=== PATIENT | female | born 1995 | race Caucasian/White ===

== ENCOUNTER 2016-10-20 08:57 | Emergency (ER) | payer OTHER ==
[2016-10-20] MEDS ORDERED: NORCO, ANEXSIA 5/325MG TABLET (HYDROcodone/ACETAMINOPHEN) As Ordered ONE (09:16)
--- NOTE | 2016-10-20 11:21 | REP ---
RENAL ULTRASOUND: HISTORY: Abdominal pain. The kidneys are normal no echogenicity. The right kidney measures 4.9 cm in transverse by 6.1 cm in AP by 11 cm in cephalocaudal dimensions. The left kidney measures 4.1 cm in transverse by 4.6 cm in AP by 11.5 cm in cephalocaudal dimensions. There is no hydronephrosis or mass. There are no filling defects in the urinary bladder. IMPRESSION: Normal renal ultrasound. Signed by Omar Benavides MD 10/20/2016 11:25 A
--- NOTE | 2016-10-20 11:31 | REP ---
NON-OB PELVIC ULTRASOUND: HISTORY: Left lower quadrant pain. 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 The right side measures 4.6 cm in transverse by 3.1 cm in AP by 8 cm in cephalocaudal dimensions. The left side measures 3.7 cm in transverse by 3 cm in AP by 8.4 cm in cephalocaudal dimensions. The right endometrium measures 10.4 mm. The left endometrium measures 9.4 mm. The right ovary is bilobed in appearance with the following measurements: 2.4 x 0.9 x 1.4 cm and 2.6 x 1.1 x 1.7 cm. The left ovary measures 5.8 x 2.2 x 3.2 cm. There is no fluid in the cul-de-sac. IMPRESSION: 1. 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 MR of the pelvis may be helpful for further evaluation. 2. There is no torsion. Signed by Omar Benavides MD 10/20/2016 11:33 A
--- NOTE | 2016-10-20 11:39 | EDDOCDS ---
Nurse's Notes [facility] Name: Lillian Monreal Age: 21 yrs Sex: Female : 1995 Arrival Date: 10/20/2016 Time: 08:57 Bed PR2 / Private MD: Julia Merchant E Diagnosis: Abdominal and pelvic pain-LLQ Presentation: 10/20 09:02 Presenting complaint: Patient states: left lower abd pain started 2 nights ago after mk4 sex. Risk factors: the patient reports no vaginal bleeding. Adult Sepsis Screening: The patient does not have new or worsening altered mentation. Patient's respiratory rate is less than 22. Systolic blood pressure is greater than 100. Patient has a qSOFA score of 0- Negative Sepsis Screen. Suicide/Homicide risk assessment- the patient denies having any suicidal and/or homicidal ideations and does not present with any other emotional, behavioral or mental health complaints. 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 Transition of care: patient was not received from another setting of care. 09:02 Acuity: VIRY Level 3 mk4 09:02 Method Of Arrival: Walkin/Carried/Asstd mk4 Triage Assessment: 09:04 General: Appears uncomfortable. Pain: Location: left lower quadrant Pain currently is 6 mk4 out of 10 on a pain scale. Quality of pain is described as Pain began 2-3 days ago Is intermittent. HIV screening NA for this visit Offered previously. 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 none - PMHx: Seasonal Allergies; - PSHx: foot surgery to left foot; - Family history: Not pertinent. - Social history: Smoking status: Patient states was never smoker of tobacco. No barriers to communication noted, The patient speaks fluent Italian, Speaks appropriately for age. - : The pt / caregiver states he / she is not on anticoagulants. Home medication list is obtained from the patient. - Exposure Risk Screening:: None identified. Screenin:27 Screening information is obtained from the patient. Fall risk: No risks identified. mk4 Assistance ADL's: requires no assistance with activities of daily living. Abuse/DV Screen: The patient / caregiver reports he/she is: not in a situation that causes fear, pain or injury. Nutritional screening: No deficits noted. Advance Directives: There is no active DNR order. home support is adequate. Assessment: 09:27 General: Appears in no apparent distress. Pain: Location: left lower quadrant Pain mk4 currently is 6 out of 10 on a pain scale. Respiratory: Airway is patent. GI: Abdomen is non- distended obese, Bowel sounds present X 4 quads. Abd is tender to palpation in left lower quadrant. 11:36 General: Appears in no apparent distress, comfortable, Behavior is appropriate for age, mlb1 cooperative. Pain: Location: left lower quadrant Pain currently is 4 out of 10 on a pain scale. Neurological: No deficits noted. Respiratory: No deficits noted. GI: Denies nausea. Vital Signs: 09:04 BP 126 / 79; Pulse 73; Resp 18; Pulse Ox 99% on R/A; Weight 81.65 kg; Height 5 ft. 7 mk4 in. (170.18 cm); Pain 6/10; 09:06 Temp 97.5(O); mk4 11:34 BP 126 / 69; Pulse 71; Resp 18; Temp 98.6(O); Pulse Ox 97% on R/A; Pain 5/10; dem1 09:04 Body Mass Index 28.19 (81.65 kg, 170.18 cm) 4 Vitals: 09:04 Log In Time: October 20, 2016 at 08:56. 4 ED Course: 08:58 Patient visited by Criss Johansen. mm15 08:58 Julia Merchant is Private Physician. mm15 08:58 Patient moved to Waiting mm15 09:03 Triage Initiated mk4 09:05 Patient moved to Triage 2 mk4 09:06 [facility] cc10 09:07 Magaly Zayas MD is Attending Physician. cc10 09:08 Patient visited by Mike Armendariz PA-C. cc10 09:08 Patient visited by Mike Armendariz PA-C. cc10 09:23 Patient moved to TR1 mk4 09:23 UA Sent. mk4 09:27 The patient / caregiver is instructed regarding the plan of care and ED course. mk4 09:27 No IV's were initiated during this patient's visit. No procedures done that require [facility] assistance. 09:29 Patient visited by Magui Garcia RN. mk4 09:55 Patient moved to Ultrasound sm5 10:38 Patient visited by Magui Garcia RN. mk4 11:01 Patient moved to TR1 eg2 11:03 [facility] Payment Agreement was scanned into [email or web address] and attached to record. mm15 11:12 Patient visited by Magui Garcia RN. mk4 11:21 Patient moved to PR / mk4 11:27 Omar Castaneda MD is Referral Physician. cc10 11:34 Patient visited by Holli Robin. dem1 Administered Medications: 09:22 Drug: HYDROcodone-acetaminophen 2 tabs [hydrocodone 5 mg-acetaminophen 325 mg tablet (2 mk4 tabs)] Route: PO; 11:38 Follow up: Response: Confirmed pt not driving.; Pain is decreased; see VS in NN mlb1 Point of Care Testing: Urine : 10:35 hCG Reading: Negative; mk4 Ranges: Intake: Order Results: Lab Order: UA; SPEC'M 10/20/16 09:23 Test: APPEARANCE, URINE; Value: HAZY; Range: CLEAR; Status: F Test: COLOR, URINE; Value: YELLOW; Range: YELLOW; Status: F Test: PH,URINE; Value: 6.0; Range: 5.0-9.0; Units: UNITS; Status: F Test: SPECIFIC GRAVITY URINE AUTO; Value: 1.018; Range: 1.002-1.035; Status: F Test: PROTEIN, URINE AUTO; Value: NEGATIVE; Range: NEGATIVE; Units: mg/dL; Status: F Test: GLUCOSE, URINE (UA) AUTO; Value: NEGATIVE; Range: NEGATIVE; Units: mg/dL; Status: F Test: KETONE, URINE AUTO; Value: NEGATIVE; Range: NEGATIVE; Units: mg/dL; Status: F Test: UROBILINOGEN, URINE AUTO; Value: 0.2; Range: 0.0-2.0; Units: mg/dL; Status: F Test: BILIRUBIN, URINE AUTO; Value: NEGATIVE; Range: NEGATIVE; Status: F Test: NITRITE, URINE AUTO; Value: NEGATIVE; Range: NEGATIVE; Status: F Test: LEUKOCYTE ESTERASE, URINE AUTO; Value: NEGATIVE; Range: NEGATIVE; Status: F Test: BLOOD, URINE BLOOD; Value: NEGATIVE; Range: NEGATIVE; Status: F Test: WBC, URINE AUTO; Value: 1; Range: 0-3; Units: /HPF; Status: F Test: RBC, URINE AUTO; Value: 1; Range: 0-3; Units: /HPF; Status: F Test: BACTERIA, URINE AUTO; Value: 1+; Range: NEGATIVE; Abnormal: Above high normal; Status: F Test: SQUAMOUS EPITHELIAL CELL UR AU; Value: 4; Range: 0-6; Units: /HPF; Status: F Test: MUCUS, URINE; Value: SMALL; Range: NEGATIVE; Status: F Test: HYALINE CAST, URINE AUTO; Value: 0; Range: 0-1; Units: /LPF; Status: F Outcome: 11:28 Discharge ordered by Provider. cc10 11:37 Discharge Assessment: Patient awake, alert and oriented x 3. No cognitive and/or mlb1 functional deficits noted. Patient verbalized understanding of disposition instructions. patient administered narcotics - yes. Pt provided with safe discharge. The following High Risk Discharge criteria are identified: None. Discharged to home ambulatory. Condition: good. Discharge instructions given to patient, Instructed on discharge instructions, follow up and referral plans. medication usage, no driving heavy equipment, Demonstrated understanding of instructions, medications, Pt was receptive of discharge instructions/ teaching. Prescriptions given X 1. Ultrasound Study completed. Property sent home with patient. 11:38 Patient left the ED. mlb1 Signatures: Gabi Bolivar sm5 Keyshawn Haro RN RN mlb1 Miya Barreto eg2 Holli Robin dem1 Criss Johansen mm15 Magui Garcia RN RN mk4 Mike Armendariz PA-C PAJuliaC cc10 MTDD
--- NOTE | 2016-10-20 11:39 | EDDOCDS ---
Physician Documentation [facility] Name: Lillian Monreal Age: 21 yrs Sex: Female : 1995 Arrival Date: 10/20/2016 Time: 08:57 Bed PR Private MD: Julia Merchant E Disposition: 10/20/16 11:28 Discharged to Home/Self Care. Impression: Abdominal and pelvic pain - LLQ. - Condition is Stable. - Discharge Instructions: Pelvic Pain, Female. - Prescriptions for Ultram 50 mg Oral Tablet - take 1 tablet by ORAL route every 6 hours As needed MDD: 4 tabs; 12 tablet. - Medication Reconciliation, Work Release Form - 1 day form. - Follow up: Omar Castaneda MD; When: Call to arrange an appointment; Reason: Wound/Symptom Recheck, Further diagnostic work-up, Recheck today's complaints, Continuance of care, To establish care. - Problem is an ongoing problem. - Symptoms have improved. Historical: - Allergies: no known allergies; - Home Meds: 1. none - PMHx: Seasonal Allergies; - PSHx: foot surgery to left foot; - Family history: Not pertinent. - Social history: Smoking status: Patient states was never smoker of tobacco. No barriers to communication noted, The patient speaks fluent Kyrgyz, Speaks appropriately for age. - : The pt / caregiver states he / she is not on anticoagulants. Home medication list is obtained from the patient. - Exposure Risk Screening:: None identified. 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 7 in. (170.18 cm); Pain 6/10; 09:06 Temp 97.5(O); mk4 11:34 BP 126 / 69; Pulse 71; Resp 18; Temp 98.6(O); Pulse Ox 97% on R/A; Pain 5/10; dem1 09:04 Body Mass Index 28.19 (81.65 kg, 170.18 cm) mk4 MDM: 09:13 UCG by Nursing ordered. cc10 09:14 HYDROcodone-acetaminophen 5 mg-325 mg 2 tabs PO once ordered. cc10 09:14 -US Pelvic Non-Ob Complete Ordered. EDMS 09:15 UA Ordered. EDMS 09:15 DUPLEX SCAN LIMITED (DOPPLER)+US Ordered. EDMS 09:58 Transvaginal NON- US Ordered. EDMS 10:26 Renal US Ordered. EDMS 10:32 UA Reviewed. cc10 11:03 Financial registration complete. mm15 11:03 [facility] Payment Agreement was scanned into [employer] and attached to record. mm15 Point of Care Testing: Urine : 10:35 hCG Reading: Negative; mk4 Ranges: Administered Medications: 09:22 Drug: HYDROcodone-acetaminophen 2 tabs [hydrocodone 5 mg-acetaminophen 325 mg tablet (2 mk4 tabs)] Route: PO; 11:38 Follow up: Response: Confirmed pt not driving.; Pain is decreased; see VS in NN mlb1 Signatures: Dispatcher [employer] EDMS Keyshawn Haro RN RN mlb1 Criss Johansen mm15 Magui Garcia RN RN mk4 Mike Armendariz PA-C PAAbdon cc10 The chart was reviewed and I authenticate all verbal orders and agree with the evaluation and treatment provided.Attachments: 11:03 [facility] Payment Agreement mm15 MTDD
--- NOTE | 2016-10-22 12:39 | EDDOCDS ---
Physician Documentation [facility] Name: Lillian Monreal Age: 21 yrs Sex: Female : 1995 Arrival Date: 10/20/2016 Time: 08:57 Bed PR Private MD: Julia Merchant E Disposition: 10/20/16 11:28 Discharged to Home/Self Care. Impression: Abdominal and pelvic pain - LLQ. - Condition is Stable. - Discharge Instructions: Pelvic Pain, Female. - Prescriptions for Ultram 50 mg Oral Tablet - take 1 tablet by ORAL route every 6 hours As needed MDD: 4 tabs; 12 tablet. - Medication Reconciliation, Work Release Form - 1 day form. - Follow up: Omar Castaneda MD; When: Call to arrange an appointment; Reason: Wound/Symptom Recheck, Further diagnostic work-up, Recheck today's complaints, Continuance of care, To establish care. - Problem is an ongoing problem. - Symptoms have improved. Historical: - Allergies: no known allergies; - Home Meds: 1. none - PMHx: Seasonal Allergies; - PSHx: foot surgery to left foot; - Family history: Not pertinent. - Social history: Smoking status: Patient states was never smoker of tobacco. No barriers to communication noted, The patient speaks fluent Mongolian, Speaks appropriately for age. - : The pt / caregiver states he / she is not on anticoagulants. Home medication list is obtained from the patient. - Exposure Risk Screening:: None identified. 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 7 in. (170.18 cm); Pain 6/10; 09:06 Temp 97.5(O); mk4 11:34 BP 126 / 69; Pulse 71; Resp 18; Temp 98.6(O); Pulse Ox 97% on R/A; Pain 5/10; dem1 09:04 Body Mass Index 28.19 (81.65 kg, 170.18 cm) mk4 MDM: 09:13 UCG by Nursing ordered. cc10 09:14 HYDROcodone-acetaminophen 5 mg-325 mg 2 tabs PO once ordered. cc10 09:14 -US Pelvic Non-Ob Complete Ordered. EDMS 09:15 UA Ordered. EDMS 09:15 DUPLEX SCAN LIMITED (DOPPLER)+US Ordered. EDMS 09:58 Transvaginal NON- US Ordered. EDMS 10:26 Renal US Ordered. EDMS 10:32 UA Reviewed. cc10 11:03 Financial registration complete. mm15 11:03 [facility] Payment Agreement was scanned into [employer] and attached to record. mm15 14:55 T-Sheet-- Draft Copy was scanned into [employer] and attached to record. gb Point of Care Testing: Urine : 10:35 hCG Reading: Negative; mk4 Ranges: Administered Medications: 09:22 Drug: HYDROcodone-acetaminophen 2 tabs [hydrocodone 5 mg-acetaminophen 325 mg tablet (2 mk4 tabs)] Route: PO; 11:38 Follow up: Response: Confirmed pt not driving.; Pain is decreased; see VS in NN mlb1 Signatures: Dispatcher [employer] EDMS Tonie Pereyra, Reg Reg gb Keyshawn Haro, RN RN mlb1 Criss Johansen mm15 Magui Garcia RN RN mk4 Mike Armendariz PA-C PAAbdon cc10 The chart was reviewed and I authenticate all verbal orders and agree with the evaluation and treatment provided.Attachments: 11:03 [facility] Payment Agreement 15 14:55 T-Sheet-- Draft Copy gb Chart Complete MTDD
--- NOTE | 2016-10-22 12:39 | EDDOCDS ---
Physician Documentation [facility] Name: Lillian Monreal Age: 21 yrs Sex: Female : 1995 Arrival Date: 10/20/2016 Time: 08:57 Bed PR Private MD: Julia Merchant E Disposition: 10/20/16 11:28 Discharged to Home/Self Care. Impression: Abdominal and pelvic pain - LLQ. - Condition is Stable. - Discharge Instructions: Pelvic Pain, Female. - Prescriptions for Ultram 50 mg Oral Tablet - take 1 tablet by ORAL route every 6 hours As needed MDD: 4 tabs; 12 tablet. - Medication Reconciliation, Work Release Form - 1 day form. - Follow up: Omar Castaneda MD; When: Call to arrange an appointment; Reason: Wound/Symptom Recheck, Further diagnostic work-up, Recheck today's complaints, Continuance of care, To establish care. - Problem is an ongoing problem. - Symptoms have improved. Historical: - Allergies: no known allergies; - Home Meds: 1. none - PMHx: Seasonal Allergies; - PSHx: foot surgery to left foot; - Family history: Not pertinent. - Social history: Smoking status: Patient states was never smoker of tobacco. No barriers to communication noted, The patient speaks fluent Occitan, Speaks appropriately for age. - : The pt / caregiver states he / she is not on anticoagulants. Home medication list is obtained from the patient. - Exposure Risk Screening:: None identified. 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 7 in. (170.18 cm); Pain 6/10; 09:06 Temp 97.5(O); mk4 11:34 BP 126 / 69; Pulse 71; Resp 18; Temp 98.6(O); Pulse Ox 97% on R/A; Pain 5/10; dem1 09:04 Body Mass Index 28.19 (81.65 kg, 170.18 cm) mk4 MDM: 09:13 UCG by Nursing ordered. cc10 09:14 HYDROcodone-acetaminophen 5 mg-325 mg 2 tabs PO once ordered. cc10 09:14 -US Pelvic Non-Ob Complete Ordered. EDMS 09:15 UA Ordered. EDMS 09:15 DUPLEX SCAN LIMITED (DOPPLER)+US Ordered. EDMS 09:58 Transvaginal NON- US Ordered. EDMS 10:26 Renal US Ordered. EDMS 10:32 UA Reviewed. cc10 11:03 Financial registration complete. mm15 11:03 [facility] Payment Agreement was scanned into [employer] and attached to record. mm15 14:55 T-Sheet-- Draft Copy was scanned into [employer] and attached to record. gb Point of Care Testing: Urine : 10:35 hCG Reading: Negative; mk4 Ranges: Administered Medications: 09:22 Drug: HYDROcodone-acetaminophen 2 tabs [hydrocodone 5 mg-acetaminophen 325 mg tablet (2 mk4 tabs)] Route: PO; 11:38 Follow up: Response: Confirmed pt not driving.; Pain is decreased; see VS in NN mlb1 Signatures: Dispatcher [employer] EDMS Tonie Pereyra, Reg Reg gb Keyshawn Haro, RN RN mlb1 Criss Johansen mm15 Magui Garcia RN RN mk4 Mike Armendariz PA-C PAAbdon cc10 The chart was reviewed and I authenticate all verbal orders and agree with the evaluation and treatment provided.Attachments: 11:03 [facility] Payment Agreement 15 14:55 T-Sheet-- Draft Copy gb Chart Complete MTDD
--- NOTE | 2016-10-22 12:39 | EDDOCDS ---
Nurse's Notes [facility] Name: Lillian Monreal Age: 21 yrs Sex: Female : 1995 Arrival Date: 10/20/2016 Time: 08:57 Bed PR2 / Private MD: Julia Merchant E Diagnosis: Abdominal and pelvic pain-LLQ Presentation: 10/20 09:02 Presenting complaint: Patient states: left lower abd pain started 2 nights ago after mk4 sex. Risk factors: the patient reports no vaginal bleeding. Adult Sepsis Screening: The patient does not have new or worsening altered mentation. Patient's respiratory rate is less than 22. Systolic blood pressure is greater than 100. Patient has a qSOFA score of 0- Negative Sepsis Screen. Suicide/Homicide risk assessment- the patient denies having any suicidal and/or homicidal ideations and does not present with any other emotional, behavioral or mental health complaints. Status: Patient is not a service writer or dependent. Transition of care: patient was not received from another setting of care. 09:02 Acuity: VIRY Level 3 mk4 09:02 Method Of Arrival: Walkin/Carried/Asstd mk4 Triage Assessment: 09:04 General: Appears uncomfortable. Pain: Location: left lower quadrant Pain currently is 6 mk4 out of 10 on a pain scale. Quality of pain is described as Pain began 2-3 days ago Is intermittent. HIV screening NA for this visit Offered previously. INSPECTOR POISING: 09:04 LMP 09/16/2016 mk4 Historical: - Allergies: no known allergies; - Home Meds: 1. none - PMHx: Seasonal Allergies; - PSHx: foot surgery to left foot; - Family history: Not pertinent. - Social history: Smoking status: Patient states was never smoker of tobacco. No barriers to communication noted, The patient speaks fluent Thai, Speaks appropriately for age. - : The pt / caregiver states he / she is not on anticoagulants. Home medication list is obtained from the patient. - Exposure Risk Screening:: None identified. Screenin:27 Screening information is obtained from the patient. Fall risk: No risks identified. mk4 Assistance ADL's: requires no assistance with activities of daily living. Abuse/DV Screen: The patient / caregiver reports he/she is: not in a situation that causes fear, pain or injury. Nutritional screening: No deficits noted. Advance Directives: There is no active DNR order. home support is adequate. Assessment: 09:27 General: Appears in no apparent distress. Pain: Location: left lower quadrant Pain mk4 currently is 6 out of 10 on a pain scale. Respiratory: Airway is patent. GI: Abdomen is non- distended obese, Bowel sounds present X 4 quads. Abd is tender to palpation in left lower quadrant. 11:36 General: Appears in no apparent distress, comfortable, Behavior is appropriate for age, mlb1 cooperative. Pain: Location: left lower quadrant Pain currently is 4 out of 10 on a pain scale. Neurological: No deficits noted. Respiratory: No deficits noted. GI: Denies nausea. Vital Signs: 09:04 BP 126 / 79; Pulse 73; Resp 18; Pulse Ox 99% on R/A; Weight 81.65 kg; Height 5 ft. 7 mk4 in. (170.18 cm); Pain 6/10; 09:06 Temp 97.5(O); mk4 11:34 BP 126 / 69; Pulse 71; Resp 18; Temp 98.6(O); Pulse Ox 97% on R/A; Pain 5/10; dem1 09:04 Body Mass Index 28.19 (81.65 kg, 170.18 cm) 4 Vitals: 09:04 Log In Time: October 20, 2016 at 08:56. 4 ED Course: 08:58 Patient visited by Criss Johansen. mm15 08:58 Julia Merchant is Private Physician. mm15 08:58 Patient moved to Waiting mm15 09:03 Triage Initiated mk4 09:05 Patient moved to Triage 2 mk4 09:06 [facility] cc10 09:07 Magaly Zayas MD is Attending Physician. cc10 09:08 Patient visited by Mike Armendariz PA-C. cc10 09:08 Patient visited by Mike Armendariz PA-C. cc10 09:23 Patient moved to TR1 mk4 09:23 UA Sent. mk4 09:27 The patient / caregiver is instructed regarding the plan of care and ED course. mk4 09:27 No IV's were initiated during this patient's visit. No procedures done that require mk4 assistance. 09:29 Patient visited by Magui Garcia RN. mk4 09:55 Patient moved to Ultrasound sm5 10:38 Patient visited by Magui Garcia RN. mk4 11:01 Patient moved to TR1 eg2 11:03 [facility] Payment Agreement was scanned into [email or web address] and attached to record. mm15 11:12 Patient visited by Magui Garcia RN. mk4 11:21 Patient moved to PR2 / mk4 11:27 Omar Castaneda MD is Referral Physician. cc10 11:34 Patient visited by Hloli Robin. dem1 11:42 Renal US Returned. EDMS 11:42 -US Pelvic Non-Ob Complete Returned. EDMS 14:55 T-Sheet-- Draft Copy was scanned into [email or web address] and attached to record. gb Administered Medications: 09:22 Drug: HYDROcodone-acetaminophen 2 tabs [hydrocodone 5 mg-acetaminophen 325 mg tablet (2 mk4 tabs)] Route: PO; 11:38 Follow up: Response: Confirmed pt not driving.; Pain is decreased; see VS in NN mlb1 Point of Care Testing: Urine : 10:35 hCG Reading: Negative; mk4 Ranges: Intake: Order Results: Lab Order: UA; SPEC'M 10/20/16 09:23 Test: APPEARANCE, URINE; Value: HAZY; Range: CLEAR; Status: F Test: COLOR, URINE; Value: YELLOW; Range: YELLOW; Status: F Test: PH,URINE; Value: 6.0; Range: 5.0-9.0; Units: UNITS; Status: F Test: SPECIFIC GRAVITY URINE AUTO; Value: 1.018; Range: 1.002-1.035; Status: F Test: PROTEIN, URINE AUTO; Value: NEGATIVE; Range: NEGATIVE; Units: mg/dL; Status: F Test: GLUCOSE, URINE (UA) AUTO; Value: NEGATIVE; Range: NEGATIVE; Units: mg/dL; Status: F Test: KETONE, URINE AUTO; Value: NEGATIVE; Range: NEGATIVE; Units: mg/dL; Status: F Test: UROBILINOGEN, URINE AUTO; Value: 0.2; Range: 0.0-2.0; Units: mg/dL; Status: F Test: BILIRUBIN, URINE AUTO; Value: NEGATIVE; Range: NEGATIVE; Status: F Test: NITRITE, URINE AUTO; Value: NEGATIVE; Range: NEGATIVE; Status: F Test: LEUKOCYTE ESTERASE, URINE AUTO; Value: NEGATIVE; Range: NEGATIVE; Status: F Test: BLOOD, URINE BLOOD; Value: NEGATIVE; Range: NEGATIVE; Status: F Test: WBC, URINE AUTO; Value: 1; Range: 0-3; Units: /HPF; Status: F Test: RBC, URINE AUTO; Value: 1; Range: 0-3; Units: /HPF; Status: F Test: BACTERIA, URINE AUTO; Value: 1+; Range: NEGATIVE; Abnormal: Above high normal; Status: F Test: SQUAMOUS EPITHELIAL CELL UR AU; Value: 4; Range: 0-6; Units: /HPF; Status: F Test: MUCUS, URINE; Value: SMALL; Range: NEGATIVE; Status: F Test: HYALINE CAST, URINE AUTO; Value: 0; Range: 0-1; Units: /LPF; Status: F Radiology Order: -US Pelvic Non-Ob Complete Test: -US Pelvic Non-Ob Complete REASON FOR EXAMINATION: Adnexal Pain r/o Torsion; NON-OB PELVIC ULTRASOUND:; ; HISTORY: Left lower quadrant pain.; ; 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 The right side measures 4.6; cm in transverse by 3.1 cm in AP by 8 cm in cephalocaudal dimensions. The left; side measures 3.7 cm in transverse by 3 cm in AP by 8.4 cm in cephalocaudal; dimensions. The right endometrium measures 10.4 mm. The left endometrium; measures 9.4 mm. The right ovary is bilobed in appearance with the following; measurements: 2.4 x 0.9 x 1.4 cm and 2.6 x 1.1 x 1.7 cm. The left ovary measures; 5.8 x 2.2 x 3.2 cm. There is no fluid in the cul-de-sac.; ; IMPRESSION:; ; 1. 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 MR of the pelvis may be; helpful for further evaluation.; ; 2. There is no torsion.; ; ; Signed by; Omar Benavides MD 10/20/2016 11:33 A; Radiology Order: Renal US Test: Renal US REASON FOR EXAMINATION: Abdomen Pain; RENAL ULTRASOUND:; ; HISTORY: Abdominal pain.; ; The kidneys are normal no echogenicity. The right kidney measures 4.9 cm in; transverse by 6.1 cm in AP by 11 cm in cephalocaudal dimensions. The left kidney; measures 4.1 cm in transverse by 4.6 cm in AP by 11.5 cm in cephalocaudal; dimensions. There is no hydronephrosis or mass. There are no filling defects in; the urinary bladder.; ; IMPRESSION:; ; Normal renal ultrasound.; ; ; Signed by; Omar Benavides MD 10/20/2016 11:25 A; Outcome: 11:28 Discharge ordered by Provider. cc10 11:37 Discharge Assessment: Patient awake, alert and oriented x 3. No cognitive and/or mlb1 functional deficits noted. Patient verbalized understanding of disposition instructions. patient administered narcotics - yes. Pt provided with safe discharge. The following High Risk Discharge criteria are identified: None. Discharged to home ambulatory. Condition: good. Discharge instructions given to patient, Instructed on discharge instructions, follow up and referral plans. medication usage, no driving heavy equipment, Demonstrated understanding of instructions, medications, Pt was receptive of discharge instructions/ teaching. Prescriptions given X 1. Ultrasound Study completed. Property sent home with patient. 11:38 Patient left the ED. mlb1 Signatures: Dispatcher [employer] EDMS Tonie Pereyra, Reg Reg Gabi Gomez sm5 Keyshawn Haro, RN RN mlb1 Miya Barreto eg2 Holli Robin1 Criss Johansen mm15 Magui Garcia RN RN mk4 Mike Armendariz, PAJuliaC PAJuliaC cc10 Chart Complete MTDD
== END 2016-10-20 11:38 | disposition home or self-care (01) ==
LOC: M ED 08:57
DX: R10.2 Pelvic and perineal pain (principal); J30.9 Allergic rhinitis, unspecified

== ENCOUNTER 2016-10-23 01:11 | Emergency (ER) | payer OTHER ==
[2016-10-23] MEDS ORDERED: BACTRIM 160MG/800MG DS TAB As Ordered ONE (02:16)
--- NOTE | 2016-10-23 02:33 | EDDOCDS ---
Nurse's Notes [facility] Name: Lillian Monreal Age: 21 yrs Sex: Female : 1995 Arrival Date: 10/23/2016 Time: 01:11 Bed I5 / M5 Private MD: Julia Merchant E Diagnosis: Cellulitis of umbilicus-SECONDARY TO NAVAL PIERCING Presentation: 10/23 01:32 Presenting complaint: Patient states: Had belly pierced a couple of weeks ago. Presents ld5 to ER with redness and scabbing around piercing. Adult Sepsis Screening: The patient does not have new or worsening altered mentation. Patient's respiratory rate is less than 22. Systolic blood pressure is greater than 100. Patient has a qSOFA score of 0- Negative Sepsis Screen. Suicide/Homicide risk assessment- the patient denies having any suicidal and/or homicidal ideations and does not present with any other emotional, behavioral or mental health complaints. 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 Transition of care: patient was not received from another setting of care. 01:32 Acuity: VIRY Level 4 ld5 01:32 Method Of Arrival: Walkin/Carried/Asstd ld5 Triage Assessment: 01:34 General: Appears in no apparent distress. Pain: Location: umbilical area Pain currently ld5 is 6 out of 10 on a pain scale. At worst was 10 out of 10 on a pain scale. Aggravated by repositioning. HIV screening NA for this visit Offered previously. Neurological: Level of Consciousness is awake, alert. Derm: redness around umbilical piercing. 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 none - PMHx: none; - PSHx: left foot surgery; - Social history: Smoking status: Patient states former smoker of tobacco. No barriers to communication noted, The patient speaks fluent Wolof, Speaks appropriately for age. - Family history: Not pertinent. - : The pt / caregiver states he / she is not on anticoagulants. Home medication list is obtained from the patient. - Exposure Risk Screening:: None identified. Screenin:31 Screening information is obtained from the patient. Fall risk: No risks identified. cz Assistance ADL's: requires no assistance with activities of daily living. Abuse/DV Screen: The patient / caregiver reports he/she is: not in a situation that causes fear, pain or injury. Nutritional screening: No deficits noted. Advance Directives: Currently, there is no health care proxy. There is no active DNR order. There is no living will. 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 Advance directive information has not previously been placed in an [facility] medical record. home support is adequate. Assessment: 02:31 Reassessment: Patient appears in no apparent distress at this time. Patient states cz symptoms have improved. Vital Signs: 01:29 BP 134 / 76; Pulse 92; Resp 16; Temp 98.3; Pulse Ox 99% on R/A; Weight 81.65 kg (R); ld5 Height 5 ft. 7 in. (170.18 cm) (R); Pain 6/10; 01:29 Body Mass Index 28.19 (81.65 kg, 170.18 cm) ld5 Vitals: 01:29 Log In Time: October 23, 2016 at 01:11. ld5 ED Course: 01:12 Patient visited by Kamran Salvador Reg. pm4 01:12 Patient moved to Waiting pm4 01:13 Julia Merchant is Private Physician. pm4 01:33 Triage Initiated ld5 01:35 Patient visited by Julia Camara RN. ld5 01:35 Patient moved to I5 / ld5 01:58 Ryne Roy RPA-C [facility]. ck7 01:58 Vamshi Perea DO is Attending Physician. ck7 01:58 Patient visited by Ryne Roy RPA-C. ck7 02:22 Julia Merchant is Referral Physician. ck7 02:31 The patient / caregiver is instructed regarding the plan of care and ED course. cz 02:31 No IV's were initiated during this patient's visit. No procedures done that require cz assistance. No procedures done that require assistance. Administered Medications: 02:18 Drug: Trimethoprim-Sulfamethoxazole 1 tabs [sulfamethoxazole 800 mg-trimethoprim 160 mg cz tablet (1 tabs)] Route: PO; Order Results: There are currently no results for this order. Outcome: 02:22 Discharge ordered by Provider. ck7 02:31 Discharge Assessment: Patient awake, alert and oriented x 3. No cognitive and/or cz functional deficits noted. Patient verbalized understanding of disposition instructions. patient administered narcotics - no. The following High Risk Discharge criteria are identified: None. Discharged to home ambulatory, with friend. Condition: stable. Discharge instructions given to patient, Instructed on discharge instructions, follow up and referral plans. medication usage, Demonstrated understanding of instructions, medications, Pt was receptive of discharge instructions/ teaching. No special radiology studies were completed. Property :Personal belongings accompany Pt. 02:32 Patient left the ED. cz Signatures: Dar Novak, PRINCE RN Julia Ohara,PRINCE RN Ryne Whitt, RPA-C RPA-Cck7 Kamran Salvador, Reg Reg pm4 MTDD
--- NOTE | 2016-10-23 02:34 | EDDOCDS ---
Physician Documentation [facility] Name: Lillian Monreal Age: 21 yrs Sex: Female : 1995 Arrival Date: 10/23/2016 Time: 01:11 Bed I5 / M5 Private MD: Julia Merchant E Disposition: 10/23/16 02:22 Discharged to Home/Self Care. Impression: Cellulitis of umbilicus - SECONDARY TO NAVAL PIERCING. - Condition is Stable. - Discharge Instructions: Cellulitis. - Prescriptions for Bactrim DS 800- 160 mg Oral Tablet - take 1 tablet by ORAL route every 12 hours for 10 days; 20 tablet. - Medication Reconciliation, Local Pharmacy Hours form. - Follow up: Julia Merchant; When: 1 - 2 days; Reason: Wound/Symptom Recheck, Recheck today's complaints, Continuance of care. - Problem is new. - Symptoms have improved. - Notes: USE MEDICATION INSTRUCTED, FOLLOW UP WITH YOUR DOCTOR, RETURN TO THE ER IF THE SYMPTOMS WORSEN OR IF YOU DOCTOR IS UNABLE TO GET YOU IN FOR A WOUND RECHECK Historical: - Allergies: no known allergies; - Home Meds: 1. none - PMHx: none; - PSHx: left foot surgery; - Social history: Smoking status: Patient states former smoker of tobacco. No barriers to communication noted, The patient speaks fluent Vietnamese, Speaks appropriately for age. - Family history: Not pertinent. - : The pt / caregiver states he / she is not on anticoagulants. Home medication list is obtained from the patient. - Exposure Risk Screening:: None identified. 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 7 in. (170.18 cm) (R); Pain 6/10; 01:29 Body Mass Index 28.19 (81.65 kg, 170.18 cm) ld5 MDM: 01:59 Financial registration complete. hs2 02:14 Trimethoprim-Sulfamethoxazole 160 mg-800 mg (DS) 1 tabs PO once ordered. ck7 02:15 Wound Culture - All Other Sources Ordered. EDMS Administered Medications: 02:18 Drug: Trimethoprim-Sulfamethoxazole 1 tabs [sulfamethoxazole 800 mg-trimethoprim 160 mg cz tablet (1 tabs)] Route: PO; Signatures: Dispatcher [employer] EDMS Dar Novak, RN RN cz Julia Camara RN RN ld5 Ryne Roy, RPA-C RPA-Cck7 Uma Barrientos, Reg Reg hs2 MTDD
[2016-10-23] MEDS ORDERED: NEOSPORIN OINT 0.9 GM PKT (FLOOR STOCK) As Ordered ONE (05:13)
--- NOTE | 2016-10-25 03:34 | EDDOCDS ---
Physician Documentation [facility] Name: Lillian Monreal Age: 21 yrs Sex: Female : 1995 Arrival Date: 10/23/2016 Time: 01:11 Bed I5 / M5 Private MD: Julia Merchant E Disposition: 10/23/16 02:22 Discharged to Home/Self Care. Impression: Cellulitis of umbilicus - SECONDARY TO NAVAL PIERCING. - Condition is Stable. - Discharge Instructions: Cellulitis. - Prescriptions for Bactrim DS 800- 160 mg Oral Tablet - take 1 tablet by ORAL route every 12 hours for 10 days; 20 tablet. - Medication Reconciliation, Local Pharmacy Hours form. - Follow up: Julia Merchant; When: 1 - 2 days; Reason: Wound/Symptom Recheck, Recheck today's complaints, Continuance of care. - Problem is new. - Symptoms have improved. - Notes: USE MEDICATION INSTRUCTED, FOLLOW UP WITH YOUR DOCTOR, RETURN TO THE ER IF THE SYMPTOMS WORSEN OR IF YOU DOCTOR IS UNABLE TO GET YOU IN FOR A WOUND RECHECK Historical: - Allergies: no known allergies; - Home Meds: 1. none - PMHx: none; - PSHx: left foot surgery; - Social history: Smoking status: Patient states former smoker of tobacco. No barriers to communication noted, The patient speaks fluent Polish, Speaks appropriately for age. - Family history: Not pertinent. - : The pt / caregiver states he / she is not on anticoagulants. Home medication list is obtained from the patient. - Exposure Risk Screening:: None identified. 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 7 in. (170.18 cm) (R); Pain 6/10; 02:34 BP 132 / 76; Pulse 85; Resp 16; Temp 97.5(T); Pulse Ox 96% on R/A; cz 01:29 Body Mass Index 28.19 (81.65 kg, 170.18 cm) ld5 MDM: 01:59 Financial registration complete. hs2 02:14 Trimethoprim-Sulfamethoxazole 160 mg-800 mg (DS) 1 tabs PO once ordered. ck7 02:15 Wound Culture - All Other Sources Ordered. EDMS 03:05 [facility] Payment Agreement was scanned into [employer] and attached to record. hs2 13:52 T-Sheet-- Draft Copy was scanned into [employer] and attached to record. gb Administered Medications: 02:18 Drug: Trimethoprim-Sulfamethoxazole 1 tabs [sulfamethoxazole 800 mg-trimethoprim 160 mg cz tablet (1 tabs)] Route: PO; Signatures: Dispatcher [employer] EDMS Dar Novak, RN RN cz Tonie Pereyra, Reg Reg gb Julia Camara,RN RN ld5 Ryne Roy, BOSSMAN-C RPA-Cck7 Uma Barrientos, Reg Reg hs2 The chart was reviewed and I authenticate all verbal orders and agree with the evaluation and treatment provided.Attachments: 03:05 [facility] Payment Agreement hs2 13:52 T-Sheet-- Draft Copy gb Chart Complete MTDD
--- NOTE | 2016-10-25 03:34 | EDDOCDS ---
Physician Documentation [facility] Name: Lillian Monreal Age: 21 yrs Sex: Female : 1995 Arrival Date: 10/23/2016 Time: 01:11 Bed I5 / M5 Private MD: Julia Merchant E Disposition: 10/23/16 02:22 Discharged to Home/Self Care. Impression: Cellulitis of umbilicus - SECONDARY TO NAVAL PIERCING. - Condition is Stable. - Discharge Instructions: Cellulitis. - Prescriptions for Bactrim DS 800- 160 mg Oral Tablet - take 1 tablet by ORAL route every 12 hours for 10 days; 20 tablet. - Medication Reconciliation, Local Pharmacy Hours form. - Follow up: Julia Merchant; When: 1 - 2 days; Reason: Wound/Symptom Recheck, Recheck today's complaints, Continuance of care. - Problem is new. - Symptoms have improved. - Notes: USE MEDICATION INSTRUCTED, FOLLOW UP WITH YOUR DOCTOR, RETURN TO THE ER IF THE SYMPTOMS WORSEN OR IF YOU DOCTOR IS UNABLE TO GET YOU IN FOR A WOUND RECHECK Historical: - Allergies: no known allergies; - Home Meds: 1. none - PMHx: none; - PSHx: left foot surgery; - Social history: Smoking status: Patient states former smoker of tobacco. No barriers to communication noted, The patient speaks fluent Beninese, Speaks appropriately for age. - Family history: Not pertinent. - : The pt / caregiver states he / she is not on anticoagulants. Home medication list is obtained from the patient. - Exposure Risk Screening:: None identified. 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 7 in. (170.18 cm) (R); Pain 6/10; 02:34 BP 132 / 76; Pulse 85; Resp 16; Temp 97.5(T); Pulse Ox 96% on R/A; cz 01:29 Body Mass Index 28.19 (81.65 kg, 170.18 cm) ld5 MDM: 01:59 Financial registration complete. hs2 02:14 Trimethoprim-Sulfamethoxazole 160 mg-800 mg (DS) 1 tabs PO once ordered. ck7 02:15 Wound Culture - All Other Sources Ordered. EDMS 03:05 [facility] Payment Agreement was scanned into [employer] and attached to record. hs2 13:52 T-Sheet-- Draft Copy was scanned into [employer] and attached to record. gb Administered Medications: 02:18 Drug: Trimethoprim-Sulfamethoxazole 1 tabs [sulfamethoxazole 800 mg-trimethoprim 160 mg cz tablet (1 tabs)] Route: PO; Signatures: Dispatcher [employer] EDMS Dar Novak, RN RN cz Tonie Pereyra, Reg Reg gb Julia Camara,RN RN ld5 Ryne Roy, BOSSMAN-C RPA-Cck7 Uma Barrientos, Reg Reg hs2 The chart was reviewed and I authenticate all verbal orders and agree with the evaluation and treatment provided.Attachments: 03:05 [facility] Payment Agreement hs2 13:52 T-Sheet-- Draft Copy gb Chart Complete MTDD
--- NOTE | 2016-10-25 03:34 | EDDOCDS ---
Nurse's Notes [facility] Name: Lillian Monreal Age: 21 yrs Sex: Female : 1995 Arrival Date: 10/23/2016 Time: 01:11 Bed I5 / M5 Private MD: Julia Merchant E Diagnosis: Cellulitis of umbilicus-SECONDARY TO NAVAL PIERCING Presentation: 10/23 01:32 Presenting complaint: Patient states: Had belly pierced a couple of weeks ago. Presents ld5 to ER with redness and scabbing around piercing. Adult Sepsis Screening: The patient does not have new or worsening altered mentation. Patient's respiratory rate is less than 22. Systolic blood pressure is greater than 100. Patient has a qSOFA score of 0- Negative Sepsis Screen. Suicide/Homicide risk assessment- the patient denies having any suicidal and/or homicidal ideations and does not present with any other emotional, behavioral or mental health complaints. 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 Transition of care: patient was not received from another setting of care. 01:32 Acuity: VIRY Level 4 ld5 01:32 Method Of Arrival: Walkin/Carried/Asstd ld5 Triage Assessment: 01:34 General: Appears in no apparent distress. Pain: Location: umbilical area Pain currently ld5 is 6 out of 10 on a pain scale. At worst was 10 out of 10 on a pain scale. Aggravated by repositioning. HIV screening NA for this visit Offered previously. Neurological: Level of Consciousness is awake, alert. Derm: redness around umbilical piercing. 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 none - PMHx: none; - PSHx: left foot surgery; - Social history: Smoking status: Patient states former smoker of tobacco. No barriers to communication noted, The patient speaks fluent Puerto Rican, Speaks appropriately for age. - Family history: Not pertinent. - : The pt / caregiver states he / she is not on anticoagulants. Home medication list is obtained from the patient. - Exposure Risk Screening:: None identified. Screenin:31 Screening information is obtained from the patient. Fall risk: No risks identified. cz Assistance ADL's: requires no assistance with activities of daily living. Abuse/DV Screen: The patient / caregiver reports he/she is: not in a situation that causes fear, pain or injury. Nutritional screening: No deficits noted. Advance Directives: Currently, there is no health care proxy. There is no active DNR order. There is no living will. There is no Power of Ssrs Developer. Advance directive information has not previously been placed in an [facility] medical record. home support is adequate. Assessment: 02:31 Reassessment: Patient appears in no apparent distress at this time. Patient states cz symptoms have improved. Vital Signs: 01:29 BP 134 / 76; Pulse 92; Resp 16; Temp 98.3; Pulse Ox 99% on R/A; Weight 81.65 kg (R); ld5 Height 5 ft. 7 in. (170.18 cm) (R); Pain 6/10; 02:34 BP 132 / 76; Pulse 85; Resp 16; Temp 97.5(T); Pulse Ox 96% on R/A; cz 01:29 Body Mass Index 28.19 (81.65 kg, 170.18 cm) ld5 Vitals: 01:29 Log In Time: October 23, 2016 at 01:11. ld5 ED Course: 01:12 Patient visited by Kamran Salvador Reg. pm4 01:12 Patient moved to Waiting pm4 01:13 Julia Merchant is Private Physician. pm4 01:33 Triage Initiated ld5 01:35 Patient visited by Julia Camara RN. ld5 01:35 Patient moved to I5 / ld5 01:58 Ryne Roy [facility]C [facility] ck7 01:58 Vamshi Perea DO is Attending Physician. ck7 01:58 Patient visited by Ryne Roy RPA-C. ck7 02:22 Julia Merchant is Referral Physician. ck7 02:31 The patient / caregiver is instructed regarding the plan of care and ED course. cz 02:31 No IV's were initiated during this patient's visit. No procedures done that require cz assistance. No procedures done that require assistance. 03:05 [facility] Payment Agreement was scanned into [employer] and attached to record. hs2 13:52 T-Sheet-- Draft Copy was scanned into [employer] and attached to record. gb Administered Medications: 02:18 Drug: Trimethoprim-Sulfamethoxazole 1 tabs [sulfamethoxazole 800 mg-trimethoprim 160 mg cz tablet (1 tabs)] Route: PO; Order Results: There are currently no results for this order. Outcome: 02:22 Discharge ordered by Provider. ck7 02:31 Discharge Assessment: Patient awake, alert and oriented x 3. No cognitive and/or cz functional deficits noted. Patient verbalized understanding of disposition instructions. patient administered narcotics - no. The following High Risk Discharge criteria are identified: None. Discharged to home ambulatory, with friend. Condition: stable. Discharge instructions given to patient, Instructed on discharge instructions, follow up and referral plans. medication usage, Demonstrated understanding of instructions, medications, Pt was receptive of discharge instructions/ teaching. No special radiology studies were completed. Property :Personal belongings accompany Pt. 02:32 Patient left the ED. cz Signatures: Dar Novak, RN RN cz Tonie Pereyra, Reg Reg gb Julia CamaraRN RN ld5 Ryne Roy, RPA-C RPA-Cck7 Uma Barrientos, Reg Reg hs2 Kamran Salvador, Reg Reg pm4 Chart Complete MTDD
--- NOTE | 2016-10-30 15:31 | EDDOCDS ---
Physician Documentation [facility] Name: Lillian Monreal Age: 21 yrs Sex: Female : 1995 Arrival Date: 10/23/2016 Time: 01:11 Bed I5 / M5 Private MD: Julia Merchant E Disposition: 10/23/16 02:22 Discharged to Home/Self Care. Impression: Cellulitis of umbilicus - SECONDARY TO NAVAL PIERCING. - Condition is Stable. - Discharge Instructions: Cellulitis. - Prescriptions for Bactrim DS 800- 160 mg Oral Tablet - take 1 tablet by ORAL route every 12 hours for 10 days; 20 tablet. - Medication Reconciliation, Local Pharmacy Hours form. - Follow up: Julia Merchant; When: 1 - 2 days; Reason: Wound/Symptom Recheck, Recheck today's complaints, Continuance of care. - Problem is new. - Symptoms have improved. - Notes: USE MEDICATION INSTRUCTED, FOLLOW UP WITH YOUR DOCTOR, RETURN TO THE ER IF THE SYMPTOMS WORSEN OR IF YOU DOCTOR IS UNABLE TO GET YOU IN FOR A WOUND RECHECK Historical: - Allergies: no known allergies; - Home Meds: 1. none - PMHx: none; - PSHx: left foot surgery; - Social history: Smoking status: Patient states former smoker of tobacco. No barriers to communication noted, The patient speaks fluent Canadian, Speaks appropriately for age. - Family history: Not pertinent. - : The pt / caregiver states he / she is not on anticoagulants. Home medication list is obtained from the patient. - Exposure Risk Screening:: None identified. 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 7 in. (170.18 cm) (R); Pain 6/10; 02:34 BP 132 / 76; Pulse 85; Resp 16; Temp 97.5(T); Pulse Ox 96% on R/A; cz 01:29 Body Mass Index 28.19 (81.65 kg, 170.18 cm) ld5 MDM: 01:59 Financial registration complete. hs2 02:14 Trimethoprim-Sulfamethoxazole 160 mg-800 mg (DS) 1 tabs PO once ordered. ck7 02:15 Wound Culture - All Other Sources Ordered. EDMS 03:05 [facility] Payment Agreement was scanned into [employer] and attached to record. hs2 13:52 T-Sheet-- Draft Copy was scanned into [employer] and attached to record. gb Administered Medications: 02:18 Drug: Trimethoprim-Sulfamethoxazole 1 tabs [sulfamethoxazole 800 mg-trimethoprim 160 mg cz tablet (1 tabs)] Route: PO; Signatures: Dispatcher [employer] EDMS Dar Novak, RN RN cz Tonie Pereyra, Reg Reg gb Julia Camara,RN RN ld5 Ryne Roy, BOSSMAN-C RPA-Cck7 Uma Barrientos, Reg Reg hs2 The chart was reviewed and I authenticate all verbal orders and agree with the evaluation and treatment provided.Attachments: 03:05 [facility] Payment Agreement hs2 13:52 T-Sheet-- Draft Copy gb Chart Complete MTDD
--- NOTE | 2016-10-30 15:31 | EDDOCDS ---
Physician Documentation [facility] Name: Lillian Monreal Age: 21 yrs Sex: Female : 1995 Arrival Date: 10/23/2016 Time: 01:11 Bed I5 / M5 Private MD: Julia Merchant E Disposition: 10/23/16 02:22 Discharged to Home/Self Care. Impression: Cellulitis of umbilicus - SECONDARY TO NAVAL PIERCING. - Condition is Stable. - Discharge Instructions: Cellulitis. - Prescriptions for Bactrim DS 800- 160 mg Oral Tablet - take 1 tablet by ORAL route every 12 hours for 10 days; 20 tablet. - Medication Reconciliation, Local Pharmacy Hours form. - Follow up: Julia Merchant; When: 1 - 2 days; Reason: Wound/Symptom Recheck, Recheck today's complaints, Continuance of care. - Problem is new. - Symptoms have improved. - Notes: USE MEDICATION INSTRUCTED, FOLLOW UP WITH YOUR DOCTOR, RETURN TO THE ER IF THE SYMPTOMS WORSEN OR IF YOU DOCTOR IS UNABLE TO GET YOU IN FOR A WOUND RECHECK Historical: - Allergies: no known allergies; - Home Meds: 1. none - PMHx: none; - PSHx: left foot surgery; - Social history: Smoking status: Patient states former smoker of tobacco. No barriers to communication noted, The patient speaks fluent Slovenian, Speaks appropriately for age. - Family history: Not pertinent. - : The pt / caregiver states he / she is not on anticoagulants. Home medication list is obtained from the patient. - Exposure Risk Screening:: None identified. 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 7 in. (170.18 cm) (R); Pain 6/10; 02:34 BP 132 / 76; Pulse 85; Resp 16; Temp 97.5(T); Pulse Ox 96% on R/A; cz 01:29 Body Mass Index 28.19 (81.65 kg, 170.18 cm) ld5 MDM: 01:59 Financial registration complete. hs2 02:14 Trimethoprim-Sulfamethoxazole 160 mg-800 mg (DS) 1 tabs PO once ordered. ck7 02:15 Wound Culture - All Other Sources Ordered. EDMS 03:05 [facility] Payment Agreement was scanned into [employer] and attached to record. hs2 13:52 T-Sheet-- Draft Copy was scanned into [employer] and attached to record. gb Administered Medications: 02:18 Drug: Trimethoprim-Sulfamethoxazole 1 tabs [sulfamethoxazole 800 mg-trimethoprim 160 mg cz tablet (1 tabs)] Route: PO; Signatures: Dispatcher [employer] EDMS Dar Novak, RN RN cz Tonie Pereyra, Reg Reg gb Julia Camara,RN RN ld5 Ryne Roy, BOSSMAN-C RPA-Cck7 Uma Barrientos, Reg Reg hs2 The chart was reviewed and I authenticate all verbal orders and agree with the evaluation and treatment provided.Attachments: 03:05 [facility] Payment Agreement hs2 13:52 T-Sheet-- Draft Copy gb Chart Complete MTDD
--- NOTE | 2016-10-30 15:31 | EDDOCDS ---
Nurse's Notes [facility] Name: Lillian Monreal Age: 21 yrs Sex: Female : 1995 Arrival Date: 10/23/2016 Time: 01:11 Bed I5 / M5 Private MD: Julia Merchant E Diagnosis: Cellulitis of umbilicus-SECONDARY TO NAVAL PIERCING Presentation: 10/23 01:32 Presenting complaint: Patient states: Had belly pierced a couple of weeks ago. Presents ld5 to ER with redness and scabbing around piercing. Adult Sepsis Screening: The patient does not have new or worsening altered mentation. Patient's respiratory rate is less than 22. Systolic blood pressure is greater than 100. Patient has a qSOFA score of 0- Negative Sepsis Screen. Suicide/Homicide risk assessment- the patient denies having any suicidal and/or homicidal ideations and does not present with any other emotional, behavioral or mental health complaints. 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 Transition of care: patient was not received from another setting of care. 01:32 Acuity: VIRY Level 4 ld5 01:32 Method Of Arrival: Walkin/Carried/Asstd ld5 Triage Assessment: 01:34 General: Appears in no apparent distress. Pain: Location: umbilical area Pain currently ld5 is 6 out of 10 on a pain scale. At worst was 10 out of 10 on a pain scale. Aggravated by repositioning. HIV screening NA for this visit Offered previously. Neurological: Level of Consciousness is awake, alert. Derm: redness around umbilical piercing. 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 none - PMHx: none; - PSHx: left foot surgery; - Social history: Smoking status: Patient states former smoker of tobacco. No barriers to communication noted, The patient speaks fluent Cambodian, Speaks appropriately for age. - Family history: Not pertinent. - : The pt / caregiver states he / she is not on anticoagulants. Home medication list is obtained from the patient. - Exposure Risk Screening:: None identified. Screenin:31 Screening information is obtained from the patient. Fall risk: No risks identified. cz Assistance ADL's: requires no assistance with activities of daily living. Abuse/DV Screen: The patient / caregiver reports he/she is: not in a situation that causes fear, pain or injury. Nutritional screening: No deficits noted. Advance Directives: Currently, there is no health care proxy. There is no active DNR order. There is no living will. There is no Power of Guard Range. Advance directive information has not previously been placed in an [facility] medical record. home support is adequate. Assessment: 02:31 Reassessment: Patient appears in no apparent distress at this time. Patient states cz symptoms have improved. Vital Signs: 01:29 BP 134 / 76; Pulse 92; Resp 16; Temp 98.3; Pulse Ox 99% on R/A; Weight 81.65 kg (R); ld5 Height 5 ft. 7 in. (170.18 cm) (R); Pain 6/10; 02:34 BP 132 / 76; Pulse 85; Resp 16; Temp 97.5(T); Pulse Ox 96% on R/A; cz 01:29 Body Mass Index 28.19 (81.65 kg, 170.18 cm) ld5 Vitals: 01:29 Log In Time: October 23, 2016 at 01:11. ld5 ED Course: 01:12 Patient visited by Kamran Salvador Reg. pm4 01:12 Patient moved to Waiting pm4 01:13 Julia Merchant is Private Physician. pm4 01:33 Triage Initiated ld5 01:35 Patient visited by Julia Camara RN. ld5 01:35 Patient moved to I5 / ld5 01:58 [facility] ck7 01:58 Vamshi Perea DO is Attending Physician. ck7 01:58 Patient visited by Ryne Roy RPA-C. ck7 02:22 Julia Merchant is Referral Physician. ck7 02:31 The patient / caregiver is instructed regarding the plan of care and ED course. cz 02:31 No IV's were initiated during this patient's visit. No procedures done that require cz assistance. No procedures done that require assistance. 03:05 [facility] Payment Agreement was scanned into [employer] and attached to record. hs2 13:52 T-Sheet-- Draft Copy was scanned into [employer] and attached to record. gb Administered Medications: 02:18 Drug: Trimethoprim-Sulfamethoxazole 1 tabs [sulfamethoxazole 800 mg-trimethoprim 160 mg cz tablet (1 tabs)] Route: PO; Order Results: Lab Order: Wound Culture - All Other Sources; SPEC'M 10/23/16 02:28 Test: WOUND CULTURE; Value: <EXTERNAL COMMENT eCWMed> FULL REPORT IN LAB NOTES (eCW and Medent).; Status: F Test: WOUND CULTURE; Value: ORGANISM 1: MICROCOCCUS LUTEUS; Status: F Test: WOUND CULTURE; Value: MICROCOCCUS LUTEUS; Status: F Test: WOUND CULTURE; Value: QUANTITY OF GROWTH FEW; Status: F Test: WOUND CULTURE; Value: Micrococcus line 1 Micrococci are widespread in nature and; Status: F Test: WOUND CULTURE; Value: Micrococcus line 2 commonly found on the skin. Micrococci appear to be; Status: F Test: WOUND CULTURE; Value: Micrococcus line 3 susceptible to most antibiotics. Successful treatment; Status: F Test: WOUND CULTURE; Value: Micrococcus line 4 has occurred with the use of vancomycin, penicillin,; Status: F Test: WOUND CULTURE; Value: Micrococcus line 5 gentamicin, clindamycin or a combination of these; Status: F Test: WOUND CULTURE; Value: Micrococcus line 6 antibiotics.; Status: F Outcome: 02:22 Discharge ordered by Provider. ck7 02:31 Discharge Assessment: Patient awake, alert and oriented x 3. No cognitive and/or cz functional deficits noted. Patient verbalized understanding of disposition instructions. patient administered narcotics - no. The following High Risk Discharge criteria are identified: None. Discharged to home ambulatory, with friend. Condition: stable. Discharge instructions given to patient, Instructed on discharge instructions, follow up and referral plans. medication usage, Demonstrated understanding of instructions, medications, Pt was receptive of discharge instructions/ teaching. No special radiology studies were completed. Property :Personal belongings accompany Pt. 02:32 Patient left the ED. cz Signatures: Dar Novak RN RN cz Barnhardt, Gloria, Reg Reg gb Julia Camara RN RN ld5 Ryne Roy, RPA-C RPA-Cck7 Uma Barrientos, Reg Reg hs2 Kamran Salvador, Reg Reg pm4 Chart Complete MTDD
== END 2016-10-23 02:32 | disposition home or self-care (01) ==
LOC: M ED 01:11
DX: L03.316 Cellulitis of umbilicus (principal); Z87.891 Personal history of nicotine dependence

== ENCOUNTER 2016-11-12 08:14 | Emergency (ER) | payer OTHER ==
[2016-11-12] MEDS ORDERED: XYZA5TAB2 PO (08:55)
[2016-11-12] MEDS ORDERED: AMOX875T PO (08:55)
[2016-11-12] MEDS ORDERED: IBUPROFEN 600 MG TAB PO ONE (09:15)
--- NOTE | 2016-11-12 10:27 | REP ---
LEFT HAND SERIES, FOUR VIEWS: There is no evidence of an acute fracture, dislocation or intrinsic bone disease. IMPRESSION: No fracture or dislocation. Signed by Anthony Mcrae MD 11/12/2016 03:53 P
--- NOTE | 2016-11-12 10:28 | REP ---
LEFT WRIST SERIES, FOUR VIEWS: There is no evidence of an acute fracture, dislocation or intrinsic bone disease. IMPRESSION: No fracture or dislocation. Signed by Anthony Mcrae MD 11/12/2016 03:53 P
--- NOTE | 2016-11-12 10:29 | REP ---
LEFT KNEE SERIES, FIVE VIEWS: There is no evidence of an acute fracture, dislocation or intrinsic bone disease. IMPRESSION: No fracture or dislocation. Signed by Anthony Mcrae MD 11/12/2016 03:53 P
[2016-11-12 10:34] VITALS: BP 139/71
== END 2016-11-12 10:39 | disposition home or self-care (01) ==
LOC: M ED 09:19
DX: S80.212A Abrasion, left knee, initial encounter (principal); S63.502A Unspecified sprain of left wrist, initial encounter; W01.0XXA Fall on same level from slipping, tripping and stumbling without subsequent striking against object, initial encounter; Y92.480 Sidewalk as the place of occurrence of the external cause; Y93.89 Activity, other specified; Y99.8 Other external cause status

== ENCOUNTER 2016-12-11 00:28 | Emergency (ER) | payer OTHER ==
[~2016-12-11] VITALS: Ht 170.2 cm; Wt 86.2 kg
[~2016-12-11 00:28] MED LIST: AMOX875T PO; XYZA5TAB2 PO
[2016-12-11 01:12] VITALS: BP 133/80
[2016-12-11] MEDS ORDERED: KEFL500C7 PO (01:39)
[2016-12-11] MEDS ORDERED: CEPHALEXIN 500 MG CAP PO ONE (01:45)
== END 2016-12-11 01:47 | disposition home or self-care (01) ==
LOC: M ED 01:39
DX: L02.211 Cutaneous abscess of abdominal wall (principal); Z87.891 Personal history of nicotine dependence; Z91.040 Latex allergy status; Z79.2 Long term (current) use of antibiotics

== ENCOUNTER 2016-12-27 16:24 | Emergency (ER) | payer OTHER ==
[~2016-12-27] VITALS: Ht 170.2 cm; Wt 90.7 kg
[~2016-12-27 16:24] MED LIST changes: +KEFL500C7 PO
[2016-12-27 17:03] LABS: BASO # 0.1 K/mm3 (0.0-0.2); BASO % 0.6 % (0.0-1.0); EOS # 0.6 K/mm3 (0.0-0.50); EOS % 5.7 % (0.0-3.0); LARGE UNSTAINED CELL # 0.2 K/mm3 (0.0-0.4); LARGE UNSTAINED CELL % 1.9 % (0.0-4.0); LYMPH # 1.8 K/mm3 (1.5-6.5); LYMPH % 18.7 % (24.0-44.0); MEAN CORPUSCULAR HEMOGLOBIN 25.5 pg (27.0-33.0); MEAN CORPUSCULAR HGB CONC 33.7 g/dl (32.0-36.5); MEAN CORPUSCULAR VOLUME 75.6 fl (80.0-96.0); MONO # 0.7 K/mm3 (0.0-0.8); NEUTROPHILS # 6.5 K/mm3 (1.8-7.7); NEUTROPHILS % 66.1 % (36.0-66.0); PLATELET COUNT, AUTOMATED 262 k/mm3 (150-450); RED CELL DISTRIBUTION WIDTH 14.8 % (11.5-14.5); WHITE BLOOD COUNT 9.8 K/mm3 (4.0-10.0)
[2016-12-27 17:38] LABS: ALBUMIN/GLOBULIN RATIO 1.18 (1.00-1.93); ALKALINE PHOSPHATASE 56 U/L (45-117); ALT/SGPT 14 U/L (12-78); AST/SGOT 4 U/L (15-37); BILIRUBIN,TOTAL 0.2 MG/DL (0.2-1.0); BLOOD UREA NITROGEN 7 MG/DL (7-18); CALCIUM LEVEL 8.8 MG/DL (8.5-10.1); CARBON DIOXIDE LEVEL 28 MEQ/L (21-32); CREATININE FOR GFR 0.86 MG/DL (0.55-1.02); GLOMERULAR FILTRATION RATE > 60.0 (>60); GLUCOSE, FASTING 93 MG/DL (70-105); HCG, SERUM QUANTITATIVE < 1.0 MIU/ML; TOTAL PROTEIN 7.4 GM/DL (6.4-8.2)
[2016-12-27 17:48] LABS: ANION GAP 7 MEQ/L (8-16); CHLORIDE LEVEL 106 MEQ/L (98-107); POTASSIUM SERUM 4.1 MEQ/L (3.5-5.1); SODIUM LEVEL 141 MEQ/L (136-145)
[2016-12-27] MEDS ORDERED: FLON1SPR (18:21)
[2016-12-27 18:38] VITALS: BP 133/73
--- NOTE | 2016-12-29 07:47 | REP ---
Clinical: Acute cough . Comparison: None . Technique: PA and lateral. Findings: The mediastinum and cardiac silhouette are normal. The lung esquivel are clear and without acute consolidation, effusion, or pneumothorax. The skeletal structures are intact and normal. Impression: 1. No acute cardiopulmonary process. Signed by Benedict Denney MD 12/29/2016 07:39 A
== END 2016-12-27 18:56 | disposition home or self-care (01) ==
LOC: M ED 16:51
DX: R04.0 Epistaxis (principal); J31.0 Chronic rhinitis; Z91.040 Latex allergy status

== ENCOUNTER 2017-01-01 00:03 | Emergency (ER) | payer OTHER ==
[~2017-01-01] VITALS: Ht 170.2 cm; Wt 90.7 kg
[~2017-01-01 00:03] MED LIST changes: +FLON1SPR
[2017-01-01] MEDS ORDERED: metroNIDAZOLE (FLAGYL) 500 MG TAB PO ONE (01:45)
[2017-01-01] MEDS ORDERED: FLAG500T PO (01:48)
[2017-01-01] MEDS ORDERED: VALT1TAB PO (01:48)
[2017-01-01 01:58] VITALS: BP 115/74
== END 2017-01-01 01:59 | disposition home or self-care (01) ==
LOC: M ED 01:27
DX: N76.0 Acute vaginitis (principal); K13.0 Diseases of lips

== ENCOUNTER → 2017-05-19 | Outpatient (CLI) | payer OTHER ==
[~2017-05-19] MED LIST changes: +BACT800T5 PO; +FLAG500T PO; +KEFL500C17 PO; -KEFL500C7 PO; +PERC5TAB12 PO; +VALT1TAB PO
[2017-05-19 14:14] LABS: BASO % 0.5 % (0.0-1.0); EOS # 0.7 K/mm3 (0.0-0.50); EOS % 7.3 % (0.0-3.0); LARGE UNSTAINED CELL # 0.2 K/mm3 (0.0-0.4); LARGE UNSTAINED CELL % 1.7 % (0.0-4.0); LYMPH # 1.9 K/mm3 (1.5-6.5); LYMPH % 19.2 % (24.0-44.0); MEAN CORPUSCULAR HGB CONC 34.7 g/dl (32.0-36.5); MEAN CORPUSCULAR VOLUME 77.9 fl (80.0-96.0); MONO # 0.5 K/mm3 (0.0-0.8); MONO % 5.3 % (0.0-5.0); NEUTROPHILS # 6.5 K/mm3 (1.8-7.7); NEUTROPHILS % 66.1 % (36.0-66.0); PLATELET COUNT, AUTOMATED 279 k/mm3 (150-450); WHITE BLOOD COUNT 9.8 K/mm3 (4.0-10.0)
[2017-05-19 14:34] LABS: ALBUMIN 3.9 GM/DL (3.2-5.2); ALBUMIN/GLOBULIN RATIO 1.15 (1.00-1.93); ALKALINE PHOSPHATASE 53 U/L (45-117); ALT/SGPT 14 U/L (12-78); ANION GAP 12 MEQ/L (8-16); AST/SGOT 6 U/L (15-37); BILIRUBIN,TOTAL 0.2 MG/DL (0.2-1.0); BLOOD UREA NITROGEN 11 MG/DL (7-18); CALCIUM LEVEL 8.6 MG/DL (8.5-10.1); CARBON DIOXIDE LEVEL 24 MEQ/L (21-32); CHLORIDE LEVEL 107 MEQ/L (98-107); CREATININE FOR GFR 0.68 MG/DL (0.55-1.02); FREE T4 1.07 NG/DL (0.76-1.46); GLOMERULAR FILTRATION RATE > 60.0 (>60); GLUCOSE, FASTING 79 MG/DL (70-105); SODIUM LEVEL 143 MEQ/L (136-145); TOTAL PROTEIN 7.3 GM/DL (6.4-8.2)
== END ==
LOC: M SMT 09:43
PROVIDERS: ATTEND Physician Assistant Medical
DX: Z13.0 Encounter for screening for diseases of the blood and blood-forming organs and certain disorders involving the immune mechanism (principal); Z13.29 Encounter for screening for other suspected endocrine disorder; Z83.3 Family history of diabetes mellitus

== ENCOUNTER 2017-06-23 19:31 | Emergency (ER) | payer OTHER ==
[~2017-06-23] VITALS: Ht 167.6 cm; Wt 88.8 kg
[~2017-06-23 19:31] MED LIST changes: -BACT800T5 PO; -PERC5TAB12 PO
[2017-06-23 19:32] VITALS: BP 147/77
[2017-06-23] MEDS ORDERED: BACT800T5 PO (21:52)
[2017-06-23] MEDS ORDERED: BACTRIM 160MG/800MG DS TAB PO ONE (22:00)
== END 2017-06-23 22:06 | disposition home or self-care (01) ==
LOC: M ED 19:31
DX: L02.31 Cutaneous abscess of buttock (principal); F41.9 Anxiety disorder, unspecified; F33.9 Major depressive disorder, recurrent, unspecified; F17.210 Nicotine dependence, cigarettes, uncomplicated; Z91.040 Latex allergy status

== ENCOUNTER → 2017-06-23 | Outpatient (CLI) | payer OTHER ==
[2017-06-23 09:31] LABS: BASO # 0.1 10^3/uL (0.0-0.2); BASO % 0.7 % (0.0-1.0); EOS # 0.5 10^3/uL (0.0-0.50); EOS % 5.3 % (0.0-3.0); IMMATURE GRANULOCYTE % 0.2 % (0-0); LYMPH # 2.1 10^3/uL (1.5-6.5); LYMPH % 23.2 % (24.0-44.0); MEAN CORPUSCULAR HEMOGLOBIN 25.9 pg (27.0-33.0); MEAN CORPUSCULAR HGB CONC 33.1 g/dl (32.0-36.5); MEAN CORPUSCULAR VOLUME 78.1 fl (80.0-96.0); MONO # 0.8 10^3/uL (0.0-0.8); MONO % 8.5 % (0.0-5.0); NEUTROPHILS # 5.6 10^3/uL (1.8-7.7); NEUTROPHILS % 62.1 % (36.0-66.0); PLATELET COUNT, AUTOMATED 273 10^3/uL (150-450); RED CELL DISTRIBUTION WIDTH 14.7 % (11.5-14.5)
[2017-06-23 10:00] LABS: ALBUMIN 3.8 GM/DL (3.2-5.2); ALBUMIN/GLOBULIN RATIO 1.19 (1.00-1.93); ALKALINE PHOSPHATASE 48 U/L (45-117); ALT/SGPT 11 U/L (12-78); ANION GAP 6 MEQ/L (8-16); AST/SGOT 3 U/L (15-37); BILIRUBIN,TOTAL 0.4 MG/DL (0.2-1.0); BLOOD UREA NITROGEN 11 MG/DL (7-18); CALCIUM LEVEL 9.2 MG/DL (8.5-10.1); CARBON DIOXIDE LEVEL 26 MEQ/L (21-32); CHLORIDE LEVEL 108 MEQ/L (98-107); CHOLESTEROL LEVEL 140 MG/DL (<200); CREATININE FOR GFR 0.61 MG/DL (0.55-1.02); GLOMERULAR FILTRATION RATE > 60.0 (>60); GLUCOSE, FASTING 92 MG/DL (70-105); POTASSIUM SERUM 4.4 MEQ/L (3.5-5.1); SODIUM LEVEL 140 MEQ/L (136-145); TRIGLYCERIDES LEVEL 67 MG/DL (<150)
[2017-06-23 12:10] LABS: VITAMIN B12 LEVEL 378 PG/ML (247-911)
== END ==
LOC: M LAB 08:16
PROVIDERS: ATTEND Registered Nurse Psychiatric/Mental Health
DX: F33.2 Major depressive disorder, recurrent severe without psychotic features (principal)

== ENCOUNTER 2017-06-26 13:01 | Emergency (ER) | payer OTHER ==
[~2017-06-26] VITALS: Ht 167.6 cm; Wt 81.8 kg
[~2017-06-26 13:01] MED LIST changes: +BACT800T5 PO
[2017-06-26] MEDS ORDERED: diazePAM 2 MG TAB PO ONE (14:30)
[2017-06-26] MEDS ORDERED: LIDOCAINE 2% MDV 20 ML VIAL SC ONE (14:30)
[2017-06-26] MEDS ORDERED: PERCOCET 5MG/325MG TAB PO ONE (14:30)
[2017-06-26] MEDS ORDERED: PERC5TAB12 PO (15:32)
[2017-06-26 15:39] VITALS: BP 113/67
== END 2017-06-26 15:44 | disposition home or self-care (01) ==
LOC: M ED 13:01
DX: L02.31 Cutaneous abscess of buttock (principal); F17.210 Nicotine dependence, cigarettes, uncomplicated; Z91.040 Latex allergy status; Z79.2 Long term (current) use of antibiotics

== ENCOUNTER → 2017-10-21 | Outpatient (CLI) | payer OTHER ==
[~2017-10-21] MED LIST changes: -AMOX875T PO; -BACT800T5 PO; -FLAG500T PO; -FLON1SPR; +ISOVUE-300 61% 50ML VIAL (Q9967) As Ordered; -KEFL500C17 PO; -VALT1TAB PO; -XYZA5TAB2 PO
== END ==
LOC: M RADPRO 11:43
DX: Q51.818 Other congenital malformations of uterus (principal); Q51.3 Bicornate uterus
CPT/HCPCS: 58340

== ENCOUNTER → 2017-11-02 | Outpatient (REF) | payer OTHER ==
[2017-11-02 17:02] LABS: INFLUENZA A AMPLIFICATION NEGATIVE (NEGATIVE); INFLUENZA B AMPLIFICATION NEGATIVE (NEGATIVE)
== END ==
LOC: M LAB REF 16:16
DX: J11.1 Influenza due to unidentified influenza virus with other respiratory manifestations (principal)
CPT/HCPCS: 87502

== ENCOUNTER → 2017-11-09 | Outpatient (CLI) | payer OTHER | LOC: M RAD 13:43 | DX: Q51.818 Other congenital malformations of uterus (principal); Z53.9 Procedure and treatment not carried out, unspecified reason ==

== ENCOUNTER → 2017-11-10 | Outpatient (CLI) | payer OTHER ==
[~2017-11-10] MED LIST changes: -ISOVUE-300 61% 50ML VIAL (Q9967) As Ordered; +PROHANCE 279.3MG/ML 15ML VIAL (A9576) As Ordered; +PROHANCE 279.3MG/ML 5ML VIAL (A9576) As Ordered
== END ==
LOC: M RAD 14:15
DX: Q51.818 Other congenital malformations of uterus (principal)

== ENCOUNTER → 2017-11-11 | Outpatient (CLI) | payer OTHER ==
[2017-11-11 18:25] LABS: HCG, SERUM QUANTITATIVE < 1.0 MIU/ML
[2017-11-11 18:28] LABS: HEMATOCRIT 45.9 % (36.0-47.0); HEMOGLOBIN 15.8 g/dl (12.0-16.0); MEAN CORPUSCULAR HEMOGLOBIN 27.5 pg (27.0-33.0); MEAN CORPUSCULAR HGB CONC 34.4 g/dl (32.0-36.5); MEAN CORPUSCULAR VOLUME 79.8 fl (80.0-96.0); PLATELET COUNT, AUTOMATED 311 10^3/uL (150-450); RED BLOOD COUNT 5.75 10^6/uL (4.00-5.40); WHITE BLOOD COUNT 9.7 10^3/uL (4.0-10.0)
[2017-11-11 18:50] LABS: APPEARANCE, URINE MANUAL CLEAR (CLEAR); BILIRUBIN, URINE MANUAL NEGATIVE (NEGATIVE); BLOOD URINE MANUAL NEGATIVE (NEGATIVE); COLOR, URINE MANUAL YELLOW (YELLOW); GLUCOSE, URINE (UA) MANUAL NEGATIVE (NEGATIVE); KETONE, URINE MANUAL NEGATIVE (NEGATIVE); LEUKOCYTE ESTERASE, URINE MAN TRACE (NEGATIVE); MICROSCOPIC INDICATED? MAN YES (NO); NITRITE, URINE MANUAL NEGATIVE (NEGATIVE); PROTEIN, URINE MANUAL NEGATIVE (NEGATIVE); SPECIFIC GRAVITY,URINE MANUAL 1.015 (1.002-1.035); UROBILINOGEN, URINE MANUAL NORMAL (NORMAL)
[2017-11-11 19:24] LABS: BACTERIA, URINE LARGE AMOUNT; HYALINE CAST, URINE NONE SEEN /lpf (0-1); MICROSCOPIC EXAM PERFORMED; MUCUS, URINE LARGE AMOUNT (NEGATIVE); RBC, URINE 0-1 /hpf (0-3); SQUAMOUS EPITHELIAL CELL URINE LARGE AMOUNT /hpf (SMALL AMT)
== END ==
LOC: M SMT 14:20
DX: Z01.818 Encounter for other preprocedural examination (principal); R30.0 Dysuria
CPT/HCPCS: 84702

== ENCOUNTER → 2017-11-15 | Outpatient (REF) | payer OTHER ==
[2017-11-15 18:49] LABS: APPEARANCE, URINE MANUAL CLEAR (CLEAR); BILIRUBIN, URINE MANUAL NEGATIVE (NEGATIVE); BLOOD URINE MANUAL POSITIVE (NEGATIVE); COLOR, URINE MANUAL YELLOW (YELLOW); GLUCOSE, URINE (UA) MANUAL NEGATIVE (NEGATIVE); KETONE, URINE MANUAL NEGATIVE (NEGATIVE); LEUKOCYTE ESTERASE, URINE MAN NEGATIVE (NEGATIVE); MICROSCOPIC INDICATED? MAN YES (NO); NITRITE, URINE MANUAL NEGATIVE (NEGATIVE); PROTEIN, URINE MANUAL NEGATIVE (NEGATIVE); UROBILINOGEN, URINE MANUAL NORMAL (NORMAL)
[2017-11-15 18:50] LABS: BACTERIA, URINE SMALL AMOUNT; HYALINE CAST, URINE NONE SEEN /lpf (0-1); MICROSCOPIC EXAM PERFORMED; RBC, URINE TNTC /hpf (0-3); SQUAMOUS EPITHELIAL CELL URINE SMALL AMOUNT /hpf (SMALL AMT)
== END ==
LOC: M LAB REF 16:48
DX: Z01.818 Encounter for other preprocedural examination (principal)

== ENCOUNTER 2018-01-21 22:39 | Emergency (ER) | payer OTHER ==
[2018-01-21] MEDS: METHOCARBAMOL 750 MG TAB PO (23:46)
[2018-01-21] MEDS: KETOROLAC 60 MG/2 ML VIAL (J1885) IM (23:48)
== END 2018-01-22 00:35 | disposition home or self-care (01) ==
LOC: M ED 01-22 00:35
DX: M62.830 Muscle spasm of back (principal); L57.8 Other skin changes due to chronic exposure to nonionizing radiation; F17.210 Nicotine dependence, cigarettes, uncomplicated; Z91.040 Latex allergy status; Z79.899 Other long term (current) drug therapy
CPT/HCPCS: J1885

== ENCOUNTER 2018-02-24 00:03 | Emergency (ER) | payer OTHER ==
[2018-02-24] MEDS: ACETAMINOPHEN 325 MG TAB PO (01:22)
[2018-02-24] MEDS: KETOROLAC 60 MG/2 ML VIAL (J1885) IM (01:47)
== END 2018-02-24 01:50 | disposition home or self-care (01) ==
LOC: M ED 00:03
DX: O9A.219 Injury, poisoning and certain other consequences of external causes complicating pregnancy, unspecified trimester (principal); S80.02XA Contusion of left knee, initial encounter; S39.012A Strain of muscle, fascia and tendon of lower back, initial encounter; W01.10XA Fall on same level from slipping, tripping and stumbling with subsequent striking against unspecified object, initial encounter; Y92.009 Unspecified place in unspecified non-institutional (private) residence as the place of occurrence of the external cause; O99.330 Smoking (tobacco) complicating pregnancy, unspecified trimester; F17.200 Nicotine dependence, unspecified, uncomplicated; Z3A.00 Weeks of gestation of pregnancy not specified; Z91.040 Latex allergy status; Z79.899 Other long term (current) drug therapy
CPT/HCPCS: J1885

== ENCOUNTER → 2018-06-03 | Outpatient (CLI) | payer OTHER ==
[2018-06-03 13:02] LABS: HEMATOCRIT 44.5 % (36.0-47.0); HEMOGLOBIN 15.2 g/dl (12.0-15.5); MEAN CORPUSCULAR HEMOGLOBIN 27.6 pg (27.0-33.0); MEAN CORPUSCULAR HGB CONC 34.2 g/dl (32.0-36.5); MEAN CORPUSCULAR VOLUME 80.8 fl (80.0-96.0); PLATELET COUNT, AUTOMATED 282 10^3/uL (150-450); RED BLOOD COUNT 5.51 10^6/uL (4.00-5.40); RED CELL DISTRIBUTION WIDTH 13.8 % (11.5-14.5); WHITE BLOOD COUNT 8.3 10^3/uL (4.0-10.0)
[2018-06-03 13:22] LABS: ANION GAP 7 MEQ/L (8-16); BLOOD UREA NITROGEN 6 MG/DL (7-18); CALCIUM LEVEL 8.7 MG/DL (8.5-10.1); CARBON DIOXIDE LEVEL 27 MEQ/L (21-32); CHLORIDE LEVEL 107 MEQ/L (98-107); GLOMERULAR FILTRATION RATE > 60.0 (>60); GLUCOSE, FASTING 74 MG/DL (70-100); POTASSIUM SERUM 4.4 MEQ/L (3.5-5.1); SODIUM LEVEL 141 MEQ/L (136-145)
== END ==
LOC: M LAB 11:57
DX: Z01.812 Encounter for preprocedural laboratory examination (principal); M20.11 Hallux valgus (acquired), right foot; M79.671 Pain in right foot
CPT/HCPCS: 80048

== ENCOUNTER 2018-06-10 07:05 | Day surgery (SDC) | payer OTHER ==
[~2018-06-10 07:05] MED LIST changes: +LIDOCAINE 1% MDV 20ML VIAL SQ; -PROHANCE 279.3MG/ML 15ML VIAL (A9576) As Ordered; -PROHANCE 279.3MG/ML 5ML VIAL (A9576) As Ordered
[2018-06-10] MEDS: LR 1,000 ML IV (07:15)
[2018-06-10 07:49] LABS: CONTROL LINE HCG INT CTR LINE PRESENT; HCG, SERUM QUALITATIVE NEGATIVE (NEGATIVE)
[2018-06-10] MEDS ORDERED: PROPOFOL 200 MG/20 ML VIAL As Ordered (08:03)
[2018-06-10] MEDS ORDERED: fentaNYL 100 MCG/2 ML INJECTION (J3010) As Ordered ×2 (08:03→09:57)
[2018-06-10] MEDS ORDERED: LIDOCAINE 2% INJ 100 MG/5 ML SDV (FOR ANES.) As Ordered (08:03)
[2018-06-10] MEDS ORDERED: MIDAZOLAM INJ 2 MG/2 ML VIAL (J2250) As Ordered ×2 (08:03)
[2018-06-10] MEDS: LIDOCAINE 2% MDV 20 ML VIAL As Ordered (09:21)
[2018-06-10] MEDS: BUPIVACAINE HCL 0.5% 30 ML VIAL As Ordered (09:21)
[2018-06-10] MEDS: NEOSPORIN GU IRRIG 20 ML VIAL As Ordered (09:58)
[2018-06-10] MEDS: BACITRACIN PWD 50,000 UNITS VIAL As Ordered (09:58)
[2018-06-10] MEDS: dexameTHASONE 4 MG/ML 1ML VIAL (J1100) As Ordered (10:09)
[2018-06-10] MEDS ORDERED: dexameTHASONE 4 MG/ML 1ML VIAL (J1100) As Ordered ×2 (10:40)
[2018-06-10] MEDS ORDERED: ONDANSETRON 4MG/2ML VIAL (J2405) As Ordered (10:40)
[2018-06-10] MEDS ORDERED: KETOROLAC 60 MG/2 ML VIAL (J1885) As Ordered (10:40)
[2018-06-10] MEDS: ROPIvacaine 0.5% 30 ML INJECTION (J2795 PER 1MG) As Ordered (10:59)
[2018-06-10] MEDS ORDERED: ONDANSETRON 4MG/2ML VIAL (J2405) IV (11:45)
[2018-06-10] MEDS ORDERED: PERCOCET 5MG/325MG TAB PO (11:45)
== END 2018-06-10 12:31 | disposition home or self-care (01) ==
LOC: M SDC 07:05
DX: M20.62 Acquired deformities of toe(s), unspecified, left foot (principal); M20.11 Hallux valgus (acquired), right foot; M85.68 Other cyst of bone, other site; Q70.31 Webbed toes, right foot; K21.9 Gastro-esophageal reflux disease without esophagitis; F41.9 Anxiety disorder, unspecified; F31.9 Bipolar disorder, unspecified; F32.9 Major depressive disorder, single episode, unspecified; R51 Headache; Z91.040 Latex allergy status; Z79.899 Other long term (current) drug therapy; Z72.0 Tobacco use
CPT/HCPCS: 28296

== ENCOUNTER 2018-07-19 02:09 | Emergency (ER) | payer OTHER ==
[2018-07-19] MEDS: MORPHINE 10 MG/ML 1ML VIAL (J2270) IM (04:00)
[2018-07-19] MEDS: HALOPERIDOL 5 MG/ML VIAL (J1630) IM (04:12)
[2018-07-19] MEDS: diphenhydrAMINE INJ 50MG/ML VIAL (J1200) IM (04:12)
== END 2018-07-19 04:52 | disposition home or self-care (01) ==
LOC: M ED 02:09
DX: L02.411 Cutaneous abscess of right axilla (principal); F33.9 Major depressive disorder, recurrent, unspecified; Z91.040 Latex allergy status
CPT/HCPCS: J1200

== ENCOUNTER 2018-08-14 01:54 | Emergency (ER) | payer OTHER | END 2018-08-14 03:33 | disposition left against medical advice (07) | LOC: M ED 01:54 | DX: Z53.29 Procedure and treatment not carried out because of patient's decision for other reasons (principal) ==

== ENCOUNTER → 2018-12-25 | Outpatient (REF) | payer OTHER ==
[~2018-12-25] MED LIST changes: +AMOX875T PO; +BACT800T5 PO; +FLAG500T PO; +FLON1SPR; +KEFL500C17 PO; +KETO10TAB PO; +LATU80TA PO; -LIDOCAINE 1% MDV 20ML VIAL SQ; +PERC5TAB12 PO; +REXU1TAB5 PO; +ROBA500T PO; +VALT1TAB PO; +XYZA5TAB2 PO; +[UNRECOGNIZED DRUG - REMARK] PO
[2018-12-27 15:19] LABS: INFLUENZA A AMPLIFICATION NEGATIVE (NEGATIVE); INFLUENZA B AMPLIFICATION NEGATIVE (NEGATIVE)
== END ==
LOC: M LAB REF 10:20
PROVIDERS: ATTEND Physician Assistant Medical
DX: J11.1 Influenza due to unidentified influenza virus with other respiratory manifestations (principal)

== ENCOUNTER 2019-01-17 00:30 | Emergency (ER) | payer OTHER ==
[~2019-01-17] VITALS: Ht 170.2 cm; Wt 90.0 kg
[2019-01-17] MEDS ORDERED: AUGM500T34 PO (03:49)
[2019-01-17 04:00] VITALS: BP 128/86
== END 2019-01-17 04:01 | disposition home or self-care (01) ==
LOC: M ED 00:30
DX: L02.412 Cutaneous abscess of left axilla (principal); F31.9 Bipolar disorder, unspecified; L73.2 Hidradenitis suppurativa; Z72.0 Tobacco use; Z79.899 Other long term (current) drug therapy; Z91.040 Latex allergy status

== ENCOUNTER → 2019-02-14 | Outpatient (CLI) | payer OTHER ==
[~2019-02-14] MED LIST changes: +ADVI200T PO; +AUGM500T34 PO; +CYCL10TA; +OMEP-218 PO; +PRENTAB55 PO; +QUET1TAB8 PO
[2019-02-14 11:48] LABS: BASO # 0.1 10^3/uL (0.0-0.2); BASO % 0.9 % (0.0-1.0); EOS # 0.2 10^3/uL (0.0-0.50); EOS % 2.1 % (0.0-3.0); HEMATOCRIT 44.2 % (36.0-47.0); HEMOGLOBIN 14.5 g/dl (12.0-15.5); LYMPH # 2.4 10^3/uL (1.5-6.5); LYMPH % 25.2 % (24.0-44.0); MEAN CORPUSCULAR HEMOGLOBIN 26.3 pg (27.0-33.0); MEAN CORPUSCULAR HGB CONC 32.8 g/dl (32.0-36.5); MEAN CORPUSCULAR VOLUME 80.2 fl (80.0-96.0); MONO # 0.7 10^3/uL (0.0-0.8); MONO % 7.4 % (0.0-5.0); NEUTROPHILS % 64.1 % (36.0-66.0); PLATELET COUNT, AUTOMATED 300 10^3/uL (150-450); RED BLOOD COUNT 5.51 10^6/uL (4.00-5.40); WHITE BLOOD COUNT 9.4 10^3/uL (4.0-10.0)
[2019-02-14 12:32] LABS: BLOOD UREA NITROGEN 8 MG/DL (7-18); CALCIUM LEVEL 9.5 MG/DL (8.5-10.1); CARBON DIOXIDE LEVEL 25 MEQ/L (21-32); CHLORIDE LEVEL 108 MEQ/L (98-107); CREATININE FOR GFR 0.68 MG/DL (0.55-1.30); GLOMERULAR FILTRATION RATE > 60.0 (>60); GLUCOSE, FASTING 97 MG/DL (70-100); POTASSIUM SERUM 4.3 MEQ/L (3.5-5.1); SODIUM LEVEL 141 MEQ/L (136-145)
== END ==
LOC: M SMT 08:01
PROVIDERS: ATTEND Podiatrist
DX: Z01.812 Encounter for preprocedural laboratory examination (principal); T84.498A Other mechanical complication of other internal orthopedic devices, implants and grafts, initial encounter; Y77.2 Prosthetic and other implants, materials and accessory ophthalmic devices associated with adverse incidents; M79.671 Pain in right foot; M20.41 Other hammer toe(s) (acquired), right foot

== ENCOUNTER 2019-02-24 07:58 | Day surgery (SDC) | payer OTHER ==
[~2019-02-24] VITALS: Ht 170.2 cm; Wt 91.2 kg
[~2019-02-24 07:58] MED LIST changes: +BACITRACIN PWD 50,000 UNITS VIAL As Ordered ONE; +BUPIVACAINE HCL 0.5% 30 ML VIAL As Ordered ONE; +LIDOCAINE 1% MDV 20ML VIAL SQ PRN; +LIDOCAINE 2% MDV 20 ML VIAL As Ordered ONE; +LR 1,000 ML IV ONE; +NEOSPORIN GU IRRIG 20 ML VIAL As Ordered ONE; +dexameTHASONE 4 MG/ML 1ML VIAL (J1100) As Ordered ONE
[2019-02-24 08:44] LABS: HCG, SERUM QUALITATIVE NEGATIVE (NEGATIVE)
[2019-02-24] MEDS ORDERED: BUPIVACAINE HCL 0.5% 30 ML VIAL As Ordered ONE (09:23)
[2019-02-24] MEDS ORDERED: KETAMINE HCL 200 MG/20 ML VIAL As Ordered ONE (10:24)
[2019-02-24] MEDS ORDERED: GLYCOPYRROLATE INJ 0.2 MG/ML 2 ML VIAL As Ordered ONE (10:24)
[2019-02-24] MEDS ORDERED: LIDOCAINE 2% INJ 100 MG/5 ML SDV (FOR ANES.) As Ordered ONE (10:24)
[2019-02-24] MEDS ORDERED: fentaNYL 100 MCG/2 ML INJECTION (J3010) As Ordered ONE (10:24)
[2019-02-24] MEDS ORDERED: MIDAZOLAM INJ 2 MG/2 ML VIAL (J2250) As Ordered ONE (10:24)
[2019-02-24] MEDS ORDERED: PROPOFOL 200 MG/20 ML VIAL As Ordered ONE ×2 (10:24→11:02)
[2019-02-24] MEDS ORDERED: ONDANSETRON 4MG/2ML VIAL (J2405) As Ordered ONE (10:24)
[2019-02-24] MEDS ORDERED: MORPHINE 4 MG/ML 1ML VIAL/SYRINGE (J2270) As Ordered ONE (11:26)
[2019-02-24] MEDS ORDERED: ONDANSETRON 4MG/2ML VIAL (J2405) IV PRN (11:30)
[2019-02-24] MEDS: MORPHINE 10 MG/ML 1ML VIAL (J2270) IV PRN ×3 (11:30→12:15)
[2019-02-24] MEDS ORDERED: PERCOCET 5MG/325MG TAB PO PRN (11:30)
[2019-02-24 13:00] VITALS: BP 118/69
--- NOTE | 2019-02-24 13:26 | REP ---
LEFT FOOT: FOUR VIEWS. HISTORY: Postop. FINDINGS: Four views of the left foot taken through overlying postoperative dressing demonstrate a metallic screw in place across the distal third metatarsal osteotomy. There is dorsal soft tissue emphysema in the forefoot soft tissues. Prior bunion repair is seen at the 1st MTP joint and prior osteotomies with resection of the distal aspect of the proximal phalanges been performed on the 3rd and 5th digits. The metallic screw visible previously in the distal 1st metatarsal on June 10, 2018 is no longer apparent. Electronically Signed by Vel Powell MD 02/24/2019 03:10 P
--- NOTE | 2019-02-24 14:58 | RO ---
DATE OF PROCEDURE: 02/24/2019 PREPROCEDURE DIAGNOSES: Severely deformed toe, 5th toe right foot. Long 3rd metatarsal, left foot. Painful pin 1st metatarsal, left foot. POSTPROCEDURE DIAGNOSES: Severely deformed toe, 5th toe right foot. Long 3rd metatarsal, left foot. Painful pin 1st metatarsal, left foot. PROCEDURE: 1. Shortening metatarsal osteotomy internal screw fixation, 3rd metatarsal left foot. 2. Removal of painful pin, 1st metatarsal, left foot. 3. Partial 5th toe amputation, right foot. SURGEON: Dr. Gutierrez Armstrong. KILN PLACER: ANESTHESIA: Local monitored anesthesia care (MAC). IRRIGATION: Dilute bacitracin, neomycin, polymyxin B solution. HEMOSTASIS: Ankle pneumatic tourniquet at 250 mmHg for 33 minutes on the left ankle. No hemostasis utilized on the right foot. HARDWARE UTILIZED: Arthrex-headed 2.3 x 12 mm screw DESCRIPTION OF PROCEDURE: On 02/24/2019, this 24-year-old white female was taken from her hospital room to the operating room and placed on the operating table in supine position following the induction of IV sedation and local and regional anesthesia. Left and right lower extremity was prepped and draped in the usual aseptic manner. Ankle pneumatic tourniquet was applied over a well-padded site of the left ankle. It was rapidly inflated to 250 mmHg. Tourniquet time 33 minutes. The left lower extremity was returned to the operating table. Sterile draping was completed and the following procedure was performed: REMOVAL OF PAINFUL PIN 1ST METATARSAL LEFT FOOT: Attention was directed to the patient's medial aspect of the 1st metatarsal where a 1 cm incision was placed over a location of a painful pin. Dissection was then carried down to the level of the metatarsal and utilizing a periosteal elevator, the pin was identified. Utilizing a sterile plier, the pin was removed. The wound was flushed with copious amounts of dilute bacitracin, neomycin, polymyxin B solution. Subcutaneous tissues were coapted and maintained utilizing #4-0 Monocryl in a simple interrupted type fashion. Skin incision coapted and maintained utilizing #5-0 Monocryl in a continuous subcuticular type fashion. This was additionally reinforced with Steri-Strips. Attention was then directed to the 3rd metatarsal where the following procedure was performed: SHORTENING 3RD METATARSAL OSTEOTOMY INTERNAL SCREW FIXATION LEFT FOOT: Attention was directed to the patient's left foot where a 4 cm incision was placed over the neck and shaft of the 3rd metatarsal. Dissection was then carried down. The extensor tendons were retracted medially and laterally. Linear capsulotomy was performed in the same plane as the original skin incision. Dissection was carried down to the neck and head of the 3rd metatarsal. Utilizing a sagittal saw, a Anand osteotomy was performed. The metatarsal was shortened approximately 5 mm and a 2.4 headed Arthrex screw was then placed across the osteotomy site. It was noted to be stable on all three cardinal planes. The prominent dorsal shelf was then rongeured smooth and then filed with a handheld rasp. The wound was flushed with copious amounts of dilute bacitracin, neomycin, polymyxin B solution. Capsular structures were coapted and maintained utilizing #3-0 Monocryl in a simple interrupted type fashion. Subcutaneous tissues were coapted and maintained using #4-0 Monocryl in a simple interrupted type fashion. Skin incision coapted and maintained utilizing #5-0 Monocryl in an continuous subcuticular type fashion. Attention was then directed to the bandaging where a sterile compression bandage was applied consisting of Adaptic, 4 x 4s, 4 x 4 Splints, Nathan, Kerlix and Coban. The ankle pneumatic tourniquet was rapidly deflated and instantaneous capillary refilling time was noted to digits 1-5 of the patient's left foot. Attention was then directed to the patient's right foot where there was noted to be a severely deformed 5th toe. The toe was rotated in such a manner that the dorsal surface of the toe now was pointing in a planar direction. The patient was ambulating on the nailbed. The skin had a large hyperkeratotic lesion noted at the lateral margin as well. The toe was attempted to be rotated to a straight position and the toenail did not accept the dorsal position. Therefore, I elected to do a 5th metatarsal partial amputation and we discussed several treatments prior to surgery with the patient and she was interested in a partial amputation. Therefore, a bracket-type incision was placed around the base of the 5th toe. Dissection was carried sharply down to bone exposing the proximal diaphyseal/diaphyseal junction of the proximal phalange. Utilizing a power saw, an osteotomy was performed directly through the toe and the toe was removed. All bleeders as encountered were electrocoagulated. The wound was flushed with copious amounts of dilute bacitracin, neomycin, polymyxin B solution. Utilizing #3-0 nylon suture, the toe was coapted and maintained in a simple interrupted type fashion. Attention directed towards bandaging with a sterile compression bandage consisting of Adaptic, 4 x 4s, 4 x 4 Splints, Nathan, Kerlix and Coban. The patient having apparently tolerated the procedure well, was taken from the operating room to the recovery room for further monitoring by the anesthesia department. Postoperative instructions given upon discharge.
== END 2019-02-24 13:14 | disposition home or self-care (01) ==
LOC: M SDC 07:58
PROVIDERS: ATTEND Podiatrist
DX: M20.5X1 Other deformities of toe(s) (acquired), right foot (principal); M20.5X2 Other deformities of toe(s) (acquired), left foot; M20.41 Other hammer toe(s) (acquired), right foot; Q70.31 Webbed toes, right foot; T84.84XA Pain due to internal orthopedic prosthetic devices, implants and grafts, initial encounter; I49.9 Cardiac arrhythmia, unspecified; K21.9 Gastro-esophageal reflux disease without esophagitis; F41.9 Anxiety disorder, unspecified; F31.9 Bipolar disorder, unspecified; F32.9 Major depressive disorder, single episode, unspecified; R51 Headache; Z91.040 Latex allergy status; Z79.899 Other long term (current) drug therapy; Z72.0 Tobacco use; X58.XXXA Exposure to other specified factors, initial encounter; Y93.9 Activity, unspecified; Y92.9 Unspecified place or not applicable; Y99.9 Unspecified external cause status
CPT/HCPCS: 20680; 28308; 28820; 36415; 73630; 84703; 88304; 88311; 97116; C1713; J0690; J1100; J2250; J2270; J2405; J3010

== ENCOUNTER 2019-08-25 15:33 | Emergency (ER) | payer OTHER ==
[~2019-08-25] VITALS: Ht 170.2 cm; Wt 88.7 kg
[~2019-08-25 15:33] MED LIST changes: -BACITRACIN PWD 50,000 UNITS VIAL As Ordered ONE; -BUPIVACAINE HCL 0.5% 30 ML VIAL As Ordered ONE; -LIDOCAINE 1% MDV 20ML VIAL SQ PRN; -LIDOCAINE 2% MDV 20 ML VIAL As Ordered ONE; -LR 1,000 ML IV ONE; -NEOSPORIN GU IRRIG 20 ML VIAL As Ordered ONE; -dexameTHASONE 4 MG/ML 1ML VIAL (J1100) As Ordered ONE
[2019-08-25] MEDS ORDERED: CEFU1TAB22 PO (16:49)
[2019-08-25] MEDS ORDERED: ALBUTEROL SULFATE 2.5 MG/0.5 ML INH NEB SOLN NEB ONE (17:30)
[2019-08-25 17:31] LABS: INFLUENZA A AMPLIFICATION NEGATIVE (NEGATIVE); INFLUENZA B AMPLIFICATION NEGATIVE (NEGATIVE)
--- NOTE | 2019-08-25 18:32 | REP ---
Chest x-ray: Two views. History: Shortness of breath and cough . Comparison study: December 27, 2016 . Findings: The lungs are well inflated and free of infiltrate. The pleural angles are sharp. The heart size is normal. Pulmonary vasculature is not increased. No significant bony abnormality is seen. Impression: Negative chest x-ray. Electronically Signed by Vel Powell MD 08/25/2019 06:23 P
[2019-08-25] MEDS ORDERED: GI COCKTAIL 50ML BTL(HYOSCYAMINE/MAALOX/LIDOCAINE VISCOUS)(1:3:1) PO ONE (19:00)
[2019-08-25] MEDS ORDERED: dexameTHASONE 4 MG/ML 1ML VIAL (J1100) PO ONE (19:00)
[2019-08-25] MEDS ORDERED: MAGICMW SSP (19:07)
[2019-08-25] MEDS ORDERED: PRED20TA PO (19:07)
[2019-08-25] MEDS ORDERED: PROAAER10 INH (19:07)
[2019-08-25 19:17] VITALS: BP 126/66
== END 2019-08-25 19:21 | disposition home or self-care (01) ==
LOC: M ED 15:33
DX: R07.89 Other chest pain (principal); R05 Cough; R06.02 Shortness of breath; J02.9 Acute pharyngitis, unspecified; Z88.5 Allergy status to narcotic agent; F17.210 Nicotine dependence, cigarettes, uncomplicated
CPT/HCPCS: 71046; 87502; 87880; 94640; 99284; J1100

== ENCOUNTER 2019-09-03 04:37 | Emergency (ER) | payer OTHER ==
[~2019-09-03] VITALS: Ht 170.2 cm; Wt 88.2 kg
[~2019-09-03 04:37] MED LIST changes: +CEFU1TAB22 PO; +MAGICMW SSP; +PRED20TA PO; +PROAAER10 INH
[2019-09-03] MEDS ORDERED: MELO15TA28 PO (04:46)
[2019-09-03] MEDS ORDERED: NEUR300C PO (04:46)
[2019-09-03 05:54] LABS: HEMATOCRIT 44.6 % (36.0-47.0); HEMOGLOBIN 14.4 g/dl (12.0-15.5); MEAN CORPUSCULAR HEMOGLOBIN 25.5 pg (27.0-33.0); MEAN CORPUSCULAR HGB CONC 32.3 g/dl (32.0-36.5); MEAN CORPUSCULAR VOLUME 78.9 fl (80.0-96.0); PLATELET COUNT, AUTOMATED 340 10^3/uL (150-450); RED BLOOD COUNT 5.65 10^6/uL (4.00-5.40); WHITE BLOOD COUNT 14.2 10^3/uL (4.0-10.0)
[2019-09-03 06:16] LABS: AMPHETAMINES LEVEL URINE NEGATIVE (NEGATIVE); BARBITURATES URINE NEGATIVE (NEGATIVE); BENZODIAZEPINES URINE NEGATIVE (NEGATIVE); CANNABINOIDS URINE NEGATIVE (NEGATIVE); COCAINE METABOLITE URINE NEGATIVE (NEGATIVE); METHADONE URINE NEGATIVE (NEGATIVE); OPIATES URINE NEGATIVE (NEGATIVE); PHENCYCLIDINE URINE NEGATIVE (NEGATIVE)
[2019-09-03 06:28] LABS: ACETAMINOPHEN LEVEL < 2.0 UG/ML (10.0-30.0); ALBUMIN 3.6 GM/DL (3.2-5.2); ALT/SGPT 12 U/L (12-78); BILIRUBIN,DIRECT < 0.1 MG/DL (0.0-0.2); BILIRUBIN,TOTAL 0.2 MG/DL (0.2-1.0); BLOOD UREA NITROGEN 10 MG/DL (7-18); CARBON DIOXIDE LEVEL 23 MEQ/L (21-32); CHLORIDE LEVEL 109 MEQ/L (98-107); CREATININE FOR GFR 1.07 MG/DL (0.55-1.30); ETHYL ALCOHOL (ETHANOL) < 0.003 % (0.000-0.010); GLOMERULAR FILTRATION RATE > 60.0 (>60); GLUCOSE, FASTING 101 MG/DL (70-100); SALICYLATE LEVEL 2.2 MG/DL (5.0-30.0); SODIUM LEVEL 141 MEQ/L (136-145); TOTAL PROTEIN 7.1 GM/DL (6.4-8.2)
[2019-09-03 06:37] LABS: HCG, SERUM QUALITATIVE NEGATIVE (NEGATIVE)
[2019-09-03 17:47] VITALS: BP 119/73
--- NOTE | 2019-09-04 08:29 | ECGEPIP ---
[facility] - ED Test Date: 2019-09-03 Pat Name: RADHA MCKEE Department: Room: - Gender: Female Assembly Machine Operator: kevyn : 1995 Requested By: Tapan Tran Order Number: [id number] Reading MD: Tapan Lyons Measurements Intervals Prole Rate: 72 P: 46 PA: 173 QRS: 59 QRSD: 91 T: 34 QT: 398 QTc: 436 Interpretive Statements SINUS RHYTHM POSSIBLE INCOMPLETE RIGHT BUNDLE BRANCH BLOCK NSTTW ABNORMALITIES SIMILAR TO 07/10/16 Electronically Signed on 09-04-2019 8:29:29 EST by Tapan Lyons
== END 2019-09-03 17:50 ==
LOC: M ED 04:37
DX: R45.851 Suicidal ideations (principal); F33.9 Major depressive disorder, recurrent, unspecified; Z79.899 Other long term (current) drug therapy; Z88.5 Allergy status to narcotic agent; Z91.040 Latex allergy status; F17.210 Nicotine dependence, cigarettes, uncomplicated
CPT/HCPCS: 36415; 80048; 80076; 80307; 84443; 84703; 85027; 93005; 99284; G0480

== ENCOUNTER 2019-10-01 22:52 | Emergency (ER) | payer OTHER ==
[~2019-10-01] VITALS: Ht 170.2 cm; Wt 88.2 kg
[~2019-10-01 22:52] MED LIST changes: +MELO15TA28 PO; +NEUR300C PO
[2019-10-01] MEDS ORDERED: GABA-845 (22:57)
[2019-10-01] MEDS ORDERED: ALBU8.5H (22:57)
[2019-10-02] MEDS ORDERED: BACT800T5 PO (00:30)
[2019-10-02] MEDS ORDERED: BACTRIM 160MG/800MG DS TAB PO ONE (00:30)
[2019-10-02 00:51] VITALS: BP 115/68
== END 2019-10-02 00:56 | disposition home or self-care (01) ==
LOC: M ED 22:52
DX: L02.213 Cutaneous abscess of chest wall (principal); J45.909 Unspecified asthma, uncomplicated; Z88.5 Allergy status to narcotic agent; Z91.040 Latex allergy status

== ENCOUNTER 2019-10-16 02:23 | Emergency (ER) | payer OTHER ==
[~2019-10-16] VITALS: Ht 170.2 cm; Wt 83.3 kg
[~2019-10-16 02:23] MED LIST changes: +ALBU8.5H; +GABA-845
[2019-10-16] MEDS ORDERED: MIGRTAB PO (02:29)
--- NOTE | 2019-10-16 03:59 | REPVR ---
PROCEDURE INFORMATION: Exam: CT Head Without Contrast Exam date and time: 10/16/2019 3:13 AM Age: 24 years old Clinical indication: Pain; Headache; Additional info: Trauma TECHNIQUE: Imaging protocol: Computed tomography of the head without contrast. Radiation optimization: All CT scans at this facility use at least one of these dose optimization techniques: automated exposure control; mA and/or kV adjustment per patient size (includes targeted exams where dose is matched to clinical indication); or iterative reconstruction. COMPARISON: No relevant prior studies available. FINDINGS: Brain: Normal. No hemorrhage. Unremarkable white matter. No mass effect. Ventricles: Normal. No ventriculomegaly. Bones/joints: Unremarkable. No acute fracture. Sinuses: Visualized sinuses are unremarkable. No fluid levels. Mastoid air cells: Visualized mastoid air cells are well aerated. Soft tissues: Unremarkable. IMPRESSION: No acute intracranial abnormality. Electronically signed by: Ariadne Britt On 10/16/2019 04:00:57 AM
[2019-10-16] MEDS ORDERED: ACETAMINOPHEN 500 MG TAB PO ONE (04:00)
[2019-10-16 04:23] VITALS: BP 122/81
== END 2019-10-16 04:15 | disposition home or self-care (01) ==
LOC: M ED 02:23
DX: S00.93XA Contusion of unspecified part of head, initial encounter (principal); W00.0XXA Fall on same level due to ice and snow, initial encounter; Y92.9 Unspecified place or not applicable; Y93.9 Activity, unspecified; Y99.9 Unspecified external cause status; J45.909 Unspecified asthma, uncomplicated; F17.200 Nicotine dependence, unspecified, uncomplicated; F31.9 Bipolar disorder, unspecified; Z79.51 Long term (current) use of inhaled steroids; Z79.82 Long term (current) use of aspirin; Z88.6 Allergy status to analgesic agent; Z91.040 Latex allergy status

== ENCOUNTER → 2019-10-18 | Outpatient (REF) | payer OTHER, MEDICAID ==
[~2019-10-18] MED LIST changes: +MIGRTAB PO
[2019-10-18 14:05] LABS: BASO # 0.1 10^3/uL (0.0-0.2); BASO % 1.1 % (0.0-1.0); EOS # 0.2 10^3/uL (0.0-0.5); EOS % 1.9 % (0.0-3.0); HEMOGLOBIN 13.5 g/dl (12.0-15.5); LYMPH # 3.7 10^3/uL (1.5-5.0); LYMPH % 38.6 % (24.0-44.0); MEAN CORPUSCULAR HEMOGLOBIN 24.8 pg (27.0-33.0); MEAN CORPUSCULAR HGB CONC 31.4 g/dl (32.0-36.5); MONO # 0.9 10^3/uL (0.0-0.8); NEUTROPHILS # 4.7 10^3/uL (1.5-8.5); NEUTROPHILS % 49.2 % (36.0-66.0); PLATELET COUNT, AUTOMATED 285 10^3/uL (150-450); RED BLOOD COUNT 5.44 10^6/uL (4.00-5.40); WHITE BLOOD COUNT 9.5 10^3/uL (4.0-10.0)
[2019-10-18 14:15] LABS: ALBUMIN 4.2 GM/DL (3.2-5.2); ALT/SGPT 15 U/L (12-78); BILIRUBIN,TOTAL 0.4 MG/DL (0.2-1.0); BLOOD UREA NITROGEN 9 MG/DL (7-18); CALCIUM LEVEL 8.8 MG/DL (8.5-10.1); CARBON DIOXIDE LEVEL 26 MEQ/L (21-32); CHLORIDE LEVEL 110 MEQ/L (98-107); CHOLESTEROL LEVEL 155 MG/DL (<200); CHOLESTEROL RISK RATIO 4.558 (<5); CREATININE FOR GFR 0.72 MG/DL (0.55-1.30); FREE T4 1.09 NG/DL (0.76-1.46); GLOMERULAR FILTRATION RATE > 60.0 (>60); GLUCOSE, FASTING 89 MG/DL (70-100); HDL CHOLESTEROL 34 MG/DL (>40); LDL CHOLESTEROL 99 MG/DL (<100); NON-HDL-C 121 MG/DL; POTASSIUM SERUM 3.5 MEQ/L (3.5-5.1); SODIUM LEVEL 141 MEQ/L (136-145); TOTAL PROTEIN 7.2 GM/DL (6.4-8.2); TRIGLYCERIDES LEVEL 110 MG/DL (<150)
[2019-10-18 15:00] LABS: HEMOGLOBIN A1c 5.4 %
[2019-10-20 00:06] LABS: Lyme Disease IgG/IgM Antibodie <0.91 ISR (0.00-0.90); Lyme Disease IgM Ab Quantitati <0.80 index (0.00-0.79)
== END ==
LOC: M LAB REF 12:34
PROVIDERS: ATTEND Family Medicine
DX: Z13.228 Encounter for screening for other metabolic disorders (principal); M25.50 Pain in unspecified joint

== ENCOUNTER 2019-11-18 19:22 | Emergency (ER) | payer MEDICAID, OTHER ==
[~2019-11-18] VITALS: Ht 170.2 cm; Wt 84.5 kg
[2019-11-18 19:22] VITALS: BP 125/68
[~2019-11-18 19:22] MED LIST changes: +QUET100T2 PO; -QUET1TAB8 PO
== END 2019-11-18 20:42 | disposition home or self-care (01) ==
LOC: M ED 19:22
DX: Z32.02 Encounter for pregnancy test, result negative (principal); Z88.5 Allergy status to narcotic agent; Z91.040 Latex allergy status; F17.210 Nicotine dependence, cigarettes, uncomplicated

== ENCOUNTER 2019-12-04 21:52 | Emergency (ER) | payer OTHER ==
[~2019-12-04] VITALS: Ht 170.2 cm; Wt 87.7 kg
[2019-12-04 23:18] LABS: INFLUENZA A AMPLIFICATION NEGATIVE (NEGATIVE); INFLUENZA B AMPLIFICATION NEGATIVE (NEGATIVE)
[2019-12-04] MEDS ORDERED: BENZ200C70 PO (23:24)
[2019-12-04] MEDS ORDERED: VENTAER INH (23:24)
[2019-12-04] MEDS ORDERED: IBUPROFEN 600 MG TAB PO ONE (23:30)
[2019-12-04] MEDS ORDERED: GI COCKTAIL 50ML BTL(HYOSCYAMINE/MAALOX/LIDOCAINE VISCOUS)(1:3:1) PO ONE (23:30)
[2019-12-04 23:38] VITALS: BP 136/71
== END 2019-12-04 23:39 | disposition home or self-care (01) ==
LOC: M ED 21:52
DX: J06.9 Acute upper respiratory infection, unspecified (principal); B34.9 Viral infection, unspecified; J45.909 Unspecified asthma, uncomplicated; F31.9 Bipolar disorder, unspecified; Z88.5 Allergy status to narcotic agent; Z91.040 Latex allergy status

== ENCOUNTER 2020-05-22 09:34 | Emergency (ER) | payer OTHER ==
[~2020-05-22] VITALS: Ht 170.2 cm; Wt 78.6 kg
[~2020-05-22 09:34] MED LIST changes: +BENZ200C70 PO; +CYCL-707; -CYCL10TA; +VENTAER INH
[2020-05-22] MEDS ORDERED: LAMO25TA4 PO (09:41)
[2020-05-22] MEDS ORDERED: QUET5TAB PO (09:41)
[2020-05-22 10:51] LABS: BASO # 0.1 10^3/uL (0.0-0.2); EOS # 0.1 10^3/uL (0.0-0.5); EOS % 1.5 % (0.0-3.0); HEMATOCRIT 42.1 % (36.0-47.0); HEMOGLOBIN 13.4 g/dl (12.0-15.5); LYMPH # 1.3 10^3/uL (1.5-5.0); LYMPH % 21.6 % (24.0-44.0); MEAN CORPUSCULAR HEMOGLOBIN 25.3 pg (27.0-33.0); MEAN CORPUSCULAR HGB CONC 31.8 g/dl (32.0-36.5); MEAN CORPUSCULAR VOLUME 79.4 fl (80.0-96.0); MONO # 0.7 10^3/uL (0.0-0.8); MONO % 11.7 % (0.0-5.0); NEUTROPHILS # 3.8 10^3/uL (1.5-8.5); PLATELET COUNT, AUTOMATED 209 10^3/uL (150-450); WHITE BLOOD COUNT 5.9 10^3/uL (4.0-10.0)
[2020-05-22 11:28] LABS: ALBUMIN 3.1 GM/DL (3.2-5.2); ALT/SGPT 706 U/L (12-78); BILIRUBIN,DIRECT 0.8 MG/DL (0.0-0.2); BILIRUBIN,TOTAL 1.4 MG/DL (0.2-1.0); BLOOD UREA NITROGEN 6 MG/DL (7-18); CALCIUM LEVEL 8.6 MG/DL (8.5-10.1); CARBON DIOXIDE LEVEL 26 MEQ/L (21-32); CHLORIDE LEVEL 111 MEQ/L (98-107); CREATININE FOR GFR 0.62 MG/DL (0.55-1.30); GLOMERULAR FILTRATION RATE > 60.0 (>60); GLUCOSE, FASTING 85 MG/DL (70-100); LIPASE 31 U/L (73-393); POTASSIUM SERUM 4.4 MEQ/L (3.5-5.1); SODIUM LEVEL 142 MEQ/L (136-145); TOTAL PROTEIN 6.3 GM/DL (6.4-8.2)
[2020-05-22] MEDS ORDERED: ISOVUE-370 76% 100ML VIAL As Ordered ONE (11:32)
--- NOTE | 2020-05-22 12:07 | REPVR ---
PROCEDURE INFORMATION: Exam: CT Abdomen And Pelvis With Contrast Exam date and time: 05/22/2020 11:39 AM Age: 25 years old Clinical indication: Nausea and vomiting; Abdominal pain; Generalized; Additional info: Abd pain with n/v R/O infectious process TECHNIQUE: Imaging protocol: Computed tomography of the abdomen and pelvis with intravenous contrast. Radiation optimization: All CT scans at this facility use at least one of these dose optimization techniques: automated exposure control; mA and/or kV adjustment per patient size (includes targeted exams where dose is matched to clinical indication); or iterative reconstruction. Contrast material: ISOVUE 370; Contrast volume: 100 ml; Contrast route: INTRAVENOUS (IV); COMPARISON: MRI PELVIS W/O FOLL WITH CON 11/10/2017 2:51 PM FINDINGS: Liver: Mild periportal edema. Gallbladder and bile ducts: Normal. No calcified stones. No ductal dilation. Pancreas: Normal. No ductal dilation. Spleen: Normal. No splenomegaly. Adrenals: Normal. No mass. Kidneys and ureters: Normal. No hydronephrosis. Stomach and bowel: Apparent congenital malrotation of the bowel. The colon is located in the left hemiabdomen and the small bowel is located in the right hemiabdomen. No bowel obstruction. Appendix: No evidence of appendicitis. Intraperitoneal space: Trace ascites. Vasculature: Unremarkable. No abdominal aortic aneurysm. Lymph nodes: Unremarkable. No enlarged lymph nodes. Bladder: See "Reproductive" finding. Reproductive: Bicornuate uterus, congenital variant. 2.6 cm left ovarian cyst. Hypodense 21 mm x 7 mm lesion along the right anterior lower vaginal wall. This could represent a urethral diverticulum or Toni duct cyst. Bones/joints: Unremarkable. No acute fracture. Soft tissues: Unremarkable. IMPRESSION: 1. Trace ascites. 2. Malrotation of the bowel. 3. Mild periportal edema. 4. Bicornuate uterus. 5. Toni's duct cyst versus urethral diverticulum. Electronically signed by: Caty Leon On 05/22/2020 12:07:32 PM
[2020-05-22 13:56] LABS: HEPATITIS A ANTIBODY IGM NEGATIVE (NEGATIVE); HEPATITIS B CORE ANTIBODY IGM NEGATIVE (NEGATIVE); HEPATITIS B SURFACE ANTIGEN NEGATIVE (NEGATIVE)
[2020-05-22 14:02] LABS: HEPATITIS C VIRUS ABY INDEX > 11.0 INDEX (<0.8)
[2020-05-22 14:07] VITALS: BP 119/57
[2020-05-22 14:10] LABS: ACETAMINOPHEN LEVEL < 2.0 UG/ML (10.0-30.0)
[2020-05-22 14:22] LABS: INR 1.07; PROTHROMBIN TIME 14.1 SECONDS (11.8-14.0)
[2020-05-22 15:18] LABS: AMPHETAMINES LEVEL URINE NEGATIVE (NEGATIVE); BARBITURATES URINE NEGATIVE (NEGATIVE); BENZODIAZEPINES URINE NEGATIVE (NEGATIVE); CANNABINOIDS URINE POSITIVE (NEGATIVE); COCAINE METABOLITE URINE NEGATIVE (NEGATIVE); METHADONE URINE NEGATIVE (NEGATIVE); OPIATES URINE NEGATIVE (NEGATIVE); PHENCYCLIDINE URINE NEGATIVE (NEGATIVE)
[2020-05-22 15:22] LABS: MONO REFLEX EBV COMP NEGATIVE (NEGATIVE)
--- NOTE | 2020-05-24 14:26 | ED PDOC ---
Post-Departure Follow-Up dr duane alvarez faxed formal report of ct abd/p fo rfu Angeles Butler MD May 24, 2020 14:26
[2020-05-24 16:08] LABS: CYTOMEGALOVIRUS IgM ANTIBODY <30.0 AU/mL (0.0-29.9); EBV VIRAL CAPSID AG IgG 30.3 U/mL (0.0-17.9); EBV VIRAL CAPSID AG IgM <36.0 U/mL (0.0-35.9)
== END 2020-05-22 14:43 | disposition home or self-care (01) ==
LOC: M ED 09:34
DX: B18.2 Chronic viral hepatitis C (principal); R94.5 Abnormal results of liver function studies; Q51.3 Bicornate uterus; F17.200 Nicotine dependence, unspecified, uncomplicated; J45.909 Unspecified asthma, uncomplicated; Z79.51 Long term (current) use of inhaled steroids; Z88.6 Allergy status to analgesic agent; Z91.040 Latex allergy status
CPT/HCPCS: 36415; 74177; 80048; 80076; 80307; 81001; 83690; 84702; 85025; 85610; 86308; 86644; 86645; 86664; 86665; 86705; 86709; 86803; 87340; 87521; 99284; Q9967

== ENCOUNTER → 2020-06-03 | Outpatient (CLI) | payer OTHER ==
[~2020-06-03] MED LIST changes: +LAMO25TA4 PO; +QUET5TAB PO
[2020-06-03 14:58] LABS: ALBUMIN 3.5 GM/DL (3.2-5.2); ALT/SGPT 96 U/L (12-78); BILIRUBIN,DIRECT 0.4 MG/DL (0.0-0.2); BILIRUBIN,TOTAL 0.7 MG/DL (0.2-1.0); HIV 1&2 SCREEN CENTAUR NEGATIVE (NEGATIVE); TOTAL PROTEIN 7.1 GM/DL (6.4-8.2)
[2020-06-06 17:00] LABS: HEPATITIS B SURFACE ANTIBODY NEGATIVE (POSITIVE)
[2020-06-06 17:07] LABS: HEPATITIS A IgG TOTAL Positive (Negative); HEPATITIS C VIRUS GENOTYPE 3 (.)
== END ==
LOC: M PLALAB 11:36
PROVIDERS: ATTEND Internal Medicine Infectious Disease
DX: Z11.59 Encounter for screening for other viral diseases (principal)

== ENCOUNTER → 2020-07-25 | Outpatient (REF) | payer MEDICAID, OTHER ==
[2020-07-25 15:54] LABS: BILIRUBIN,DIRECT 0.2 MG/DL (0.0-0.2); BILIRUBIN,TOTAL 0.6 MG/DL (0.2-1.0); TOTAL PROTEIN 7.7 GM/DL (6.4-8.2)
[2020-07-27 21:06] LABS: HEPATITIS C QUANTITATION 240 IU/mL (.)
== END ==
LOC: M SFHCPLAZ 13:08
PROVIDERS: ATTEND Internal Medicine Infectious Disease
DX: B17.10 Acute hepatitis C without hepatic coma (principal)

== ENCOUNTER → 2020-09-11 | Outpatient (CLI) | payer OTHER ==
[2020-09-11 13:35] LABS: HEMATOCRIT 43.8 % (36.0-47.0); HEMOGLOBIN 14.3 g/dl (12.0-15.5); MEAN CORPUSCULAR HEMOGLOBIN 26.1 pg (27.0-33.0); MEAN CORPUSCULAR HGB CONC 32.6 g/dl (32.0-36.5); MEAN CORPUSCULAR VOLUME 79.9 fl (80.0-96.0); PLATELET COUNT, AUTOMATED 258 10^3/uL (150-450); RED BLOOD COUNT 5.48 10^6/uL (4.00-5.40); WHITE BLOOD COUNT 7.9 10^3/uL (4.0-10.0)
[2020-09-11 13:56] LABS: BLOOD UREA NITROGEN 8 MG/DL (7-18); CALCIUM LEVEL 9.1 MG/DL (8.5-10.1); CARBON DIOXIDE LEVEL 26 MEQ/L (21-32); CHLORIDE LEVEL 106 MEQ/L (98-107); CREATININE FOR GFR 0.63 MG/DL (0.55-1.30); GLOMERULAR FILTRATION RATE > 60.0 (>60); GLUCOSE, FASTING 92 MG/DL (70-100); POTASSIUM SERUM 4.2 MEQ/L (3.5-5.1); SODIUM LEVEL 137 MEQ/L (136-145)
== END ==
LOC: M LAB 13:04
PROVIDERS: ATTEND Podiatrist
DX: Z01.818 Encounter for other preprocedural examination (principal); M20.21 Hallux rigidus, right foot; M20.42 Other hammer toe(s) (acquired), left foot; T84.498D Other mechanical complication of other internal orthopedic devices, implants and grafts, subsequent encounter; M79.671 Pain in right foot; M79.672 Pain in left foot; Z96.7 Presence of other bone and tendon implants

== ENCOUNTER 2020-10-10 12:06 | Emergency (ER) | payer OTHER ==
[~2020-10-10] VITALS: Ht 170.2 cm; Wt 84.9 kg
[~2020-10-10 12:06] MED LIST changes: -DOXY100C37 PO
--- OUTSIDE RECORDS SUMMARY | 2020-10-10 12:14 | CCD ---
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 Acti ve 483287624 Problem Acute hepatitis C virus infection without hepatic coma B17.10 Active 88021426 ALLERGIES No Known Allergies ENCOUNTERS from 1995 to 2020-07-29 Encounter Location Date Provider Diagnosis [facility] [address] [place] [address] 16 Jul, 2020 Jayden Benoit IMMUNIZATIONS Vaccine Route Administration Date Status Hepatitis B Adult 1.0mL (Engerix-B) IM Intramuscular Jul 25 0 Administered SOCIAL HISTORY Tobacco Use: Social History Observation Description Date Details (start date - stop date) Current Smoker Sex Assigned At : Social History Observation Description Sex Assigned At Unknown Education: Question Answer Notes Level of Education: Not finished High School Language: Question Answer Notes Languages spoken: Greek Amish: Question Answer Notes Amish 08 [employer] Sexual Hx: Question Answer Notes Had sex in the last 12 months (vaginal, oral, or anal)? Yes with Men only Alcohol Screening: Question Answer Notes Did you have a drink containing alcohol in the past year? No Points 0 Interpretation Negative Tobacco Use: Question Answer Notes Are you a: current smoker REASON FOR REFERRAL No Information VITAL SIGNS No information MEDICATIONS No Information PROCEDURES No Information RESULTS No Results REASON FOR VISIT No Information MEDICAL (GENERAL) HISTORY Type Description Date Medical History schizophrenia with type I bipolar disord er Medical History depression Medical History history of foot deformity with multiple foot surgeries Medical History social anxiety disorder Medical History bicornuate uterus Medical History acute hepatitis C genotype 3 ALT 96 AST 27, hepatitis A IgG positive HIV negative hepatitis B surface antibody negative needs booster Medical History ER visit 05/22/20 for abdomina l pain CT abdomen and pelvis shows trace ascites small rotation of the bowel mild periportal edema bicarbonate uterus no splenomegaly Surgical History multiple foot surgery Goals Section No Information Health Concerns No Information MEDICAL EQUIPMENT No Information MENTAL STATUS No Information FUNCTIONAL STATUS No Information ASSESSMENTS No Information PLAN OF TREATMENT Next Appt Details Provider Name:Jayden Benoit, 2020-10-1 1 12:30:00 AM, [address] [place], [address], Insurance Providers Payer Name Payer Address Payer Phone Insured Name Patient Relati onship to Insured Coverage Start Date Coverage End Date MEDICAID [employer] [address] [facility] [id number] RADHA THOMAS self
--- OUTSIDE RECORDS SUMMARY | 2020-10-10 12:14 | CCD ---
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 Acti ve 062983511 Problem Acute hepatitis C virus infection without hepatic coma B17.10 Active 07574699 ALLERGIES No Known Allergies ENCOUNTERS from 1995 to 2020-08-14 Encounter Location Date Provider Diagnosis [facility] [address] [place] [address] Jul, Jayden Benoit Acute hepatitis C virus infection withou t hepatic coma B17.10 ; Polysubstance abuse F19.10 ; 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 ; Bone callus M25.70 and Encounter for vaccination Z23 IMMUNIZATIONS Vaccine Route Administration Date Status Hepatitis B Adult 1.0mL (Engerix-B) IM Intramuscular Jul 25 0 Administered SOCIAL HISTORY Tobacco Use: Social History Observation Description Date Details (start date - stop date) Current Smoker Sex Assigned At : Social History Observation Description Sex Assigned At Unknown Education: Question Answer Notes Level of Education: Not finished High School Language: Question Answer Notes Languages spoken: South African Yazidi: Question Answer Notes Yazidi 08 Quaker Sexual Hx: Question Answer Notes Had sex in the last 12 months (vaginal, oral, or anal)? Yes with Men only Alcohol Screening: Question Answer Notes Did you have a drink containing alcohol in the past year? No Points 0 Interpretation Negative Tobacco Use: Question Answer Notes Are you a: current smoker REASON FOR REFERRAL No Information VITAL SIGNS Weight 171 lbs Jul, Height 67 in Jul, BMI 26.78 kg/m2 Jul, Heart Rate 127 /min Jul, Respiratory Rate 18 /min Jul, Temperature 97.5 degrees Fahrenheit Jul, Oximetry 98 Jul, Blood pressure systolic 132 mm Hg Jul, Blood pressure diastolic 70 mm Hg Jul, MEDICATIONS No Known Medications PROCEDURES Procedure Date Ordered Result Body Site Immunization: Engerix-B Adult 1.0mL IM (Hepatitis B) 2020-07-25 N/A RESULTS Component Value Reference Range LIVER PROFILE Reviewed date:07/26/2020 12:07:36 Interpretation: Performing Lab:[facility], [facility] [id number] , ,[place] [address] AST/SGOT 13 7-37 ALT/SGPT 25 12-78 ALKALINE PHOSPHATASE 51 45-117 BILIRUBIN,TOTAL 0.6 0.2-1.0 BILIRUBIN,DIRECT 0.2 0.0-0.2 TOTAL PROTEIN 7.7 6.4-8.2 ALBUMIN 4.0 3.2-5.2 ALBUMIN/GLOBULIN RATIO 1.1 1.2-2.2 HEPATITIS C QUANT BY PCR Reviewed date:07/29/2020 10:51:15 Interpretation: Performing Lab:[facility], [facility] [address] [facility] [address] , ,[place] [address] HEPATITIS C QUANTITATION 240 . Hepatitis C log10 2.380 . REASON FOR VISIT follow up MEDICAL (GENERAL) HISTORY Type Description Date Medical [...] No Information FUNCTIONAL STATUS No Information ASSESSMENTS Encounter Date Diagnosis Assessment Notes Treatment Notes Treatm ent Clinical Notes Jul, Acute hepatitis C virus infe ction without hepatic coma (ICD-10 - B17.10) Had acute Hepatitis C 05/2020 will follow up with liver profile and hepatitisC RNA to decide on TX , she will need to follow-up at six-month from acute hepatitis C to decide whether she needs treatment O will have spontaneous remission. She has agreed on hepatitis B booster shot. Refuses flu shot. Jul, Polysubstance abuse (ICD-10 - F19.10) Jul, Intravenous drug abuse in remission (ICD-10 - F1 9.11) Last use 03/2020 she is not seeing counselor for addiction feels she can do it on her own. Jul, Bone callus (ICD-10 - M25.70) Has appt with Dr Armstrong for calluses, Rt 5th toe surgery amputation Jul, Encounter for vaccination (ICD-10 - Z23) PLAN OF TREATMENT Treatment Notes Assessment Notes Clinical Notes Acute hepatitis C virus infection without hepatic coma Had acute Hepatitis C 05/2020 will follow up with liver profile and hepatitisC RNA to decide on TX , she will need to follow-up at six-month from acute hepatitis C to decide whether she needs treatment O will have spontaneous remission.She has agreed on hepatitis B booster shot.Refuses flu shot. Intravenous drug abuse in remission Last use 03/2020 she is not seeing counselor for addiction feels she can do it on her own. Bone callus Has appt with Dr June harrison for calluses, Rt 5th toe surgery amputation Next Appt Details 3 Months Reason: Provider Name:Jayden Macedo Cy, 2020-10-14 1 12:30:00 AM, [address] [place], [address], Insurance Providers Payer Name Payer Address Payer Phone Insured Name Patient Relati onship to Insured Coverage Start Date Coverage End Date MEDICAID [id number] [address] [facility] [id number] RADHA THOMAS self
--- OUTSIDE RECORDS SUMMARY | 2020-10-10 12:14 | CCD ---
Author Organization Unknown Address [address] [place] [address] Phone [phone] Care Team Providers Care Flight Purser Name Role Phone KAMRAN Yann ALFONSO DPMarky 2 [phone] RC BEYER MD 2 [phone] Allergies Code Code System Name Reaction Severity Status Onset 2374582 RxNorm Latex Active 07/19/2012 5489 RxNorm Hydrocodone Active 09/12/2019 Seasonale (91) Other Active Notes: SEASONAL Medications Name Status Start Date Stop Date Lamictal 25 mg tablet Take 2 tablets twice a day by oral route. Active Not available Seroquel 50 mg tablet Take 1 tablet twice a day by oral route. Active Not available triamcinolone acetonide 0.5 % topical oi ntment APPLY A THIN LAYER TO THE AFFECTED AREA S TOPICALLY TWO TIMES A DAY Active Not available Problems Name Status Onset Date Source Allergic Rhinitis Active 01/16/2013 History Endocrine/metabolic Screening Active 09/12/2019 Hi story Finding of Body Region Active 09/12/[address] Concept Active 09/12/2019 History Relationship Distress with Spouse or Intimate Partner Active 09/12/2019 History Bipolar Disorder Active 09/25/2019 History Chronic Post-traumatic Stress Disorder Active 0 History Acquired Absence of Multiple Teeth Active 11/16/2019 History Vitamin D Deficiency Active 02/22/2020 History Nicotine Dependence Active 02/22/2020 History Patient Asked to Attend Active 02/22/2020 History Clinical Finding Active 02/22/2020 History Acne Active 05/15/2020 History Disorder of Skin Appendage Active 05/15/2020 Histo ry Finding of Body Region Active 05/15/2020 History Keratoma Active 05/15/2020 History Procedures Notes: Foot Sx, Left toe removal Results Lab Results Date Name Specimen Result Interpretation Description Value Range Status Address 09/11/2020 Cbc Normal White Blood Count 7.9 10 4.0-10. 0 10 Final [facility]: [address] [facility] High Red Blood Count 5.48 10 4.00-5.40 10 [facility]: [address] [facility] Normal Hemoglobin 14.3 g/dL 12.0-15.5 g/dL [facility]: [address] [place] [address] Normal Hematocrit 43.8 % 36.0-47.0 % [facility]: [address] [place] [address] Low Mean Corpuscular Volume 79.9 fL 80.0 -96.0 fL [facility]: [address] [place] [address] Low Mean Corpuscular Hemoglobin 26.1 pg 27.0-33.0 pg [facility]: [address] [place] [address] Normal Mean Corpuscular HGB Conc 32.6 g/dL 32.0-36.5 g/dL [facility]: [address] [place] [address] High Red Cell Distribution Width 14.6 % 1 1.5-14.5 % [facility]: [address] [place] [address] Normal Platelet Count, Automated 258 10 150 -450 10 [facility]: [address] [place] [address] Normal Nucleated Red Blood Cell % 0.0 % 0- 0 % [facility]: [address] [place] [address] 09/11/2020 BMP, Serum or Plasma Normal Glucose, Fastin g 92 mg/dL 70-100 mg/dL [facility]: [address] [facility] Normal Blood Urea Nitrogen 8 mg/dL 7-18 mg/ dL [facility]: [address] [place] [address] Normal Creatinine for GFR 0.63 mg/dL 0.55-1 .30 mg/dL [facility]: [address] [place] [address] Normal Glomerular Filtration Rate > 60.0 >6 0 [facility]: [address] [place] [address] Normal Sodium Level 137 mEq/L 136-145 mEq/L [facility]: [address] [place] [address] Normal Potassium Serum 4.2 mEq/L 3.5-5.1 mE q/L [facility]: [address] [place] [address] Normal Chloride Level 106 mEq/L 98-107 mEq/ L [facility]: [address] [facility] Normal Carbon Dioxide Level 26 mEq/L 21-32 mEq/L Final [facility]: [address] [facility] Low Anion Gap 5 mEq/L 8-16 mEq/L Final [facility]: [address] [facility] Normal Calcium Level 9.1 mg/dL 8.5-10.1 mg/ dL Final [facility]: [address] [facility] Past Encounters 09/30/2020 Chronic Post-traumatic Stress Disorder Nena Ledezma [facility]: [address] [place] [address], Ph. 09/16/2020 Chronic Post-traumatic Stress Disorder Nena Ledezma [facility]: [address] [place] [address], Ph. 08/28/2020 Intertlulú Carcamo, FOOD AND NUTRITION PROFESSOR-BC: [address] [place] [address], Ph. 08/19/2020 Chronic Post-traumatic Stress Disorder Nena Ledezma [facility]: [address] [place] [address], Ph. 07/04/2020 Chronic Post-traumatic Stress Disorder Nena Ledezma [facility]: [address] [facility] [address], Ph. Social History Tobacco Smoking Status Heavy Tobacco Smoker (1 09/14 PPD) Vaccine List Notes: Pt declined Flu Vaccine Plan of Care Reminders Provider Appointments None recorded. Lab None recorded. Referral None recorded. Procedures None recorded. Surgeries None recorded. Imaging None recorded. Vitals 08/28/2020 04:00PM ESTABLISHED [id number] Height Weight BMI Blood Pressure 66.5 in 180 lbs 6 oz 28.7 kg/m2 128/74 mm[Hg] 05/15/2020 Height Weight Blood Pressure 66.5 in 169 lbs 114/65 mm[Hg] 05/13/2020 Height Weight 66.5 in 169 lbs 8 oz 02/22/2020 Height Weight Blood Pressure 66.5 in 170 lbs 6.08 oz 101/68 mm[Hg] 01/29/2020 Height Weight 66.5 in 172 lbs 2.08 oz 12/21/2019 Height Weight 66.5 in 177 lbs 2.08 oz 10/30/2019 Height Weight 66.5 in 187 lbs 7.04 oz 09/25/2019 Height Weight 66.5 in 191 lbs 2.08 oz 09/12/2019 Height Weight Blood Pressure 66.5 in 192 lbs 114/67 mm[Hg]
--- OUTSIDE RECORDS SUMMARY | 2020-10-10 12:14 | CCD ---
Author Organization Unknown Address [address] [place] [address] Phone [phone] Care Team Providers Care Bee Raiser Name Role Phone KAMRAN Yann ALFONSO DPMarky 2 [phone] RC BEYER MD 2 [phone] Allergies Code Code System Name Reaction Severity Status Onset 1055433 RxNorm Latex Active 07/19/2012 5489 RxNorm Hydrocodone [...] APPLY A THIN LAYER TO THE AFFECTED AREA(S) BY TOPICAL ROUTE 2 TIMES PER DAY Active Not available Problems Name Status [...] Sx, Left toe removal Results Lab Results None recorded. Past Encounters 08/28/2020 Intertrigo Viktoriya Carcamo, SANDRA-[facility]: [address] [place] [address], Ph. 08/19/2020 Chronic Post-traumatic Stress Disorder Nena Ledezma, NUT AND BOLT ASSEMBLER-R: [address] [place] [address], Ph. 07/04/2020 Chronic Post-traumatic Stress Disorder Nena Ledezma, NUT AND BOLT ASSEMBLER-R: [address] , [address], [place] [address], Ph. Social History Tobacco Smoking Status Heavy Tobacco Smoker (1 09/14 PPD) Vaccine List Notes: Pt declined Flu Vaccine Plan of Care Reminders Provider Appointments None recorded. Lab None recorded. Referral None recorded. Procedures None recorded. Surgeries None recorded. Imaging None recorded. Vitals 08/28/2020 04:00PM ESTABLISHED [id number] Height Weight BMI Blood Pressure 66.5 in [...]
--- OUTSIDE RECORDS SUMMARY | 2020-10-10 12:14 | CCD ---
Author Organization Unknown Address [address] [place] [address] Phone [phone] Care Team Providers Care New Car Inspector Name Role Phone Mac Young Unavailable Unavailable Allergies Code Code System Name Reaction Severity Status Onset 3389235 RxNorm Latex Active 07/19/2012 5489 RxNorm Hydrocodone Active 09/12/2019 Notes: SEASONAL Medications Name Status Start Date Stop Date Lamictal 25 mg tablet Take 2 tablets twice a day by oral route. Active Not available Seroquel 50 mg tablet Take 1 tablet twice a day by oral route. Active Not available Problems Name Status Onset [...] Results Lab Results None recorded. Past Encounters 08/19/2020 Chronic Post-traumatic Stress Disorder Nena Ledezma LCSW-R: [address] [place] [address], Ph. 07/04/2020 Chronic Post-traumatic Stress Disorder RAMU RodríguezW-R: [address] [facility] [address], Ph. Social History None recorded. Vaccine List None recorded. Plan of Care Reminders Provider Appointments None recorded. Lab None recorded. Referral None recorded. Procedures None recorded. Surgeries None recorded. Imaging None recorded. Vitals 05/15/2020 Height Weight Blood Pressure 66.5 in [...]
--- OUTSIDE RECORDS SUMMARY | 2020-10-10 12:14 | CCD ---
Author Organization Unknown Address [address] [place] [address] Phone [phone] Care Team Providers Care Train Brake Operator Name Role Phone KAMRAN Yann ALFONSO DPMarky 2 [phone] RC BEYER MD 2 [phone] Allergies Code Code System Name Reaction Severity Status Onset 1527860 RxNorm Latex Active 07/19/2012 5489 RxNorm Hydrocodone [...] Count 7.9 10 4.0-10. 0 10 Final [facility]: [address] [facility] High Red Blood Count 5.48 10 4.00-5.40 10 [facility]: [address] [facility] Normal Hemoglobin 14.3 g/dL 12.0-15.5 g/dL [facility]: [address] [place] [address] Normal Hematocrit 43.8 % 36.0-47.0 % [facility]: [address] [place] [address] Low Mean Corpuscular Volume 79.9 fL 80.0 -96.0 fL [facility]: [address] [place] [address] Low Mean Corpuscular Hemoglobin 26.1 pg 27.0-33.0 pg [facility]: [address] [place] [address] Normal Mean Corpuscular HGB Conc 32.6 g/dL 32.0-36.5 g/dL [facility]: [address] [place] [address] High Red Cell Distribution Width 14.6 % 1 1.5-14.5 % [facility]: [address] [place] [address] Normal Platelet Count, Automated 258 10 150 -450 10 [facility]: [address] [place] [address] Normal Nucleated Red Blood Cell % 0.0 % 0- 0 % [facility]: [address] [place] [address] 09/11/2020 BMP, Serum or Plasma Normal Glucose, Fastin g 92 mg/dL 70-100 mg/dL [facility]: [address] [facility] Normal Blood Urea Nitrogen 8 mg/dL 7-18 mg/ dL [facility]: [address] [place] [address] Normal Creatinine for GFR 0.63 mg/dL 0.55-1 .30 mg/dL [facility]: [address] [place] [address] Normal Glomerular Filtration Rate > 60.0 >6 0 [facility]: [address] [place] [address] Normal Sodium Level 137 mEq/L 136-145 mEq/L [facility]: [address] [place] [address] Normal Potassium Serum 4.2 mEq/L 3.5-5.1 mE q/L [facility]: [address] [place] [address] Normal Chloride Level 106 mEq/L 98-107 mEq/ L Final [facility]: [address] [facility] Normal Carbon Dioxide Level 26 mEq/L 21-32 mEq/L Final [facility]: [address] [facility] Low Anion Gap 5 mEq/L 8-16 mEq/L Final [facility]: [address] [facility] Normal Calcium Level 9.1 mg/dL 8.5-10.1 mg/ dL Final [facility]: [address] [facility] Past Encounters 09/16/2020 Chronic Post-traumatic Stress Disorder Nena LedezmaRAMUW-R: [address] [place] [address], Ph. 08/28/2020 Jo Ann Carcamo, INFORMATION CLERK CASHIER-BC: [address] [place] [address], Ph. 08/19/2020 Chronic Post-traumatic Stress Disorder Nena AnguianoRAMU avinaW-R: [address] [place] [address], Ph. 07/04/2020 Chronic Post-traumatic Stress Disorder Nena Ledezma CHARGE AUDITOR-R: [address] [facility] [address], Ph. Social History Tobacco Smoking Status Heavy Tobacco Smoker (1 1/2 PPD) Vaccine List Notes: Pt declined Flu Vaccine Plan of Care Reminders Provider Appointments None recorded. Lab None recorded. Referral None recorded. Procedures None recorded. Surgeries None recorded. Imaging None recorded. Vitals 08/28/2020 04:00PM ESTABLISHED [id number] Height Weight BMI Blood Pressure 66.5 in [...]
--- OUTSIDE RECORDS SUMMARY | 2020-10-10 12:15 | CCD ---
Author Author [facility] Organization [facility] Address Unknown Phone Unavailable Care Team Providers Care Fire Sprinkler Apparatus Inspector Name Role Phone Malia Kimble SCHOOL LUNCH MANAGER SCHOOL LUNCH MANAGER Unavailable Unavailable Carlos Alberto, A Viktoriya SCHOOL LUNCH MANAGER Unavailable Unavailable Carlos Alberto, A Viktoriya SCHOOL LUNCH MANAGER Unavailable Unavailable Carlos Alberto, A Ivktoriya SCHOOL LUNCH MANAGER Unavailable Unavailable Carlos Alberto, A Viktoriya SCHOOL LUNCH MANAGER Unavailable Unavailable Carlos Alberto, A Viktoriya SCHOOL LUNCH MANAGER Unavailable Unavailable Carlos Alberto, A Viktoriya SCHOOL LUNCH MANAGER Unavailable Unavailable Carlos Alberto, A Viktoriya SCHOOL LUNCH MANAGER Unavailable Unavailable Carlos Alberto, A Viktoriya SCHOOL LUNCH MANAGER Unavailable Unavailable Carlos Alberto, A Viktoriya SCHOOL LUNCH MANAGER Unavailable Unavailable Carlos Alberto, A Viktoriya SCHOOL LUNCH MANAGER Unavailable Unavailable Carlos Alberto, A Viktoriya SCHOOL LUNCH MANAGER Unavailable Unavailable Carlos Alberto, A Viktoriya SCHOOL LUNCH MANAGER Unavailable Unavailable Carlos Alberto, A Viktoriya SCHOOL LUNCH MANAGER Unavailable Unavailable Carlos Alberto, A Viktoriya SCHOOL LUNCH MANAGER Unavailable Unavailable Carlos Alberto, A Viktoriya SCHOOL LUNCH MANAGER Unavailable Unavailable Carlos Alberto, A Viktoriya SCHOOL LUNCH MANAGER Unavailable Unavailable [place], A Viktoriya SCHOOL LUNCH MANAGER Unavailable Unavailable [place], A Viktoriya SCHOOL LUNCH MANAGER Unavailable Unavailable Carlos Alberto, A Viktoriya SCHOOL LUNCH MANAGER Unavailable Unavailable [place], A Viktoriya SCHOOL LUNCH MANAGER Unavailable Unavailable [place], A Viktoriya SCHOOL LUNCH MANAGER Unavailable Unavailable [place], A Viktoriya SCHOOL LUNCH MANAGER Unavailable Unavailable Carlos Alberto, A Viktoriya SCHOOL LUNCH MANAGER Unavailable Unavailable Carlos Alberto, A Viktoriya SCHOOL LUNCH MANAGER Unavailable Unavailable Carlos Alberto, A Viktoriya SCHOOL LUNCH MANAGER Unavailable Unavailable Carlos Alberto, A Viktoriya SCHOOL LUNCH MANAGER Unavailable Unavailable Carlos Alberto, A Viktoriya SCHOOL LUNCH MANAGER Unavailable Unavailable Elizabeth Rios MD Unavailable Unavailable Elizabeth Rios MD Unavailable Unavailable Elizabeth Rios MD Unavailable Unavailable Elizabeth Rios MD Unavailable Unavailable lEizabeth Rios MD Unavailable Unavailable Elizabeth Rios MD Unavailable Unavailable Elizabeth Rios MD Unavailable Unavailable Kirsten BAEZ MD Unavailable Unavailable Kirsten BAEZ MD Unavailable Unavailable Kirsten BAEZ MD Unavailable Unavailable Kirsten BAEZ MD Unavailable Unavailable Kirsten BAEZ MD Unavailable Unavailable Kirsten BAEZ MD Unavailable Unavailable Kirsten BAEZ MD Unavailable Unavailable Kirsten BAEZ MD Unavailable Unavailable Kirsten BAEZ MD Unavailable Unavailable Kirsten BAEZ MD Unavailable Unavailable Kirsten BAEZ MD Unavailable Unavailable Kirsten BAEZ MD Unavailable Unavailable Kirsten BAEZ MD Unavailable Unavailable Kirsten BAEZ MD Unavailable Unavailable Kirsten BAEZ MD Unavailable Unavailable Kirsten BAEZ MD Unavailable Unavailable Kirsten BAEZ MD Unavailable Unavailable Kirsten BAEZ MD Unavailable Unavailable Kirsten BAEZ MD Unavailable Unavailable Kirsten BAEZ MD Unavailable Unavailable Kirsten BAEZ MD Unavailable Unavailable Kirsten BAEZ MD Unavailable Unavailable Kirsten BAEZ MD Unavailable Unavailable Kirsten BAEZ MD Unavailable Unavailable Kirsten BAEZ MD Unavailable Unavailable Kirsten BAEZ MD Unavailable Unavailable Kirsten BAEZ MD Unavailable Unavailable Kirsten BAEZ MD Unavailable Unavailable Kirsten BAEZ MD Unavailable Unavailable Kirsten BAEZ MD Unavailable Unavailable Kirsten BAEZ MD Unavailable Unavailable Kirsten BAEZ MD Unavailable Unavailable Kirsten BAEZ MD Unavailable Unavailable Kirsten BAEZ MD Unavailable Unavailable Kirsten BAEZ MD Unavailable Unavailable Kirsten BAEZ MD Unavailable Unavailable Kirsten BAEZ MD Unavailable Unavailable Kirsten BAEZ MD Unavailable Unavailable Kirsten BAEZ MD Unavailable Unavailable Kirsten BAEZ MD Unavailable Unavailable Kirsten BAEZ MD Unavailable Unavailable Kirsten BAEZ MD Unavailable Unavailable Kirsten BAEZ MD Unavailable Unavailable Kirsten BAEZ MD Unavailable Unavailable Kirsten BAEZ MD Unavailable Unavailable Kirsten BAEZ MD Unavailable Unavailable Kirsten BAEZ MD Unavailable Unavailable Kirsten BAEZ MD Unavailable Unavailable Kirsten BAEZ MD Unavailable Unavailable Kirsten BAEZ MD Unavailable Unavailable Kirsten BAEZ MD Unavailable Unavailable Kirsten BAEZ MD Unavailable Unavailable Kirsten BAEZ MD Unavailable Unavailable Kirsten BAEZ MD Unavailable Unavailable Kirsten BAEZ MD Unavailable Unavailable Kirsten BAEZ MD Unavailable Unavailable Kirsten BAEZ MD Unavailable Unavailable Kirsten BAEZ MD Unavailable Unavailable Kirsten BAEZ MD Unavailable Unavailable Kirsten BAEZ MD Unavailable Unavailable Kirsten BAEZ MD Unavailable Unavailable Kirsten BAEZ MD Unavailable Unavailable Kirsten BAEZ MD Unavailable Unavailable Kirsten BAEZ MD Unavailable Unavailable Kirsten BAEZ MD Unavailable Unavailable Kirsten BAEZ MD Unavailable Unavailable Kirsten BAEZ MD Unavailable Unavailable [place], Kirsten MCLEAN MD Unavailable Unavailable [place], Kirsten MCLEAN MD Unavailable Unavailable [place], Kirsten MCLEAN MD Unavailable Unavailable [place], Kirsten MCLEAN MD Unavailable Unavailable [place], Kirsten MCLEAN MD Unavailable Unavailable [place], Kirsten MCLEAN MD Unavailable Unavailable [place], Kirsten MCLEAN MD Unavailable Unavailable [place], Kirsten MCLEAN MD Unavailable Unavailable [place], Kirsten MCLEAN MD Unavailable Unavailable [place], Kirsten MCLEAN MD Unavailable Unavailable [place], Kirsten MCLEAN MD Unavailable Unavailable [place], Kirsten MCLEAN MD Unavailable Unavailable [place], Kirsten MCLEAN MD Unavailable Unavailable [place], Kirsten MCLEAN MD Unavailable Unavailable [place], Kirsten MCLEAN MD Unavailable Unavailable [place], Kirsten MCLEAN MD Unavailable Unavailable GENARO-RASHARD, KRYSTA DO Unavailable Unavailable GENARO-RASHARD, KRYSTA DO Unavailable Unavailable GENARO-RASHARD, KRYSTA DO Unavailable Unavailable GENARO-RASHARD, KRYSTA DO Unavailable Unavailable GENARO-RASHARD, KRYSTA DO Unavailable Unavailable GENARO-RASHARD, KRYSTA DO Unavailable Unavailable GENARO-RASHARD, KRYSTA DO Unavailable Unavailable GENARO-RASHARD, KRYSTA DO Unavailable Unavailable GENARO-RASHARD, KRYSTA DO Unavailable Unavailable GENARO-RASHARD, KRYSTA DO Unavailable Unavailable GENARO-RASHARD, KRYSTA DO Unavailable Unavailable GENARO-RASHARD, KRYSTA DO Unavailable Unavailable GENARO-RASHARD, KRYSTA DO Unavailable Unavailable GENARO-RASHARD, KRYSTA DO Unavailable Unavailable GENARO-RASHARD, KRYSTA DO Unavailable Unavailable GENARO-RASHARD, KRYSTA DO Unavailable Unavailable GENARO-RASHARD, KRYSTA DO Unavailable Unavailable GENARO-RASHARD, KRYSTA DO Unavailable Unavailable GENARO-RASHARD, KRYSTA DO Unavailable Unavailable GENARO-RASHARD, KRYSTA DO Unavailable Unavailable GENARO-RASHARD, KRYSTA DO Unavailable Unavailable GENARO-RASHARD, KRYSTA DO Unavailable Unavailable GENARO-RASHARD, KRYSTA DO Unavailable Unavailable GENARO-RASHARD, KRYSTA DO Unavailable Unavailable GENARO-RASHARD, KRYSTA DO Unavailable Unavailable GENARO-RASHARD, KRYSTA DO Unavailable Unavailable GENARO-RASHARD, KRYSTA DO Unavailable Unavailable GENARO-RASHARD, KRYSTA DO Unavailable Unavailable GENARO-RASHARD, KRYSTA DO Unavailable Unavailable GENARO-RASHARD, KRYSTA DO Unavailable Unavailable GENARO-RASHARD, KRYSTA DO Unavailable Unavailable GENARO-RASHARD, KRYSTA DO Unavailable Unavailable GENARO-RASHARD, KRYSTA DO Unavailable Unavailable GENARO-RASHARD, KRYSTA DO Unavailable Unavailable GENARO-RASHARD, KRYSTA DO Unavailable Unavailable GENARO-RASHARD, KRYSTA DO Unavailable Unavailable GENARO-RASHARD, KRYSTA DO Unavailable Unavailable GENARO-RASHARD, KRYSTA DO Unavailable Unavailable GENARO-RASHARD, KRYSTA DO Unavailable Unavailable GENARO-RASHARD, KRYSTA DO Unavailable Unavailable GENARO-RASHARD, KRYSTA DO Unavailable Unavailable GENARO-RASHARD, KRYSTA DO Unavailable Unavailable GENARO-RASHARD, KRYSTA DO Unavailable Unavailable GENARO-RASHARD, KRYSTA DO Unavailable Unavailable GENARO-RASHARD, KRYSTA DO Unavailable Unavailable GENARO-RASHARD, KRYSTA DO Unavailable Unavailable GENARO-RASHARD, KRYSTA DO Unavailable Unavailable GENARO-RASHARD, KRYSTA DO Unavailable Unavailable GENARO-RASHARD, KRYSTA DO Unavailable Unavailable GENARO-RASHARD, KRYSTA DO Unavailable Unavailable GENARO-RASHARD, KRYSTA DO Unavailable Unavailable GENARO-RASHARD, KRYSTA DO Unavailable Unavailable GENARO-RASHARD, KRYSTA DO Unavailable Unavailable GENARO-RASHARD, KRYSTA DO Unavailable Unavailable GENARO-RASHARD, KRYSTA DO Unavailable Unavailable GENARO-RASHARD, KRYSTA DO Unavailable Unavailable GENARO-RASHARD, KRYSTA DO Unavailable Unavailable GENARO-RASHARD, KRYSTA DO Unavailable Unavailable GENRAO-RASHARD, KRYSTA DO Unavailable Unavailable GENARO-RASHARD, KRYSTA DO Unavailable Unavailable GENARO-RASHARD, KRYSTA DO Unavailable Unavailable GENARO-RASHARD, KRYSTA DO Unavailable Unavailable GENARO-RASHARD, KRYSTA DO Unavailable Unavailable GENARO-RASHARD, KRYSTA DO Unavailable Unavailable GENARO-RASHARD, KRYSTA DO Unavailable Unavailable GENARO-RASHARD, KRYSTA DO Unavailable Unavailable GENARO-RASHARD, KRYSTA DO Unavailable Unavailable GENARO-RASHARD, KRYSTA DO Unavailable Unavailable GENARO-RASHARD, KRYSTA DO Unavailable Unavailable GENARO-RASHARD, KRYSTA DO Unavailable Unavailable GENARO-RASHARD, KRYSTA DO Unavailable Unavailable GENARO-RASHARD, KRYSTA DO Unavailable Unavailable GENARO-RASHARD, KRYSTA DO Unavailable Unavailable GENARO-RASHARD, KRYSTA DO Unavailable Unavailable GENARO-RASHARD, KRYSTA DO Unavailable Unavailable GENARO-RASHARD, KRYSTA DO Unavailable Unavailable GENARO-RASHARD, KRYSTA DO Unavailable Unavailable GENARO-RASHARD, KRYSTA DO Unavailable Unavailable GENARO-RASHARD, KRYSTA DO Unavailable Unavailable GENARO-RASHARD, KRYSTA DO Unavailable Unavailable GENARO-RASHARD, KRYSTA DO Unavailable Unavailable GENARO-RASHARD, KRYSTA DO Unavailable Unavailable Kimble, F Malia SCHOOL LUNCH MANAGER-BC Unavailable Unavailable Kimble, F Malia SCHOOL LUNCH MANAGER-BC Unavailable Unavailable Kimble, F Malia SCHOOL LUNCH MANAGER-BC Unavailable Unavailable Kimble, F Malia SCHOOL LUNCH MANAGER-BC Unavailable Unavailable Kimble, F Malia SCHOOL LUNCH MANAGER-BC Unavailable Unavailable Kimble, F Malia SCHOOL LUNCH MANAGER-BC Unavailable Unavailable Kimble, F Malia SCHOOL LUNCH MANAGER-BC Unavailable Unavailable Kimble, F Malia SCHOOL LUNCH MANAGER-BC Unavailable Unavailable Kimble, F Malia SCHOOL LUNCH MANAGER-BC Unavailable Unavailable Kimble, F Malia SCHOOL LUNCH MANAGER-BC Unavailable Unavailable Kimble, F Malia SCHOOL LUNCH MANAGER-BC Unavailable Unavailable Kimble, F Malia SCHOOL LUNCH MANAGER-BC Unavailable Unavailable Kimble, F Malia SCHOOL LUNCH MANAGER-BC Unavailable Unavailable Kimble, F Malia SCHOOL LUNCH MANAGER-BC Unavailable Unavailable Kimble, F Malia SCHOOL LUNCH MANAGER-BC Unavailable Unavailable Kimble, F Malia SCHOOL LUNCH MANAGER-BC Unavailable Unavailable Kimble, F Malia SCHOOL LUNCH MANAGER-BC Unavailable Unavailable Kimble, F Malia SCHOOL LUNCH MANAGER-BC Unavailable Unavailable Kimble, F Malia SCHOOL LUNCH MANAGER-BC Unavailable Unavailable Kimble, F Malia SCHOOL LUNCH MANAGER-BC Unavailable Unavailable Kimble, F Malia SCHOOL LUNCH MANAGER-BC Unavailable Unavailable Kimble, F Malia SCHOOL LUNCH MANAGER-BC Unavailable Unavailable Randy, Bushra VOICE OVER ARTIST Unavailable Unavailable Randy, Bushra VOICE OVER ARTIST Unavailable Unavailable Randy, Bushra VOICE OVER ARTIST Unavailable Unavailable Randy, Bushra VOICE OVER ARTIST Unavailable Unavailable Randy, Bushra VOICE OVER ARTIST Unavailable Unavailable Randy, Bushra VOICE OVER ARTIST Unavailable Unavailable Randy, Bushra VOICE OVER ARTIST Unavailable Unavailable Randy, Bushra VOICE OVER ARTIST Unavailable Unavailable Randy, Bushra VOICE OVER ARTIST Unavailable Unavailable Randy, Bushra VOICE OVER ARTIST Unavailable Unavailable Randy, Bushra VOICE OVER ARTIST Unavailable Unavailable Zhang, Jose Enrique VOICE OVER ARTIST Unavailable Zhang, Jose Enrique VOICE OVER ARTIST Unavailable Jose Enrique Holcomb VOICE OVER ARTIST Unavailable Kyler Lee MD Unavailable Unavailable BILAL, HOLLIMATabby JONES Unavailable Unavailable BILAL, AHMAD MD Unavailable Unavailable BILAL, AHMAD MD Unavailable Unavailable BILAL, AHMAD MD Unavailable Unavailable BILAL, AHMAD MD Unavailable Unavailable BILAL, AHMAD MD Unavailable Unavailable BILAL, AHMAD MD Unavailable Unavailable BILAL, AHMAD MD Unavailable Unavailable BILAL, AHMAD MD Unavailable Unavailable Viktoriya Carcamo SCHOOL LUNCH MANAGER SCHOOL LUNCH MANAGER Unavailable Unavailable [facility], RFROST GOODWIN PA NAVEEN Unavailable Unavailable F[employer], Nena Unavailable Unavailable [employer], Nena Unavailable Unavailable Re-disclosure Warning The records that you are about to access may contain information from federally-assisted alcohol or drug abuse programs. If such information is present, then the following federally mandated warning applies: This information has been disclosed to you from records protected by federal confidentiality rules (42 CFR part 2). The federal rules prohibit you from making any further disclosure of this information unless further disclosure is expressly permitted by the written consent of the person to whom it pertains or as otherwise permitted by 42 CFR part 2. A general authorization for the release of medical or other information is NOT sufficient for this purpose. The Federal rules restrict any use of the information to criminally investigate or prosecute any alcohol or drug abuse patient.The records that you are about to access may contain highly sensitive health information, the redisclosure of which is protected by Article 27-F of the [facility] Public Health law. If you continue you may have access to information: Regarding HIV / AIDS; Provided by facilities licensed or operated by the [facility] Office of Mental Health; or Provided by the [facility] Office for People With Developmental Disabilities. If such information is present, then the following [facility] mandated warning applies: This information has been disclosed to you from confidential records which are protected by state law. State law prohibits you from making any further disclosure of this information without the specific written consent of the person to whom it pertains, or as otherwise permitted by law. Any unauthorized further disclosure in violation of state law may result in a fine or senior care sentence or both. A general authorization for the release of medical or other information is NOT sufficient authorization for further disc losure. Allergies and Adverse Reactions Type Description Substance Reaction Status Data Source(s ) Allergy to substance Allergy to substance Hydrocodone NINA ([facility]) Allergy to substance Allergy to substance Hydrocodone NINA ([facility]) Allergy to substance Allergy to substance Hydrocodone NINA ([facility]) Allergy to substance Allergy to substance Hydrocodone NINA ([facility]) Allergy to substance Allergy to substance Hydrocodone NINA ([facility]) Allergy to substance Allergy to substance Hydrocodone VARNA ([facility]) Drug allergy HYDROCODONE HYDROCODONE [facility] Drug allergy latex Latex RASH/HIVES [facility] Drug allergy hydrocodone Hydrocodone NAUSEA/VOMITING/DIARRHEA [facility] Family History Family Member Name Family Member Gender Family Member Status Date o f Status Description Data Source(s) Unknown Male Problem MEDENT ([facility]) Unknown Male Problem MEDENT ([facility]) Encounters Encounter Providers Location Date Indications Data Source(s ) SANDRA Johnson-BC: [address] [place] [address], Ph. Attender: Viktoriya FLORES [facility] Medical 10/10/2020 12:00:00 AM EST [facility]) Nena Ledezma LCSW-R: [address], [place] [address], Ph. Attender: Nena James [facility] Medical 09/30/2020 12:00:00 AM EST [facility]) Nena Ledezma LCSW-R: [address], [place] [address], Ph. Attender: Nena James [facility] Medical 09/30/2020 12:00:00 AM EST [facility]) Nena Ledezma LCSW-R: [address], [place] [address], Ph. Attender: Nena James [facility] Medical 09/16/2020 12:00:00 AM EST NINA ([facility]) Nena Ledezma LCSW-R: [address], [place] [address], Ph. Attender: Nena James [facility] Medical 09/16/2020 12:00:00 AM EST NINA ([facility]) Nena Ledezma LCSW-R: [address], [place] [address], Ph. Attender: Nena Gardunokirstendami [facility] Medical 09/16/2020 12:00:00 AM EST NINA ([facility]) NAYLA JohnsonBC: [address], [place] [address], Ph. Attender: Viktoriya Carcamo [facility] Medical 08/28/2020 12:00:00 AM EST NINA ([facility]) NAYLA Johnson: [address], [place] [address], Ph. Attender: Viktoriya Carcamo [facility] Medical 08/28/2020 12:00:00 AM EST NINA ([facility]) NAYLA Johnson: [address], [place] [address], Ph. Attender: Viktoriya Carcamo [facility] Medical 08/28/2020 12:00:00 AM EST NINA ([facility]) NAYLA Johnson: [address], [place] [address], Ph. Attender: Viktoriya Carcamo [facility] Medical 08/28/2020 12:00:00 AM EST NINA ([facility]) Nena Ledezma LCSW-R: [address], [facility] [place] [address], Ph. Attender: Nena James [facility] Medical 08/19/2020 12:00:00 AM EST NINA ([facility]) Nena Ledezma LCSW-R: [address], [place] [address], Ph. Attender: Nena James [facility] Medical 08/19/2020 12:00:00 AM EST NINA ([facility]) Nena Ledezma LCSW-R: [address], [place] [address], Ph. Attender: Nena James [facility] Medical 08/19/2020 12:00:00 AM EST NINA ([facility]) Nena Ledezma LCSW-R: [address], [place] [address], Ph. Attender: Nena James [facility] Medical 08/19/2020 12:00:00 AM EST NINA ([facility]) Nena Ledezma LCSW-R: [address], [facility] [place] [address], Ph. Attender: Nena James [facility] Medical 08/19/2020 12:00:00 AM EST NINA ([facility]) [place] [address] [facility] [address] 07/29/2020 12:00:00 AM EST eCW1 ([facility]) Out[place] [address] [facility] [address] 07/25/2020 12:00:00 AM EST eCW1 ([facility]) Outpatient Attender: SANDRA FLORES 07/16/2020 04:18:01 PM [facility] Nena RAMU LedezmaW-R: [address], [place] [address], Ph. Attender: Nena James [facility] Medical 07/04/2020 12:00:00 AM EDT [facility]) RAMU RodríguezW-R: [address], [place] [address], Ph. Attender: Nena James [facility] Medical 07/04/2020 12:00:00 AM EDT VARNA ([facility]) RAMU RodríguezW-R: [address], [place] [address], Ph. Attender: Nena James [facility] Medical 07/04/2020 12:00:00 AM EDT [facility]) RAMU RodríguezW-R: [address], [place] [address], Ph. Attender: Nena James [facility] Medical 07/04/2020 12:00:00 AM EDT VARNA ([facility]) RAMU RodríguezW-R: [address], [address], [place] [address], Ph. Attender: Nena James [facility] Medical 07/04/2020 12:00:00 AM EDT VARNA ([facility]) RAMU RodríguezW-R: [address], [place] [address], Ph. Attender: Nena James [place] - [facility] Medical 07/04/2020 12:00:00 AM EDT NINA ([facility]) Outpatient Attender: Malia NORRIS FP 07/01/2020 04: 32:01 PM EDT [facility] Outpatient Attender: SANDRA FLORES FP 06/29/2020 11:43:00 AM EDT [facility] Outpatient Attender: SANDRA FLORES FP 06/27/2020 11:02:03 AM EDT [facility] Outpatient Attender: SANDRA FLORES FP 06/20/2020 12:02:08 AM EDT [facility] Outpatient Attender: Malia NORRIS FP 06/19/2020 02: 40:01 PM EDT [facility] Outpatient Attender: SANDRA FLORES FP 06/19/2020 02:16:00 PM EDT [facility] Outpatient Attender: Malia NORRIS FP 06/14/2020 05: 27:00 PM EDT [facility] Outpatient Attender: Malia NORRIS FP 06/14/2020 03: 20:02 PM EDT [facility] Outpatient Attender: SANDRA FLORES FP 06/13/2020 10:24:00 AM EDT [facility] Outpatient Attender: Malia NORRIS FP 06/05/2020 12: 29:00 PM EDT [facility] Outpatient Attender: SANDRA FLORES FP 06/03/2020 03:15:01 PM EDT [facility] Outpatient Attender: Malia NORRIS FP 06/03/2020 12: 49:02 PM EDT [facility] Outpatient Attender: Malia NORRIS FP 05/31/2020 09: 22:02 AM EDT [facility] Outpatient Attender: Malia NORRIS FP 05/27/2020 03: 37:02 PM EDT [facility] Outpatient Attender: SANDRA FLORES FP 05/22/2020 11:28:01 AM EDT [facility] Outpatient Attender: SANDRA FLORES FP 05/15/2020 03:38:01 PM EDT [facility] Outpatient Attender: SANDRA FLORES FP 05/14/2020 06:33:49 AM EDT [facility] Outpatient Attender: SANDRA FLORES FP 05/13/2020 01:11:00 PM EDT [facility] Outpatient Attender: SANDRA FLORES FP 05/13/2020 12:56:01 PM EDT [facility] Outpatient Attender: SANDRA FLORES FP 05/13/2020 12:55:00 PM EDT [facility] Outpatient Attender: SANDRA FLORES FP 05/10/2020 02:59:01 PM EDT [facility] Outpatient Attender: Malia WINSLOWBC FP 05/07/2020 11: 08:03 AM EDT [facility] Outpatient Attender: SANDRA FLORES FP 05/06/2020 12:11:00 PM EDT [facility] Outpatient Attender: SANDRA FLORES FP 05/06/2020 11:23:00 AM EDT [facility] Outpatient Attender: Malia WINSLOWBC FP 05/06/2020 11: 13:00 AM EDT [facility] Outpatient Attender: SANDRA FLORES FP 05/06/2020 11:05:00 AM EDT [facility] Outpatient Attender: SANDRA FLORES FP 04/19/2020 02:11:00 PM EDT [facility] Outpatient Attender: SANDRA FLORES FP 03/03/2020 07:00:05 PM EDT [facility] Outpatient Attender: Malia FLORES-BC FP 03/03/2020 07: 00:02 PM EDT [facility] Outpatient Attender: SANDRA FLORES FP 02/22/2020 05:38:06 PM EDT [facility] Outpatient Attender: SANDAR FLORES FP 02/20/2020 08:01:49 P M EDT [facility] Outpatient Attender: SANDRA FLORES FP 02/20/2020 07:35:05 PM EDT [facility] Outpatient Attender: SANDRA FLORES FP 02/01/2020 11:06:00 AM EDT [facility] Outpatient Attender: SANDRA FLORES FP 01/29/2020 02:32:00 PM EDT [facility] Outpatient Attender: SANDRA FLORES FP 01/23/2020 02:34:05 PM [facility] Outpatient Attender: SANDRA FLORES 01/17/2020 10:20:01 AM [facility] Outpatient Attender: VINAY BAEZ MD 01/16/2020 11:19:[address] [facility] Outpatient Attender: VINAY BAEZ MD 12/21/2019 10:23:[address] [facility] Outpatient Attender: VINAY ABEZ MD 12/20/2019 01:50:[address] [facility] Outpatient Attender: VINAY BAEZ MD 12/18/2019 01:02:[address] [facility] Outpatient Attender: VINAY BAEZ MD 12/05/2019 02:02:[address] [facility] Outpatient Attender: VINAY BAEZ MD 12/05/2019 02:01:[address] [facility] Outpatient Attender: VINAY BAEZ MD 12/04/2019 05:30:[address] [facility] Outpatient Attender: VINAY BAEZ MD 12/01/2019 11:19:[address] [facility] Outpatient Attender: VINAY BAEZ MD 11/21/2019 04:13:[address] [facility] Outpatient Attender: VINAY BAEZ MD 11/18/2019 10:02:01 A [facility] Outpatient Attender: VINAY BAEZ MD 11/17/2019 04:01:00 P [facility] Outpatient Attender: VINAY BAEZ MD 11/16/2019 02:02:02 P [facility] Outpatient Attender: VINAY BAEZ MD 11/16/2019 02:02:02 P [facility] Outpatient Attender: VINAY BAEZ MD 11/16/2019 01:49:00 P [facility] Outpatient Attender: VINAY BAEZ MD 11/16/2019 12:33:00 P [facility] Outpatient Attender: VINAY BAEZ MD 11/16/2019 11:41:01 A [facility] Outpatient Attender: VINAY BAEZ MD 11/01/2019 11:08:01 A [facility] Outpatient Attender: VINAY BAEZ MD FP 11/01/2019 11:08:00 A [facility] Outpatient Attender: VINAY BAEZ MD FP 11/01/2019 11:07:02 A [facility] Outpatient Attender: VINAY BAEZ MD FP 11/01/2019 11:07:01 A [facility] Outpatient Attender: VINAY BAEZ MD FP 10/30/2019 04:24:01 P [facility] Outpatient Attender: VINAY BAEZ MD FP 10/30/2019 03:49:01 P [facility] Outpatient Attender: VINAY BAEZ MD FP 10/30/2019 02:25:[address] [facility] Outpatient Attender: VINAY BAEZ MD FP 10/27/2019 09:17:07 A [facility] Outpatient Attender: VINAY BAEZ MD FP 10/25/2019 01:15:[address] [facility] Outpatient Referrer: KRYSTA LUX DO 10/25/2019 12 :41:00 PM [facility] Outpatient Attender: VINAY BAEZ MD FP 10/23/2019 02:12:00 P [facility] Outpatient Attender: VINAY BAEZ MD FP 10/23/2019 02:07:[address] [facility] Outpatient Attender: VINAY BAEZ MD FP 10/23/2019 02:05:01 P [facility] Outpatient Attender: VINAY BAEZ MD FP 10/23/2019 02:04:00 P [facility]patient Attender: VINAY BAEZ MD FP 10/19/2019 01:17:00 P [facility] Outpatient Attender: VINAY BAEZ MD FP 10/18/2019 09:22:01 A [facility] Outpatient Attender: VINAY BAEZ MD FP 10/18/2019 07:52:01 A [facility] Outpatient Attender: VINAY BAEZ MD FP 10/09/2019 11:51:01 A [facility] Outpatient Attender: VINAY BAEZ MD FP 10/07/2019 09:02:01 A [facility] Outpatient Attender: VINAY BAEZ MD FP 10/07/2019 08:59:00 A [facility] Outpatient Attender: VINAY BAEZ MD 10/07/2019 08:12:01 A [facility] Outpatient Attender: VINAY BAEZ MD 10/02/2019 11:27:[address] [facility] Outpatient Attender: VINAY BAEZ MD 09/25/2019 04:03:01 P [facility] Outpatient Attender: VINAY BAEZ MD 09/25/2019 04:00:[address] [facility] Outpatient Attender: VINAY BAEZ MD 09/25/2019 03:59:[address] [facility] Outpatient Referrer: KRYSTA LUX DO 09/20/2019 02 :53:00 PM [facility] Outpatient Attender: VINAY BAEZ MD 09/15/2019 12:00:[address] [facility] Outpatient Attender: VINAY BAEZ MD 09/14/2019 09:01:[address] [facility] Outpatient Attender: VINAY BAEZ MD 09/14/2019 03:00:[address] [facility] Outpatient Attender: VINAY BAEZ MD 09/14/2019 02:59:[address] [facility] Outpatient Attender: VINAY BAEZ MD 09/14/2019 02:57:[address] [facility] Outpatient Attender: VINAY BAEZ MD 09/14/2019 02:56:[address] [facility] Outpatient Attender: VINAY BAEZ MD 09/14/2019 08:21:[address] [facility] Outpatient Attender: VINAY BAEZ MD 09/14/2019 08:21:46 A [facility] Outpatient Attender: VINAY BAEZ MD 09/12/2019 10:22:[address] [facility] Outpatient Attender: SANDRA FLORES FP 09/12/2019 10:05:[address] [facility] Outpatient Attender: VINAY BAEZ MD 09/12/2019 09:43:01 A [facility] Outpatient Attender: VINAY BAEZ MD 09/08/2019 10:47:[address] [facility] Outpatient Attender: VINAY BAEZ MD 09/08/2019 10:46:02 A [facility] Outpatient Attender: VINAY BAEZ MD 09/08/2019 10:45:[address] [facility] Outpatient Referrer: KRYSTA LUX DO 09/07/2019 08 :44:00 PM [facility] Outpatient Attender: Bushra Padilla NP [facility] 09/07/2019 11:35: 01 AM [facility] Outpatient Attender: SANDRA FLORES 09/07/2019 09:53:00 A [facility] 09:50:00 AM [facility] Inpatient Attender: Aniceto Brewster tender: Elizabeth Rios MDAdmitter: Elizabeth Rios MD 09/03/2019 07:05:00 PM EST - 09/05/2019 05:15:00 PM EST Depression/Suicidal Ideation [facility] Depression/Suicidal Ideation Patient discharged. Outpatient Attender: Jose Enrique Holcomb NPAd mitter: Elizabeth Rios MDConsultant: Elizabeth Rios MD 09/03/2019 07:05:00 PM EST Depression/Suicidal I deation [facility] Depression/Suicidal Ideation Outpatient Attender: ADNTE Winters tter: Elizabeth Rios MDConsultant: Elizabeth Rios MD 09/03/2019 07:05:00 PM EST Depression/Suicidal I deation [facility] Depression/Suicidal Ideation Outpatient Attender: DANTE Winters tter: Elizabeth Rios MDConsultant: Elizabeth Rios MD 09/03/2019 07:05:00 PM EST Depression/Suicidal I deation [facility] Depression/Suicidal Ideation Immunizations Vaccine Date Status Description Data Source(s) As of May 1999, a 2-dose hepatitis B schedule for adolescents (11-15 year olds) was FDA approved for [employer]'s Recombivax HB adult formulation. Use code 43 for the 2-dose. This code should be used for any use of standard adult formulation of hepatitis B vaccine. 07/25/2020 03:22:00 PM EST completed eCW1 ([facility]) As of May 1999, a 2-dose hepatitis B schedule for adolescents (11-15 year olds) was FDA approved for [employer]'s Recombivax HB adult formulation. Use code 43 for the 2-dose. This code should be used for any use of standard adult formulation of hepatitis B vaccine. 07/25/2020 03:22:00 PM EST completed eCW1 ([facility]) Medications Medication Brand Name Start Date Product Form Dose Route Admi nistrative Instructions Pharmacy Instructions Status Indications Reaction Description Data Source(s) 800-160 mg 10/02/2019 12:00:00 AM EST tablet 20 TAKE ONE TABLET BY MOUTH EVERY 12 HOURS TAKE ONE TABLET BY MOUTH EVERY 12 HOURS SOLD: 10/03/2019 [facility] 400 mg 09/25/2019 12:00:00 AM EST capsule 60 TAKE ONE CAPSULE BY MOUTH TWICE A DAY TAKE ONE CAPSULE BY MOUTH TWICE A DAY SOLD: 09/25/2019 [facility] 30 mg 09/07/2019 12:00:00 AM EST tablet 30 TAKE ONE-HALF TABLET BY MOUTH EVERY DAY AT BEDTIME TAKE ONE-HALF TABLET BY MOUTH EVERY DAY AT BEDTIME JUAN MANUEL [facility] [id number] 08/25/2019 12:00:00 AM EST Suspension 240 SWISH & SPIT 10ML BY MOUTH FOUR TIMES A DAY NEEDED FOR MUCOSITIS SWISH & SPIT 10ML BY MOUTH FOUR TIMES A DAY NEEDED FOR MUCOSITIS SOLD: 08/25/2019 [facility] 90 mcg/actuation 08/25/2019 12:00:00 AM EST HFA aerosol inha ler 18 INHALE TWO PUFFS BY MOUTH EVERY 4 TO 6 HOURS NEEDED FOR WHEEZING INHALE TWO PUFFS BY MOUTH EVERY 4 TO 6 HOURS NEEDED FOR WHEEZING SOLD: 08/25/2019 [facility] 20 mg 08/25/2019 12:00:00 AM EST tablet 8 TAKE TWO TABLETS BY MOUTH EVERY DAY FOR 4 DAYS TAKE TWO TABLETS BY MOUTH EVERY DAY FOR 4 DAYS SOLD: 019 [facility] 500 mg 08/22/2019 12:00:00 AM EST tablet 20 TAKE ONE TABLET BY MOUTH EVERY 12 HOURS FOR 10 DAYS TAKE ONE TABLET BY MOUTH EVERY 12 HOURS FOR 10 DAYS SO LD: 08/22/2019 [facility] Insurance Providers Payer name Policy type / Coverage type Policy ID Covered green party ID Covered green party's relationship to rodriguez Policy Rodriguez Plan Information [facility] COMMUNITY PLAN MCDO [id number] SP [id number] SELF PAY ONLY [id number] SP [id number] UN COMMUNITY PLAN MCDO [id number] SP [id number] [place] [id number] SP [id number] Medicaid S [id number] S [id number] Managed Care - [facility] Community Plan P [id number] S [id number] [facility] O [id number] S [id number] Self Pay P UNAVAILABLE S UNAVAILA BLE MEDICAID [id number] SP [id number] [facility] CTR [id number] SP [id number] [facility] P [id number] S [id number] SELF PAY UNAVAILABLE SP UNAVAILA BLE 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 [id number] SP [id number] 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 P [id number] S [id number] [facility] [id number] SP [id number] OTHER WORKERS COMPENSATION [id number] SP [id number] [place] [employer] Family Dependent [facility](WC) Workers Compensation Self [facility](WC) Workers Compensation Self [facility](WC) Workers Compensation Self [place] [employer] Family Dependent [employer] (pr) Commercial Family Dependent [place] (pr) Commercial [id number] Family Dependent [id number] [employer] (WC) Workers Compensation [id number] Self [id number] [employer] [facility] Maintenance Organization (HMO) [id number] Fa petty Dependent [id number] [employer] [id number] Family Dependent [id number] [employer] (HMO) [id number] Fa petty Dependent [id number] [employer] [id number] FA2 [id number] [employer] [id number] Family Dependent [id number] [employer] [id number] Family Dependent [id number] [employer] [id number] Family Dependent [id number] [employer] Commercial [id number] Family Dependent [id number] [place] Commercial [id number] Family Dependent 89 [id number] [employer] PPO O [id number] C [id number] [employer] -O/P [id number] 19 [id number] [employer] [id number] FA2 [id number] R [facility] [id number] FA2 [id number] UMR O [id number] C [id number] [employer] Commercial [id number] Family Dependent [id number] Umr Medigap Part B [id number] Self [id number] UMR [facility] [id number] FA2 [id number] [employer] [id number] Family Dependent [id number] Umr Medigap Part B [id number] Self [id number] [employer] [id number] Family Dependent [id number] Umr Medigap Part B [id number] Self [id number] [employer] [id number] Family Dependent 89 [id number] Umr Medigap Part B [id number] Self [id number] UMR [facility] [id number] FA2 [id number] UMR [facility] [id number] FA2 [id number] [facility] COMMUNITY PLAN [facility] [id number] SP [id number] [employer] P [id number] S [id number] UMR [facility] [id number] FA2 [id number] Managed Care - [facility] Community Plan S [id number] S [id number] UMR O [id number] S [id number] [facility] [id number] SP [id number] SELF PAY [facility] [id number] SP [id number] Problems, Conditions, and Diagnoses Code Display Name Description Problem Type Effective Dates Data Source(s) B17.10 24222064 Acute hepatitis C virus infection without hepatic coma Problem 06/20/2020 12:00:00 AM EDT eCW1 ([facility]) F19.11 244926430 Intravenous drug abuse in remission Probl em 06/20/2020 12:00:00 AM EDT eCW1 ([facility]) B18.2 589922821 Chronic hepatitis C without hepatic coma Problem 06/20/2020 12:00:00 AM EDT eCW1 ([facility]) F19.10 377629905 Polysubstance abuse Problem 06/20/2020 12:00 :00 AM EDT eCW1 ([facility]) 06203184 Other acne Other acne 05/15/2020 03:37:31 PM ED T [facility] 656679270 Follicular disorder, unspecified Follicular disorder, unspecified 05/15/2020 03:37:31 PM EDT [facility] 700 Foot callus Foot callus 05/15/2020 03:37:31 PM EDT [facility] M20.62 Acquired deformities of toe(s), unspecif ied, left foot Acquired deformities of toe(s), unspecified, left foot 05/15/2020 03: 37:31 PM EDT [facility] 380063839 Keratoma Keratoma Problem 05/15/2020 12:00:00 AM ED T NINA ([facility]) 110316026 Finding of body region Finding of Body Region Problem 05/15/2020 12:00:00 AM EDT NINA ([facility]) 440973194 Disorder of skin appendage Disorder of Skin Appendage Problem 05/15/2020 12:00:00 AM EDT NINA ([facility]) 68086866 Acne Acne Problem 05/15/2020 12:00:00 AM ED T NINA ([facility]) 528120503 Keratoma Keratoma Problem 05/15/2020 12:00:00 AM ED T NINA ([facility]) 679245651 Finding of body region Finding of Body Region Problem 05/15/2020 12:00:00 AM EDT NINA ([facility]) 475661742 Disorder of skin appendage Disorder of Skin Appendage Problem 05/15/2020 12:00:00 AM EDT NINA ([facility]) 63419055 Acne Acne Problem 05/15/2020 12:00:00 AM ED T NINA ([facility]) 238585175 Keratoma Keratoma Problem 05/15/2020 12:00:00 AM ED Kirsten WOOD ([facility]) 123540399 Finding of body region Finding of Body Region Problem 05/15/2020 12:00:00 AM EDT NINA ([facility]) 709251127 Disorder of skin appendage Disorder of Skin Appendage Problem 05/15/2020 12:00:00 AM EDT NINA ([facility]) 20070572 Acne Acne Problem 05/15/2020 12:00:00 AM ED T NINA ([facility]) 849605095 Keratoma Keratoma Problem 05/15/2020 12:00:00 AM ED T NINA ([facility]) 190825316 Finding of body region Finding of Body Region Problem 05/15/2020 12:00:00 AM EDT NINA ([facility]) 384982417 Disorder of skin appendage Disorder of Skin Appendage Problem 05/15/2020 12:00:00 AM EDT NINA ([facility]) 50590942 Acne Acne Problem 05/15/2020 12:00:00 AM ED T NINA ([facility]) 840689624 Keratoma Keratoma Problem 05/15/2020 12:00:00 AM ED T NINA ([facility]) 792991218 Finding of body region Finding of Body Region Problem 05/15/2020 12:00:00 AM EDT NINA ([facility]) 815207707 Disorder of skin appendage Disorder of Skin Appendage Problem 05/15/2020 12:00:00 AM EDT NINA ([facility]) 71708789 Acne Acne Problem 05/15/2020 12:00:00 AM ED T NINA ([facility]) 870433075 Keratoma Keratoma Problem 05/15/2020 12:00:00 AM ED T NINA ([facility]) 223427257 Finding of body region Finding of Body Region Problem 05/15/2020 12:00:00 AM EDT NINA ([facility]) 110200389 Disorder of skin appendage Disorder of Skin Appendage Problem 05/15/2020 12:00:00 AM EDT NINA ([facility]) 61126071 Acne Acne Problem 05/15/2020 12:00:00 AM ED T NINA ([facility]) V70.0 Health Screening Health Screening 03/03/2020 06 :59:52 PM EDT [facility] V65.8 Person consulting for explanation of exa mination or test findings Person consulting for explanation of examination or test findings 02/22/2020 05:36:42 PM EDT [facility] F17.200 Nicotine dependence, unspecified, uncomp licated Nicotine dependence, unspecified, uncomplicated 02/22/2020 05:36:42 PM EDT [facility] 268.9 vitamin D deficiency vitamin D deficiency 02/21 05:36:42 PM EDT [facility] 50372227 Nicotine dependence Nicotine Dependence Problem 0 02/22/2020 12:00:00 AM EDT NINA ([facility]) 37366644 Vitamin D deficiency Vitamin D Deficiency Problem 02/22/2020 12:00:00 AM EDT NINA ([facility]) 155405745 Clinical finding Clinical Finding Problem 02/22/2020 12 :00:00 AM EDT NINA ([facility]) 736840078 Patient asked to attend Patient Asked to Attend Proble 02/22/2020 12:00:00 AM EDT NINA ([facility]) 82364150 Nicotine dependence Nicotine Dependence Problem 0 02/22/2020 12:00:00 AM EDT NINA ([facility]) 97070753 Vitamin D deficiency Vitamin D Deficiency Problem 02/22/2020 12:00:00 AM EDT NINA ([facility]) 926598704 Clinical finding Clinical Finding Problem 02/22/2020 12 :00:00 AM EDT VARNA ([facility]) 805719229 Patient asked to attend Patient Asked to Attend Proble 02/22/2020 12:00:00 AM EDT NINA ([facility]) 87704984 Nicotine dependence Nicotine Dependence Problem 0 02/22/2020 12:00:00 AM EDT NINA ([facility]) 32253211 Vitamin D deficiency Vitamin D Deficiency Problem 02/22/2020 12:00:00 AM EDT NINA ([facility]) 692351455 Clinical finding Clinical Finding Problem 02/22/2020 12 :00:00 AM EDT VARNA ([facility]) 888326464 Patient asked to attend Patient Asked to Attend Proble 02/22/2020 12:00:00 AM EDT NINA ([facility]) 06528318 Nicotine dependence Nicotine Dependence Problem 0 02/22/2020 12:00:00 AM EDT NINA ([facility]) 96980022 Vitamin D deficiency Vitamin D Deficiency Problem 02/22/2020 12:00:00 AM EDT NINA ([facility]) 645389346 Clinical finding Clinical Finding Problem 02/22/2020 12 :00:00 AM EDT VARNA ([facility]) 446263698 Patient asked to attend Patient Asked to Attend Proble 02/22/2020 12:00:00 AM EDT NINA ([facility]) 10575681 Nicotine dependence Nicotine Dependence Problem 0 02/22/2020 12:00:00 AM EDT NINA ([facility]) 13364688 Vitamin D deficiency Vitamin D Deficiency Problem 02/22/2020 12:00:00 AM EDT NINA ([facility]) 566739446 Clinical finding Clinical Finding Problem 02/22/2020 12 :00:00 AM EDT NINA ([facility]) 374575061 Patient asked to attend Patient Asked to Attend Proble 02/22/2020 12:00:00 AM EDT NINA ([facility]) 22588488 Nicotine dependence Nicotine Dependence Problem 0 02/22/2020 12:00:00 AM EDT NINA ([facility]) 86925004 Vitamin D deficiency Vitamin D Deficiency Problem 02/22/2020 12:00:00 AM EDT NINA ([facility]) 783274247 Clinical finding Clinical Finding Problem 02/22/2020 12 :00:00 AM EDT VARNA ([facility]) 750216441 Patient asked to attend Patient Asked to Attend Proble 02/22/2020 12:00:00 AM EDT NINA ([facility]) 525.10 Teeth extraction Teeth extraction 11/16/2019 02 :01:07 PM EST [facility] 856576657 Acquired absence of multiple teeth Acquired Abse nce of Multiple Teeth Problem 11/16/2019 12:00:00 AM EST NINA ([facility]) 857934515 Acquired absence of multiple teeth Acquired Abse nce of Multiple Teeth Problem 11/16/2019 12:00:00 AM EST NINA ([facility]) 899549703 Acquired absence of multiple teeth Acquired Abse nce of Multiple Teeth Problem 11/16/2019 12:00:00 AM EST NINA ([facility]) 932999405 Acquired absence of multiple teeth Acquired Abse nce of Multiple Teeth Problem 11/16/2019 12:00:00 AM EST NINA ([facility]) 361925205 Acquired absence of multiple teeth Acquired Abse nce of Multiple Teeth Problem 11/16/2019 12:00:00 AM EST NINA ([facility]) 389057652 Acquired absence of multiple teeth Acquired Abse nce of Multiple Teeth Problem 11/16/2019 12:00:00 AM EST NINA ([facility]) 439326926 Chronic post-traumatic stress disorder C hronic Post-traumatic Stress Disorder Problem 09/25/2019 12:00:00 AM EST VARNA ([facility]) 78547853 Bipolar disorder Bipolar Disorder Problem 09/25/2019 12 :00:00 AM EST NINA ([facility]) 652387448 Chronic post-traumatic stress disorder C hronic Post-traumatic Stress Disorder Problem 09/25/2019 12:00:00 AM EST VARNA ([facility]) 26600103 Bipolar disorder Bipolar Disorder Problem 09/25/2019 12 :00:00 AM EST VARNA ([facility]) 006291894 Chronic post-traumatic stress disorder C hronic Post-traumatic Stress Disorder Problem 09/25/2019 12:00:00 AM EST VARNA ([facility]) 99102488 Bipolar disorder Bipolar Disorder Problem 09/25/2019 12 :00:00 AM EST VARNA ([facility]) 406341120 Chronic post-traumatic stress disorder C hronic Post-traumatic Stress Disorder Problem 09/25/2019 12:00:00 AM EST VARNA ([facility]) 79865475 Bipolar disorder Bipolar Disorder Problem 09/25/2019 12 :00:00 AM EST VARNA ([facility]) 898691934 Chronic post-traumatic stress disorder C hronic Post-traumatic Stress Disorder Problem 09/25/2019 12:00:00 AM EST VARNA ([facility]) 06664773 Bipolar disorder Bipolar Disorder Problem 09/25/2019 12 :00:00 AM EST VARNA ([facility]) 309887886 Chronic post-traumatic stress disorder C hronic Post-traumatic Stress Disorder Problem 09/25/2019 12:00:00 AM EST VARNA ([facility]) 14637458 Bipolar disorder Bipolar Disorder Problem 09/25/2019 12 :00:00 AM EST [facility]) Z13.228 Encounter for screening for other metabo lic disorders Encounter for screening for other metabolic disorders 09/14/2019 07:06:03 AM [facility] M25.50 Pain in unspecified joint Pain in unspecified joint 09/14/2019 07:06:03 AM EST [facility] F41.9 Anxiety disorder, unspecified Anxiety disorder, unspec ified 09/14/2019 07:06:03 AM EST [facility] Z63.0 Problems in relationship with spouse or partner Jossie fuentes problems 09/14/2019 07:06:03 AM EST [facility] [id number] Relationship distress with spouse or int imate partner Relationship Distress with Spouse or Intimate Partner Problem 09/12/2019 12:00:00 AM EST NINA ([facility]) 037486421 SNOMED CT Concept SNOMED CT Concept Problem 09/12 12:00:00 AM EST NINA ([facility]) 677768038 Finding of body region Finding of Body Region Problem 09/12/2019 12:00:00 AM EST NINA ([facility]) 119177945 Endocrine/metabolic screening Endocrine/metabolic Scre ening Problem 09/12/2019 12:00:00 AM EST NINA ([facility]) [id number] Relationship distress with spouse or int imate partner Relationship Distress with Spouse or Intimate Partner Problem 09/12/2019 12:00:00 AM EST NINA ([facility]) 905431675 SNOMED CT Concept SNOMED CT Concept Problem 09/12 12:00:00 AM EST NINA ([facility]) 392483679 Finding of body region Finding of Body Region Problem 09/12/2019 12:00:00 AM EST NINA ([facility]) 330921333 Endocrine/metabolic screening Endocrine/metabolic Scre ening Problem 09/12/2019 12:00:00 AM EST NINA ([facility]) [id number] Relationship distress with spouse or int imate partner Relationship Distress with Spouse or Intimate Partner Problem 09/12/2019 12:00:00 AM EST NINA ([facility]) [id number] SNOMED CT Concept SNOMED CT Concept Problem 09/12 12:00:00 AM EST NINA ([facility]) [id number] Finding of body region Finding of Body Region Problem 09/12/2019 12:00:00 AM EST NINA ([facility]) [id number] Endocrine/metabolic screening Endocrine/metabolic Scre ening Problem 09/12/2019 12:00:00 AM EST NINA ([facility]) [id number] Relationship distress with spouse or int imate partner Relationship Distress with Spouse or Intimate Partner Problem 09/12/2019 12:00:00 AM EST NINA ([facility]) [id number] SNOMED CT Concept SNOMED CT Concept Problem 09/12 12:00:00 AM EST NINA ([facility]) [id number] Finding of body region Finding of Body Region Problem 09/12/2019 12:00:00 AM EST NINA ([facility]) [id number] Endocrine/metabolic screening Endocrine/metabolic Scre ening Problem 09/12/2019 12:00:00 AM EST NINA ([facility]) [id number] Relationship distress with spouse or int imate partner Relationship Distress with Spouse or Intimate Partner Problem 09/12/2019 12:00:00 AM EST NINA ([facility]) [id number] SNOMED CT Concept SNOMED CT Concept Problem 09/12 12:00:00 AM EST NINA ([facility]) [id number] Finding of body region Finding of Body Region Problem 09/12/2019 12:00:00 AM EST NINA ([facility]) [id number] Endocrine/metabolic screening Endocrine/metabolic Scre ening Problem 09/12/2019 12:00:00 AM EST NINA ([facility]) [id number] Relationship distress with spouse or int imate partner Relationship Distress with Spouse or Intimate Partner Problem 09/12/2019 12:00:00 AM EST NINA ([facility]) [id number] SNOMED CT Concept SNOMED CT Concept Problem 09/12 12:00:00 AM EST NINA ([facility]) [id number] Finding of body region Finding of Body Region Problem 09/12/2019 12:00:00 AM EST NINA ([facility]) [id number] Endocrine/metabolic screening Endocrine/metabolic Scre ening Problem 09/12/2019 12:00:00 AM EST NINA ([facility]) J45.909 Unspecified asthma, uncomplicated J45.90 9 - Unspecified asthma, uncomplicated Diagnosis 09/03/2019 07:05:00 PM [facility] [employer] F32.9 Major depressive disorder, single episod e, unspecified F32.9 - Major depressive disorder, single episode, unspecified Diagnosis 09/03 [facility] [employer] Z72.0 Tobacco use Z72.0 - Tobacco use Diagnosis 09/03/2019 07:0 5:00 PM [facility].851 Suicidal ideations R45.851 - Suicidal ideations Diagno sis 09/03/2019 07:05:00 PM [facility] Surgeries/Procedures Procedure Description Date Indications Data Source(s) HEPATITIS B VACCINE ADULT DOSAGE INTRAMUSCULAR 020 12:00:00 AM EST eCW1 ([facility]) Results ID Date Data Source [id number] 09/11/2020 01:15:00 PM EST VARNA ([facility]) Name Value Range Interpretation Code Description Data Ale rce(s) Supporting Document(s) glucose, fasting 92 mg/dL 70-100 normal Glucose, Fasting AT [facility]) blood urea nitrogen 8 mg/dL 7-18 normal Blood Urea Nitro gen VARNA ([facility]) glomerular filtration rate > 60.0 >60 normal Glomerula r Filtration Rate VARNA ([facility]) sodium level 137 mEq/L 136-145 normal Sodium Level VARNA ([facility]) creatinine for GFR 0.63 mg/dL 0.55-1.30 normal Creatinine for GF R VARNA ([facility]) carbon dioxide level 26 mEq/L 21-32 normal Carbon Dioxide Level VARNA ([facility]) calcium level 9.1 mg/dL 8.5-10.1 normal Calcium Level VARNA ( [facility]) chloride level 106 mEq/L 98-107 normal Chloride Level VARNA ([facility]) anion gap 5 mEq/L 8-16 Below low normal Anion Gap VARNA ( [facility]) potassium serum 4.2 mEq/L 3.5-5.1 normal Potassium Serum ATHE NA ([facility]) ID Date Data Source [id number] 09/11/2020 01:15:00 PM EST VARNA ([facility]) Name Value Range Interpretation Code Description Data Ale rce(s) Supporting Document(s) red blood count 5.48 10 4.00-5.40 Above high normal Red Blood Cou nt VARNA ([facility]) white blood count 7.9 10 4.0-10.0 normal White Blood Count VARNA ([facility]) hemoglobin 14.3 g/dL 12.0-15.5 normal Hemoglobin VARNA ([facility]) mean corpuscular hemoglobin 26.1 pg 27.0-33.0 Below low nor mal Mean Corpuscular Hemoglobin VARNA ([facility]) mean corpuscular volume 79.9 fL 80.0-96.0 Below low normal Mean Corpuscular Volume VARNA ([facility]) hematocrit 43.8 % 36.0-47.0 normal Hematocrit VARNA ([facility]) platelet count, automated 258 10 150-450 normal Platelet C ount, Automated VARNA ([facility]) nucleated red blood cell % 0.0 % 0-0 normal Nucleated Red Blood Cell % VARNA ([facility]) red cell distribution width 14.6 % 11.5-14.5 Above high no rmal Red Cell Distribution Width VARNA ([facility]) mean corpuscular HGB conc 32.6 g/dL 32.0-36.5 normal Mean Corpu scular HGB Conc VARNA ([facility]) ID Date Data Source [id number] 09/11/2020 01:15:00 PM EST VARNA ([facility]) Name Value Range Interpretation Code Description Data Ale rce(s) Supporting Document(s) blood urea nitrogen 8 mg/dL 7-18 normal Blood Urea Nitro gen VARNA ([facility]) glucose, fasting 92 mg/dL 70-100 normal Glucose, Fasting AT [facility] ([facility]) creatinine for GFR 0.63 mg/dL 0.55-1.30 normal Creatinine for GF R VARNA ([facility]) glomerular filtration rate > 60.0 >60 normal Glomerula r Filtration Rate NINA ([facility]) sodium level 137 mEq/L 136-145 normal Sodium Level NINA ([facility]) potassium serum 4.2 mEq/L 3.5-5.1 normal Potassium Serum ATHE NA ([facility]) chloride level 106 mEq/L 98-107 normal Chloride Level NINA ([facility]) carbon dioxide level 26 mEq/L 21-32 normal Carbon Dioxide Level NINA ([facility]) calcium level 9.1 mg/dL 8.5-10.1 normal Calcium Level VARNA ( [facility]) anion gap 5 mEq/L 8-16 Below low normal Anion Gap VARNA ( [facility]) ID Date Data Source [id number] 09/11/2020 01:15:00 PM EST [facility]) Name Value Range Interpretation Code Description Data Ale rce(s) Supporting Document(s) white blood count 7.9 10 4.0-10.0 normal White Blood Count VARNA ([facility]) hemoglobin 14.3 g/dL 12.0-15.5 normal Hemoglobin VARNA ([facility]) red blood count 5.48 10 4.00-5.40 Above high normal Red Blood Cou nt VARNA ([facility]) mean corpuscular hemoglobin 26.1 pg 27.0-33.0 Below low nor mal Mean Corpuscular Hemoglobin NINA ([facility]) hematocrit 43.8 % 36.0-47.0 normal Hematocrit VARNA ([facility]) mean corpuscular volume 79.9 fL 80.0-96.0 Below low normal Mean Corpuscular Volume VARNA ([facility]) red cell distribution width 14.6 % 11.5-14.5 Above high no rmal Red Cell Distribution Width VARNA ([facility]) mean corpuscular HGB conc 32.6 g/dL 32.0-36.5 normal Mean Corpu scular HGB Conc VARNA ([facility]) platelet count, automated 258 10 150-450 normal Platelet C ount, Automated NINA ([facility]) nucleated red blood cell % 0.0 % 0-0 normal Nucleated Red Blood Cell % VARNA ([facility]) ID Date Data Source [id number] 09/11/2020 01:15:00 PM EST VARNA ([facility]) Name Value Range Interpretation Code Description Data Ale rce(s) Supporting Document(s) blood urea nitrogen 8 mg/dL 7-18 normal Blood Urea Nitro gen VARNA ([facility]) glucose, fasting 92 mg/dL 70-100 normal Glucose, Fasting AT [facility]) creatinine for GFR 0.63 mg/dL 0.55-1.30 normal Creatinine for GF R VARNA ([facility]) potassium serum 4.2 mEq/L 3.5-5.1 normal Potassium Serum ATH NA [facility]) chloride level 106 mEq/L 98-107 normal Chloride Level VARNA ([facility]) carbon dioxide level 26 mEq/L 21-32 normal Carbon Dioxide Level VARNA ([facility]) glomerular filtration rate > 60.0 >60 normal Glomerula r Filtration Rate VARNA ([facility]) sodium level 137 mEq/L 136-145 normal Sodium Level NINA ([facility]) anion gap 5 mEq/L 8-16 Below low normal Anion Gap VARNA ( [facility]) calcium level 9.1 mg/dL 8.5-10.1 normal Calcium Level VARNA ( [facility]) ID Date Data Source [id number] 09/11/2020 01:15:00 PM EST VARNA ([facility]) Name Value Range Interpretation Code Description Data Ale rce(s) Supporting Document(s) hemoglobin 14.3 g/dL 12.0-15.5 normal Hemoglobin [facility]) red blood count 5.48 10 4.00-5.40 Above high normal Red Blood Cou nt [facility]) hematocrit 43.8 % 36.0-47.0 normal Hematocrit VARNA ([facility]) white blood count 7.9 10 4.0-10.0 normal White Blood Count VARNA ([facility]) mean corpuscular volume 79.9 fL 80.0-96.0 Below low normal Mean Corpuscular Volume VARNA ([facility]) red cell distribution width 14.6 % 11.5-14.5 Above high no rmal Red Cell Distribution Width VARNA ([facility]) mean corpuscular HGB conc 32.6 g/dL 32.0-36.5 normal Mean Corpu scular HGB Conc VARNA ([facility]) mean corpuscular hemoglobin 26.1 pg 27.0-33.0 Below low nor mal Mean Corpuscular Hemoglobin VARNA ([facility]) nucleated red blood cell % 0.0 % 0-0 normal Nucleated Red Blood Cell % VARNA ([facility]) platelet count, automated 258 10 150-450 normal Platelet C ount, Automated VARNA ([facility]) ID Date Data Source HEPATITIS C QUANT BY PCR 07/25/2020 12:00:00 AM EST eCW1 ([facility]) Name Value Range Interpretation Code Description Data Ale rce(s) Supporting Document(s) 240 . HEPATITIS C QUANTITATION eCW1 ([facility]) 2.380 . Hepatitis C log10 eCW1 ([facility]) ID Date Data Source LIVER PROFILE 07/25/2020 12:00:00 AM EST eCW1 ([facility]) Name Value Range Interpretation Code Description Data Ale rce(s) Supporting Document(s) 13 7-37 AST/SGOT eCW1 ([facility]) 0.6 0.2-1.0 BILIRUBIN,TOTAL eCW1 ([facility]) 25 12-78 ALT/SGPT eCW1 ([facility]) 0.2 0.0-0.2 BILIRUBIN,DIRECT eCW1 ([facility]) 51 45-117 ALKALINE PHOSPHATASE eCW1 ([facility]) 4.0 3.2-5.2 ALBUMIN eCW1 ([facility]) 1.1 1.2-2.2 ALBUMIN/GLOBULIN RATIO eCW1 ([facility]) 7.7 6.4-8.2 TOTAL PROTEIN eCW1 ([facility]) ID Date Data Source [id number] 06/19/2020 02:17:19 PM EDT [facility] Measurements & CalculationsHeight: 66.50 inches 168.91 cm 5 ft. 6.5 in.Weight: 170 pounds 77.27 kg Body Mass Index (BMI): 27.13BMI Interpretation: OverweightBody Surface Area (BSA): 1.88Weight Management Education Done (Nutrition/Physical Activity)Vital SignsTemperature: 98.6F 37C tympanic Pulse Rate: 88 beats/minuteRespiratory Rate: 18 respirations/minuteBlood Pressure: 134/72 right arm sitting automaticO2 Saturation: 99% Vital Signs performed by: Nitza Carbajal LPN, June 19, 2020 2:21 PMInitial Intake Information From: patientRoom #: 2Infectious Disease / Travel ScreeningRecent travel for you or any close contacts? NoHave you had any close contact with anyone diagnosed with or under investigation for COVID-19 (coronavirus)? NoFever? NoRespiratory symptoms: cough, cold, congestion, shortness of breath, difficulty breathing? YesLoss of smell? NoLoss of taste? NoDetails: cough-sinus infectionSmoking, Tobacco, Vaping or Smoke Exposure StatusSmoke Status: current every day smokerTobacco Use: YesAdv to Quit: YesDo you vape? NoPassive Smoke Exposure: YesMenstrual HistoryLast Menstrual Period (LMP): 06/12/2020Any possibility of ? NoHealthcare HistorySince your last office visit...Have you been admitted to the hospital? No [facility] admission date reported today: 09/08/2019Have you been to an emergency room (ER) or urgent care clinic? NoHave you seen another healthcare provider? Yes - orthoHave you seen a dentist ? NoIntake performed by: Nitza Carbajal LPN, June 19, 2020 2:18 PMRate Your HealthIn general, would you say your health is? FairPain AssessmentAre you currently having any pain which... You would like your provider to address? No Affects your activity level? NoDepression Screening - PHQ-2Over the last two weeks, have you... Had little interest or pleasure in doing things? Not at all Been feeling down, depressed, or hopeless? Several days PHQ-2 Score: 1Anxiety Screening - CATHY-2Over the last two weeks, have you been... Feeling nervous, anxious, or on edge? Not at all Unable to stop or control worrying? Not at all CATHY-2 Score: 0Food InsecurityWithin the past year...Did you worry whether your food would run out before you got money to buy more? Never trueWas there a time when the food you bought didn't last and you didn't have money to get more? Never trueScreening, Brief Intervention, & Referral to Treatment (SBIRT)Pre-Screening Questions How many times have you have 4 or more drinks in a day? 0How many times have you used an illegal drug or used a prescription medication for a non-medical reason? 0Performed by: Nitza Carbajal LPN, June 19, 2020 2:19 PMPatient History Medical History:Anxiety SchizophreniaBipolar disorderAsthmaHeart MurmurAcneSurgical History:Foot SxLeft toe removalFamily History:Mother- Diabetes, HypertensionFather- Cancer, Diabetes, Hypertension ()Social/Personal History:lives with boyfriend Born in [facility]. Not employed. Highest education level: high school graduate. Sexually Active: Yes. Advised to Quit/Tobacco Education: YesChief Co mplaintfollow-up visitHistory of Present Illness (HPI)Pt was roomed by the nurse and left without being seen by provider. Reported a family emergency. Nurse only visit.HPI performed by: Naveen REYES, June 19, 2020 2:38 PMTransitions of Care InboundProblem ReviewProblem List was reviewed and/or updated during this visit.Medication Reconciliation & ReviewMedication List was reviewed and/or updated during this visit, including review of any llgj-[id number] medications, herbal therapies, and/or supplements.Allergy ReviewAllergy List was reviewed and/or updated during this visit.Adult Preven tive CareScreening Tobacco Screening: Smoking Status: current every day smoker (06/19/2020) Tobacco Use: Currently (06/19/2020) Advised to Quit: Yes (06/19/2020)Labs/Meds/Other Counseling-Nutrition and Physical Activity:BMI Interpretation: Overweight (06/19/2020) Counseling: Done (06/19/2020) Physical Activity: Done (06/19/2020)Care Management Plan Transitions of CareInboundRate Your HealthIn general, would you say your health is? FairAssessment & Plan Problems:Assessed:Other acne (LBE78-E92.8) Assessment: Instructions: Pt reported to nurse, no change to skin symtpoms. All creams have been reportedly denied by insurance, we will call pharmacy to verify.Follicular disorder, unspecified (WMP32-E37.9) Assessment: Instructions: As above.Patient Instructions/Care Plan: Other acne: Pt reported to nurse, no change to skin symtpoms. All creams have been reportedly denied by insurance, we will call pharmacy to verify.Follicular disorder- unspecified: As above. Plan developed in collaboration with patient and/or familyMedications:LAMICTAL 25 MG ORAL TABLETSEROQUEL 50 MG ORAL TABLETMedication Changes:Removed:HIBICLENS 4 % EXTERNAL LIQUID-Use with bathing to trunk once a week x 4 weeks Qty: 1[Bottle] Refills: 2, CLINDAMYCIN PHOSPHATE 1 % EXTERNAL GEL-Apply to chest, back, and abdomen twice daily Qty: 1[Tube] Refills: 5, AZELAIC ACID 15 % EXTERNAL GEL- Apply to affected acne area BID Qty: 1[Tube] Refills: 5Allergies:* LATEX (Critical)HYDROCODONE (Severe)* SEASONAL (Mild)Orders:Nurse Visit [[id number]] Follow-Up Return to clinic: as needed Clinical Visit Summary DeclinedElec tronically signed by Naveen REYES on 06/19/2020 at 2:39 PM Name Value Range Interpretation Code Description Data Ale rce(s) Supporting Document(s) ID Date Data Source [id number] 05/15/2020 02:42:39 PM EDT [facility] Measurements & CalculationsHeight: 66.50 inches 168.91 cm 5 ft. 6.5 in.Weight: 169.0 pounds 76.82 kg Body Mass Index (BMI): 26.97BMI Interpretation: OverweightBody Surface Area (BSA): 1.87Weight Management Education Done (Nutrition/Physical Activity)Vital SignsTemperature: 97.2F 36.22C tympanic Pulse Rate: 85 beats/minuteRespiratory Rate: 18 respirations/minuteBlood Pressure: 114/65 left arm sitting automaticO2 Saturation: 98% Vital Signs performed by: Nitza Carbajal LPN, May 15, 2020 2:43 PMVital Signs performed by: Naveen REYES, May 15, 2020 3:03 PMInitial Intake Information From: patientRoom #: 1Smoking, Tobacco, Vaping or Smoke Exposure StatusPassive Smoke Exposure: YesRate Your HealthIn general, would you say your health is? GoodPain AssessmentAre you currently having any pain which... You would like your provider to address? Yes Affects your activity level? YesDepression Screening - PHQ-2Over the last two weeks, have you... Had little interest or pleasure in doing things? Not at all Been feeling down, depressed, or hopeless? Not at all PHQ-2 Score: 0Anxiety Screening - CATHY-2Over the last two weeks, have you been... Feeling nervous, anxious, or on edge? More than half the days Unable to stop or control worrying? More than half the days CATHY-2 Score: 4Food InsecurityWithin the past year...Did you worry whether your food would run out before you got money to buy more? Sometimes trueWas there a time when the food you bought didn't last and you didn't have money to get more? Sometimes truePain AssessmentLocation: back/feetGeneralized Anxiety Disorder 7-Item Screening (CATHY- 7)Answer Guide:0 = Not at all1 = Several days2 = Over half the days3 = Nearly every dayOver the last 2 weeks, how often have you been bothered by the following problems?Feeling nervous, anxious, or on edge: 2Not being able to stop or control worryinWorrying too much about different things: 2Trouble relaxinBeing so restless that it's hard to sit still: 2Becoming easily annoyed or irritable: 2Feeling afraid as if something awful might happen: 2Answer Guide:0 = Not difficult at all1 = Somewhat difficult2 = Very difficult3 = Extremely difficultHow difficult have these made it for you to do your work, take care of things at home, or get along with other people? 2GAD-7 Screening Results CATHY-2 Score: 4GAD-7 Score: 14Functional Impairment: Very difficultRecommendation: Moderate anxietyScreening, Brief Intervention, & Referral to Treatment (SBIRT)Pre-Screening Questions How many times have you have 4 or more drinks in a day? 0How many times have you used an illegal drug or used a prescription medication for a non-medical reason? 0Performed by: Nitza Carbajal LPN, May 15, 2020 2:45 PMPatient History Medical History:Anxiety SchizophreniaBipolar disorderAsthmaHeart MurmurAcneSurgical History:Foot SxLeft toe removalFamily History:Mother- Diabetes, HypertensionFather- Cancer, Diabetes, Hypertension ()Social/Personal History:lives with boyfriend Born in [facility]. Not employed. Highest education level: high school graduate. Sexually Active: Yes. Chief Complaintfollow-up visitHistory of Present Illness (HPI)Pt is a 25 y/o female, presents for ongoing "zits" on her chest and abdomen. Ongoing for years, worst under breasts and along pant line, worse in the summer months. Also present on upper back and b/l axilla. States they get so severe she has to have them "cut out" in the ER periodically. Has failed multiple oral antibiotics over the years, Proactiv, Clean and Clear, Clearasil. Needs referral to dermatology. Has had trouble finding podiatry that accepts her Medicaid insurance. Has foot deformities since age 11 and severe callouses. Has had surgeries from [facility] and Dr. Armstrong. Dr. Armstrong amputated right pinky toe last year due to it laterally turning and it improved her severe callous on the palmar aspect of her foot. Now states the left is doing the same. Has never seen Dr. Cade. Problem ReviewProblem List was reviewed and/or updated during this visit.Medication Reconciliation & ReviewMedication List was reviewed and/or updated during this visit, including review of any [id number]-bjyzhtw medications, herbal therapies, and/or supplements.Allergy ReviewAllergy List was reviewed and/or updated during this visit.Adult Preventive CareLabs/Meds/Other Counseling-Nutrition and Physical Activity:BMI Interpretation: Overweight (05/15/2020) Counseling: Done (05/15/2020) Physical Activity: Done (05/15/2020)Review of Systems General: Denies loss of appetite, chills, dizziness, fatigue, fever, feeling ill. Cardiovascular: Denies chest pain, palpitations, feeling faint. Respiratory: Denies cough, difficulty breathing, shortness of breath. Gastrointestinal: Denies nausea, vomiting, diarrhea, pain or discomfort. Musculoskeletal: Complains of see HPI. Skin: Complains of see HPI, rash. Neurologic: Denies weakness, numbness/tingling. Physical ExamGeneral Appearance: well nourished, well hydrated, no acute distressEyes, External: conjunctivae and lids normal, EOMIRespiratory, Auscultation: clear to auscultation bilaterally; no rales, rhonchi, or wheezesCardiovascular, Auscultation: S1, S2 audible; no murmur, rub, or gallop; RRRAbdomen: soft, non-tender, no masses, bowel sounds normalGait & Station: normalFoot Inspection, Right: angulated toes, evidence of prior surgeries, callouses on the palms of feetFoot Inspection, Left: angulated toes, evidence of prior surgeries, callouses on the palms of feetSkin, Inspection: scattered papular rash and deep furunclesOrientation: oriented to time, place, and personJudgment & Insight: intactRate Your HealthIn general, would you say your health is? GoodAssessment & Plan Problems:Added: Other acne (ICD10- L70.8)Follicular disorder, unspecified (MLL34-Y75.9) Assessment: Pt refused oral antibiotics stating they never work. Instructions: Keep skin clean and dry with daily skin cleanser. Topical antibiotic-drying agent cream will be sent to your pharmacy. Hibiclens to bathe with once a week (do not use in vaginal area or on the face). Referral to dermatology. Follow-up for recheck in 1 month.Foot callus (ICD-700) (LJB82-P26) Assessment: Instructions: Referral to Dr. Cade for evaluation.Acquired deformities of toe(s), unspecified, left foot (GAY18-L60.62) Assessment: Instructions: As above.Removed:ACUTE DERMATITIS DUE TO SOLAR RADIATION (ICD-692.72), VIRAL INFECTION, ACUTE (ICD-079.99) (QLR51-P70.8), VIRAL INFECTION, ACUTE (ICD-079.99) (RED76-W65.8)Patient Instructions/Care Plan: Follicular disorder- unspecified: Keep skin clean and dry with daily skin cleanser. Topical antibiotic-drying agent cream will be sent to your pharmacy. Hibiclens to bathe with once a week (do not use in vaginal area or on the face). Referral to dermatology. Follow- up for recheck in 1 month.Foot callus: Referral to Dr. Cade for evaluation.Acquired deformities of toe(s)- unspecified- left foot: As above. Plan developed in collaboration with patient and/or familyMedications:HIBICLENS 4 % EXTERNAL LIQUIDLAMICTAL 25 MG ORAL TABLETSEROQUEL 50 MG ORAL TABLETMedication Changes:New Prescription:HIBICLENS 4 % EXTERNAL LIQUID-Use with bathing to trunk once a week x 4 weeks Qty: 1[Bottle] Refills: 2 Method: ElectronicCLINDAMYCIN PHOS-BENZOYL PEROX 1-5 % EXTERNAL GEL-Apply to chest, back, and abdomen twice daily Qty: 1[Tube] Refills: 5 Method: ElectronicRemoved:* MELOXICAM 30MG-qhs, VITAMIN D3 79232 UNIT ORAL TABLET-1 po q wk for 12 wks, then change to 1000 unit tablet daily thereafter Qty: 12[Tablet] Refills: 0Allergies:* LATEX (Critical)HYDROCODONE (Severe)* SEASONAL (Mild)Orders:Dermatology Consult [CPT-30145] Podiatry Consult [CPT- 29269] Adult - Ofc Vst, EST, Level III [CPT-14864] Follow-Up Return to clinic: in 30 days for follow upAdditional Follow-Up: skin follow-upClinical Visit Summary Declined Name Value Range Interpretation Code Description Data Ale rce(s) Supporting Document(s) ID Date Data Source [id number] 02/22/2020 04:52:56 PM EDT [facility] Measurements & CalculationsHeight: 66.50 inches 168.91 cm 5 ft. 6.5 in.Weight: 170 pounds 6 oz. 77.45 kg Body Mass Index (BMI): 27.19BMI Interpretation: OverweightBody Surface Area (BSA): 1.88Weight Management Education Done (Nutrition/Physical Activity)Vital SignsTemperature: 98.3FPulse Rate: 100 beats/minuteRespiratory Rate: 14 respirations/minuteBlood Pressure: 101/68 O2 Saturation: 98% Vital Signs performed by: Tory Meyer LPN, February 22, 2020 4:54 PMVital Signs performed by: Tory Meyer LPN, February 22, 2020 4:54 PMInitial Intake Information From: patientRoom #: 9Infectious Disease / Travel ScreeningRecent travel for you or any close contacts? NoHave you had any close contact with anyone diagnosed with or under investigation for COVID-19 (coronavirus)? NoFever? NoRespiratory symptoms: cough, cold, congestion, shortness of breath, difficulty breathing? NoLoss of smell? NoLoss of taste? NoSmoking, Tobacco, Vaping or Smoke Exposure StatusSmoke Status: current every day smokerTobacco Use: YesAdv to Quit: YesDo you vape? NoPassive Smoke Exposure: YesMenstrual HistoryLast Menstrual Period (LMP): 02/22/2020Any possibility of ? NoHealthcare HistorySince your last office visit...Have you been admitted to the hospital? NoHave you been to an emergency room (ER) or urgent care clinic? NoHave you seen another healthcare provider? Yes - ORTHOHave you seen a dentist? NoIntake performed by: Tory Meyer LPN, February 22, 2020 4:57 PMRate Your HealthIn general, would you say your health is? ExcellentPain AssessmentAre you currently having any pain which... You would like your provider to address? No Affects your activity level? NoDepression Screening - PHQ-2Over the last two weeks, have you... Had little interest or pleasure in doing things? Not at all Been feeling down, depressed, or hopeless? Not at all PHQ-2 Score: 0Anxiety Screening - CATHY-2Over the last two weeks, have you been... Feeling nervous, anxious, or on edge? Not at all Unable to stop or control worrying? Not at all CATHY-2 Score: 0Food InsecurityWithin the past year...Did you worry whether your food would run out before you got money to buy more? YesWas there a time when the food you bought didn't last and you didn't have money to get more? YesScreening, Brief Intervention, & Referral to Treatment (SBIRT)Pre-Screening Questions How many times have you have 4 or more drinks in a day? 0How many times have you used an illegal drug or used a prescription medication for a non-medical reason? 0Performed by: Tory Meyer LPN, February 22, 2020 4:59 PMPatient History Medical History:Anxiety SchizophreniaBipolar disorderAsthmaHeart MurmurSurgical History:Foot SxLeft toe removalFamily History:Mother- Diabetes, HypertensionFather- Cancer, Diabetes, Hypertension ()Social/Personal History:lives with boyfriend Born in [facility]. Not employed. Highest education level: high school graduate. Sexually Active: Ye s. Advised to Quit/Tobacco Education: YesChief Complaintfollow-up visit lab results RM 9History of Present Illness (HPI)25 YO female here for follow up on labs. Pt states healty diet physical activitiesPt states legally but in the process of getting legally . Pt states new relationship x 10 months. Engaged to new partner. Pt states unable to work due learning disability. Pt states no new concerns .HPI performed by: Viktoriya FLORES, February 22, 2020 5:24 PMTransitions of Care InboundProblem ReviewProblem List was reviewed and/or updated during this visit.Medication Reconciliation & ReviewMedication List was reviewed and/or updated during this visit, including review of any nevv-rnh-sizavws medications, herbal therapies, and/or supplements.Allergy ReviewAllergy List was reviewed and/or updated during this visit.Adult Preventive CareProvider Calculated and Reviewed all Clinical Protocols for patient today. Screening Tobacco Screening: Smoking Status: current every day smoker (02/22/2020) Tobacco Use: Currently (02/22/2020) Advised to Quit: Yes (02/22/2020)Labs/Meds/Other Counseling-Nutrition and Physical Activity:BMI Interpretation: Overweight (02/22/2020) Counseling: Done (02/22/2020) Physical Activity: Done (02/22/2020)Cancer Screening Pap Smear/HPV TestingReviewed: Patient Refused Pap SmearPrevious Comments: [employer]- woud like referral (09/12/2019)Today's Comments: has own OBGYN Review of Systems General: Denies loss of appetite, chills, dizziness, fatigue, fever, continued fever, headache, feeling ill, sweats, night sweats, sleep disturbances, weight loss. Eyes: Denies blurring of vision, double vision, irritation, discharge, vision loss, eye pain, eye swelling, droopy eyelid, sensitivity to light, redness, itching. Ears/Nose/Throat: Denies earache, ear discharge, ringing in ears, decreased hearing, nasal congestion, nosebleeds, runny nose, sore throat, hoarseness, difficulty swallowing, dry mouth, tooth pain, bleeding gums, swollen glands. Cardiovascular: Denies chest pain, palpitations, feeling faint, trouble breathing w/exertion, SOB upon lying down, SOB at night, peripheral edema, elevated blood pressure, decreased heart rate. Respiratory: Denies cough, difficulty breathing, shortness of breath, excessive sputum, coughing up blood, wheezing, chest pain. Gastrointestinal: Denies nausea, vomiting, bleeding, burning, itching, irritation, cramps, diarrhea. Genitourinary: Denies urinary incontinence, pain with urination, burning with urination, urinary frequency, urinary hesitancy, urinary urgency, urinary urgency at night, incomplete emptying, blood in urine. Musculoskeletal: Denies back pain, joint pain, leg pain, other pain-see comments, joint swelling, body aches, muscle aches, muscle cramps, muscle weakness, stiffness, recent injury. Skin: Denies rash, hives, redness, itching, dryness, nail changes, suspicious lesions, athlete's foot, rash on palms, rash on bottom of feet. Neurologic: Denies muscle impairment, weakness, numbness/tingling, seizures, slurred speech, feeling faint, tremors, vertigo, paralysis on one side, paralysis on both sides. Psychiatric: Denies depression, anxiety, memory loss, mental disturbance, suicidal ideation, homicidal ideation, hallucinations, paranoia, feeling stressed, hearing voices. Endocrine: Denies cold intolerance, heat intolerance, excessive thirst, excessive hunger, excessive urination, weight loss, weight gain. Physical ExamGeneral Appearance: well nourished, well hydrated, no acute distressEyes, External: conjunctivae and lids normal, EOMIRespiratory, Auscultation: clear to auscultation bilaterally; no rales, rhonchi, or wheezesRespiratory, Effort: no intercostal retractions or use of accessory musclesCardiovascular, Auscultation: S1, S2 audible; no murmur, rub, or gallop; RRRAbdomen: soft, non-tender, no masses, bowel sounds normalGait & Station: normalMood & Affect: no depression, anxiety, or agitationJudgment & Insight: need further assessmentCare Management Plan Transitions of CareInboundRate Your HealthIn general, would you say your health is? ExcellentAssessment & Plan Problems:Added: Nicotine dependence, unspecified, uncomplicated (YMS11-H32.200) Assessment: Instructions: please try to cut back on your smoking with a goal to quit. Please let us know if you need assistance in doing so.vitamin D deficiency (ICD-268.9) (YET31-A80.9) Assessment: Instructions: Vitamin D meds sent to pharmacy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 Past 12 Hour s? N Has Patient Fasted For The Past 12 Hour s? N Has Patient Fasted For The Past 12 Hour s? N Has Patient Fasted For The Past 12 Hour s? N Has Patient Fasted For The Past 12 Hour s? N Has Patient Fasted For The Past 12 Hour s? N Name Value Range Interpretation Code Description Data Ale rce(s) Supporting Document(s) FOLATE 10.45 NG/ML 3.40-24.00 N [employer] ID Date Data Source [id number] 09/05/2019 12:09:00 AM [facility] [employer] Has Patient Fasted For The Past 12 Hour s? N Has Patient Fasted For The Past 12 Hour s? N Has Patient Fasted For The Past 12 Hour s? N Has Patient Fasted For The Past 12 Hour s? N Has Patient Fasted For The Past 12 Hour s? N Has Patient Fasted For The Past 12 Hour s? N Has Patient Fasted For The Past 12 Hour s? N Has Patient Fasted For The Past 12 Hour s? N Name Value Range Interpretation Code Description Data Ale rce(s) Supporting Document(s) Vitamin D,25-HYDROXY 13.7 ng/ml 30-100 [facility] Vitamin D Status Range De ficiency <20 ng/ml Insufficiency 20-29.9 ng/ml Sufficiency 30-100 ng/ml Toxicity >100 ng/ml Patients should not be tested for 72 hours post fluorescein dye angiography. A false elevation of result may occur. ID Date Data Source [id number] 09/05/2019 12:09:00 AM [facility] [employer] Has Patient Fasted For The Past 12 Hour s? N Has Patient Fasted For The Past 12 Hour s? N Has Patient Fasted For The Past 12 Hour s? N Has Patient Fasted For The Past 12 Hour s? N Has Patient Fasted For The Past 12 Hour s? N Has Patient Fasted For The Past 12 Hour s? N Has Patient Fasted For The Past 12 Hour s? N Has Patient Fasted For The Past 12 Hour s? N Name Value Range Interpretation Code Description Data Ale rce(s) Supporting Document(s) FREE T4 (FREE THYROXINE) 1.09 NG/DL 0.76-1.78 N [facility] ID Date Data Source [id number] 09/05/2019 12:09:00 AM [facility] Has Patient Fasted For The Past 12 Hour s? N Has Patient Fasted For The Past 12 Hour s? N Has Patient Fasted For The Past 12 Hour s? N Has Patient Fasted For The Past 12 Hour s? N Has Patient Fasted For The Past 12 Hour s? N Has Patient Fasted For The Past 12 Hour s? N Has Patient Fasted For The Past 12 Hour s? N Has Patient Fasted For The Past 12 Hour s? N Name Value Range Interpretation Code Description Data Ale rce(s) Supporting Document(s) TSH 0.980 uIU/ML 0.470-4.200 N [facility] Patients should not be tested for 72 ho urs post fluorescein dye angiography. A false depression of result may occur. ID Date Data Source [id number] 09/04/2019 11:36:00 PM [facility] Name Value Range Interpretation Code Description Data Ale rce(s) Supporting Document(s) WHITE BLOOD COUNT 15.27 10^3/uL 4.00-10.50 H [facility] RED BLOOD COUNT 5.35 10^6/uL 3.90-5.20 H [facility] th HEMOGLOBIN 13.9 G/DL 11.5-15.6 N [facility] HEMATOCRIT 41.2 % 35.0-46.0 N [facility] MCV 77.0 FL 80.0-100.0 L [facility] MCH 26.0 PG 27.0-34.0 L [facility] MCHC 33.7 G/DL 32-36 N [facility] RDW 14.0 % 11.5-14.5 N [facility] PLATELET COUNT 327 10^3/uL 130-400 N [facility] MPV 11.4 FL 8.7-13.2 N [facility] GRAN % (AUTO) 77.8 % 42.0-75.0 H [facility] LYMPH % (AUTO) 15.3 % 20.0-51.0 L [facility] MONO % (AUTO) 5.7 % 2.0-15.0 N [facility] EOS % (AUTO) 0.4 % 0.0-11.0 N [facility] BASO % (AUTO) 0.5 % 0.0-2.0 N [facility] IG % (AUTO) 0.3 % 1.00-5.00 [facility] IG # (AUTO) 0.1 10^3/uL <0.5 [facility] GRAN # (AUTO) 11.89 10^3/uL 1.50-6.50 [facility] LYMPH # (AUTO) 2.3 k/uL 1.0-5.0 N [facility] MONO # (AUTO) 0.87 k/uL 0.20-1.50 N [facility] EOS # (AUTO) 0.06 10^3/uL 0.00-1.10 N [facility] BASO # (AUTO) 0.07 10^3/uL 0.00-0.20 N [facility] Procedure Social History Code Duration Value Status Description Data Source(s ) Smoking 07/25/2020 12:00:00 AM EST Current Smoker completed Curre nt Smoker eCW1 ([facility]) Smoking 07/25/2020 12:00:00 AM EST Current Smoker completed Curre nt Smoker eCW1 ([facility]) Vital Signs ID Date Data Source UNK Name Value Range Interpretation Code Description Data Source(s) Body weight 3000 [oz_av] 3000 [oz_av] NINA ([facility]) Systolic blood pressure 114 mm[Hg] 114 mm[Hg] A THENA ([facility]) Body mass index (BMI) [Ratio] 29.8 kg/m2 29.8 k g/m2 NINA ([facility]) Body height 66.5 [in_i] 66.5 [in_i] NINA ([facility]) Diastolic blood pressure 71 mm[Hg] 71 mm[Hg] NINA ([facility]) Body weight 2886 [oz_av] 2886 [oz_av] NINA ([facility]) Systolic blood pressure 128 mm[Hg] 128 mm[Hg] A [facility] ([facility]) Body mass index (BMI) [Ratio] 28.7 kg/m2 28.7 k g/m2 NINA ([facility]) Body height 66.5 [in_i] 66.5 [in_i] NINA ([facility]) Diastolic blood pressure 74 mm[Hg] 74 mm[Hg] NINA ([facility]) Body weight 2886 [oz_av] 2886 [oz_av] NINA ([facility]) Systolic blood pressure 128 mm[Hg] 128 [facility]Hg[facility] Body mass index (BMI) [Ratio] 28.7 kg/m2 28.7 k g/m2 NINA ([facility]) Body height 66.5 [in_i] 66.5 [in_i] NINA ([facility]) Diastolic blood pressure 74 mm[Hg] 74 mm[Hg] NINA ([facility]) Body weight 2886 [oz_av] 2886 [oz_av] NINA ([facility]) Systolic blood pressure 128 mm[Hg] 128 mm[Hg] A THENA ([facility]) Body mass index (BMI) [Ratio] 28.7 kg/m2 28.7 k g/m2 NINA ([facility]) Body height 66.5 [in_i] 66.5 [in_i] NINA ([facility]) Diastolic blood pressure 74 mm[Hg] 74 mm[Hg] NINA ([facility]) Body weight 2886 [oz_av] 2886 [oz_av] NINA ([facility]) Systolic blood pressure 128 mm[Hg] 128 mm[Hg] A THENA ([facility]) Body mass index (BMI) [Ratio] 28.7 kg/m2 28.7 k g/m2 NINA ([facility]) Body height 66.5 [in_i] 66.5 [in_i] NINA ([facility]) Diastolic blood pressure 74 mm[Hg] 74 mm[Hg] NINA ([facility]) Diastolic blood pressure 70 mm[Hg] 70 mm[Hg] eCW1 ([facility]) Systolic blood pressure 132 mm[Hg] 132 mm[Hg] e CW1 ([facility]) Body temperature 97.5 [degF] 97.5 [degF] eCW1 ( [facility]) Respiratory rate 18 /min 18 /min eCW1 ([facility]) Heart rate 127 /min 127 /min eCW1 ([facility]) Body mass index (BMI) [Ratio] 26.78 kg/m2 26.78 kg/m2 eCW1 ([facility]) Body height 67 [in_i] 67 [in_i] eCW1 ([facility]) Body weight 171 [lb_av] 171 [lb_av] eCW1 ([facility]) Body weight 2704 [oz_av] 2704 [oz_av] NINA ([facility]) Systolic blood pressure 114 mm[Hg] 114 mm[Hg] A [facility] ([facility]) Body height 66.5 [in_i] 66.5 [in_i] NINA ([facility]) Diastolic blood pressure 65 mm[Hg] 65 mm[Hg] NINA ([facility]) Body weight 2704 [oz_av] 2704 [oz_av] NINA ([facility]) Systolic blood pressure 114 mm[Hg] 114 mm[Hg] A [facility] ([facility]) Body height 66.5 [in_i] 66.5 [in_i] NINA ([facility]) Diastolic blood pressure 65 mm[Hg] 65 mm[Hg] NINA ([facility]) Body weight 2704 [oz_av] 2704 [oz_av] NINA ([facility]) Systolic blood pressure 114 mm[Hg] 114 mm[Hg] [facility] Body height 66.5 [in_i] 66.5 [in_i] NINA ([facility]) Diastolic blood pressure 65 mm[Hg] 65 mm[Hg] NINA ([facility]) Body weight 2704 [oz_av] 2704 [oz_av] NINA ([facility]) Systolic blood pressure 114 mm[Hg] 114 mm[Hg] A [facility] ([facility]) Body height 66.5 [in_i] 66.5 [in_i] NINA ([facility]) Diastolic blood pressure 65 mm[Hg] 65 mm[Hg] NINA ([facility]) Body weight 2704 [oz_av] 2704 [oz_av] NINA ([facility]) Systolic blood pressure 114 mm[Hg] 114 mm[Hg] [facility] Body height 66.5 [in_i] 66.5 [in_i] NINA ([facility]) Diastolic blood pressure 65 mm[Hg] 65 mm[Hg] NINA ([facility]) Body weight 2704 [oz_av] 2704 [oz_av] NINA ([facility]) Systolic blood pressure 114 mm[Hg] 114 mm[Hg] A [facility] ([facility]) Body height 66.5 [in_i] 66.5 [in_i] NINA ([facility]) Diastolic blood pressure 65 mm[Hg] 65 mm[Hg] NINA ([facility]) Body weight 2712 [oz_av] 2712 [oz_av] NINA ([facility]) Body height 66.5 [in_i] 66.5 [in_i] NINA ([facility]) Body weight 2712 [oz_av] 2712 [oz_av] NINA ([facility]) Body height 66.5 [in_i] 66.5 [in_i] NINA ([facility]) Body weight 2712 [oz_av] 2712 [oz_av] NINA ([facility]) Body height 66.5 [in_i] 66.5 [in_i] NINA ([facility]) Body weight 2712 [oz_av] 2712 [oz_av] NINA ([facility]) Body height 66.5 [in_i] 66.5 [in_i] NINA ([facility]) Body weight 2712 [oz_av] 2712 [oz_av] NINA ([facility]) Body height 66.5 [in_i] 66.5 [in_i] NINA ([facility]) Body weight 2712 [oz_av] 2712 [oz_av] NINA ([facility]) Body height 66.5 [in_i] 66.5 [in_i] NINA ([facility]) Body weight 2726.08 [oz_av] 2726.08 [oz_av] ATH [facility] ([facility]) Systolic blood pressure 101 mm[Hg] 101 mm[Hg] [facility] Body height 66.5 [in_i] 66.5 [in_i] NINA ([facility]) Diastolic blood pressure 68 mm[Hg] 68 mm[Hg] NINA ([facility]) Body weight 2726.08 [oz_av] 2726.08 [oz_av] ATH [facility] ([facility]) Systolic blood pressure 101 mm[Hg] 101 mm[Hg] A [facility] ([facility]) Body height 66.5 [in_i] 66.5 [in_i] NINA ([facility]) Diastolic blood pressure 68 mm[Hg] 68 mm[Hg] NINA ([facility]) Body weight 2726.08 [oz_av] 2726.08 [oz_av] ATH [facility] ([facility]) Systolic blood pressure 101 mm[Hg] 101 mm[Hg] [facility] Body height 66.5 [in_i] 66.5 [in_i] NINA ([facility]) Diastolic blood pressure 68 mm[Hg] 68 mm[Hg] NINA ([facility]) Body weight 2726.08 [oz_av] 2726.08 [oz_av] ATH [facility] ([facility]) Systolic blood pressure 101 mm[Hg] 101 mm[Hg] A [facility] ([facility]) Body height 66.5 [in_i] 66.5 [in_i] NINA ([facility]) Diastolic blood pressure 68 mm[Hg] 68 mm[Hg] NINA ([facility]) Body weight 2726.08 [oz_av] 2726.08 [oz_av] ATH [facility] ([facility]) Systolic blood pressure 101 mm[Hg] 101 mm[Hg] A THENA ([facility]) Body height 66.5 [in_i] 66.5 [in_i] NINA ([facility]) Diastolic blood pressure 68 mm[Hg] 68 mm[Hg] NINA ([facility]) Body weight 2726.08 [oz_av] 2726.08 [oz_av] ATH [facility] ([facility]) Systolic blood pressure 101 mm[Hg] 101 mm[Hg] A THENA ([facility]) Body height 66.5 [in_i] 66.5 [in_i] NINA ([facility]) Diastolic blood pressure 68 mm[Hg] 68 mm[Hg] NINA ([facility]) Body weight 2754.08 [oz_av] 2754.08 [oz_av] ATH [facility] ([facility]) Body height 66.5 [in_i] 66.5 [in_i] NINA ([facility]) Body weight 2754.08 [oz_av] 2754.08 [oz_av] ATH [facility] ([facility]) Body height 66.5 [in_i] 66.5 [in_i] NINA ([facility]) Body weight 2754.08 [oz_av] 2754.08 [oz_av] ATH [facility] ([facility]) Body height 66.5 [in_i] 66.5 [in_i] NINA ([facility]) Body weight 2754.08 [oz_av] 2754.08 [oz_av] ATH [facility] ([facility]) Body height 66.5 [in_i] 66.5 [in_i] NINA ([facility]) Body weight 2754.08 [oz_av] 2754.08 [oz_av] ATH [facility] ([facility]) Body height 66.5 [in_i] 66.5 [in_i] NINA ([facility]) Body weight 2754.08 [oz_av] 2754.08 [oz_av] ATH [facility] ([facility]) Body height 66.5 [in_i] 66.5 [in_i] NINA ([facility]) Body weight 2834.08 [oz_av] 2834.08 [oz_av] ATH [facility] ([facility]) Body height 66.5 [in_i] 66.5 [in_i] NINA ([facility]) Body weight 2834.08 [oz_av] 2834.08 [oz_av] ATH [facility] ([facility]) Body height 66.5 [in_i] 66.5 [in_i] NINA ([facility]) Body weight 2834.08 [oz_av] 2834.08 [oz_av] ATH [facility] ([facility]) Body height 66.5 [in_i] 66.5 [in_i] NINA ([facility]) Body weight 2834.08 [oz_av] 2834.08 [oz_av] ATH [facility] ([facility]) Body height 66.5 [in_i] 66.5 [in_i] NINA ([facility]) Body weight 2834.08 [oz_av] 2834.08 [oz_av] ATH [facility] ([facility]) Body height 66.5 [in_i] 66.5 [in_i] NINA ([facility]) Body weight 2834.08 [oz_av] 2834.08 [oz_av] ATH [facility] ([facility]) Body height 66.5 [in_i] 66.5 [in_i] NINA ([facility]) Body weight 2999.04 [oz_av] 2999.04 [oz_av] ATH [facility] ([facility]) Body height 66.5 [in_i] 66.5 [in_i] NINA ([facility]) Body weight 2999.04 [oz_av] 2999.04 [oz_av] ATH [facility] ([facility]) Body height 66.5 [in_i] 66.5 [in_i] NINA ([facility]) Body weight 2999.04 [oz_av] 2999.04 [oz_av] ATH [facility] ([facility]) Body height 66.5 [in_i] 66.5 [in_i] NINA ([facility]) Body weight 2999.04 [oz_av] 2999.04 [oz_av] ATH [facility] ([facility]) Body height 66.5 [in_i] 66.5 [in_i] N[facility] [facility]) Body weight 2999.04 [oz_av] 2999.04 [oz_av] ATH LOURDES ([facility]) Body height 66.5 [in_i] 66.5 [in_i] NINA ([facility]) Body weight 2999.04 [oz_av] 2999.04 [oz_av] ATH LOURDES ([facility]) Body height 66.5 [in_i] 66.5 [in_i] NINA ([facility]) Body weight 3058.08 [oz_av] 3058.08 [oz_av] ATH LOURDES ([facility]) Body height 66.5 [in_i] 66.5 [in_i] NINA ([facility]) Body weight 3058.08 [oz_av] 3058.08 [oz_av] ATH LOURDES ([facility]) Body height 66.5 [in_i] 66.5 [in_i] NINA ([facility]) Body weight 3058.08 [oz_av] 3058.08 [oz_av] ATH LOURDES ([facility]) Body height 66.5 [in_i] 66.5 [in_i] NINA ([facility]) Body weight 3058.08 [oz_av] 3058.08 [oz_av] ATH LOURDES ([facility]) Body height 66.5 [in_i] 66.5 [in_i] NINA ([facility]) Body weight 3058.08 [oz_av] 3058.08 [oz_av] ATH LOURDES ([facility]) Body height 66.5 [in_i] 66.5 [in_i] NINA ([facility]) Body weight 3058.08 [oz_av] 3058.08 [oz_av] ATH LOURDES ([facility]) Body height 66.5 [in_i] 66.5 [in_i] NINA ([facility]) Body weight 3072 [oz_av] 3072 [oz_av] NINA ([facility]) Systolic blood pressure 114 mm[Hg] 114 mm[Hg] [facility] Body height 66.5 [in_i] 66.5 [in_i] NINA ([facility]) Diastolic blood pressure 67 mm[Hg] 67 mm[Hg] NINA ([facility]) Body weight 3072 [oz_av] 3072 [oz_av] NINA ([facility]) Systolic blood pressure 114 mm[Hg] 114 mm[Hg] A [facility] ([facility]) Body height 66.5 [in_i] 66.5 [in_i] NINA ([facility]) Diastolic blood pressure 67 mm[Hg] 67 mm[Hg] NINA ([facility]) Body weight 3072 [oz_av] 3072 [oz_av] NINA ([facility]) Systolic blood pressure 114 mm[Hg] 114 mm[Hg] [facility] Body height 66.5 [in_i] 66.5 [in_i] NINA ([facility]) Diastolic blood pressure 67 mm[Hg] 67 mm[Hg] NINA ([facility]) Body weight 3072 [oz_av] 3072 [oz_av] NINA ([facility]) Systolic blood pressure 114 mm[Hg] 114 mm[Hg] [facility] Body height 66.5 [in_i] 66.5 [in_i] NINA ([facility]) Diastolic blood pressure 67 mm[Hg] 67 mm[Hg] NINA ([facility]) Body weight 3072 [oz_av] 3072 [oz_av] NINA ([facility]) Systolic blood pressure 114 mm[Hg] 114 mm[Hg] A [facility] ([facility]) Body height 66.5 [in_i] 66.5 [in_i] NINA ([facility]) Diastolic blood pressure 67 mm[Hg] 67 mm[Hg] NINA ([facility]) Body weight 3072 [oz_av] 3072 [oz_av] NINA ([facility]) Systolic blood pressure 114 mm[Hg] 114 mm[Hg] A [facility] ([facility]) Body height 66.5 [in_i] 66.5 [in_i] NINA ([facility]) Diastolic blood pressure 67 mm[Hg] 67 mm[Hg] NINA ([facility])
[2020-10-10] MEDS ORDERED: DOXY100C37 PO ×2 (13:11→14:01)
[2020-10-10] MEDS ORDERED: cefTRIAXone 500MG VIAL (J0696 PER 250MG) IM ONE (13:15)
[2020-10-10] MEDS ORDERED: metroNIDAZOLE (FLAGYL) 500MG TABLET PO ONE ×2 (13:15→13:30)
[2020-10-10] MEDS ORDERED: LIDOCAINE 1% SDV 5ML VIAL DILUENT ONE (13:15)
--- OUTSIDE RECORDS SUMMARY | 2020-10-10 13:23 | CCD ---
Author Author [facility] Organization [facility] Address Unknown Phone Unavailable Support Name Relationship Address Phone DAYO ELDER Next Of Kin [address] [place] [address] DAYO GÓMEZ Next Of Kin [address] [place] [address] THONY ELDER Next Of Kin [address] [place] [address] Ute Gonzales Next Of Kin Unknown Unavailable Malia Squires Next Of Kin [address] [place] [address] VIJAY GONZALES Next Of Kin [address] [place] [address] Vinay Baez MD Next Of Kin [address] [place] [address] DISABLED Next Of Kin Unknown Unavailable ISMAEL GUY Next Of Kin [address] [place] [address] UE Next Of Kin Unknown Unavailable CONVERGYS Next Of Kin [address] [place] [address] STREAM Next Of Kin [address] [place] [address] [place] [address] [place] Next Of Kin [facility] [place] [address] Next Of Kin Unknown Unavailable FELISHA WANG [place] [address] JOHN WANG Next Of Kin [address] [place] [address] Viktoriya Vega Next Of Kin [address] [place] [address] UN Next Of Kin Unknown Unavailable Felisha [place] [address] UNKNOWN, DAYO ECON [address] [place] [address] Unavailable Care Team Providers Care Barrel Loader Name Role Phone Malia Kimble DEVELOPMENTAL SERVICES WORKER DEVELOPMENTAL SERVICES WORKER Unavailable Unavailable Carlos Alberto, A Viktoriya DEVELOPMENTAL SERVICES WORKER Unavailable Unavailable Carlos Alberto, A Viktoriya DEVELOPMENTAL SERVICES WORKER Unavailable Unavailable Carlos Alberto, A Viktoriya DEVELOPMENTAL SERVICES WORKER Unavailable Unavailable Carlos Alberto, A Viktoriya DEVELOPMENTAL SERVICES WORKER Unavailable Unavailable Carlos Alberto, A Viktoriya DEVELOPMENTAL SERVICES WORKER Unavailable Unavailable Carlos Alberto, A Viktoriya DEVELOPMENTAL SERVICES WORKER Unavailable Unavailable Carlos Alberto, A Viktoriya DEVELOPMENTAL SERVICES WORKER Unavailable Unavailable Carlos Alberto, A Viktoriya DEVELOPMENTAL SERVICES WORKER Unavailable Unavailable Carlos Alberto, A Viktoriya DEVELOPMENTAL SERVICES WORKER Unavailable Unavailable Carlos Alberto, A Viktoriya DEVELOPMENTAL SERVICES WORKER Unavailable Unavailable Carlos Alberto, A Viktoriya DEVELOPMENTAL SERVICES WORKER Unavailable Unavailable Carlos Alberto, A Viktoriya DEVELOPMENTAL SERVICES WORKER Unavailable Unavailable Carlos Alberto, A Viktoriya DEVELOPMENTAL SERVICES WORKER Unavailable Unavailable Carlos Alberto, A Viktoriya DEVELOPMENTAL SERVICES WORKER Unavailable Unavailable Carlos Alberto, A Viktoriya DEVELOPMENTAL SERVICES WORKER Unavailable Unavailable Carlos Alberto, A Viktoriya DEVELOPMENTAL SERVICES WORKER Unavailable Unavailable Carlos Alberto, A Viktoriya DEVELOPMENTAL SERVICES WORKER Unavailable Unavailable Carlos Alberto, A Viktoriya DEVELOPMENTAL SERVICES WORKER Unavailable Unavailable Carlos Alberto, A Viktoriya DEVELOPMENTAL SERVICES WORKER Unavailable Unavailable Carlos Alberto, A Viktoriya DEVELOPMENTAL SERVICES WORKER Unavailable Unavailable Carlos Alberto, A Viktoriya DEVELOPMENTAL SERVICES WORKER Unavailable Unavailable Carlos Alberto, A Viktoriya DEVELOPMENTAL SERVICES WORKER Unavailable Unavailable Carlos Alberto, A Viktoriya DEVELOPMENTAL SERVICES WORKER Unavailable Unavailable Carlos Alberto, A Viktoriya DEVELOPMENTAL SERVICES WORKER Unavailable Unavailable Carlos Alberto, A Viktoriya DEVELOPMENTAL SERVICES WORKER Unavailable Unavailable Carlos Alberto, A Viktoriya DEVELOPMENTAL SERVICES WORKER Unavailable Unavailable Carlos Alberto, A Viktoriya DEVELOPMENTAL SERVICES WORKER Unavailable Unavailable Elizabeth Rios MD Unavailable Unavailable Elizabeth Rios MD Unavailable Unavailable Elizabeth Rios MD Unavailable Unavailable Elizabeth Rios MD Unavailable Unavailable Elizabeth Rios MD Unavailable Unavailable Elizabeth Rios MD Unavailable Unavailable Elizabeth Rios MD Unavailable Unavailable Juan BAEZ MD Unavailable Unavailable Juan BAEZ MD Unavailable Unavailable Juan BAEZ MD Unavailable Unavailable Juan BAEZ MD Unavailable Unavailable Juan BAEZ MD Unavailable Unavailable Juan BAEZ MD Unavailable Unavailable Juan BAEZ MD Unavailable Unavailable Juan BAEZ MD Unavailable Unavailable Juan BAEZ MD Unavailable Unavailable Juan BAEZ MD Unavailable Unavailable Juan BAEZ MD Unavailable Unavailable Juan BAEZ MD Unavailable Unavailable Juan BAEZ MD Unavailable Unavailable Juan BAEZ MD Unavailable Unavailable Juan BAEZ MD Unavailable Unavailable Juan BAEZ MD Unavailable Unavailable Juan BAEZ MD Unavailable Unavailable Juan BAEZ MD Unavailable Unavailable Juan BAEZ MD Unavailable Unavailable Juan BAEZ MD Unavailable Unavailable Juan BAEZ MD Unavailable Unavailable Juan BAEZ MD Unavailable Unavailable Juan BAEZ MD Unavailable Unavailable Juan BAEZ MD Unavailable Unavailable Juan BAEZ MD Unavailable Unavailable Juan BAEZ MD Unavailable Unavailable Juan BAEZ MD Unavailable Unavailable Juan BAEZ MD Unavailable Unavailable Juan BAEZ MD Unavailable Unavailable Juan ABEZ MD Unavailable Unavailable Juan BAEZ MD Unavailable Unavailable Juan BAEZ MD Unavailable Unavailable Juan BAEZ MD Unavailable Unavailable Juan BAEZ MD Unavailable Unavailable Juan BAEZ MD Unavailable Unavailable Juan BAEZ MD Unavailable Unavailable Juan BAEZ MD Unavailable Unavailable Juan BAEZ MD Unavailable Unavailable Juan BAEZ MD Unavailable Unavailable Juan BAEZ MD Unavailable Unavailable Juan BAEZ MD Unavailable Unavailable Juan BAEZ MD Unavailable Unavailable Juan BAEZ MD Unavailable Unavailable Juan BAEZ MD Unavailable Unavailable Juan BAEZ MD Unavailable Unavailable Juan BAEZ MD Unavailable Unavailable Juan BAEZ MD Unavailable Unavailable Juan BAEZ MD Unavailable Unavailable Juan BAEZ MD Unavailable Unavailable Juan BAEZ MD Unavailable Unavailable Juan BAEZ MD Unavailable Unavailable Juan BAEZ MD Unavailable Unavailable Juan BAEZ MD Unavailable Unavailable Juan BAEZ MD Unavailable Unavailable Juan BAEZ MD Unavailable Unavailable Juan BAEZ MD Unavailable Unavailable Juan BAEZ MD Unavailable Unavailable Juan BAEZ MD Unavailable Unavailable Juan BAEZ MD Unavailable Unavailable Juan BAEZ MD Unavailable Unavailable Juan BAEZ MD Unavailable Unavailable Juan BAEZ MD Unavailable Unavailable Juan BAEZ MD Unavailable Unavailable Juan BAEZ MD Unavailable Unavailable Juan BAEZ MD Unavailable Unavailable Juan BAEZ MD Unavailable Unavailable Juan BAEZ MD Unavailable Unavailable MONTANA, Juan MCLEAN MD Unavailable Unavailable MONTANA, Juan MCLEAN MD Unavailable Unavailable MONTANA, Juan MCLEAN MD Unavailable Unavailable MONTANA, Juan MCLEAN MD Unavailable Unavailable MONTANA, Juan MCLEAN MD Unavailable Unavailable MONTANA, Juan MCLEAN MD Unavailable Unavailable MONTANA, Juan MCLEAN MD Unavailable Unavailable MONTANA, Juan MCLEAN MD Unavailable Unavailable MONTANA, Juan MCLEAN MD Unavailable Unavailable MONTANA, Juan MCLEAN MD Unavailable Unavailable MONTANA, Juan MCLEAN MD Unavailable Unavailable MONTANA, Juan MCLEAN MD Unavailable Unavailable MONTANA, Juan MCLEAN MD Unavailable Unavailable MONTANA, Juan MCLEAN MD Unavailable Unavailable MONTANA, Juan MCLEAN MD Unavailable Unavailable MONTANA, Juan MCLEAN MD Unavailable Unavailable GENARO-RASHARD, KRYSTA DO Unavailable Unavailable GENARO-RASHARD, KRYSTA DO Unavailable Unavailable GENARO-RASHARD, KRYSTA DO Unavailable Unavailable GENARO-RASHARD, KRYSTA DO Unavailable Unavailable GENARO-RASHARD, KRYSTA DO Unavailable Unavailable GENARO-RASHARD, KRYSTA DO Unavailable Unavailable GENARO-RASHARD, KRYSTA DO Unavailable Unavailable GENARO-RASHARD, KRYSTA DO Unavailable Unavailable GENARO-RASHARD, KRYSTA DO Unavailable Unavailable GENARO-RASHARD, KRYSTA DO Unavailable Unavailable GENAOR-RASHARD, KRYSTA DO Unavailable Unavailable GENARO-RASHARD, KRYSTA DO [...] Unavailable Unavailable GENARO-RASHARD, KRYSTA DO Unavailable Unavailable GENARO-RASHRAD, KRYSTA DO Unavailable Unavailable GENARO-RASHARD, KRYSTA DO [...] KRYSTA DO Unavailable Unavailable Kimble, F Malia DEVELOPMENTAL SERVICES WORKER-BC Unavailable Unavailable Kimble, F Malia DEVELOPMENTAL SERVICES WORKER-BC Unavailable Unavailable Kimble, F Malia DEVELOPMENTAL SERVICES WORKER-BC Unavailable Unavailable Kimble, F Malia DEVELOPMENTAL SERVICES WORKER-BC Unavailable Unavailable Kimble, F Malia DEVELOPMENTAL SERVICES WORKER-BC Unavailable Unavailable Kimble, F Malia DEVELOPMENTAL SERVICES WORKER-BC Unavailable Unavailable Kimble, F Malia DEVELOPMENTAL SERVICES WORKER-BC Unavailable Unavailable Kimble, F Malia DEVELOPMENTAL SERVICES WORKER-BC Unavailable Unavailable Kimble, F Malia DEVELOPMENTAL SERVICES WORKER-BC Unavailable Unavailable Kimble, F Malia DEVELOPMENTAL SERVICES WORKER-BC Unavailable Unavailable Kimble, F Malia DEVELOPMENTAL SERVICES WORKER-BC Unavailable Unavailable Kimble, F Malia DEVELOPMENTAL SERVICES WORKER-BC Unavailable Unavailable Kimble, F Malia DEVELOPMENTAL SERVICES WORKER-BC Unavailable Unavailable Kimble, F Malia DEVELOPMENTAL SERVICES WORKER-BC Unavailable Unavailable Kimble, F Malia DEVELOPMENTAL SERVICES WORKER-BC Unavailable Unavailable Kimble, F Malia DEVELOPMENTAL SERVICES WORKER-BC Unavailable Unavailable Kimble, F Malia DEVELOPMENTAL SERVICES WORKER-BC Unavailable Unavailable Kimble, F Malia DEVELOPMENTAL SERVICES WORKER-BC Unavailable Unavailable Kimble, F Malia DEVELOPMENTAL SERVICES WORKER-BC Unavailable Unavailable Kimble, F Malia DEVELOPMENTAL SERVICES WORKER-BC Unavailable Unavailable Kimble, F Malia DEVELOPMENTAL SERVICES WORKER-BC Unavailable Unavailable Kimble, F Malia DEVELOPMENTAL SERVICES WORKER-BC Unavailable Unavailable Randy, Bushra POLITICAL GEOGRAPHER Unavailable Unavailable Randy, Bushra POLITICAL GEOGRAPHER Unavailable Unavailable Randy, Bushra POLITICAL GEOGRAPHER Unavailable Unavailable Randy, Bushra POLITICAL GEOGRAPHER Unavailable Unavailable Randy, Bushra POLITICAL GEOGRAPHER Unavailable Unavailable Randy, Bushra POLITICAL GEOGRAPHER Unavailable Unavailable Randy, Bushra POLITICAL GEOGRAPHER Unavailable Unavailable Randy, Bushra POLITICAL GEOGRAPHER Unavailable Unavailable Randy, Bushra POLITICAL GEOGRAPHER Unavailable Unavailable Randy, Bushra POLITICAL GEOGRAPHER Unavailable Unavailable Randy, Bushra POLITICAL GEOGRAPHER Unavailable Unavailable Zhang, Jose Enrique POLITICAL GEOGRAPHER Unavailable Zhang, Jose Enrique POLITICAL GEOGRAPHER Unavailable Jose Enrique Holcomb POLITICAL GEOGRAPHER Unavailable Kyler Lee MD Unavailable Unavailable BILAL, AHMATabby JONES Unavailable Unavailable BILAL, AHMAD MD Unavailable Unavailable BILAL, AHMAD MD Unavailable Unavailable BILAL, AHMAD MD Unavailable Unavailable BILAL, AHMAD MD Unavailable Unavailable BILAL, AHMAD MD Unavailable Unavailable BILAL, AHMAD MD Unavailable Unavailable BILAL, AHMAD MD Unavailable Unavailable BILAL, AHMAD MD Unavailable Unavailable Viktoriya Carcamo DEVELOPMENTAL SERVICES WORKER DEVELOPMENTAL SERVICES WORKER Unavailable Unavailable [facility], RFROST GOODWIN PA NAVEEN [...] is protected by Article 27-F of the [place] Public [employer] law. If you continue you may have access to information: Regarding HIV / AIDS; Provided by facilities licensed or operated by the [place] Office of Mental Health; or Provided by the [place] Office for People With Developmental Disabilities. If such information is present, then the following [place] mandated warning applies: This information has been [...] law may result in a fine or retirement sentence or both. A general authorization for the release of medical or other information is NOT sufficient authorization for further disc losure. Allergies and Adverse Reactions Type Description Substance Reaction Status Data Source(s ) Allergy to substance Allergy to substance Hydrocodone [facility] ([facility]) Allergy to substance Allergy to substance Hydrocodone [facility]INA ([facility]) Allergy to substance Allergy to substance Hydrocodone [place] ([facility]) Allergy to substance Allergy to substance Hydrocodone [place] ([facility]) Allergy to substance Allergy to substance Hydrocodone [place] ([facility]) Allergy to substance Allergy to substance [place]one [place] ([facility]) Drug allergy HYDROCODONE HYDROCODONE [facility] Drug allergy latex Latex RASH/HIVES [facility] Drug allergy hydrocodone Hydrocodone NAUSEA/VOMITING/DIARRHEA SV [facility] Family History Family Member Name Family Member Gender Family Member Status Date o f Status Description Data Source(s) Unknown Male Problem MEDENT ([facility]) Unknown Male Problem MEDENT ([facility]) Encounters Encounter Providers Location Date Indications Data Source(s ) SANDRA Johnson-BC: [address] [place] [address], Ph. Attender: Viktoriya FLORES [facility] Medical 10/10/2020 12:00:00 AM EST [facility]) Nena Ledezma LCSW-R: [address], [place] [address], Ph. Attender: Nena James [facility] Medical 09/30/2020 12:00:00 AM EST [place] ([facility]) Nena Ledezma LCSW-R: [address], [place] [address], Ph. Attender: Nena James [facility] Medical 09/30/2020 12:00:00 AM EST [facility]) Nena Ledezma LCSW-R: [address], [place] [address], Ph. Attender: Nena James [facility] Medical 09/16/2020 12:00:00 AM EST [place] ([facility]) Nenasly Ledezma LCSW-R: [address], [place] [place] [address], Ph. Attender: Nena James [facility] Medical 09/16/2020 12:00:00 AM EST [place] ([facility]) Nenasly Ledezma LCSW-R: [address], [place] [address], Ph. Attender: Nena James [facility] Medical 09/16/2020 12:00:00 AM EST [place] ([facility]) NAYLA JohnsonBC: [address], [place] [address], Ph. Attender: Viktoriya Carcamo [facility] Medical 08/28/2020 12:00:00 AM EST [place] ([facility]) NAYLA Johnson: [address], [place] [address], Ph. Attender: Viktoriya Carcamo [facility] Medical 08/28/2020 12:00:00 AM EST [place] ([facility]) NAYLA Johnson: [address], [place] [address], Ph. Attender: Viktoriya Carcamo [facility] Medical 08/28/2020 12:00:00 AM EST [place] ([facility]) NAYLA Johnson: [address], [place] [address], Ph. Attender: Viktoriya Carcamo [facility] Medical 08/28/2020 12:00:00 AM EST [place] ([facility]) Nena Ledezma LCSW-R: [address], [facility] [place] [address], Ph. Attender: Nena James [facility] Medical 08/19/2020 12:00:00 AM EST [place] ([facility]) RAMU RodríguezW-R: [address], [place] [address], Ph. Attender: Nena James [facility] Medical 08/19/2020 12:00:00 AM EST [place] ([facility]) Nena Ledezma LCSW-R: [address], [place] [address], Ph. Attender: Nena James [facility] Medical 08/19/2020 12:00:00 AM EST [place] ([facility]) RAMU RodríguezW-R: [address], [place] [address], Ph. Attender: Nena James [facility] Medical 08/19/2020 12:00:00 AM EST [place] ([facility]) Nena Ledezma LCSW-R: [address], [place] [address], Ph. Attender: Nena James [facility] Medical 08/19/2020 12:00:00 AM EST [place] ([facility]) [place] [address] [address] 07/29/2020 12:00:00 AM EST [place] ([facility]) [place] [address] [address] 07/25/2020 12:00:00 AM EST eCW1 ([facility]) Outpatient Attender: SANDRA FLORES 07/16/2020 04:18:[address] [facility] NenaRAMU ZuluagaW-R: [address], [place] [address], Ph. Attender: Nena James [facility] Medical 07/04/2020 12:00:00 AM EDT [facility]) RAMU RodríguezW-R: [address], [address], [place] [address], Ph. Attender: Nena James [facility] Medical 07/04/2020 12:00:00 AM EDT [place] ([facility]) RAMU RodríguezW-R: [address], [address], [place] [address], Ph. Attender: Nena James [facility] Medical 07/04/2020 12:00:00 AM EDT [place] ([facility]) RAMU RodríguezW-R: [address], [address], [place] [address], Ph. Attender: Nena James [facility] Medical 07/04/2020 12:00:00 AM EDT [place] ([facility]) RAMU RodríguezW-R: [address], [address], [place] [address], Ph. Attender: Nena James [facility] Medical 07/04/2020 12:00:00 AM EDT [place] ([facility]) RAMU RodríguezW-R: [address], [address], [place] [address], Ph. Attender: Nena James [place] [facility] Medical 07/04/2020 12:00:00 AM EDT [place] ([facility]) Outpatient Attender: Malia NORRIS FP 07/01/2020 04: 32:[address] [facility] Outpatient Attender: SANDRA FLORES FP 06/29/2020 11:43:[address] [facility] Outpatient Attender: SANDRA FLORES FP 06/27/2020 11:02:03 AM EDT [facility] Outpatient Attender: SANDRA FLORES FP 06/20/2020 12:02:[address] [facility] Outpatient Attender: Malia NORRIS FP 06/19/2020 02: 40:[address] [facility] Outpatient Attender: SANDRA FLORES FP 06/19/2020 02:16:[address] [facility] Outpatient Attender: Malia NORRIS FP 06/14/2020 05: 27:[address] [facility] Outpatient Attender: Malia NORRIS FP 06/14/2020 03: 20:[address] [facility] Outpatient Attender: SANDRA FLORES FP 06/13/2020 10:24:[address] [facility] Outpatient Attender: Malia NORRIS FP 06/05/2020 12: 29:[address] [facility] Outpatient Attender: SANDRA FLORES FP 06/03/2020 03:15:[address] [facility] Outpatient Attender: Malia NORRIS FP 06/03/2020 12: 49:[address] [facility] Outpatient Attender: Malia NORRIS FP 05/31/2020 09: 22:[address] [facility] Outpatient Attender: Malia NORRIS FP 05/27/2020 03: 37:02 PM EDT [facility] Outpatient Attender: SANDRA FLORES FP 05/22/2020 11:28:[address] [facility] Outpatient Attender: SANDRA FLORES FP 05/15/2020 03:38:01 PM EDT [facility] Outpatient Attender: SANDRA FLORES FP 05/14/2020 06:33:49 AM EDT [facility] Outpatient Attender: SANDRA GURROLAP FP 05/13/2020 01:11:00 PM EDT [facility] Outpatient Attender: SANDRA FLORES FP 02/20/2020 08:01:49 P M EDT [facility] Outpatient Attender: SANDRA FLORES FP 02/20/2020 07:35:05 PM EDT [facility] Outpatient Attender: SANDRA FLORES FP 02/01/2020 11:06:00 AM EDT [facility] Outpatient Attender: SANDRA FLORES FP 01/29/2020 02:32:00 PM EDT [facility] Outpatient Attender: SANDRA FLORES FP 01/23/2020 02:34:05 PM [facility] Outpatient Attender: SANDRA FLORES 01/17/2020 10:20:01 AM [facility] Outpatient Attender: VINAY BAEZ MD 01/16/2020 11:19:01 A [facility] Outpatient Attender: VINAY BAEZ MD 12/21/2019 10:23:40 A [facility] Outpatient Attender: VINAY BAEZ MD 12/20/2019 01:50:00 P [facility] Outpatient Attender: VINAY BAEZ MD 12/18/2019 01:02:01 P [facility] Outpatient Attender: VINAY BAEZ MD 12/05/2019 02:02:00 P [facility] Outpatient Attender: VINAY BAEZ MD 12/05/2019 02:01:00 P [facility] Outpatient Attender: VINAY BAEZ MD 12/04/2019 05:30:00 P [facility] Outpatient Attender: VINAY BAEZ MD 12/01/2019 11:19:01 A [facility] Outpatient Attender: VINAY BAEZ MD 11/21/2019 04:13:00 P [facility] Outpatient Attender: VINAY BAEZ MD 11/18/2019 10:02:01 A [facility] Outpatient Attender: VINAY BAEZ MD 11/17/2019 04:01:00 P [facility] Outpatient Attender: VINAY BAEZ MD 11/16/2019 02:02:02 P [facility] Outpatient Attender: VINAY BAEZ MD 11/16/2019 02:02:02 P [facility] Outpatient Attender: VINAY BAEZ MD 11/16/2019 01:49:00 P [facility] Outpatient Attender: VINAY BAEZ MD 11/16/2019 12:33:00 P [facility] Outpatient Attender: VINAY BAEZ MD 11/16/2019 11:41:01 A [facility] Outpatient Attender: VINAY BAEZ MD 11/01/2019 11:08:01 A [facility] Outpatient Attender: VINAY BAEZ MD FP 11/01/2019 11:08:00 A [facility] Outpatient Attender: VINAY BAEZ MD FP 11/01/2019 11:07:02 A [facility] Outpatient Attender: VINAY BAEZ MD FP 11/01/2019 11:07:01 A [facility] Outpatient Attender: VINAY BAEZ MD FP 10/30/2019 04:24:01 P [facility] Outpatient Attender: VINAY BAEZ MD FP 10/30/2019 03:49:01 P [facility] Outpatient Attender: VINAY BAEZ MD FP 10/30/2019 02:25:01 P [facility] Outpatient Attender: VINAY BAEZ MD FP 10/27/2019 09:17:07 A [facility] Outpatient Attender: VINAY BAEZ MD FP 10/25/2019 01:15:01 P [facility] Outpatient Referrer: KRYSTA LUX DO 10/25/2019 12 :41:[address] [facility] Outpatient Attender: VINAY BAEZ MD FP 10/23/2019 02:12:00 P [facility] Attender: VINAY BAEZ MD FP 10/23/2019 02:07:00 P [facility] Outpatient Attender: IVNAY BAEZ MD FP 10/23/2019 02:05:01 P [facility] Outpatient Attender: VINAY BAEZ MD FP 10/23/2019 02:04:00 P [facility]patient Attender: VINAY BAEZ MD FP 10/19/2019 01:17:00 P [facility]patient Attender: VINAY BAEZ MD FP 10/18/2019 09:22:01 A [facility] Outpatient Attender: VINAY BAEZ MD FP 10/18/2019 07:52:01 A [facility]patient Attender: VINAY BAEZ MD FP 10/09/2019 11:51:01 A [facility] Outpatient Attender: VINAY BAEZ MD FP 10/07/2019 09:02:01 A [facility] Outpatient Attender: VINAY BAEZ MD FP 10/07/2019 08:59:00 A [facility] Outpatient Attender: VINAY BAEZ MD 10/07/2019 08:12:01 A [facility] Outpatient Attender: VINAY BAEZ MD 10/02/2019 11:27:59 A [facility] Outpatient Attender: VINAY BAEZ MD 09/25/2019 04:03:01 P [facility] Outpatient Attender: VINAY BAEZ MD 09/25/2019 04:00:01 P [facility] Outpatient Attender: VINAY BAEZ MD 09/25/2019 03:59:01 P [facility] Outpatient Referrer: KRYSTA LUX DO 09/20/2019 02 :53:[address] [facility] [facility] Attender: VINAY BAEZ MD 09/15/2019 12:00:08 A [facility] Outpatient Attender: VINAY BAEZ MD 09/14/2019 09:01:02 P [facility] Outpatient Attender: VINAY BAEZ MD 09/14/2019 03:00:01 P [facility] Outpatient Attender: VINAY BAEZ MD 09/14/2019 02:59:00 P [facility] Outpatient Attender: VINAY BAEZ MD 09/14/2019 02:57:00 P [facility] Outpatient Attender: VINAY BAEZ MD 09/14/2019 02:56:00 P [facility] Outpatient Attender: VINAY BAEZ MD 09/14/2019 08:21:54 A [facility] Outpatient Attender: VINAY BAEZ MD 09/14/2019 08:21:46 A [facility] Outpatient Attender: VINAY BAEZ MD 09/12/2019 10:22:01 A [facility] Outpatient Attender: SANDRA FLORES 09/12/2019 10:05:02 A [facility] Outpatient Attender: VINAY BAEZ MD 09/12/2019 09:43:01 A [facility] Outpatient Attender: VINAY BAEZ MD 09/08/2019 10:47:00 A [facility] Outpatient Attender: VINAY BAEZ MD 09/08/2019 10:46:02 A [facility] Outpatient Attender: VINAY BAEZ MD 09/08/2019 10:45:01 A [facility] Outpatient Referrer: KRYSTA LUX DO 09/07/2019 08 :44:00 PM [facility] Imaging Outpatient Attender: Bushra Padilla NP [facility] 09/07/2019 11:35: 01 AM [facility] Outpatient Attender: SANDRA FLORES 09/07/2019 09:53:00 A [facility]14 09:50:00 AM [facility] Inpatient Attender: Aniceto Brewster tender: Elizabeth Rios MDAdmitter: Elizabeth Rios MD 09/03/2019 07:05:00 PM EST - 09/05/2019 05:15:00 PM EST Depression/Suicidal Ideation [facility] Depression/Suicidal Ideation Patient discharged. Outpatient Attender: Jose Enrique Holcomb NP mitter: Elizabeth Rios MDConsultant: Elizabeth Rios MD 09/03/2019 07:05:00 PM EST Depression/Suicidal I deation [facility] Depression/Suicidal Ideation Outpatient Attender: DANTE Winters tter: Elizbaeth Rios MDConsultant: Elizabeth Rios MD 09/03/2019 07:05:00 PM EST Depression/Suicidal I deation [facility] Depression/Suicidal Ideation Outpatient Attender: DANTE Winters tter: Elizabeth Rios MDConsultant: Elizabeth Rios MD 09/03/2019 07:05:00 PM EST Depression/Suicidal I deation [facility] Depression/Suicidal Ideation Immunizations Vaccine Date Status Description Data Source(s) As of May 1999, a 2-dose hepatitis B schedule for adolescents (11-15 year olds) was FDA approved for Merck's Recombivax HB adult formulation. Use code 43 for the 2-dose. This code should be used for any use of standard adult formulation of hepatitis B vaccine. 07/25/2020 03:22:00 PM EST completed eCW1 ([facility]) As of May 1999, a 2-dose hepatitis B schedule for adolescents (11-15 year olds) was FDA approved for Mer[employer]'s Recombivax HB adult formulation. Use code 43 for the 2-dose. This code should be used for any use of standard adult formulation of hepatitis B vaccine. 07/25/2020 03:22:00 PM EST completed eCW1 ([facility]) Medications Medication Brand Name Start Date Product [...] DAY AT BEDTIME JUAN MANUEL [facility] [id number] 08/25/2019 12:00:00 AM EST Suspension 240 SWISH [...] type / Coverage type Policy ID Covered libertarian ID Covered libertarian's relationship to rodriguez Policy Rodriguez Plan Information UNHC COMMUNITY PLAN MCDO [id number] SP [id number] SELF PAY ONLY [id number] SP [id number] UN COMMUNITY PLAN MCDO [id number] SP [id number] EMEDNY [id number] SP [id number] Medicaid S [id number] S [id number] Managed Care - [facility] Community Plan P [id number] S [id number] [facility] O [id number] S [id number] Self Pay P UNAVAILABLE S UNAVAILA BLE MEDICAID [id number] SP [id number] [facility] [id number] SP [id number] [facility] P [id number] S [id number] SELF PAY UNAVAILABLE SP UNAVAILA BLE 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 [id number] SP [id number] 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 P [id number] S [id number] [facility] [id number] SP [id number] OTHER WORKERS COMPENSATION [id number] SP [id number] [employer] Family Dependent [facility](WC) Workers Compensation Self [facility](WC) Workers Compensation Self [facility](WC) Workers Compensation Self [employer]po Commercial Family Dependent [employer] (pr) Commercial Family Dependent [employer] (pr) Commercial [id number] Family Dependent [id number] [employer] (WC) Workers Compensation [id number] Self [id number] [employer] Health Maintenance Organization (HMO) [id number] Fa petty Dependent [id number] [employer] [id number] Family Dependent [id number] [employer] (HMO) [id number] Fa petty Dependent [id number] [employer] [id number] FA2 [id number] [employer] [id number] Family Dependent [id number] [employer] [id number] Family Dependent [id number] [employer] Commercial [id number] Family Dependent [id number] [employer] Commercial [id number] Family Dependent [id number] [employer] Commercial [id number] Family Dependent 89 [id number] [employer] PPO O [id number] C [id number] [employer] -O/P [id number] 19 [id number] [employer] [id number] FA2 [id number] R [facility] [id number] FA2 [id number] UMR O [id number] C [id number] [employer] Commercial [id number] Family Dependent [id number] Umr Medigap Part B [id number] Self [id number] [facility]MR [facility] [id number] FA2 [id number] [employer] Commercial [id number] Family Dependent 89 [id number] Umr Medigap Part B [id number] Self [id number] [employer] [id number] Family Dependent [id number] Umr Medigap Part B [id number] Self [id number] [employer] Commercial [id number] Family Dependent 89 [id number] Umr Medigap Part B [id number] Self [id number] [facility] [id number] FA2 [id number] [facility] [id number] FA2 [id number] [facility] [id number] SP [id number] [employer] P [id number] S [id number] [facility] [id number] FA2 [id number] Managed Care - [facility] Community Plan S [id number] S [id number] UMR O [id number] S [id number] [facility] [id number] SP [id number] SELF PAY [facility] [id number] SP [id number] Problems, Conditions, and Diagnoses Code Display Name Description Problem Type Effective Dates Data Source(s) B17.10 15800839 Acute hepatitis C virus infection without hepatic coma Problem 06/20/2020 12:00:00 AM EDT eCW1 ([facility]) F19.11 [id number] Intravenous drug abuse in remission Probl em 06/20/2020 12:00:00 AM EDT eCW1 ([facility]) B18.2 219712623 Chronic hepatitis C without hepatic coma Problem 06/20/2020 12:00:00 AM EDT eCW1 ([facility]) F19.10 996810110 Polysubstance abuse Problem 06/20/2020 12:00 :00 AM EDT eCW1 ([facility]) 95353261 Other acne Other acne 05/15/2020 03:37:[address] [facility] 995699631 Follicular disorder, unspecified Follicular disorder, unspecified 05/15/2020 03:37:[address] [facility] 700 Foot callus Foot callus 05/15/2020 03:37:[address] [facility] M20.62 Acquired deformities of toe(s), unspecif ied, left foot Acquired deformities of toe(s), unspecified, left foot 05/15/2020 03: 37:[address] [facility] 691714258 Keratoma Keratoma Problem 05/15/2020 12:00:00 AM ED T [place] ([facility]) 170271019 Finding of body region Finding of Body Region Problem 05/15/2020 12:00:00 AM EDT [facility] ([facility]) 569549839 Disorder of skin appendage Disorder of Skin Appendage Problem 05/15/2020 12:00:00 AM EDT [place] ([facility]) 92982185 Acne Acne Problem 05/15/2020 12:00:00 AM ED T [place] ([facility]) 238003344 Keratoma Keratoma Problem 05/15/2020 12:00:00 AM ED T [place] ([facility]) 914599418 Finding of body region Finding of Body Region Problem 05/15/2020 12:00:00 AM EDT [place] ([facility]) 546077609 Disorder of skin appendage Disorder of Skin Appendage Problem 05/15/2020 12:00:00 AM EDT [place] ([facility]) 32707572 Acne Acne Problem 05/15/2020 12:00:00 AM ED T [place] ([facility]) 372941035 Keratoma Keratoma Problem 05/15/2020 12:00:00 AM ED Juan WOOD ([facility]) 356599502 Finding of body region Finding of Body Region Problem 05/15/2020 12:00:00 AM EDT [place] ([facility]) 514967067 Disorder of skin appendage Disorder of Skin Appendage Problem 05/15/2020 12:00:00 AM EDT [place] ([facility]) 50804035 Acne Acne Problem 05/15/2020 12:00:00 AM ED T [place] ([facility]) 849748535 Keratoma Keratoma Problem 05/15/2020 12:00:00 AM ED T [place] ([facility]) 755840996 Finding of body region Finding of Body Region Problem 05/15/2020 12:00:00 AM EDT [place] ([facility]) 205594568 Disorder of skin appendage Disorder of Skin Appendage Problem 05/15/2020 12:00:00 AM EDT [place] ([facility]) 04115958 Acne Acne Problem 05/15/2020 12:00:00 AM ED T [place] ([facility]) 270066443 Keratoma Keratoma Problem 05/15/2020 12:00:00 AM ED T [place] ([facility]) 098355292 Finding of body region Finding of Body Region Problem 05/15/2020 12:00:00 AM EDT [place] ([facility]) 331871989 Disorder of skin appendage Disorder of Skin Appendage Problem 05/15/2020 12:00:00 AM EDT [place] ([facility]) 15482014 Acne Acne Problem 05/15/2020 12:00:00 AM ED T [place] ([facility]) 968305008 Keratoma Keratoma Problem 05/15/2020 12:00:00 AM ED T [place] ([facility]) 945194281 Finding of body region Finding of Body Region Problem 05/15/2020 12:00:00 AM EDT [place] ([facility]) 200417311 Disorder of skin appendage Disorder of Skin Appendage Problem 05/15/2020 12:00:00 AM EDT [place] ([facility]) 51691493 Acne Acne Problem 05/15/2020 12:00:00 AM ED T [place] ([facility]) V70.0 Health Screening Health Screening 03/03/2020 06 :59:[address] [facility] V65.8 Person consulting for explanation of exa mination or test findings Person consulting for explanation of examination or test findings 02/22/2020 05:36:[address] [facility] F17.200 Nicotine dependence, unspecified, uncomp licated Nicotine dependence, unspecified, uncomplicated 02/22/2020 05:36:[address] [facility] 268.9 vitamin D deficiency vitamin D deficiency 02/21 05:36:[address] [facility] 98515285 Nicotine dependence Nicotine Dependence Problem 0 02/22/2020 12:00:00 AM EDT [place] ([facility]) 88098388 Vitamin D deficiency Vitamin D Deficiency Problem 02/22/2020 12:00:00 AM EDT [facility] ([facility]) 724559206 Clinical finding Clinical Finding Problem 02/22/2020 12 :00:00 AM EDT [place] ([facility]) 164884854 Patient asked to attend Patient Asked to Attend Proble 02/22/2020 12:00:00 AM EDT [facility] ([facility]) 19699346 Nicotine dependence Nicotine Dependence Problem 0 02/22/2020 12:00:00 AM EDT [place] ([facility]) 84350452 Vitamin D deficiency Vitamin D Deficiency Problem 02/22/2020 12:00:00 AM EDT [place] ([facility]) 541085522 Clinical finding Clinical Finding Problem 02/22/2020 12 :00:00 AM EDT [place] ([facility]) 960819733 Patient asked to attend Patient Asked to Attend Proble 02/22/2020 12:00:00 AM EDT [place] ([facility]) 54056015 Nicotine dependence Nicotine Dependence Problem 0 02/22/2020 12:00:00 AM EDT [place] ([facility]) 63663373 Vitamin D deficiency Vitamin D Deficiency Problem 02/22/2020 12:00:00 AM EDT [place] ([facility]) 471588228 Clinical finding Clinical Finding Problem 02/22/2020 12 :00:00 AM EDT [place] ([facility]) 948057250 Patient asked to attend Patient Asked to Attend Proble 02/22/2020 12:00:00 AM EDT [place] ([facility]) 49883855 Nicotine dependence Nicotine Dependence Problem 0 02/22/2020 12:00:00 AM EDT [place] ([facility]) 97065766 Vitamin D deficiency Vitamin D Deficiency Problem 02/22/2020 12:00:00 AM EDT [place] ([facility]) 690881440 Clinical finding Clinical Finding Problem 02/22/2020 12 :00:00 AM EDT [place] ([facility]) 224160288 Patient asked to attend Patient Asked to Attend Proble 02/22/2020 12:00:00 AM EDT [place] ([facility]) 69557403 Nicotine dependence Nicotine Dependence Problem 0 02/22/2020 12:00:00 AM EDT [place] ([facility]) 09992168 Vitamin D deficiency Vitamin D Deficiency Problem 02/22/2020 12:00:00 AM EDT [place] ([facility]) 904830763 Clinical finding Clinical Finding Problem 02/22/2020 12 :00:00 AM EDT [place] ([facility]) 782426837 Patient asked to attend Patient Asked to Attend [facility] 02/22/2020 12:00:00 AM EDT [place] ([facility]) 01161308 Nicotine dependence Nicotine Dependence Problem 0 02/22/2020 12:00:00 AM EDT [place] ([facility]) 19137614 Vitamin D deficiency Vitamin D Deficiency Problem 02/22/2020 12:00:00 AM EDT [place] ([facility]) 884334736 Clinical finding Clinical Finding Problem 02/22/2020 12 :00:00 AM EDT [place] ([facility]) 291693016 Patient asked to attend Patient Asked to Attend Proble 02/22/2020 12:00:00 AM EDT [place] ([facility]) 525.10 Teeth extraction Teeth extraction 11/16/2019 02 :01:[address] [facility] 251372885 Acquired absence of multiple teeth Acquired Abse nce of Multiple Teeth Problem 11/16/2019 12:00:00 AM EST [place] ([facility]) 003963916 Acquired absence of multiple teeth Acquired Abse nce of Multiple Teeth Problem 11/16/2019 12:00:00 AM EST [place] ([facility]) 506701256 Acquired absence of multiple teeth Acquired Abse nce of Multiple Teeth Problem 11/16/2019 12:00:00 AM EST [place] ([facility]) 926737161 Acquired absence of multiple teeth Acquired Abse nce of Multiple Teeth Problem 11/16/2019 12:00:00 AM EST [place] ([facility]) 414492992 Acquired absence of multiple teeth Acquired Abse nce of Multiple Teeth Problem 11/16/2019 12:00:00 AM EST [place] ([facility]) 118080717 Acquired absence of multiple teeth Acquired Abse nce of Multiple Teeth Problem 11/16/2019 12:00:00 AM EST [place] ([facility]) 022052891 Chronic post-traumatic stress disorder C hronic Post-traumatic Stress Disorder Problem 09/25/2019 12:00:00 AM EST [place] ([facility]) 60013886 Bipolar disorder Bipolar Disorder Problem 09/25/2019 12 :00:00 AM EST [place] ([facility]) 052919745 Chronic post-traumatic stress disorder C hronic Post-traumatic Stress Disorder Problem 09/25/2019 12:00:00 AM EST [place] ([facility]) 38541528 Bipolar disorder Bipolar Disorder Problem 09/25/2019 12 :00:00 AM EST [place] ([facility]) 561266938 Chronic post-traumatic stress disorder C hronic Post-traumatic Stress Disorder Problem 09/25/2019 12:00:00 AM EST [place] ([facility]) 06779018 Bipolar disorder Bipolar Disorder Problem 09/25/2019 12 :00:00 AM EST [place] ([facility]) 811767498 Chronic post-traumatic stress disorder C hronic Post-traumatic Stress Disorder Problem 09/25/2019 12:00:00 AM EST [place] ([facility]) 61247684 Bipolar disorder Bipolar Disorder Problem 09/25/2019 12 :00:00 AM EST [place] ([facility]) 474597750 Chronic post-traumatic stress disorder C hronic Post-traumatic Stress Disorder Problem 09/25/2019 12:00:00 AM EST [place] ([facility]) 97092598 Bipolar disorder Bipolar Disorder Problem 09/25/2019 12 :00:00 AM EST [place] ([facility]) 720978785 Chronic post-traumatic stress disorder C hronic Post-traumatic Stress Disorder Problem 09/25/2019 12:00:00 AM EST [place] ([facility]) 88976675 Bipolar disorder Bipolar Disorder Problem 09/25/2019 12 :00:00 AM EST [facility]) Z13.228 Encounter for screening for other metabo lic disorders Encounter for screening for other metabolic disorders 09/14/2019 07:06:03 AM [facility] M25.50 Pain in unspecified joint Pain in unspecified joint 09/14/2019 07:06:[address] [facility] F41.9 Anxiety disorder, unspecified Anxiety disorder, unspec ified 09/14/2019 07:06:[address] [facility] Z63.0 Problems in relationship with spouse or partner Jossie fuentes problems 09/14/2019 07:06:[address] [facility] [id number] Relationship distress with spouse or int imate partner Relationship Distress with Spouse or Intimate Partner Problem 09/12/2019 12:00:00 AM EST [place] ([facility]) 315739315 SNOMED CT Concept SNOMED CT Concept Problem 09/12 12:00:00 AM EST [place] ([facility]) 175639046 Finding of body region Finding of Body Region Problem 09/12/2019 12:00:00 AM EST [place] ([facility]) 807768810 Endocrine/metabolic screening Endocrine/metabolic Scre ening Problem 09/12/2019 12:00:00 AM EST [place] ([facility]) [id number] Relationship distress with spouse or int imate partner Relationship Distress with Spouse or Intimate Partner Problem 09/12/2019 12:00:00 AM EST [place] ([facility]) 647791409 SNOMED CT Concept SNOMED CT Concept Problem 09/12 12:00:00 AM EST [place] ([facility]) 577514274 Finding of body region Finding of Body Region Problem 09/12/2019 12:00:00 AM EST [place] ([facility]) 493650404 Endocrine/metabolic screening Endocrine/metabolic Scre ening Problem 09/12/2019 12:00:00 AM EST [place] ([facility]) [id number] Relationship distress with spouse or int imate partner Relationship Distress with Spouse or Intimate Partner Problem 09/12/2019 12:00:00 AM EST [place] ([facility]) 341493637 SNOMED CT Concept SNOMED CT Concept Problem 09/12 12:00:00 AM EST [place] ([facility]) 262776116 Finding of body region Finding of Body Region Problem 09/12/2019 12:00:00 AM EST [place] ([facility]) 545318983 Endocrine/metabolic screening Endocrine/metabolic Scre ening Problem 09/12/2019 12:00:00 AM EST [place] ([facility]) [id number] Relationship distress with spouse or int imate partner Relationship Distress with Spouse or Intimate Partner Problem 09/12/2019 12:00:00 AM EST [place] ([facility]) 463378999 SNOMED CT Concept SNOMED CT Concept Problem 09/12 12:00:00 AM EST [place] ([facility]) 720665454 Finding of body region Finding of Body Region Problem 09/12/2019 12:00:00 AM EST [place] ([facility]) 828805717 Endocrine/metabolic screening Endocrine/metabolic Scre ening Problem 09/12/2019 12:00:00 AM EST [place] ([facility]) 94022931140049406 Relationship distress with spouse or int imate partner Relationship Distress with Spouse or Intimate Partner Problem 09/12/2019 12:00:00 AM EST [place] ([facility]) 431634023 SNOMED CT Concept SNOMED CT Concept Problem 09/12 12:00:00 AM EST [place] ([facility]) 154050325 Finding of body region Finding of Body Region Problem 09/12/2019 12:00:00 AM EST [place] ([facility]) 816350950 Endocrine/metabolic screening Endocrine/metabolic Scre ening Problem 09/12/2019 12:00:00 AM EST [place] ([facility]) [id number] Relationship distress with spouse or int imate partner Relationship Distress with Spouse or Intimate Partner Problem 09/12/2019 12:00:00 AM EST [place] ([facility]) 768611442 SNOMED CT Concept SNOMED CT Concept Problem 09/12 12:00:00 AM EST [place] ([facility]) 743035149 Finding of body region Finding of Body Region Problem 09/12/2019 12:00:00 AM EST [place] ([facility]) 038614417 Endocrine/metabolic screening Endocrine/metabolic Scre ening Problem 09/12/2019 12:00:00 AM EST [place] ([facility]) J45.909 Unspecified asthma, uncomplicated J45.90 9 - Unspecified asthma, uncomplicated Diagnosis 09/03/2019 07:05:00 PM [facility] F32.9 Major depressive disorder, single episod e, unspecified F32.9 - Major depressive disorder, single episode, unspecified Diagnosis 09/03 07:05:00 PM [facility] Z72.0 Tobacco use Z72.0 - Tobacco use Diagnosis 09/03/2019 07:0 5:00 PM [facility] R45.851 Suicidal ideations R45.851 - Suicidal ideations Diagno sis 09/03/2019 07:05:00 PM [facility] Surgeries/Procedures Procedure Description Date Indications Data Source(s) HEPATITIS B VACCINE ADULT DOSAGE INTRAMUSCULAR 020 12:00:00 AM EST eCW1 ([facility]) Results ID Date Data Source [id number] 09/11/2020 01:15:00 PM EST [place] ([facility]) Name Value Range Interpretation Code Description Data Ale rce(s) Supporting Document(s) glucose, fasting 92 mg/dL 70-100 normal Glucose, Fasting [facility]) blood urea nitrogen 8 mg/dL 7-18 normal Blood Urea Nitro gen [place] ([facility]) glomerular filtration rate > 60.0 >60 normal Glomerula r Filtration Rate [place] ([facility]) sodium level 137 mEq/L 136-145 normal Sodium Level [place] ([facility]) creatinine for GFR 0.63 mg/dL 0.55-1.30 normal Creatinine for GF R [place] ([facility]) carbon dioxide level 26 mEq/L 21-32 normal Carbon Dioxide Level [place] ([facility]) calcium level 9.1 mg/dL 8.5-10.1 normal Calcium Level [place] ( [facility]) chloride level 106 mEq/L 98-107 normal Chloride Level [place] ([facility]) anion gap 5 mEq/L 8-16 Below low normal Anion Gap [place] ( [facility]) potassium serum 4.2 mEq/L 3.5-5.1 normal Potassium Serum ATHE NA [facility]) ID Date Data Source [id number] 09/11/2020 01:15:00 PM EST [place] ([facility]) Name Value Range Interpretation Code Description Data Ale rce(s) Supporting Document(s) red blood count 5.48 10 4.00-5.40 Above high normal Red Blood Cou nt [place] ([facility]) white blood count 7.9 10 4.0-10.0 normal White Blood Count [place] ([facility]) hemoglobin 14.3 g/dL 12.0-15.5 normal Hemoglobin [place] ([facility]) mean corpuscular hemoglobin 26.1 pg 27.0-33.0 Below low nor mal Mean Corpuscular Hemoglobin [place] ([facility]) mean corpuscular volume 79.9 fL 80.0-96.0 Below low normal Mean Corpuscular Volume [place] ([facility]) hematocrit 43.8 % 36.0-47.0 normal Hematocrit [place] ([facility]) platelet count, automated 258 10 150-450 normal Platelet C ount, Automated [place] ([facility]) nucleated red blood cell % 0.0 % 0-0 normal Nucleated Red Blood Cell % [place] ([facility]) red cell distribution width 14.6 % 11.5-14.5 Above high no rmal Red Cell Distribution Width [place] ([facility]) mean corpuscular HGB conc 32.6 g/dL 32.0-36.5 normal Mean Corpu scular HGB Conc [place] ([facility]) ID Date Data Source [id number] 09/11/2020 01:15:00 PM EST [place] ([facility]) Name Value Range Interpretation Code Description Data Ale rce(s) Supporting Document(s) blood urea nitrogen 8 mg/dL 7-18 normal Blood Urea Nitro gen [place] ([facility]) glucose, fasting 92 mg/dL 70-100 normal Glucose, Fasting AT [facility] ([facility]) creatinine for GFR 0.63 mg/dL 0.55-1.30 normal Creatinine for GF R [place] ([facility]) glomerular filtration rate > 60.0 >60 normal Glomerula r Filtration Rate [place] ([facility]) sodium level 137 mEq/L 136-145 normal Sodium Level [place] ([facility]) potassium serum 4.2 mEq/L 3.5-5.1 normal Potassium Serum ATHE NA ([facility]) chloride level 106 mEq/L 98-107 normal Chloride Level [place] ([facility]) carbon dioxide level 26 mEq/L 21-32 normal Carbon Dioxide Level [place] ([facility]) calcium level 9.1 mg/dL 8.5-10.1 normal Calcium Level [place] ( [facility]) anion gap 5 mEq/L 8-16 Below low normal Anion Gap [place] ( [facility]) ID Date Data Source [id number] 09/11/2020 01:15:00 PM EST [facility]) Name Value Range Interpretation Code Description Data Ale rce(s) Supporting Document(s) white blood count 7.9 10 4.0-10.0 normal White Blood Count [facility]) hemoglobin 14.3 g/dL 12.0-15.5 normal Hemoglobin [place] ([facility]) red blood count 5.48 10 4.00-5.40 Above high normal Red Blood Cou nt [place] ([facility]) mean corpuscular hemoglobin 26.1 pg 27.0-33.0 Below low nor mal Mean Corpuscular Hemoglobin [place] ([facility]) hematocrit 43.8 % 36.0-47.0 normal Hematocrit [facility]) mean corpuscular volume 79.9 fL 80.0-96.0 Below low normal Mean Corpuscular Volume [place] ([facility]) red cell distribution width 14.6 % 11.5-14.5 Above high no rmal Red Cell Distribution Width [place] ([facility]) mean corpuscular HGB conc 32.6 g/dL 32.0-36.5 normal Mean Corpu scular HGB Conc [place] ([facility]) platelet count, automated 258 10 150-450 normal Platelet C ount, Automated [place] ([facility]) nucleated red blood cell % 0.0 % 0-0 normal Nucleated Red Blood Cell % [place] ([facility]) ID Date Data Source [id number] 09/11/2020 01:15:00 PM EST [place] ([facility]) Name Value Range Interpretation Code Description Data Ale rce(s) Supporting Document(s) blood urea nitrogen 8 mg/dL 7-18 normal Blood Urea Nitro gen [place] ([facility]) glucose, fasting 92 mg/dL 70-100 normal Glucose, Fasting AT [facility]) creatinine for GFR 0.63 mg/dL 0.55-1.30 normal Creatinine for GF R [place] ([facility]) potassium serum 4.2 mEq/L 3.5-5.1 normal Potassium Serum [place] ([facility]) chloride level 106 mEq/L 98-107 normal Chloride Level [place] ([facility]) carbon dioxide level 26 mEq/L 21-32 normal Carbon Dioxide Level [place] ([facility]) glomerular filtration rate > 60.0 >60 normal Glomerula r Filtration Rate [place] ([facility]) sodium level 137 mEq/L 136-145 normal Sodium Level [place] ([facility]) anion gap 5 mEq/L 8-16 Below low normal Anion Gap [place] ( [facility]) calcium level 9.1 mg/dL 8.5-10.1 normal Calcium Level [place] ( [facility]) ID Date Data Source [id number] 09/11/2020 01:15:00 PM EST [place] ([facility]) Name Value Range Interpretation Code Description Data Ale rce(s) Supporting Document(s) hemoglobin 14.3 g/dL 12.0-15.5 normal Hemoglobin [facility]) red blood count 5.48 10 4.00-5.40 Above high normal Red Blood Cou nt [facility]) hematocrit 43.8 % 36.0-47.0 normal Hematocrit [place] ([facility]) white blood count 7.9 10 4.0-10.0 normal White Blood Count [place] ([facility]) mean corpuscular volume 79.9 fL 80.0-96.0 Below low normal Mean Corpuscular Volume [place] ([facility]) red cell distribution width 14.6 % 11.5-14.5 Above high no rmal Red Cell Distribution Width [place] ([facility]) mean corpuscular HGB conc 32.6 g/dL 32.0-36.5 normal Mean Corpu scular HGB Conc [place] ([facility]) mean corpuscular hemoglobin 26.1 pg 27.0-33.0 Below low nor mal Mean Corpuscular Hemoglobin [place] ([facility]) nucleated red blood cell % 0.0 % 0-0 normal Nucleated Red Blood Cell % [place] ([facility]) platelet count, automated 258 10 150-450 normal Platelet C ount, Automated [place] ([facility]) ID Date Data Source HEPATITIS C QUANT BY PCR 07/25/2020 12:00:00 AM EST eCW1 ([facility]) Name Value Range Interpretation Code Description Data Ale rce(s) Supporting Document(s) 240 . HEPATITIS C QUANTITATION eCW1 ([facility]) 2.380 . Hepatitis C log10 eCW1 ([facility]) ID Date Data Source LIVER PROFILE 07/25/2020 12:00:00 AM EST eCW1 ([facility]) Name Value Range Interpretation Code Description Data Ale rce(s) Supporting Document(s) 13 7-37 AST/SGOT eCW1 ([facility]) 0.6 0.2-1.0 BILIRUBIN,TOTAL eCW1 ([facility]) 25 12-78 ALT/SGPT eCW1 ([facility]) 0.2 0.0-0.2 BILIRUBIN,DIRECT eCW1 ([facility]) 51 45-117 ALKALINE PHOSPHATASE eCW1 ([facility]) 4.0 3.2-5.2 ALBUMIN eCW1 ([facility]) 1.1 1.2-2.2 ALBUMIN/GLOBULIN RATIO eCW1 ([facility]) 7.7 6.4-8.2 TOTAL PROTEIN eCW1 ([facility]) ID Date Data Source [id number] 06/19/2020 02:17:[address] [facility] Measurements & CalculationsHeight: 66.50 inches 168.91 [...] Hypertension ()Social/Personal History:lives with boyfriend Born in [place] [facility]. Not employed. Highest education level: [...] during this visit, including review of any eunn-vpy-txybsdo medications, herbal therapies, and/or supplements.Allergy ReviewAllergy List [...] health is? FairAssessment & Plan Problems:Assessed:Other acne (LPT95-S33.8) Assessment: Instructions: Pt reported to nurse, no change to skin symtpoms. All creams have been reportedly denied by insurance, we will call pharmacy to verify.Follicular disorder, unspecified (MXV65-V93.9) Assessment: Instructions: As above.Patient Instructions/Care Plan: Other [...] 5Allergies:* LATEX (Critical)HYDROCODONE (Severe)* SEASONAL (Mild)Orders:Nurse Visit [CPT-38971] Follow-Up Return to clinic: as needed Clinical Visit Summary DeclinedElec tronically signed by Naveen REYES on 06/19/2020 at 2:39 PM Name Value Range Interpretation Code Description Data Ale rce(s) Supporting Document(s) ID Date Data Source [id number] 05/15/2020 02:42:[address] [facility] Measurements & CalculationsHeight: 66.50 inches 168.91 [...] Hypertension ()Social/Personal History:lives with boyfriend [place]. Not employed. Highest education level: high school [...] and severe callouses. Has had surgeries from [place] [facility] and Dr. Armstrong. Dr. Armstrong amputated [...] during this visit, including review of any nixr-iyq-psufkro medications, herbal therapies, and/or supplements.Allergy ReviewAllergy List [...] Problems:Added: Other acne (ICD10- L70.8)Follicular disorder, unspecified (MHZ59-H04.9) Assessment: Pt refused oral antibiotics stating they never work. Instructions: Keep skin clean and dry with daily skin cleanser. Topical antibiotic-drying agent cream will be sent to your pharmacy. Hibiclens to bathe with once a week (do not use in vaginal area or on the face). Referral to dermatology. Follow-up for recheck in 1 month.Foot callus (ICD-700) (LZT86-G57) Assessment: Instructions: Referral to Dr. Cade for evaluation.Acquired deformities of toe(s), unspecified, left foot (SCR18-T01.62) Assessment: Instructions: As above.Removed:ACUTE DERMATITIS DUE TO SOLAR RADIATION (ICD-692.72), VIRAL INFECTION, ACUTE (ICD-079.99) (MDI88-V33.8), VIRAL INFECTION, ACUTE (ICD-079.99) (OUG83-P48.8)Patient Instructions/Care Plan: Follicular disorder- unspecified: Keep skin [...] 5 Method: ElectronicRemoved:* MELOXICAM 30MG-qhs, VITAMIN D3 88275 UNIT ORAL TABLET-1 po q wk for 12 wks, then change to 1000 unit tablet daily thereafter Qty: 12[Tablet] Refills: 0Allergies:* LATEX (Critical)HYDROCODONE (Severe)* SEASONAL (Mild)Orders:Dermatology Consult [CPT-55845] Podiatry Consult [CPT- 81637] Adult - Ofc Vst, EST, Level III [CPT-08623] Follow-Up Return to clinic: in 30 days for follow upAdditional Follow-Up: skin follow-upClinical Visit Summary Declined Name Value Range Interpretation Code Description Data Ale rce(s) Supporting Document(s) ID Date Data Source [id number] 02/22/2020 04:52:[address] [facility] Measurements & CalculationsHeight: 66.50 inches 168.91 [...] Hypertension ()Social/Personal History:lives with boyfriend Born in [place]. Not employed. Highest education level: [...] no new concerns .HPI performed by: Viktoriya GURROLAP, February 22, 2020 5:24 PMTransitions of Care InboundProblem ReviewProblem List was reviewed and/or updated during this visit.Medication Reconciliation & ReviewMedication List was reviewed and/or updated during this visit, including review of any zxts-oqv-psrakhr medications, herbal therapies, and/or supplements.Allergy ReviewAllergy List [...] Smear/HPV TestingReviewed: Patient Refused Pap SmearPrevious Comments: Director Mobile- woud like referral (09/12/2019)Today's Comments: has own [...] & Plan Problems:Added: Nicotine dependence, unspecified, uncomplicated (RMC47-L30.200) Assessment: Instructions: please try to cut back on your smoking with a goal to quit. Please let us know if you need assistance in doing so.vitamin D deficiency (ICD-268.9) (QYL08-E63.9) Assessment: Instructions: Vitamin D meds sent to pharmacy for you today.Person consulting for explanation of examination or test findings (ICD- V65.8) (KKP69-L22.2) Assessment: Instructions: We have reviewed your lab results with you today.Health Screening (ICD-V70.0) (NDN79-N74.9) Assessment: Instructions: Fasting labs ordered. Please return priot to your next visit to have labs drawn.Assessed:Anxiety disorder, unspecified (TGI18-G07.9) Assessment: stable on meds. Instructions: Please continue medications as prescribed. Please continue to follow with your specialist. Please continue healthy diet and pohysical activities.Assessment not Saved Anxiety disorder; unspecified (PEN58-R59.9): Patient Instructions/Care Plan: Anxiety disorder- unspecified: Please [...] collaboration with patient and/or famil yMedications:VITAMIN D3 30728 UNIT ORAL TABLETLAMICTAL 25 MG ORAL TABLETSEROQUEL 50 MG ORAL TABLETMELOXICAM 30MGMedication Changes:New Prescription:VITAMIN D3 97783 UNIT ORAL TABLET-1 po q wk for 12 wks, then change to 1000 unit tablet daily thereafter Qty: 12[Tablet] Refills: 0 Method: ElectronicRemoved:AMOXICILLIN 500 MG CAPS-1 tablet by mouth every 8 hours until gone Qty: 21[Capsule] Refills: 0Allergies:* LATEX (Critical)HYDROCODONE (Severe)* SEASONAL (Mild)Orders:COMP METABOLIC PANEL [CPT-48896] CBC W/DIFF [CPT-25164] LIPID PANEL [CPT-72375] Vitamin D 250H Unspecified [CPT-81231] Adult - Ofc Vst, EST, Level IV [CPT-01003] Follow-Up Return to clinic: 3 months for follow up Clinical Visit Summary CompletedMedications:VITAMIN D3 02792 UNIT ORAL TABLET (CHOLECALCIFEROL) 1 po q wk for 12 wks, then change to 1000 unit tablet daily thereafter #12[Tablet] x 0 Route:ORAL Entered and Authorized by: Viktoriya FLORES Method used: Electronically to [facility] (retail) [address] [place], [place] [id number] Note to Pharmacy: Route: ORAL; Indications: VITAMIN D DEFICIENCY RxID: [id number] AMOXICILLIN 500 MG CAPS (AMOXICILLIN) 1 tablet by mouth every 8 hours until gone #21[Capsule] x 0 Route:ORAL Entered by: Tory Meyer LPN Authorized by: Aniyah Wallace DDS Method used: Electronically to [facility] (retail) [address] [place] [address] Fax: RxID: [id number] signed by Viktoriya FLORES on 03/03/2020 at 6:59 PM Name Value Range Interpretation Code Description Data Ale rce(s) Supporting Document(s) ID Date Data Source [id number] 11/16/2019 01:17:11 PM [facility] Current Problems: Teeth extraction (ICD- 525.10) (BXC27-M33.499)Chronic post- traumatic stress disorder (ICD-309.81) (JGK04-B95.12)Bipolar Disorder (ICD- 296.80) (OVW20-Z98.9)Marital problems (ICD-V61.10) (AQE43-I91.0)Anxiety disorder, unspecified (LOD58-P87.9)Pain in unspecified joint (ICD10- M25.50)Encounter for screening for other metabolic disorders (ICD10- Z13.228)ACUTE DERMATITIS DUE TO SOLAR RADIATION (ICD-692.72)RHINITIS ALLERGIC (ICD-477.9) (WOQ78-S19.9)VIRAL INFECTION, ACUTE (ICD-079.99) (LFP67-U74.8)VIRAL INFECTION, ACUTE (ICD-079.99) (CPQ38-P08.8)Current Medications: AMOXICILLIN 500 MG CAPS (AMOXICILLIN) 1 [...] for exto #31 and advsied to make instrument technologist comp. E-scribe Amox 500mg q8h until gone dispense 21 tabs zero refills pharmacy: [facility]. Informed Pt about new pain management policy of the clinic regarding about narcotic,told pt to alternate Ibuprophen 600- 800mg and tylenol 500mg every 4 to 6 hrs for pain when neededAssisted By: JDNV: instrument technologist comp( already scheduled) Aniyah Wallace DDS by sana (11/16/2019 2:00 PM): Tooth Notes and Watches: Assessment & Plan Problems:Added: Teeth extraction (ICD- 525.10) (OHA56-I01.499)Medications:AMOXICILLIN 500 MG CAPSGABAPENTIN 600 MG ORAL TABLETMELOXICAM 30MGMedication Changes:New Prescription:AMOXICILLIN 500 MG CAPS- 1 tablet by mouth every 8 hours until gone Qty: 21[Capsule] Refills: 0 Method: ElectronicAllergies:* LATEX (Critical)HYDROCODONE (Severe)* SEASONAL (Mild)Orders:Oral Surgery Referral [CPT-15373] Name Value Range Interpretation Code Description Data Ale rce(s) Supporting Document(s) ID Date Data Source [id number] 10/18/2019 08:55:00 AM [facility] Name Value Range Interpretation Code Description Data Ale rce(s) Supporting Document(s) BG FASTING 89 mg/dL 70-100 N [facility] T4, FREE 1.09 ng/dL 0.76-1.[address] [facility] TSH 2.260 microintl units/mL 0.358-3.740 N [facility] VIT D25 TOT 12.0 ng/mL 30.0-100.0 L [facility] ID Date Data Source [id number] 10/18/2019 08:55:00 AM [facility] Name Value Range Interpretation Code Description Data Ale rce(s) Supporting Document(s) HGBA1C 5.4 % N [facility] ID Date Data Source [id number] 10/18/2019 08:55:00 AM [facility] Name Value Range Interpretation Code Description Data Ale rce(s) Supporting Document(s) HCT 43.0 % 36.0-47.[address] [facility] HGB 13.5 g/dL 12.0-15.[address] [facility] MCH 31.4 G/DL pg 32.0-36.5 [facility] MCHC 24.8 PG % 27.0-33.[address] [facility] PLATELETS 285 10 10*3/mm3 150-[address] [facility] RBC 5.44 10 10*6/mm3 4.00-5.[address] [facility] RDW 14.6 % 11.5-14.[address] [facility] WBC TOTAL 9.5 4.0-10.[address] [facility] ID Date Data Source [id number] 10/18/2019 08:36:[address] [facility] Labs In-House Blood TestsDate/Time Colle cted: October 18, 2019 8:36 AMTest Result Reference Range Normal ValueComments: blood draw done in office done in the right ac tolerated well Ramesh Parson MA, October 18, 2019 8:36 AMAssessment & Plan Orders:15820-[id number] Vst-Est Level I [CPT-94888] 59531 - Venipuncture [CPT-48668] Electronically signed by Viktoriya FLORES on 08/2020 at 1:14 PM Name Value Range Interpretation Code Description Data Ale rce(s) Supporting Document(s) ID Date Data Source [id number] 09/12/2019 09:48:[address] [facility] Measurements & CalculationsHeight: 66.50 inches 168.91 [...] or Preferred Language: EnglishFamily and Home Address: [address] [place] [address] What is your housing situation today? I [...] really needed? Denies Insecurity: utilities, clothing, child caregiver private home, phone, legal services, other Admits Insecurity: foodIn [...] 2 nights in a row in a retirement, half-way, halfway center or juvenile correctional facility? No Has [...] you a refugee? No (Country of origin: [place]) Do you feel physically and [...] establish care. Pt would like referral for [facility] & in house BH counseling as she [...] that she recently admitted herself to [facility] IM[facility] & they sent her to [place] - began her on Meloxicam. She recently loss her father in March. Pt already had Flu shot at [facility] [address].Wants CPE labs - gets occas. arthralgia- wants Lyme testingTransitions of Care InboundProblem ReviewProblem List was reviewed and/or updated during this visit.Medication Reconciliation & ReviewMedication List was reviewed and/or updated during this visit, including review of any jtrh-fxc-goucgeg medications, herbal therapies, and/or supplements.Allergy ReviewAllergy List was reviewed and/or updated during this visit.Adult Preventive CareProvider Calculated and Reviewed all Clinical Protocols for patient today. Screening Tobacco Screening: Smoking Status: current every day smoker (09/12/2019) Advised to Quit: Yes (09/12/2019)Cancer Screening Pap Smear/HPV TestingReviewed: Today's Comments: Director Mobile- woud like referralReview of Systems General: GEN: [...] FairAssessment & Plan Problems:Added: Marital problems (ICD-V61.10) (RBT35-Z69.0) Assessment: Instructions: Counseled patient on all diagnoses/ treatments. Return to clinic/ ER for any worsening symptoms or concernsMH referrals on expedited basisAnxiety disorder, unspecified (CTO02-B87.9) Assessment: Instructions: Counseled patient on all diagnoses/ treatments. Return to clinic/ ER for any worsening symptoms or concernsMH referrals on expedited basisPain in unspecified joint (SZM61-V82.50) Assessment: Instructions: Counseled patient on all diagnoses/ treatments. Return to clinic/ ER for any worsening symptoms or concernsLabs orderedEncounter for screening for other metabolic disorders (JID39-M40.228) Assessment: Instructions: Counseled patient on all diagnoses/ [...] SUSPENSIONAllergies:* LATEX (Critical)HYDROCODONE (Severe)* SEASONAL (Mild)Orders:Telepsychiatry Consult [CPT-08774] Psychology Consult [CPT-10389] COMP METABOLIC PANEL [CPT-07537] CBC W/DIFF [CPT-02815] HgBA1c [CPT-75474] LIPID PANEL [CPT-15104] TSH [CPT-22476] T- 4 free [CPT-76642] Vitamin D 250H Unspecified [CPT-21531] URINALYSIS [CPT-25916] Lyme Antibody [CPT-16940] Adult - Ofc Vst, EST, Level IV [CPT-02084] Follow-Up Return to clinic: in 30 days for f/uAdditional Follow-Up: Counseled patient on all diagnoses/ treatments. Return to clinic/ ER for any worsening symptoms or concernsClinical Visit Summary DeclinedVaccines Administered/Entered:Vaccination Group: H1N1 InfluenzaSeries: 1 NOT GIVENVaccination: Influenza A (H1N1) Monoval PF Intramuscular SuspensionReason Not Given: Patient decisionEntered Date: 09/12/2019 12:00 AMComments: [facility], already had doneEntered by: Penelope Myers MA Name Value Range Interpretation Code Description Data Ale rce(s) Supporting Document(s) ID Date Data Source [id number] 09/05/2019 01:31:00 PM EST [facility] Name Value Range Interpretation Code Description Data Ale rce(s) Supporting Document(s) RAPID PLASMA REAGIN NON-REACTIVE NONREACTIVE [facility] Test performed by charcoal methodology ID Date Data Source [id number] 09/05/2019 12:09:00 AM [facility] Has Patient Fasted For The Past [...] Name Value Range Interpretation Code Description Data [facility] rce(s) Supporting Document(s) SODIUM 141 MEQ/L 135-145 [facility] POTASSIUM 4.0 MEQ/L 3.5-5.3 [facility] CHLORIDE 108 MEQ/L 94-110 [facility] CARBON DIOXIDE 24 MEQ/L 22-33 [facility] ANION GAP 13 5-16 [facility] BLOOD UREA NITRO 13 MG/DL 7-25 N [facility] CREATININE 0.8 MG/DL 0.6-1.4 [facility] GFR 87.4 ML/MIN [facility] Stage G2 - Mildly decreased kidney func tion GFR normal is >=90 The MDRD GFR calculation is considered valid between the ages of 18 and 75 years only. The GFR is an estimate of the Glomerular Filtration Rate. It is considered accurate in evaluating patients with Chronic Kidney Disease,but may underestimate kidney function in Healthy Patients. BUN/CREAT RATIO 16 8-36 N [facility] GLUCOSE 99 MG/DL 70-100 [facility] CA 9.9 MG/DL 8.7-10.5 [facility] BILIRUBIN,TOTAL 0.4 MG/DL 0.1-1.3 [facility] AST < 8 U/L 5-40 [facility] ALT < 9 U/L 5-48 [facility] ALKALINE PHOSPHATASE 56 U/L 40-140 [facility] TOTAL PROTEIN 6.9 G/DL 5.9-8.3 N [facility] ALBUMIN 4.7 G/DL 3.0-5.1 N [facility] GLOBULIN 2.2 G/DL 1.5-3.5 N [facility] [facility] ALB/GLOB RATIO 2.1 G/DL 1.0-2.7 N [facility] ID Date Data Source [id number] 09/05/2019 12:09:00 AM [facility] Has Patient Fasted For The Past 12 [...] Document(s) GLYCOSYLATED HGBA1C 5.4 % 4.1-6.5 N [facility] ID Date Data Source [id number] 09/05/2019 12:09:00 AM [facility] Has Patient Fasted For The Past 12 [...] Supporting Document(s) TRIGLYCERIDES 116 MG/DL 45-150 N [place] [facility] CHOLESTEROL 184 MG/DL 125-200 [facility] LDL CHOLESTEROL 127 MG/DL 50-130 [facility] [place] [facility] HDL CHOLESTEROL 34 MG/DL 32-96 N [place] [facility] CHOL/HDL RATIO 5.4 0-4.3 H [place] [facility] ID Date Data Source [id number] 09/05/2019 12:09:00 AM [facility] Fasted For The Past 12 [...] rce(s) Supporting Document(s) VITAMIN B12 409 PG/ML 211-1999 [facility] [place] [facility] ID Date Data Source [id number] 09/05/2019 12:09:00 AM [facility] Has Patient Fasted For The Past 12 [...] Supporting Document(s) FOLATE 10.45 NG/ML 3.40-24.00 N [place] [facility] ID Date Data Source [id number] 09/05/2019 12:09:00 AM [facility] Has Patient Fasted For The Past 12 [...] Supporting Document(s) Vitamin D,25-HYDROXY 13.7 ng/ml 30-100 [facility] Vitamin D Status Range De ficiency <20 ng/ml Insufficiency 20-29.9 ng/ml Sufficiency 30-100 ng/ml Toxicity >100 ng/ml Patients should not be tested for 72 hours post fluorescein dye angiography. A false elevation of result may occur. ID Date Data Source [id number] 09/05/2019 12:09:00 AM [facility] Has Patient Fasted For The Past 12 [...] T4 (FREE THYROXINE) 1.09 NG/DL 0.76-1.78 N [facility] ID Date Data Source [id number] 09/05/2019 12:09:00 AM [facility] Has Patient Fasted For The Past [...] Supporting Document(s) TSH 0.980 uIU/ML 0.470-4.200 N [facility] Patients should not be tested for 72 ho urs post fluorescein dye angiography. A false depression of result may occur. ID Date Data Source [id number] 09/04/2019 11:36:00 PM [facility] Name Value Range Interpretation Code Description Data Ale rce(s) Supporting Document(s) WHITE BLOOD COUNT 15.27 10^3/uL 4.00-10.50 H [facility] RED BLOOD COUNT 5.35 10^6/uL 3.90-5.20 [facility] th HEMOGLOBIN 13.9 G/DL 11.5-15.6 N [facility] HEMATOCRIT 41.2 % 35.0-46.0 N [facility] MCV 77.0 FL 80.0-100.0 L [facility] MCH 26.0 PG 27.0-34.0 L [facility] MCHC 33.7 G/DL 32-36 N [facility] RDW 14.0 % 11.5-14.5 [facility] PLATELET COUNT 327 10^3/uL 130-400 N [facility] MPV 11.4 FL 8.7-13.2 [facility] GRAN % (AUTO) 77.8 % 42.0-75.0 H [facility] LYMPH % (AUTO) 15.3 % 20.0-51.0 L [facility] MONO % (AUTO) 5.7 % 2.0-15.0 N [facility] EOS % (AUTO) 0.4 % 0.0-11.0 N [facility] BASO % (AUTO) 0.5 % 0.0-2.0 N [facility] IG % (AUTO) 0.3 % 1.00-5.00 [facility] IG # (AUTO) 0.1 10^3/uL <0.5 [facility] GRAN # (AUTO) 11.89 10^3/uL 1.50-6.50 [facility] LYMPH # (AUTO) 2.3 k/uL 1.0-5.0 N [facility] MONO # (AUTO) 0.87 k/uL 0.20-1.50 N [facility] EOS # (AUTO) 0.06 10^3/uL 0.00-1.10 N [facility] BASO # (AUTO) 0.07 10^3/uL 0.00-0.20 N [facility] Procedure Social History Code Duration Value Status Description Data Source(s ) Smoking 07/25/2020 12:00:00 AM EST Current Smoker completed Curre nt Smoker eCW1 ([facility]) Smoking 07/25/2020 12:00:00 AM EST Current Smoker completed Curre nt Smoker eCW1 ([facility]) Vital Signs ID Date Data Source UNK Name Value Range Interpretation Code Description Data Source(s) Body weight 3000 [oz_av] 3000 [oz_av] NINA ([facility]) Systolic blood pressure 114 mm[Hg] 114 mm[Hg] A THENA ([facility]) Body mass index (BMI) [Ratio] 29.8 kg/m2 29.8 k g/m2 NINA ([facility]) Body height 66.5 [in_i] 66.5 [in_i] NINA ([facility]) Diastolic blood pressure 71 mm[Hg] 71 mm[Hg] NINA ([facility]) Body weight 2886 [oz_av] 2886 [oz_av] NINA ([facility]) Systolic blood pressure 128 mm[Hg] 128 mm[Hg] A [facility] ([facility]) Body mass index (BMI) [Ratio] 28.7 kg/m2 28.7 k g/m2 NINA ([facility]) Body height 66.5 [in_i] 66.5 [in_i] NINA ([facility]) Diastolic blood pressure 74 mm[Hg] 74 mm[Hg] NINA ([facility]) Body weight 2886 [oz_av] 2886 [oz_av] NINA ([facility]) Systolic blood pressure 128 mm[Hg] 128 mm[Hg] A [facility] ([facility]) Body mass index (BMI) [Ratio] 28.7 kg/m2 28.7 k g/m2 NINA ([facility]) Body height 66.5 [in_i] 66.5 [in_i] NINA ([facility]) Diastolic blood pressure 74 mm[Hg] 74 mm[Hg] NINA ([facility]) Body weight 2886 [oz_av] 2886 [oz_av] NINA ([facility]) Systolic blood pressure 128 mm[Hg] 128 mm[Hg] A [facility] ([facility]) Body mass index (BMI) [Ratio] 28.7 kg/m2 28.7 k g/m2 NINA ([facility]) Body height 66.5 [in_i] 66.5 [in_i] NINA ([facility]) Diastolic blood pressure 74 mm[Hg] 74 mm[Hg] NINA ([facility]) Body weight 2886 [oz_av] 2886 [oz_av] NINA ([facility]) Systolic blood pressure 128 mm[Hg] 128 mm[Hg] A THEN ([facility]) Body mass index (BMI) [Ratio] 28.7 kg/m2 28.7 k g/m2 NINA ([facility]) Body height 66.5 [in_i] 66.5 [in_i] NINA ([facility]) Diastolic blood pressure 74 mm[Hg] 74 mm[Hg] NINA ([facility]) Diastolic blood pressure 70 mm[Hg] 70 mm[Hg] eCW1 ([facility]) Systolic blood pressure 132 mm[Hg] 132 mm[Hg] e CW1 ([facility]) Body temperature 97.5 [degF] 97.5 [degF] eCW1 ( [facility]) Respiratory rate 18 /min 18 /min eCW1 ([facility]) Heart rate 127 /min 127 /min eCW1 ([facility]) Body mass index (BMI) [Ratio] 26.78 kg/m2 26.78 kg/m2 eCW1 ([facility]) Body height 67 [in_i] 67 [in_i] eCW1 ([facility]) Body weight 171 [lb_av] 171 [lb_av] eCW1 ([facility]) Body weight 2704 [oz_av] 2704 [oz_av] NINA ([facility]) Systolic blood pressure 114 mm[Hg] 114 mm[Hg] A [facility] ([facility]) Body height 66.5 [in_i] 66.5 [in_i] NINA ([facility]) Diastolic blood pressure 65 mm[Hg] 65 mm[Hg] NINA ([facility]) Body weight 2704 [oz_av] 2704 [oz_av] NINA ([facility]) Systolic blood pressure 114 mm[Hg] 114 mm[Hg] A [facility] ([facility]) Body height 66.5 [in_i] 66.5 [in_i] NINA ([facility]) Diastolic blood pressure 65 mm[Hg] 65 mm[Hg] NINA ([facility]) Body weight 2704 [oz_av] 2704 [oz_av] NINA ([facility]) Systolic blood pressure 114 mm[Hg] 114 mm[Hg] [facility] Body height 66.5 [in_i] 66.5 [in_i] NINA ([facility]) Diastolic blood pressure 65 mm[Hg] 65 mm[Hg] NINA ([facility]) Body weight 2704 [oz_av] 2704 [oz_av] NINA ([facility]) Systolic blood pressure 114 mm[Hg] 114 mm[Hg] A [facility] ([facility]) Body height 66.5 [in_i] 66.5 [in_i] NINA ([facility]) Diastolic blood pressure 65 mm[Hg] 65 mm[Hg] NINA ([facility]) Body weight 2704 [oz_av] 2704 [oz_av] NINA ([facility]) Systolic blood pressure 114 mm[Hg] 114 mm[Hg] [facility]) Body height 66.5 [in_i] 66.5 [in_i] NINA ([facility]) Diastolic blood pressure 65 mm[Hg] 65 mm[Hg] NINA ([facility]) Body weight 2704 [oz_av] 2704 [oz_av] NINA ([facility]) Systolic blood pressure 114 mm[Hg] 114 mm[Hg] A [facility] ([facility]) Body height 66.5 [in_i] 66.5 [in_i] NINA ([facility]) Diastolic blood pressure 65 mm[Hg] 65 mm[Hg] NINA ([facility]) Body weight 2712 [oz_av] 2712 [oz_av] NINA ([facility]) Body height 66.5 [in_i] 66.5 [in_i] NINA ([facility]) Body weight 2712 [oz_av] 2712 [oz_av] NINA ([facility]) Body height 66.5 [in_i] 66.5 [in_i] NNIA ([facility]) Body weight 2712 [oz_av] 2712 [oz_av] NINA ([facility]) Body height 66.5 [in_i] 66.5 [in_i] NINA ([facility]) Body weight 2712 [oz_av] 2712 [oz_av] NINA ([facility]) Body height 66.5 [in_i] 66.5 [in_i] NINA ([facility]) Body weight 2712 [oz_av] 2712 [oz_av] NINA ([facility]) Body height 66.5 [in_i] 66.5 [in_i] NINA ([facility]) Body weight 2712 [oz_av] 2712 [oz_av] NINA ([facility]) Body height 66.5 [in_i] 66.5 [in_i] NINA ([facility]) Body weight 2726.08 [oz_av] 2726.08 [oz_av] ATH LOURDES ([facility]) Systolic blood pressure 101 mm[Hg] 101 mm[Hg] [facility] Body height 66.5 [in_i] 66.5 [in_i] NINA ([facility]) Diastolic blood pressure 68 mm[Hg] 68 mm[Hg] NINA ([facility]) Body weight 2726.08 [oz_av] 2726.08 [oz_av] ATH LOURDES ([facility]) Systolic blood pressure 101 mm[Hg] 101 mm[Hg] A [facility] ([facility]) Body height 66.5 [in_i] 66.5 [in_i] NINA ([facility]) Diastolic blood pressure 68 mm[Hg] 68 mm[Hg] NINA ([facility]) Body weight 2726.08 [oz_av] 2726.08 [oz_av] ATH LOURDES ([facility]) Systolic blood pressure 101 mm[Hg] 101 mm[Hg] [facility] Body height 66.5 [in_i] 66.5 [in_i] NINA ([facility]) Diastolic blood pressure 68 mm[Hg] 68 mm[Hg] NINA ([facility]) Body weight 2726.08 [oz_av] 2726.08 [oz_av] ATH LOURDES ([facility]) Systolic blood pressure 101 mm[Hg] 101 mm[Hg] A [facility] ([facility]) Body height 66.5 [in_i] 66.5 [in_i] NINA ([facility]) Diastolic blood pressure 68 mm[Hg] 68 mm[Hg] NINA ([facility]) Body weight 2726.08 [oz_av] 2726.08 [oz_av] ATH LOURDES ([facility]) Systolic blood pressure 101 mm[Hg] 101 mm[Hg] A THENA ([facility]) Body height 66.5 [in_i] 66.5 [in_i] NINA ([facility]) Diastolic blood pressure 68 mm[Hg] 68 mm[Hg] NINA ([facility]) Body weight 2726.08 [oz_av] 2726.08 [oz_av] ATH LOURDES ([facility]) Systolic blood pressure 101 mm[Hg] 101 mm[Hg] A THENA ([facility]) Body height 66.5 [in_i] 66.5 [in_i] NINA ([facility]) Diastolic blood pressure 68 mm[Hg] 68 mm[Hg] NINA ([facility]) Body weight 2754.08 [oz_av] 2754.08 [oz_av] ATH LOURDES ([facility]) Body height 66.5 [in_i] 66.5 [in_i] NINA ([facility]) Body weight 2754.08 [oz_av] 2754.08 [oz_av] ATH LOURDES ([facility]) Body height 66.5 [in_i] 66.5 [in_i] NINA ([facility]) Body weight 2754.08 [oz_av] 2754.08 [oz_av] ATH LOURDES ([facility]) Body height 66.5 [in_i] 66.5 [in_i] NINA ([facility]) Body weight 2754.08 [oz_av] 2754.08 [oz_av] ATH LOURDES ([facility]) Body height 66.5 [in_i] 66.5 [in_i] NINA ([facility]) Body weight 2754.08 [oz_av] 2754.08 [oz_av] ATH LOURDES ([facility]) Body height 66.5 [in_i] 66.5 [in_i] NINA ([facility]) Body weight 2754.08 [oz_av] 2754.08 [oz_av] ATH LOURDES ([facility]) Body height 66.5 [in_i] 66.5 [in_i] NINA ([facility]) Body weight 2834.08 [oz_av] 2834.08 [oz_av] ATH LOURDES ([facility]) Body height 66.5 [in_i] 66.5 [in_i] NINA ([facility]) Body weight 2834.08 [oz_av] 2834.08 [oz_av] ATH LOURDES ([facility]) Body height 66.5 [in_i] 66.5 [in_i] NINA ([facility]) Body weight 2834.08 [oz_av] 2834.08 [oz_av] ATH LOURDES ([facility]) Body height 66.5 [in_i] 66.5 [in_i] NINA ([facility]) Body weight 2834.08 [oz_av] 2834.08 [oz_av] ATH LOURDES ([facility]) Body height 66.5 [in_i] 66.5 [in_i] NINA ([facility]) Body weight 2834.08 [oz_av] 2834.08 [oz_av] ATH LOURDES ([facility]) Body height 66.5 [in_i] 66.5 [in_i] NINA ([facility]) Body weight 2834.08 [oz_av] 2834.08 [oz_av] ATH LOURDES ([facility]) Body height 66.5 [in_i] 66.5 [in_i] NINA ([facility]) Body weight 2999.04 [oz_av] 2999.04 [oz_av] ATH LOURDES ([facility]) Body height 66.5 [in_i] 66.5 [in_i] NINA ([facility]) Body weight 2999.04 [oz_av] 2999.04 [oz_av] ATH LOURDES ([facility]) Body height 66.5 [in_i] 66.5 [in_i] NINA ([facility]) Body weight 2999.04 [oz_av] 2999.04 [oz_av] ATH LOURDES ([facility]) Body height 66.5 [in_i] 66.5 [in_i] NINA ([facility]) Body weight 2999.04 [oz_av] 2999.04 [oz_av] ATH LOURDES ([facility]) Body height 66.5 [in_i] 66.5 [in_i] NINA ([facility]) Body weight 2999.04 [oz_av] 2999.04 [oz_av] ATH LOURDES ([facility]) Body height 66.5 [in_i] 66.5 [in_i] NINA ([facility]) Body weight 2999.04 [oz_av] 2999.04 [oz_av] ATH LOURDES ([facility]) Body height 66.5 [in_i] 66.5 [in_i] NINA ([facility]) Body weight 3058.08 [oz_av] 3058.08 [oz_av] ATH LOURDES ([facility]) Body height 66.5 [in_i] 66.5 [in_i] NINA ([facility]) Body weight 3058.08 [oz_av] 3058.08 [oz_av] ATH LOURDES ([facility]) Body height 66.5 [in_i] 66.5 [in_i] NINA ([facility]) Body weight 3058.08 [oz_av] 3058.08 [oz_av] ATH LOURDES ([facility]) Body height 66.5 [in_i] 66.5 [in_i] NINA ([facility]) Body weight 3058.08 [oz_av] 3058.08 [oz_av] ATH LOURDES ([facility]) Body height 66.5 [in_i] 66.5 [in_i] NINA ([facility]) Body weight 3058.08 [oz_av] 3058.08 [oz_av] ATH LOURDES ([facility]) Body height 66.5 [in_i] 66.5 [in_i] NINA ([facility]) Body weight 3058.08 [oz_av] 3058.08 [oz_av] ATH LOURDES ([facility]) Body height 66.5 [in_i] 66.5 [in_i] NINA ([facility]) Body weight 3072 [oz_av] 3072 [oz_av] NINA ([facility]) Systolic blood pressure 114 mm[Hg] 114 mm[Hg] [facility]) Body height 66.5 [in_i] 66.5 [in_i] NINA ([facility]) Diastolic blood pressure 67 mm[Hg] 67 mm[Hg] NINA ([facility]) Body weight 3072 [oz_av] 3072 [oz_av] NINA ([facility]) Systolic blood pressure 114 mm[Hg] 114 mm[Hg] A [facility] ([facility]) Body height 66.5 [in_i] 66.5 [in_i] NINA ([facility]) Diastolic blood pressure 67 mm[Hg] 67 mm[Hg] NINA ([facility]) Body weight 3072 [oz_av] 3072 [oz_av] NINA ([facility]) Systolic blood pressure 114 mm[Hg] 114 mm[Hg] [facility]) Body height 66.5 [in_i] 66.5 [in_i] NINA ([facility]) Diastolic blood pressure 67 mm[Hg] 67 mm[Hg] NINA ([facility]) Body weight 3072 [oz_av] 3072 [oz_av] NINA ([facility]) Systolic blood pressure 114 mm[Hg] 114 mm[Hg] [facility]) Body height 66.5 [in_i] 66.5 [in_i] NINA ([facility]) Diastolic blood pressure 67 mm[Hg] 67 mm[Hg] NINA ([facility]) Body weight 3072 [oz_av] 3072 [oz_av] NINA ([facility]) Systolic blood pressure 114 mm[Hg] 114 mm[Hg] A [facility] ([facility]) Body height 66.5 [in_i] 66.5 [in_i] NINA ([facility]) Diastolic blood pressure 67 mm[Hg] 67 mm[Hg] NINA ([facility]) Body weight 3072 [oz_av] 3072 [oz_av] NINA ([facility]) Systolic blood pressure 114 mm[Hg] 114 mm[Hg] A [facility] ([facility]) Body height 66.5 [in_i] 66.5 [in_i] NINA ([facility]) Diastolic blood pressure 67 mm[Hg] 67 mm[Hg] NINA ([facility])
[2020-10-10 14:07] VITALS: BP 138/82
[2020-10-10 15:07] LABS: CHLAMYDIA DNA AMPLIFICATION NEGATIVE (NEGATIVE); GC DNA AMPLIFICATION POSITIVE (NEGATIVE)
== END 2020-10-10 14:17 | disposition home or self-care (01) ==
LOC: M ED 12:06
DX: Z20.2 Contact with and (suspected) exposure to infections with a predominantly sexual mode of transmission (principal); Z88.6 Allergy status to analgesic agent; Z91.040 Latex allergy status
CPT/HCPCS: 87661; 96372; 99283; J0696

== ENCOUNTER → 2020-10-10 | Outpatient (REF) | payer OTHER ==
[~2020-10-10] MED LIST changes: +DOXY100C37 PO
[2020-10-10 18:09] LABS: BASO # 0.1 10^3/uL (0.0-0.2); BASO % 0.8 % (0.0-1.0); EOS # 0.4 10^3/uL (0.0-0.5); EOS % 5.2 % (0.0-3.0); HEMATOCRIT 44.3 % (36.0-47.0); HEMOGLOBIN 14.7 g/dl (12.0-15.5); LYMPH # 1.5 10^3/uL (1.5-5.0); LYMPH % 20.8 % (24.0-44.0); MEAN CORPUSCULAR HEMOGLOBIN 27.5 pg (27.0-33.0); MEAN CORPUSCULAR HGB CONC 33.2 g/dl (32.0-36.5); MEAN CORPUSCULAR VOLUME 82.8 fl (80.0-96.0); MONO # 0.6 10^3/uL (0.0-0.8); NEUTROPHILS # 4.8 10^3/uL (1.5-8.5); NEUTROPHILS % 64.8 % (36.0-66.0); PLATELET COUNT, AUTOMATED 233 10^3/uL (150-450); RED BLOOD COUNT 5.35 10^6/uL (4.00-5.40); WHITE BLOOD COUNT 7.4 10^3/uL (4.0-10.0)
[2020-10-10 18:37] LABS: ALBUMIN 3.9 GM/DL (3.2-5.2); ALT/SGPT 44 U/L (12-78); BILIRUBIN,TOTAL 0.4 MG/DL (0.2-1.0); BLOOD UREA NITROGEN 7 MG/DL (7-18); CALCIUM LEVEL 9.6 MG/DL (8.5-10.1); CARBON DIOXIDE LEVEL 25 MEQ/L (21-32); CHLORIDE LEVEL 106 MEQ/L (98-107); CREATININE FOR GFR 0.58 MG/DL (0.55-1.30); GLOMERULAR FILTRATION RATE > 60.0 (>60); GLUCOSE, FASTING 88 MG/DL (70-100); POTASSIUM SERUM 4.2 MEQ/L (3.5-5.1); SODIUM LEVEL 140 MEQ/L (136-145); TOTAL PROTEIN 7.3 GM/DL (6.4-8.2)
[2020-10-10 19:23] LABS: HIV 1&2 SCREEN CENTAUR NEGATIVE (NEGATIVE)
[2020-10-10 19:31] LABS: HEPATITIS C VIRUS ABY INDEX > 11.0 INDEX (<0.8)
== END ==
LOC: M LAB REF 16:29
PROVIDERS: ATTEND Nurse Practitioner Family
DX: L02.91 Cutaneous abscess, unspecified (principal); Z11.4 Encounter for screening for human immunodeficiency virus [HIV]

== ENCOUNTER 2020-11-16 13:06 | Emergency (ER) | payer OTHER ==
[~2020-11-16] VITALS: Ht 170.2 cm; Wt 83.4 kg
[~2020-11-16 13:06] MED LIST changes: +DOXY100C37 PO; +QUET50TA3 PO; -QUET5TAB PO
[2020-11-16] MEDS ORDERED: NS 1,000 ML IV ONE (13:40)
[2020-11-16 13:50] LABS: BASO # 0.1 10^3/uL (0.0-0.2); BASO % 0.4 % (0.0-1.0); EOS # 0.1 10^3/uL (0.0-0.5); EOS % 0.5 % (0.0-3.0); HEMATOCRIT 38.6 % (36.0-47.0); HEMOGLOBIN 13.2 g/dl (12.0-15.5); LYMPH # 0.9 10^3/uL (1.5-5.0); LYMPH % 5.6 % (24.0-44.0); MEAN CORPUSCULAR HEMOGLOBIN 27.7 pg (27.0-33.0); MEAN CORPUSCULAR HGB CONC 34.2 g/dl (32.0-36.5); MEAN CORPUSCULAR VOLUME 80.9 fl (80.0-96.0); MONO # 1.1 10^3/uL (0.0-0.8); MONO % 6.8 % (2.0-8.0); NEUTROPHILS # 14.1 10^3/uL (1.5-8.5); NEUTROPHILS % 85.2 % (36.0-66.0); PLATELET COUNT, AUTOMATED 164 10^3/uL (150-450); RED BLOOD COUNT 4.77 10^6/uL (4.00-5.40); WHITE BLOOD COUNT 16.5 10^3/uL (4.0-10.0)
[2020-11-16] MEDS ORDERED: KCL 10MEQ/100ML SWI (KRUN) 10 MEQ in IV 1 EA IV ONE (14:30)
[2020-11-16] MEDS ORDERED: cefTRIAXone SOD 1 GM in D5W MINI-BAG PLUS 50 ML IV ONE (14:35)
[2020-11-16 14:37] LABS: ALBUMIN 2.9 GM/DL (3.2-5.2); ALT/SGPT 19 U/L (12-78); BILIRUBIN,DIRECT 0.6 MG/DL (0.0-0.2); BILIRUBIN,TOTAL 1.1 MG/DL (0.2-1.0); CK-MB VALUE MASS < 1.0 NG/ML (<3.6); CPK CREATINE PHOSPHOKINASE 24 U/L (26-192); HCG, SERUM QUANTITATIVE 27811 MIU/ML; LIPASE 32 U/L (73-393); MB/CK RELATIVE INDEX 4.17 (< OR =4); TOTAL PROTEIN 6.9 GM/DL (6.4-8.2)
[2020-11-16] MEDS ORDERED: METOCLOPRAMIDE INJ 10MG/2ML VIAL (J2765 PER 1) IV ONE (15:15)
--- NOTE | 2020-11-16 15:15 | REP ---
INDICATION: r flank pain, dark urine COMPARISON: 10/20/2016 TECHNIQUE: Real time inchols scale ultrasound examination using curved array transducer. FINDINGS: Bilateral kidneys are normal in contour, size, echogenicity, and reniform shape. No hydronephrosis, nephrolithiasis, cystic or renal mass lesion. Right kidney measures 14.1 x 5.7 x 5.8 cm. Left kidney measures 12.8 x 5.2 x 4.5 cm. Bladder is unremarkable. Gallbladder demonstrates layering sludge and gravel without wall thickening or pericholecystic fluid. Common bile duct identified and measures 3.6 mm diameter. IMPRESSION: Normal kidneys. No hydronephrosis. Cholelithiasis without acute cholecystitis. <Electronically signed by Benedict Denney > 11/16/20 [id number]
--- NOTE | 2020-11-16 15:18 | REP ---
INDICATION: r flank pain, dark urine, r pelvic pain COMPARISON: None. TECHNIQUE: Transabdominal obstetrical ultrasound with color Doppler evaluation. FINDINGS: Single live early intrauterine is appreciated. Biometric measurements corresponds to 15 weeks 4 days gestational age with estimated date of delivery 05/06/2021. heart rate equals 143 beats per minute. No gross abnormalities are identified. IMPRESSION: Single live early intrauterine at 15 weeks 4 days gestational age. Complete anatomical assessment should be performed and 19-20 weeks. <Electronically signed by Benedict Denney > 11/16/20 [id number]
[2020-11-16] MEDS ORDERED: CEPH500T PO (16:10)
[2020-11-16 16:28] VITALS: BP 116/55
--- NOTE | 2020-11-16 16:44 | ECGEPIP ---
[facility] - ED Test Date: 2020-11-16 Pat Name: RADHA MCKEE Department: Room: - Gender: Female [employer]: : 1995 Requested By: ISA Tran PA-C Order Number: [id number] Reading MD: Angeles Cano Measurements Intervals [place] Rate: 93 P: 38 MT: 160 QRS: 39 QRSD: 84 T: 12 QT: 380 QTc: 472 Interpretive Statements Normal sinus rhythm NONSPECIFIC [facility] T [facility] 09/03/[address] [facility] Electronically Signed on 11-16-2020 16:44:31 EST by Angeles Cano
== END 2020-11-16 16:40 | disposition home or self-care (01) ==
LOC: M ED 13:06
DX: O23.02 Infections of kidney in pregnancy, second trimester (principal); N10 Acute pyelonephritis; O99.612 Diseases of the digestive system complicating pregnancy, second trimester; K80.70 Calculus of gallbladder and bile duct without cholecystitis without obstruction; Z3A.15 15 weeks gestation of pregnancy; Z88.5 Allergy status to narcotic agent; Z91.040 Latex allergy status; O99.332 Smoking (tobacco) complicating pregnancy, second trimester; F17.210 Nicotine dependence, cigarettes, uncomplicated
CPT/HCPCS: 76775; 76811; 80047; 80076; 81001; 82553; 83605; 83690; 84702; 85025; 87040; 87088; 87186; 93005; 96361; 96365; 96367; 96375; 99284; J0696; J2765

== ENCOUNTER 2020-11-17 09:02 | Emergency (ER) | payer OTHER ==
[~2020-11-17] VITALS: Ht 170.2 cm; Wt 83.6 kg
[~2020-11-17 09:02] MED LIST changes: +CEPH500T PO
[2020-11-17] MEDS ORDERED: NS 1,000 ML IV ONE (09:10)
[2020-11-17] MEDS ORDERED: cefTRIAXone SOD 1 GM in D5W MINI-BAG PLUS 50 ML IV ONE (09:10)
[2020-11-17] MEDS ORDERED: cefTRIAXone SOD 1GM VIAL (J0696 PER 250MG) IM ONE (09:25)
[2020-11-17] MEDS ORDERED: LIDOCAINE 1% SDV 5ML VIAL DILUENT ONE (09:25)
[2020-11-17 09:52] VITALS: BP 141/67
== END 2020-11-17 09:55 | disposition home or self-care (01) ==
LOC: M ED 09:02
DX: Z76.0 Encounter for issue of repeat prescription (principal); O23.00 Infections of kidney in pregnancy, unspecified trimester; N12 Tubulo-interstitial nephritis, not specified as acute or chronic; Z3A.15 15 weeks gestation of pregnancy; Z88.5 Allergy status to narcotic agent; Z91.040 Latex allergy status; Z79.899 Other long term (current) drug therapy; O99.332 Smoking (tobacco) complicating pregnancy, second trimester; F17.210 Nicotine dependence, cigarettes, uncomplicated
CPT/HCPCS: 96372; 99283; J0696

== ENCOUNTER → 2020-12-19 | Outpatient (REF) | payer OTHER ==
[2020-12-19 17:29] LABS: HEMATOCRIT 41.5 % (36.0-47.0); MEAN CORPUSCULAR HEMOGLOBIN 29.4 pg (27.0-33.0); MEAN CORPUSCULAR HGB CONC 33.7 g/dl (32.0-36.5); PLATELET COUNT, AUTOMATED 241 10^3/uL (150-450); RED BLOOD COUNT 4.77 10^6/uL (4.00-5.40); WHITE BLOOD COUNT 11.8 10^3/uL (4.0-10.0)
[2020-12-19 18:42] LABS: HIV 1&2 SCREEN CENTAUR NEGATIVE (NEGATIVE)
[2020-12-19 18:44] LABS: HEPATITIS C VIRUS ABY INDEX > 11.0 INDEX (<0.8)
== END ==
LOC: M PLALAB 15:09
PROVIDERS: ATTEND Advanced Practice Midwife
DX: Z36.89 Encounter for other specified antenatal screening (principal); Z34.82 Encounter for supervision of other normal pregnancy, second trimester

== ENCOUNTER → 2021-03-06 | Outpatient (CLI) | payer OTHER ==
[~2021-03-06] MED LIST changes: -DOXY100C37 PO; +DOXY1CAP62 PO; +GABA-283; -GABA-845
[2021-03-06 13:30] LABS: HEMATOCRIT 41.3 % (36.0-47.0); HEMOGLOBIN 13.8 g/dl (12.0-15.5); MEAN CORPUSCULAR HEMOGLOBIN 28.5 pg (27.0-33.0); MEAN CORPUSCULAR HGB CONC 33.4 g/dl (32.0-36.5); MEAN CORPUSCULAR VOLUME 85.3 fl (80.0-96.0); PLATELET COUNT, AUTOMATED 234 10^3/uL (150-450); RED BLOOD COUNT 4.84 10^6/uL (4.00-5.40); WHITE BLOOD COUNT 9.9 10^3/uL (4.0-10.0)
[2021-03-06 13:53] LABS: ALBUMIN 2.7 GM/DL (3.2-5.2); ALT/SGPT 43 U/L (12-78); BILIRUBIN,TOTAL 0.7 MG/DL (0.2-1.0); BLOOD UREA NITROGEN 5 MG/DL (7-18); CARBON DIOXIDE LEVEL 25 MEQ/L (21-32); CHLORIDE LEVEL 108 MEQ/L (98-107); CREATININE FOR GFR 0.47 MG/DL (0.55-1.30); GLOMERULAR FILTRATION RATE > 60.0 (>60); GLUCOSE CHALLENGE TEST 1 HOUR 107 MG/DL (LESS THAN 140); GLUCOSE, FASTING 107 MG/DL (70-100); POTASSIUM SERUM 3.6 MEQ/L (3.5-5.1); SODIUM LEVEL 140 MEQ/L (136-145); TOTAL PROTEIN 6.4 GM/DL (6.4-8.2)
[2021-03-06 14:01] LABS: HEPATITIS B SURFACE ANTIBODY NEGATIVE (POSITIVE)
[2021-03-06 14:12] LABS: HEPATITIS B SURFACE ANTIGEN NEGATIVE (NEGATIVE)
[2021-03-06 14:39] LABS: HEPATITIS B CORE ANTIBODY IGM NEGATIVE (NEGATIVE)
[2021-03-06 14:41] LABS: HIV 1&2 SCREEN CENTAUR NEGATIVE (NEGATIVE)
[2021-03-06 14:42] LABS: HEPATITIS A ANTIBODY IGM NEGATIVE (NEGATIVE)
[2021-03-06 14:51] LABS: HEPATITIS C VIRUS ABY INDEX > 11.0 INDEX (<0.8)
== END ==
LOC: M LAB 10:53
PROVIDERS: ATTEND Advanced Practice Midwife
DX: O98.413 Viral hepatitis complicating pregnancy, third trimester (principal)

== ENCOUNTER → 2021-04-01 | Outpatient (REF) | payer OTHER | LOC: M SFHCWAGY 17:28 | PROVIDERS: ATTEND Advanced Practice Midwife | DX: B19.20 Unspecified viral hepatitis C without hepatic coma (principal); Q51.3 Bicornate uterus ==

== ENCOUNTER 2021-04-30 05:13 | Inpatient (IN) | payer OTHER ==
[~2021-04-30] VITALS: Ht 170.2 cm; Wt 99.8 kg
[2021-04-30] VITALS (8 sets, daily range): BP systolic 112–138; BP diastolic 53–91
[~2021-04-30 05:13] MED LIST changes: -QUET50TA3 PO; +QUET50TA4 PO; +SERT50TA29
[2021-04-30 05:56] LABS: HEMATOCRIT 42.4 % (36.0-47.0); HEMOGLOBIN 14.4 g/dl (12.0-15.5); MEAN CORPUSCULAR HEMOGLOBIN 27.9 pg (27.0-33.0); MEAN CORPUSCULAR VOLUME 82.2 fl (80.0-96.0); PLATELET COUNT, AUTOMATED 240 10^3/uL (150-450); RED BLOOD COUNT 5.16 10^6/uL (4.00-5.40); WHITE BLOOD COUNT 12.8 10^3/uL (4.0-10.0)
[2021-04-30] MEDS ORDERED: LR 1,000 ML IV ONE (06:00)
[2021-04-30] MEDS ORDERED: LR 1,000 ML IV SCH (06:00)
[2021-04-30] MEDS ORDERED: BICITRA 30ML SOLN UDC PO ONE (06:00)
[2021-04-30] MEDS ORDERED: ceFAZolin SOD 2 GM in IV 1 EA IV ONE (06:00)
[2021-04-30 06:21] LABS: AMPHETAMINES URINE REFLEX NEGATIVE (NEGATIVE); BARBITURATES URINE REFLEX NEGATIVE (NEGATIVE); BENZODIAZEPINES URINE REFLEX NEGATIVE (NEGATIVE); CANNABINOIDS URINE REFLEX NEGATIVE (NEGATIVE); COCAINE METABOLITE URINE REFLE NEGATIVE (NEGATIVE); METHADONE URINE REFLEX NEGATIVE (NEGATIVE); OPIATES URINE REFLEX NEGATIVE (NEGATIVE); PHENCYCLIDINE URINE REFLEX NEGATIVE (NEGATIVE)
[2021-04-30] MEDS ORDERED: PRENTAB9 PO (06:24)
[2021-04-30] MEDS ORDERED: MORPHINE PRES-FREE INJ 10 MG/10 ML VIAL (J2274) As Ordered ONE (07:18)
[2021-04-30] MEDS ORDERED: OXYTOCIN INJ 10 UNITS/ML VIAL (J2590) As Ordered ONE ×2 (07:23→08:17)
[2021-04-30] MEDS ORDERED: METOCLOPRAMIDE INJ 10MG/2ML VIAL (J2765 PER 1) As Ordered ONE (07:26)
[2021-04-30] MEDS ORDERED: ONDANSETRON 4MG/2ML VIAL As Ordered ONE (07:26)
[2021-04-30] MEDS ORDERED: KETOROLAC 60MG 2ML VIAL As Ordered ONE (07:27)
[2021-04-30] MEDS ORDERED: NALBUPHINE HCL 10 MG/ML AMP (J2300) IV PRN ×2 (07:48→09:05)
[2021-04-30] MEDS ORDERED: diphenhydrAMINE 50MG/ML VIAL (J1200) IV PRN ×2 (07:48→09:05)
[2021-04-30] MEDS ORDERED: ONDANSETRON 4MG/2ML VIAL IV PRN ×2 (07:48→09:05)
[2021-04-30] MEDS ORDERED: NALOXONE INJ 0.4MG/1ML VIAL (J2310 PER 1MG) IV PRN ×2 (07:48)
[2021-04-30] MEDS ORDERED: METOCLOPRAMIDE INJ 10MG/2ML VIAL (J2765 PER 1) IV PRN (07:48)
[2021-04-30] MEDS ORDERED: PHENYLephrine 500MCG 5ML (100MCG/ML) SYRINGE As Ordered ONE ×2 (08:06→08:23)
[2021-04-30] MEDS ORDERED: OXYTOCIN 30 UNITS IN 0.9% NaCl 500ML IV BAG (J2590) As Ordered ONE (08:49)
[2021-04-30] MEDS: PRENATAL VITAMINS CHEWABLE TABLET PO SCH (09:00)
[2021-04-30] MEDS ORDERED: fentaNYL 100 MCG/2 ML INJECTION (J3010) IV PRN (09:05)
[2021-04-30] MEDS ORDERED: MEPERIDINE INJ 25 MG/ML VIAL (J2175) IV PRN (09:05)
[2021-04-30] MEDS ORDERED: oxyCODONE 5MG TAB PO PRN (09:05)
[2021-04-30] MEDS ORDERED: HYDROMORPHONE HCL 0.5 MG/ 0.5 ML SYRINGE (J1170 PER 1) IV PRN (09:05)
[2021-04-30] MEDS ORDERED: RHOGAM 300 MCG (1500 IU) INJ (J2790) IM SCH (09:15)
[2021-04-30] MEDS ORDERED: OXYTOCIN DRIP 30 UNITS in IV 1 EA IV SCH (09:15)
[2021-04-30] MEDS ORDERED: MEASLES,MUMPS,RUBELLA VACCINE INJ (MMR-II) (90707) SC SCH (09:15)
[2021-04-30] MEDS ORDERED: SIMETHICONE 80MG CHEW TAB PO PRN (09:15)
[2021-04-30] MEDS ORDERED: PERCOCET 5MG/325MG TAB PO PRN ×2 (09:15)
--- NOTE | 2021-04-30 09:20 | ROOPDOC ---
[facility] Report Of Operation Report of Operation DATE OF PROCEDURE: 04/30/21 Report of operation Preoperative diagnosis: 39 weeks gestation, bicornuate uterus Postoperative diagnosis: Same Procedure: Primary low transverse section. Surgeon: Kim Qiu M.D. Asst.: Shania Del Castillo CNM EBL: 500 ml. Urine output: 100 mL's. Findings: 7 lbs. 0 oz.female infant, 's 8 and 9 g, bicornuate uterus with fetus in the right uterine horn, nuchal cord x1, brow presentation, normal fallopian tubes, ovaries. She had copious, foul-smelling vaginal discharge that was suspicious for vaginitis. Urine from the catheter appeared cloudy and was suspicious for urinary tract infection. Operative summary: Patient taken to the operating room where spinal anesthesia was induced. She was prepped and draped in a sterile fashion in the supine position. A Chaudhry catheter was placed. A Pfannenstiel skin incision was made with scalpel. Fascia was incised and extended bilaterally. The peritoneal cavity was entered. A Mobius retractor was placed. A bladder flap was created. A curvilinear incision was made in lower uterine segment until Clear fluid was noted. The incision was extended manually. The infant was delivered from the vertex position without difficulty. Cord was doubly clamped and cut. The infant was handed to awaiting nurses. The placenta was expressed. Uterus was closed with O-Vicryl in a running locked fashion. A second imbricating layer of Vicryl was placed. Peritoneum was closed with 2-0 Vicryl a running fashion. Fascia was closed with 0 Vicryl in running fashion. Skin was closed 4-0 Monocryl subcuticular sutures. Sponge, instrument and needle counts were correct. Marilynn Del Castillo CNM, assisted with all aspects of the procedure. She helped close each layer of the incision and deliver the fetus. KIM QIU MD Apr 30, 2021 09:20
[2021-04-30] MEDS ORDERED: LR 500 ML IV ONE ×2 (10:00→23:20)
[2021-04-30] MEDS: LR 1,000 ML IV SCH ×2 (11:00→18:14)
[2021-04-30] MEDS ORDERED: LACTATED RINGER'S 1000 ML IV ONE ×2 (14:45→18:10)
[2021-04-30] MEDS: KETOROLAC 30 MG/ML 1ML VIAL IV SCH ×2 (15:19→20:44)
[2021-04-30 23:50] LABS: ALT/SGPT 22 U/L (12-78); BILIRUBIN,TOTAL 0.5 MG/DL (0.2-1.0); BLOOD UREA NITROGEN 10 MG/DL (7-18); CALCIUM LEVEL 8.1 MG/DL (8.5-10.1); CARBON DIOXIDE LEVEL 25 MEQ/L (21-32); CHLORIDE LEVEL 111 MEQ/L (98-107); CREATININE FOR GFR 0.72 MG/DL (0.55-1.30); GLOMERULAR FILTRATION RATE > 60.0 (>60); GLUCOSE, FASTING 100 MG/DL (70-100); POTASSIUM SERUM 3.7 MEQ/L (3.5-5.1); SODIUM LEVEL 141 MEQ/L (136-145); TOTAL PROTEIN 4.7 GM/DL (6.4-8.2)
[2021-05-01 02:45] VITALS: BP 125/68
[2021-05-01] MEDS: KETOROLAC 30 MG/ML 1ML VIAL IV SCH (02:48)
[2021-05-01 06:18] VITALS: BP 89/52
[2021-05-01] MEDS ORDERED: LACTATED RINGER'S 1000 ML IV ONE (08:15)
[2021-05-01 08:19] LABS: HEMATOCRIT 27.2 % (36.0-47.0); MEAN CORPUSCULAR HEMOGLOBIN 28.2 pg (27.0-33.0); MEAN CORPUSCULAR HGB CONC 33.1 g/dl (32.0-36.5); MEAN CORPUSCULAR VOLUME 85.3 fl (80.0-96.0); PLATELET COUNT, AUTOMATED 136 10^3/uL (150-450); RED BLOOD COUNT 3.19 10^6/uL (4.00-5.40); WHITE BLOOD COUNT 12.4 10^3/uL (4.0-10.0)
[2021-05-01] MEDS: PRENATAL VITAMINS CHEWABLE TABLET PO SCH (09:00)
[2021-05-01 09:49] VITALS: BP 100/51
[2021-05-01] MEDS: LR 1,000 ML IV SCH ×2 (10:05→10:32)
[2021-05-01] MEDS: IBUPROFEN 800 MG TAB PO SCH ×2 (11:30→18:28)
[2021-05-01 14:00] VITALS: BP 117/69
[2021-05-01 18:00] VITALS: BP 143/72
[2021-05-01] MEDS ORDERED: CYCLOBENZAPRINE 10MG TABLET PO PRN (21:15)
[2021-05-01] MEDS ORDERED: ACETAMINOPHEN 500 MG TAB PO PRN (21:15)
[2021-05-02] MEDS: IBUPROFEN 800 MG TAB PO SCH (03:19)
[2021-05-02 06:00] VITALS: BP 102/54
[2021-05-02] MEDS ORDERED: PERC5TAB12 PO (07:15)
[2021-05-02] MEDS ORDERED: IBUP80TA PO (07:15)
[2021-05-02] MEDS: PRENATAL VITAMINS CHEWABLE TABLET PO SCH (09:11)
--- NOTE | 2021-05-09 09:53 | DS.PDOC ---
Discharge Summary General Date of Admission Apr 30, 2021 at 05:13 Date of Discharge May 02, 2021 Discharge Summary PROCEDURES PERFORMED DURING STAY: Primary section ADMITTING DIAGNOSES: 1. Bicornuate uterus, IUP at term DISCHARGE DIAGNOSES: 1. section at term COMPLICATIONS/CHIEF COMPLAINT: Bicornuate Uterus. HISTORY OF PRESENT ILLNESS: 26yo G1 now P1 admitted for section HOSPITAL COURSE: Adequate pain management. Tolerating diet, passing flatus. Out of bed independently DISCHARGE MEDICATIONS: Please see below. ALLERGIES: Please see below. PHYSICAL EXAMINATION ON DISCHARGE: VITAL SIGNS: Please see below. GENERAL: No distress HEENT: WNL CARDIOVASCULAR EXAMINATION: HRR, normotensive RESPIRATORY EXAMINATION: Clear, unlabored ABDOMINAL EXAMINATION: Fundus firm, dressing intact EXTREMITIES: Equal strength and motion SKIN: Intact NEUROLOGICAL EXAMINATION: Grossly intact PSYCHIATRIC EXAMINATION: Appropriate LABORATORY DATA: Please see below. PROGNOSIS: Good ACTIVITY: As tolerated, pelvic rest DIET: As tolerated DISCHARGE PLAN: Discharge home today DISCHARGE INSTRUCTIONS: 1. Routine care. Pelvic rest. Remove dressing day 5. Cleanse wound daily after removal with warm soapy water, rinse well and pat dry. Call with fever, nausea, vomiting, chills, foul lochia, wound exudate. Oral medications as ordered. RTO 2wks and 6 wks. DISCHARGE CONDITION: Stable TIME SPENT ON DISCHARGE: 10 minutes. Vital Signs/I&Os Vital Signs Date Time Temp Pulse Resp B/P (MAP) Pulse Ox O2 Delivery O2 Flow Rate FiO2 05/02/21 06:00 97.8 77 16 102/54 (70) 97 Room Air I&O- Last 24 Hours up to 6 AM 05/02/21 05:59 Output Total 2150 ml Balance -2150 ml Discharge Medications Scheduled Ibuprofen (Ibuprofen) 800 Mg Tablet, 800 MG PO Q8H No.137/Iron/Folic Acd ( Vitamin Tablet) 1 Each Tablet, 1 TAB PO DAILY, (Reported) Scheduled PRN Oxycodone HCl/Acetaminophen (Percocet 5-325 mg Tablet) 1 Each Tablet, 1 TAB PO TIDP PRN for PAINFUL PROCEDURES Allergies Coded Allergies: latex (Verified Allergy, Intermediate, HIVES ITCHING, 04/16/21) ENVIRONMENTAL (Verified Allergy, Unknown, 04/16/21) hydrocodone (Unverified Adverse Reaction, Intermediate, severe N/V, 04/16/21) Zehra Pugh CNM May 02, 2021 08:11
== END 2021-05-02 10:29 | disposition home or self-care (01) | DRG 540 ==
LOC: M LDI 05:13 → EEVIPCON 05:13 → M OBS 10:09
PROVIDERS: ADMIT Specialist; ATTEND Specialist
PROC: 10D00Z1 Extraction of Products of Conception, Low, Open Approach (ICD-10-PCS; principal; 2021-04-30 07:30)
DX: O34.03 Maternal care for unspecified congenital malformation of uterus, third trimester (principal); O69.81X0 Labor and delivery complicated by cord around neck, without compression, not applicable or unspecified; Z3A.39 39 weeks gestation of pregnancy; Z37.0 Single live birth

== ENCOUNTER 2021-07-21 21:25 | Emergency (ER) | payer OTHER ==
[~2021-07-21] VITALS: Ht 170.2 cm; Wt 78.9 kg
[~2021-07-21 21:25] MED LIST changes: +DOXY-443 PO; -DOXY1CAP62 PO; +IBUP80TA PO; +PRENTAB9 PO
--- OUTSIDE RECORDS SUMMARY | 2021-07-21 21:32 | CCD ---
Author Organization Unknown Address [address] [place] [address] Phone [phone] Care Team Providers Care Fertilizer Loader Name Role Phone KAMRAN Yann ALFONSO DPM 2 [phone] RC BEYER MD 2 [phone] Allergies Code Code System Name Reaction Severity Status Onset [id number] RxNorm Latex Active 07/19/2012 5489 RxNorm Hydrocodone Active 09/12/20 19 Seasonale (91) Other Active Notes: SEASONAL Medications Name Status Start Date Stop Date albuterol sulfate HFA 90 mcg/actuation a erosol inhaler Inhale 2 puffs every 4 hours by inhalation route. Active Not available Bactrim DS 800 mg-160 mg tablet Take 1 tablet every 12 hours by oral route for 10 days. Completed 01/06/2021 cephalexin 500 mg capsule TAKE ONE CAPSULE BY MOUTH TWICE A DAY Completed 0 01/06/2021 fluticasone propionate 50 mcg/actuation nasal spray,suspension SPARY 1 SPRAY INTO EACH NOSTRIL ONCE A DAY Active Not available Lamictal 25 mg tablet Take 2 tablets twice a day by oral route. Completed 12/10/2020 metronidazole 1 % topical gel APPLY TO AFFECTED AREA S GENTLY AND COMPLETELY BY TOPICAL ROUTE ONCE A DAY Active Not available prednisone 20 mg tablet Take 1 tablet every day by oral route. Completed 01/06/2021 quetiapine 50 mg tablet TAKE ONE TABLET BY MOUTH TWICE A DAY Active No t available sertraline 50 mg tablet TAKE ONE TABLET BY MOUTH EVERY DAY Active Not available triamcinolone acetonide 0.5 % topical oi ntment APPLY A THIN LAYER TO THE AFFECTED AREA S TOPICALLY TWO TIMES A DAY Completed 01/06/2021 Problems Name Status Onset Date Source Allergic Rhinitis Active 01/16/2013 History Endocrine/metabolic Screening Unknown 09/12/2019 Hi story Finding of Body Region Unknown 09/12/[address] Concept Unknown 09/12/2019 History Relationship Distress with Spouse or Intimate Partner Active 09/12/2019 History Bipolar Disorder Active 09/25/2019 History Chronic Post-traumatic Stress Disorder Active 0 History Acquired Absence of Multiple Teeth Unknown 11/16/2019 History Vitamin D Deficiency Active 02/22/2020 History Nicotine Dependence Active 02/22/2020 History Patient Asked to Attend Unknown 02/22/2020 History Clinical Finding Unknown 02/22/2020 History Acne Active 05/15/2020 History Disorder of Skin Appendage Active 05/15/2020 Histo ry Finding of Body Region Unknown 05/15/2020 History Keratoma Unknown 05/15/2020 History Schizoaffective Disorder, Bipolar Type Active 0 History Hidradenitis Suppurativa Active 01/07/2021 Procedures Notes: Foot Sx, Left toe removal, Total of 7 Surgeries on feet ([id number]) removed bones in R toes, then L toes. Removed bone from L & R foot. Results Lab Results Date Name Specimen Result Interpretation Description Value Range Status Address 05/01/2021 Cbc High White Blood Count 12.4 10 4.0-10 .0 10 [facility]: [address] [place] [address] Low Red Blood Count 3.19 10 4.00-5.40 10 [facility]: [address] [place] [address] Panic Low Hemoglobin 9.0 g/dL 12.0-15.5 g/d L [facility]: [address] [place] [address] Low Hematocrit 27.2 % 36.0-47.0 % [facility]: [address] [place] [address] Normal Mean Corpuscular Volume 85.3 fL 80.0 -96.0 fL [facility]: [address] [place] [address] Normal Mean Corpuscular Hemoglobin 28.2 pg 27.0-33.0 pg [facility]: [address] [place] [address] Normal Mean Corpuscular HGB Conc 33.1 g/dL 32.0-36.5 g/dL [facility]: [address] [place] [address] High Red Cell Distribution Width 15.3 % 1 1.5-14.5 % [facility]: [address] [place] [address] Low Platelet Count, Automated 136 10 150 -450 10 [facility]: [address] [facility] Normal Nucleated Red Blood Cell % 0.0 % 0- 0 % [facility]: [address] [facility] 04/30/2021 Cbc High White Blood Count 12.8 10 4.0-10 .0 10 [facility]: 0 [facility] Normal Red Blood Count 5.16 10 4.00-5.40 10 [facility]: [address] [facility] Normal Hemoglobin 14.4 g/dL 12.0-15.5 g/dL [facility]: [address] [place] [address] Normal Hematocrit 42.4 % 36.0-47.0 % [facility]: [address] [place] [address] Normal Mean Corpuscular Volume 82.2 fL 80.0 -96.0 fL [facility]: [address] [place] [address] Normal Mean Corpuscular Hemoglobin 27.9 pg 27.0-33.0 pg [facility]: [address] [place] [address] Normal Mean Corpuscular HGB Conc 34.0 g/dL 32.0-36.5 g/dL [facility]: [address] [place] [address] High Red Cell Distribution Width 15.0 % 1 1.5-14.5 % [facility]: [address] [place] [address] Normal Platelet Count, Automated 240 10 150 -450 10 [facility]: 0 [facility] Normal Nucleated Red Blood Cell % 0.0 % 0- 0 % [facility]: [address] [facility] 04/30/2021 Drug Eval Toxicology Rehab Normal A mphetamines Urine Reflex negative negative [facility]: 0 [facility] Normal Barbiturates Urine Reflex negative n egative [facility]: 0 [facility] Normal Benzodiazepines Urine Reflex negativ e negative [facility]: 0 [facility] Normal Cannabinoids Urine Reflex negative n egative [facility]: 0 [facility] Normal Cocaine Metabolite Urine Refle negat estevan negative [facility]: [address] [facility] Normal Methadone Urine Reflex negative nega tive [facility]: [address] [facility] Normal Opiates Urine Reflex negative negati ve [facility]: [address] [facility] Normal Phencyclidine Urine Reflex negative negative [facility]: [address] [facility] 04/30/2021 Type + Screen, Serum Normal Blood Type A posit estevan [facility]: [address] [facility] Normal Ab Screen (Indirect Pamella)vis negat estevan [facility]: [address] [facility] 04/30/2021 UA W/ Reflex to Culture Normal Appearance, Urine Rfx hazy clear [facility]: 83 0 [facility] Normal Color, Urine Rfx annie yellow [facility]: [address] [facility] Normal pH,urine Rfx 5.0 units 5.0-9.0 units [facility]: [address] [facility] Normal Specific [place] Ur Auto Rfx 1.025 1.002-1.035 [facility]: [address] [facility] High Protein, Urine Auto Rfx 2+ mg/dL neg ative mg/dL [facility]: [address] [facility] Normal Glucose, Urine (UA) Auto Rfx n egative mg/dL negative mg/dL [facility]: [address] [facility] High Ketone, Urine Auto Rfx trace mg/dL n egative mg/dL [facility]: [address] [facility] High Urobilinogen, Urine Auto Rfx 4.0 mg/ dL 0.0-2.0 mg/dL [facility]: [address] [facility] Normal Bilirubin, Urine Auto Rfx negative n egative [facility]: [address] [facility] Normal Nitrite, Urine Auto Rfx negative neg ative [facility]: [address] [facility] Normal Leukocyte Esterase Ur Auto Rfx negat estevan negative [facility]: [address] [facility] High Blood, Urine Blood Rfx 3+ negati ve [facility]: [address] [facility] Normal WBC, Urine Auto Rfx 2 /hpf 0-3 /hpf [facility]: [address] [facility] High RBC, Urine Auto Rfx tntc /hpf 0-3 /h pf [facility]: [address] [facility] Normal Bacteria, Urine Auto Rfx negative ne gative [facility]: [address] [facility] Normal Squam Epithelial Cell Ur Aurfx 5 /hp f 0-6 /hpf [facility]: [address] [facility] Normal Transitional Epithelial AU Rfx 1 /hp f none /hpf [facility]: [address] [facility] Normal Mucus, Urine Rfx moderate negative F inal [facility]: [address] [facility] Normal Hyaline Cast, Urine Auto Rfx 0 /lpf 0-1 /lpf [facility]: [address] [facility] 04/30/2021 Syphilis Normal Syphilis nonreactive nonreacti ve [facility]: [address] [facility] 04/30/2021 CMP, Serum or Plasma Normal Glucose, Fastin g 100 mg/dL 70-100 mg/dL [facility]: 83 0 [facility] Normal Blood Urea Nitrogen 10 mg/dL 7-18 mg /dL [facility]: [address] [facility] Normal Creatinine for GFR 0.72 mg/dL 0.55-1 .30 mg/dL [facility]: [address] [facility] Normal Glomerular Filtration Rate > 60.0 >6 0 [facility]: [address] [facility] Normal Sodium Level 141 mEq/L 136-145 mEq/L [facility]: [address] [facility] Normal Potassium Serum 3.7 mEq/L 3.5-5.1 mE q/L [facility]: [address] [facility] High Chloride Level 111 mEq/L 98-107 mEq/ L [facility]: [address] [facility] Normal Carbon Dioxide Level 25 mEq/L 21-32 mEq/L [facility]: [address] [facility] Low Anion Gap 5 mEq/L 8-16 mEq/L [facility]: [address] [facility] Low Calcium Level 8.1 mg/dL 8.5-10.1 mg/ dL [facility]: [address] [facility] Normal AST/SGOT 27 U/L 7-37 U/L [facility]: [address] [facility] Normal ALT/SGPT 22 U/L 12-78 U/L [facility]: [address] [facility] Normal Alkaline Phosphatase 82 U/L 45-117 U /L [facility]: 0 [facility] Normal Bilirubin,total 0.5 mg/dL 0.2-1.0 mg /dL [facility]: [address] [facility] Low Total Protein 4.7 gm/dL 6.4-8.2 gm/d L [facility]: [address] [facility] Low Albumin 2.0 gm/dL 3.2-5.2 gm/dL Padmini l [facility]: 0 [facility] Low Albumin/globulin Ratio 0.7 1.2-2. 2 [facility]: 0 [facility] 03/06/2021 Cbc Normal White Blood Count 9.9 10 4.0-10. 0 10 [facility]: [address] [facility] Normal Red Blood Count 4.84 10 4.00-5.40 10 [facility]: [address] [facility] Normal Hemoglobin 13.8 g/dL 12.0-15.5 g/dL [facility]: 0 [facility] Normal Hematocrit 41.3 % 36.0-47.0 % [facility]: 0 [facility] Normal Mean Corpuscular Volume 85.3 fL 80.0 -96.0 fL [facility]: [address] [facility] Normal Mean Corpuscular Hemoglobin 28.5 pg 27.0-33.0 pg [facility]: [address] [facility] Normal Mean Corpuscular HGB Conc 33.4 g/dL 32.0-36.5 g/dL [facility]: [address] [facility] Normal Red Cell Distribution Width 14.3 % 1 1.5-14.5 % [facility]: [address] [facility] Normal Platelet Count, Automated 234 10 150 -450 10 [facility]: [address] [facility] Normal Nucleated Red Blood Cell % 0.0 % 0- 0 % [facility]: 0 [facility] 03/06/2021 CMP, Serum or Plasma High Glucose, Fastin g 107 mg/dL 70-100 mg/dL [facility]: 83 0 [facility] Low Blood Urea Nitrogen 5 mg/dL 7-18 mg/ dL [facility]: 0 [facility] Low Creatinine for GFR 0.47 mg/dL 0.55-1 .30 mg/dL [facility]: 0 [facility] Normal Glomerular Filtration Rate > 60.0 >6 0 [facility]: [address] [facility] Normal Sodium Level 140 mEq/L 136-145 mEq/L [facility]: 0 [facility] Normal Potassium Serum 3.6 mEq/L 3.5-5.1 mE q/L [facility]: [address] [facility] High Chloride Level 108 mEq/L 98-107 mEq/ L [facility]: 0 [facility] Normal Carbon Dioxide Level 25 mEq/L 21-32 mEq/L [facility]: 0 [facility] Low Anion Gap 7 mEq/L 8-16 mEq/L [facility]: 0 [facility] Normal Calcium Level 9.0 mg/dL 8.5-10.1 mg/ dL [facility]: [address] [facility] High AST/SGOT 38 U/L 7-37 U/L [facility]: [address] [facility] Normal ALT/SGPT 43 U/L 12-78 U/L [facility]: [address] [facility] Normal Alkaline Phosphatase 74 U/L 45-117 U /L [facility]: [address] [facility] Normal Bilirubin,total 0.7 mg/dL 0.2-1.0 mg /dL [facility]: [address] [facility] Normal Total Protein 6.4 gm/dL 6.4-8.2 gm/d L [facility]: 0 [facility] Low Albumin 2.7 gm/dL 3.2-5.2 gm/dL [facility] [address] [place] [address] Low Albumin/globulin Ratio 0.7 1.2-2. 2 [facility]: 0 [facility] 03/06/2021 Hepatitis C Ab, Serum High Hepati tis C Virus Adilia Index > 11.0 index <0.8 index [facility]: 0 [facility] 03/06/2021 Glucose Tolerance Test, 1-Hour Normal Glucose Challenge Test 1 Hour 107 mg/dL less than 140 mg/dL [facility] Center: 0 [facility] 03/06/2021 HBsAg (Hepatitis B Surface Ag), Serum Normal Hepatitis B Surface Antigen negative negative [facility]: 0 [facility] 03/06/2021 Hepatitis B Surface Ab, Qualitative, Serum Norm al Hepatitis B Surface Antibody negative positive [facility] Center: 0 [facility] 03/06/2021 Hepatitis B Core Antibody IgM Normal Hepatitis B Core Antibody IgM negative negative Final [facility] Center: 0 [facility] 03/06/2021 Hepatitis a Antibody IgM Normal Hep atitis a Antibody IgM negative negative [facility]: 0 [facility] 03/06/2021 HIV 1+2 AB + HIV 1 P24 Ag, Qualitative Immunoassay, Serum Normal HIV 1&2 Screen Centaur negative negative [facility]: [address] [facility] 03/06/2021 Type + Screen, Serum Normal Blood Type A posit estevan [facility]: [address] [facility] Normal Ab Screen (Indirect Pamella)vis negat estevan [facility]: [address] [facility] 03/06/2021 Hepatitis C RNA, QL, PCR, Unspecified Specimen ABNORMAL HCV RNA LETTY Qualitative positive negative [facility] Center: [address] [facility] 03/06/2021 Hepatitis C Genotype, Serum or Plasma Normal Hepatitis C Virus Genotype 3 . [facility]: 0 [facility] Normal Comment for Hepc Genotype . [facility]: [address] [facility] 03/06/2021 Hepatitis C RNA, Quant, PCR, Serum Normal Hepatitis C Quantitation [id number] IU/mL . IU/mL [facility]: [address] [facility] Normal Hepatitis C Log10 6.526 . [facility]: [address] [facility] Normal Test Information: . [facility]: [address] [facility] 03/06/2021 Hepatitis a IgG Total ABNORMAL Hepatitis a I gG Total positive negative [facility]: 83 0 [facility] 03/06/2021 Hepatitis B Core Antibody IgG Normal Hepatitis B Core Antibody IgG negative negative [facility]: [address] [facility] 03/06/2021 Hepatitis C Fibrosure [id number] High Fibro sis Score 0.42 0.00-0.21 [facility]: 83 0 [facility] Normal Fibrosis Stage F1-F2 . [facility]: 0 [facility] High Necroinflam Score 0.21 0.00-0.17 F [facility]: [address] [facility] Normal Necroinflamm Grade A0-A1 . [facility]: [address] [facility] High Alpha 2-Macroglobulin 291 mg/dL 110- 276 mg/dL [facility]: [address] [facility] Low Haptoglobin 12 mg/dL 33-278 mg/dL [facility]: [address] [facility] Normal Apolipoprotein a-1 127 mg/dL 116-209 mg/dL [facility]: [address] [facility] Normal Total Bilirubin 0.5 mg/dL 0.0-1.2 mg /dL [facility]: [address] [facility] Normal Ggt 10 IU/L 0-60 IU/L [facility]: [address] [facility] Normal Alt 35 IU/L 0-40 IU/L [facility]: [address] [facility] Normal Interpretation . [facility]: [address] [facility] Normal Fibrosis Scoring . [facility]: [address] [facility] Normal Necroinflam Scoring . [facility]: [address] [facility] Normal Limitations . [facility]: [address] [facility] Normal Comment : . [facility]: [address] [facility] 10/10/2020 Chlamydia, GC & Trich Amp Normal Ch lamydia DNA Amplification negative negative [facility]: [address] [facility] High GC DNA Amplification positive negati ve [facility]: [address] [facility] Normal Trichomonas Vaginalis (Amp) not dete cted negative [facility]: [address] [facility] 10/10/2020 CBC W/ Auto Diff Normal White Blood Count 7.4 10 4.0-10.0 10 [facility]: [address] [facility] Normal Red Blood Count 5.35 10 4.00-5.40 10 [facility]: [address] [facility] Normal Hemoglobin 14.7 g/dL 12.0-15.5 g/dL [facility]: [address] [facility] Normal Hematocrit 44.3 % 36.0-47.0 % [facility]: [address] [facility] Normal Mean Corpuscular Volume 82.8 fL 80.0 -96.0 fL Final [facility]: [address] [facility] Normal Mean Corpuscular Hemoglobin 27.5 pg 27.0-33.0 pg Final [facility]: [address] [facility] Normal Mean Corpuscular HGB Conc 33.2 g/dL 32.0-36.5 g/dL Final [facility]: [address] [facility] High Red Cell Distribution Width 15.0 % 1 1.5-14.5 % Final [facility]: [address] [place] [address] Normal Platelet Count, Automated 233 10 150 -450 10 [facility]: 0 [facility] Normal Neutrophils % 64.8 % 36.0-66.0 % [facility]: [address] [facility] Low Lymph % 20.8 % 24.0-44.0 % Final [facility]: [address] [facility] High Todd % 8.0 % 0.0-5.0 % Final [facility]: 0 [facility] High Eos % 5.2 % 0.0-3.0 % [facility]: 0 [facility] Normal Baso % 0.8 % 0.0-1.0 % [facility]: [address] [facility] Normal Immature Granulocyte % 0.4 % 0-3.0 % [facility]: [address] [facility] Normal Nucleated Red Blood Cell % 0.0 % 0- 0 % [facility]: [address] [facility] Normal Neutrophils # 4.8 10 1.5-8.5 10 [facility]: 0 [facility] Normal Lymph # 1.5 10 1.5-5.0 10 [facility]: [address] [facility] Normal Todd # 0.6 10 0.0-0.8 10 [facility]: [address] [facility] Normal Eos # 0.4 10 0.0-0.5 10 [facility]: [address] [facility] Normal Baso # 0.1 10 0.0-0.2 10 [facility]: 0 [facility] 10/10/2020 CMP, Serum or Plasma Blood venous Normal Glu cose, Fasting 88 mg/dL 70-100 mg/dL [facility]: [address] [place] [address] Blood venous Normal Blood Urea Nitrogen 7 mg/dL 7 -18 mg/dL [facility]: [address] [place] [address] Blood venous Normal Creatinine for GFR 0.58 mg/dL 0.55-1.30 mg/dL [facility]: [address] [place] [address] Blood venous Normal Glomerular Filtration Rate > 60.0 >60 [facility]: [address] [place] [address] Blood venous Normal Sodium Level 140 mEq/L 136-14 5 mEq/L [facility]: [address] [place] [address] Blood venous Normal Potassium Serum 4.2 mEq/L 3.5 -5.1 mEq/L [facility]: [address] [place] [address] Blood venous Normal Chloride Level 106 mEq/L 98-1 07 mEq/L [facility]: [address] [place] [address] Blood venous Normal Carbon Dioxide Level 25 mEq/L 21-32 mEq/L [facility]: [address] [place] [address] Blood venous Normal Anion Gap 9 mEq/L 8-16 mEq/L [facility]: [address] [place] [address] Blood venous Normal Calcium Level 9.6 mg/dL 8.5-1 0.1 mg/dL [facility]: 0 [facility] Blood venous Normal AST/SGOT 29 U/L 7-37 U/L [facility]: [address] [place] [address] Blood venous Normal ALT/SGPT 44 U/L 12-78 U/L [facility]: [address] [place] [address] Blood venous Low Alkaline Phosphatase 39 U/L 4 5-117 U/L [facility]: [address] [place] [address] Blood venous Normal Bilirubin,total 0.4 mg/dL 0.2 -1.0 mg/dL [facility]: [address] [place] [address] Blood venous Normal Total Protein 7.3 gm/dL 6.4-8 .2 gm/dL [facility]: [address] [place] [address] Blood venous Normal Albumin 3.9 gm/dL 3.2-5.2 gm/ dL [facility]: [address] [place] [address] Blood venous Low Albumin/globulin Ratio 1.1 1.2-2.2 [facility]: [address] [place] [address] 10/10/2020 Hepatitis C Ab, Serum Blood venous High Hepatitis C Virus Adilia Index > 11.0 index <0.8 index [facility]: [address] [place] [address] 10/10/2020 HIV 1+2 AB + HIV 1 P24 Ag, Qualitative Immunoassay, Serum Normal HIV 1&2 Screen Centaur negative negative [facility]: [address] [place] [address] 10/10/2020 Hepatitis C RNA, QL, PCR, Unspecified Specimen ABNORMAL HCV RNA LETTY Qualitative positive negative [facility]: [address] [place] [address] 09/11/2020 Cbc Normal White Blood Count 7.9 10 4.0-10. 0 10 [facility]: [address] [place] [address] High Red Blood Count 5.48 10 4.00-5.40 10 [facility]: [address] [place] [address] Normal Hemoglobin 14.3 g/dL 12.0-15.5 g/dL [facility]: [address] [place] [address] Normal Hematocrit 43.8 % 36.0-47.0 % [facility]: [address] [place] [address] Low Mean Corpuscular Volume 79.9 fL 80.0 -96.0 fL [facility]: [address] [place] [address] Low Mean Corpuscular Hemoglobin 26.1 pg 27.0-33.0 pg [facility]: [address] [place] [address] Normal Mean Corpuscular HGB Conc 32.6 g/dL 32.0-36.5 g/dL [facility]: [address] [place] [address] High Red Cell Distribution Width 14.6 % 1 1.5-14.5 % [facility]: [address] [place] [address] Normal Platelet Count, Automated 258 10 150 -450 10 [facility]: [address] [place] [address] Normal Nucleated Red Blood Cell % 0.0 % 0- 0 % [facility]: [address] [place] [address] 09/11/2020 BMP, Serum or Plasma Normal Glucose, Fastin g 92 mg/dL 70-100 mg/dL [facility]: 83 0 [facility] Normal Blood Urea Nitrogen 8 mg/dL 7-18 mg/ dL [facility]: [address] [place] [address] Normal Creatinine for GFR 0.63 mg/dL 0.55-1 .30 mg/dL [facility]: [address] [place] [address] Normal Glomerular Filtration Rate > 60.0 >6 0 [facility]: 0 [facility] Normal Sodium Level 137 mEq/L 136-145 mEq/L [facility]: [address] [place] [address] Normal Potassium Serum 4.2 mEq/L 3.5-5.1 mE q/L [facility]: [address] [place] [address] Normal Chloride Level 106 mEq/L 98-107 mEq/ L [facility]: [address] [place] [address] Normal Carbon Dioxide Level 26 mEq/L 21-32 mEq/L [facility]: [address] [place] [address] Low Anion Gap 5 mEq/L 8-16 mEq/L [facility]: [address] [place] [address] Normal Calcium Level 9.1 mg/dL 8.5-10.1 mg/ dL [facility]: 0 [facility] Past Encounters 05/12/2021 Chronic Post-traumatic Stress Disorder Nena Ledezma, [facility]: [address] [facility], [facility] [address], [place] [address], Ph. 03/10/2021 Chronic Post-traumatic Stress Disorder RAMU RodríguezW-R: [address] [place] [address], Ph. 03/07/2021 Hidradenitis Suppurativa; [facility] [address] [place] [address], Ph. 01/06/2021 Allergic Rhinitis; Acute Serous Otitis Media of Bilateral Ears; Hidradenitis Suppurativa ERIC Garcia-C: [address] [place] [address], Ph. 12/30/2020 Chronic Post-traumatic Stress Disorder RAMU RodríguezW-R: [address] [place] [address], Ph. 11/11/2020 Chronic Post-traumatic Stress Disorder Nena Ledezma [employer]-[facility]: [address] [place] [address], Ph. 11/04/2020 Schizoaffective Disorder Wally Cerrato MD: [address] [place] [address], Ph. 10/10/2020 Atopic Dermatitis; Abscess of Skin And/or Subcutaneous Tissue; HIV Screening; Nicotine Dependence JR Johnson: [address] [place] [address], Ph. 09/30/2020 Chronic Post-traumatic Stress Disorder Nena Ledezma [employer]: [address] [place] [address], Ph. 09/16/2020 Chronic Post-traumatic Stress Disorder RAMU RodríguezW-R: [address] [place] [address], Ph. 08/28/2020 Intertrigo JR Johnson: [address] [place] [address], Ph. 08/19/2020 Chronic Post-traumatic Stress Disorder Nena Ledezma, [employer]: [address] [place] [address], Ph. 07/04/2020 Chronic Post-traumatic Stress Disorder Nena Ledezma, [employer]: [address], [place] [address], Ph. Social History Tobacco Smoking Status Light Tobacco Smoker (2 packs per a w [facility]) Notes: Pt has cut down to 6 cigs/day Vaccine List Notes: Pt declined Flu Vaccine Plan of Care Patient Instructions Please continue triamcinolone ointment a s prescribed. Referral made to dematology. inflamed rashes to bilat breast folds and inner thigh on exam. abcesses to back and inner thigh. non fluctuant. no drainage. Please use warm compresses 2-3 times daily. script sent to start ABX. Reminders Provider Appointments None recorded. Lab None recorded. Referral None recorded. Procedures None recorded. Surgeries None recorded. Imaging None recorded. Vitals 01/06/2021 02:20PM ESTABLISHED [id number] Height Weight BMI Blood Pressure 66.5 in 195 lbs 2 oz 31 kg/m2 121/74 mm[Hg] 11/04/2020 02:30PM TELEPSYCH 30 Height 66.5 in 10/10/2020 10:20AM ESTABLISHED [id number] Height Weight BMI Blood Pressure 66.5 in 187 lbs 8 oz 29.8 kg/m2 114/71 mm[Hg] 08/28/2020 04:00PM ESTABLISHED [id number] Height Weight BMI Blood Pressure 66.5 in 180 lbs 6 oz 28.7 kg/m2 128/74 mm[Hg] 06/19/2020 Height Weight BMI Blood Pressure 66.5 in 170 lbs 27.13 kg/m2 134/72 mm[Hg] 06/13/2020 Height Weight BMI Blood Pressure 66.5 in 171 lbs 9.6 oz 27.38 kg/m2 128/78 mm[Hg ] 05/15/2020 Height Weight BMI Blood Pressure 66.5 in 169 lbs 26.97 kg/m2 114/65 mm[Hg] 05/13/2020 Height Weight BMI 66.5 in 169 lbs 8 oz 27.05 kg/m2 02/22/2020 Height Weight BMI Blood Pressure 66.5 in 170 lbs 6.08 oz 27.19 kg/m2 101/68 mm[H g] 01/29/2020 Height Weight BMI 66.5 in 172 lbs 2.08 oz 27.47 kg/m2 12/21/2019 Height Weight BMI 66.5 in 177 lbs 2.08 oz 28.26 kg/m2 10/30/2019 Height Weight BMI 66.5 in 187 lbs 7.04 oz 29.91 kg/m2 09/25/2019 Height Weight BMI 66.5 in 191 lbs 2.08 oz 30.50 kg/m2 09/12/2019 Height Weight BMI Blood Pressure 66.5 in 192 lbs 30.64 kg/m2 114/67 mm[Hg]
--- OUTSIDE RECORDS SUMMARY | 2021-07-21 21:32 | CCD ---
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 Active confirmed 31 783106 Problem Acute hepatitis C virus infection without hepatic coma B17.10 Active confirmed 68931611 Problem Polysubstance abuse F19.10 Active confirmed 406454316 Problem Chronic hepatitis C without hepatic coma B18.2 Active confirmed 139578422 Problem Supervision of other normal Z34.80 Ac tive confirm [id number] ALLERGIES Allergen (clinical drug ingredient) Drug/Non Drug Allergy do cumented on EMR Reaction Allergy Type Onset Date Status Latex Latex Unknown Non Drug Allergy Active ENCOUNTERS from 1994 to 2021-04-28 Encounter Location Date Provider Diagnosis [facility] [address] [facility] [facility] [phone] [place] [address] Apr, Omar Castaneda Encounter for superv ision of normal first , third trimester Z34.03 and 38 weeks gestation of Z3A.38 IMMUNIZATIONS Vaccine Route Administration Date Status TDAP 0.5mL Boostrix IM Intramuscular March 04, 2021 Administere d Hepatitis B Adult 1.0mL Engerix-B IM Intramuscular Jul 25, 2020 Administered SOCIAL HISTORY Tobacco Use: Social History Observation Description Date Details (start date - stop date) Current Smoker Sex Assigned At : Social History Observation Description Sex Assigned At Unknown Education: Question Answer Notes Level of Education: High School Language: Question Answer Notes Languages spoken: Mauritian Tobacco Use: Question Answer Notes Are you a: current smoker Patient counseled on the dangers of tobacco use and urged to quit: 01/24/2021 How many cigarettes a day do you smoke? 6-10 REASON FOR REFERRAL No Information VITAL SIGNS Weight 204 lbs Apr, Height 67 in Apr, BMI 31.951 kg/m2 Apr, Blood pressure systolic 132 mm Hg Apr, Blood pressure diastolic 78 mm Hg Apr, MEDICATIONS Medication SIG (Take, Route, Frequency, Duration) Notes Start Da te End Date Status SEROquel 50 MG 1 tablet at bedtime Orally Once a day Active LaMICtal 25 MG as directed Orally Ac tive 28-0.8 MG 1 tablet Orally Once a day Active PROCEDURES No Information RESULTS No Results REASON FOR VISIT 1WK PN & PRE OP SURG 04/26/21 MEDICAL (GENERAL) HISTORY Type Description Date Medical [...] mild periportal edema bicarbonate uterus no splenomegaly Medical History Raped age 6-8 Surgical History multiple foot surgery, amputated toe Surgical History Warts lasered from hands and right knee Hospitalization History Surgical related Goals Section No Information Health Concerns No Information MEDICAL EQUIPMENT No Information MENTAL STATUS No Information FUNCTIONAL STATUS No Information ASSESSMENTS Encounter Date Diagnosis Assessment Notes Treatment Notes Treatm ent Clinical Notes Apr, Encounter for supervision of normal first , third trimester (ICD-10 - Z34.03) Apr, 38 weeks gestation of (ICD-10 - Z3A.38 ) PLAN OF TREATMENT Next Appt Details Provider Name:Omar Castaneda, 2021-04-30 07:30:00 AM, [address], , [place], [address], Provider Name:Chrissie Del Castillo, 2021-04-30 0 7:30:00 AM, [address] [place] [address], , [place], [address], Provider Name:Omar Castaneda, 2021-05-13 10:15:00 AM, [address] [place] [address], , [place], [address], Provider Name:Omar Castaneda, 2021-06-25 10:45:00 AM, [address] [place] [address], , [place], [address], Insurance Providers Payer Name Payer Address Payer Phone Insured Name Patient Relati onship to Insured Coverage Start Date Coverage End Date [facility] [employer] [facility] [place] [place] [address] [facility] [phone] RADHA MCKEE self
--- OUTSIDE RECORDS SUMMARY | 2021-07-21 21:33 | CCD ---
Author Author [facility] Organization [facility] Address Unknown Phone Unavailable Support Name Relationship Address Phone DAYO ELDER Next Of Kin [address] [facility] [address] [place] [address] DAYO GÓMEZ Next Of Kin [address] [place] [address] THONY ELDER Next Of Kin [address] [place] [address] Ute Gonzales Next Of Kin Unknown Unavailable Malia Squires Next Of Kin [address] [place] [address] VIJAY GONZALES Next Of Kin [address] [place] [address] Demarcus Baez MD Next Of Kin [address] [place] [address] DISABLED Next Of Kin Unknown Unavailable ISMAEL GUY Next Of Kin [address] [place] [address] UE Next Of Kin Unknown Unavailable CONVERGYS Next Of Kin [address] [place] [address] STREAM Next Of Kin [address] [place] [address] [employer] [place] [address] [employer] Next Of Kin [place] [address] Next Of Kin Unknown Unavailable FELISHA [place] [address] JOHN WANG Next Of Kin [address] [place] [address] Viktoriya Vega Next Of Kin [address] [place] [address] UN Next Of Kin Unknown Unavailable Felisha Wang Next Of Kin unknown [place], [place] [id number] UNKNOWN, DAYO ECON [address] [place] [address] Unavailable Care Team Providers Care Fringe Weaver Name Role Phone Malia Kimble TIRE SERVICE TECHNICIAN TIRE SERVICE TECHNICIAN Unavailable Unavailable Linda Cerrato MD Unavailable Unavailable Linda Cerrato MD Unavailable Unavailable Linda Cerrato MD Unavailable Unavailable Linda Cerrato MD Unavailable Unavailable Linda Cerrato MD Unavailable Unavailable Linda Cerrato MD Unavailable Unavailable Linda Cerrato MD Unavailable Unavailable Linda Cerrato MD Unavailable Unavailable Linda Cerrato MD Unavailable Unavailable Carlos Alberto, A Viktoriya TIRE SERVICE TECHNICIAN Unavailable Unavailable Carlos Alberto, A Viktoriya TIRE SERVICE TECHNICIAN Unavailable Unavailable Carlos Alberto, A Viktoriya TIRE SERVICE TECHNICIAN Unavailable Unavailable Carlos Alberto, A Viktoriya TIRE SERVICE TECHNICIAN Unavailable Unavailable Carlos Alberto, A Viktoriya TIRE SERVICE TECHNICIAN Unavailable Unavailable Carlos Alberto, A Viktoriya TIRE SERVICE TECHNICIAN Unavailable Unavailable [place], A Viktoriya TIRE SERVICE TECHNICIAN Unavailable Unavailable [place], A Viktoriya TIRE SERVICE TECHNICIAN Unavailable Unavailable [place], A Viktoriya TIRE SERVICE TECHNICIAN Unavailable Unavailable [place], A Viktoriya TIRE SERVICE TECHNICIAN Unavailable Unavailable [place], A Viktoriya TIRE SERVICE TECHNICIAN Unavailable Unavailable [place], A Viktoriya TIRE SERVICE TECHNICIAN Unavailable Unavailable [place], A Viktoriya TIRE SERVICE TECHNICIAN Unavailable Unavailable [place], A Viktoriya TIRE SERVICE TECHNICIAN Unavailable Unavailable [place], A Viktoriya TIRE SERVICE TECHNICIAN Unavailable Unavailable [place], A Viktoriya TIRE SERVICE TECHNICIAN Unavailable Unavailable [place], A Viktoriya TIRE SERVICE TECHNICIAN Unavailable Unavailable [place], A Viktoriya TIRE SERVICE TECHNICIAN Unavailable Unavailable [place], A Viktoriya TIRE SERVICE TECHNICIAN Unavailable Unavailable [place], A Viktoriya TIRE SERVICE TECHNICIAN Unavailable Unavailable Carlos Alberto, A Viktoriya TIRE SERVICE TECHNICIAN Unavailable Unavailable Carlos Alberto, A Viktoriya TIRE SERVICE TECHNICIAN Unavailable Unavailable Carlos Alberto, A Viktoriya TIRE SERVICE TECHNICIAN Unavailable Unavailable Carlos Alberto, A Viktoriya TIRE SERVICE TECHNICIAN Unavailable Unavailable Carlos Alberto, A Viktoriya TIRE SERVICE TECHNICIAN Unavailable Unavailable Carlos Alberto, A Viktoriya TIRE SERVICE TECHNICIAN Unavailable Unavailable Carlos Alberto, A Viktoriya TIRE SERVICE TECHNICIAN Unavailable Unavailable Carlos Alberto, A Viktoriya TIRE SERVICE TECHNICIAN Unavailable Unavailable Carlos Alberto, A Viktoriya TIRE SERVICE TECHNICIAN Unavailable Unavailable Carlos Alberto, A Viktoriya TIRE SERVICE TECHNICIAN Unavailable Unavailable Carlos Alberto, A Viktoriya TIRE SERVICE TECHNICIAN Unavailable Unavailable [employer], Nena Unavailable Unavailable [employer], Nena Unavailable Unavailable Kimble, F Malia TIRE SERVICE TECHNICIAN-BC Unavailable Unavailable Kimble, F Malia TIRE SERVICE TECHNICIAN-BC Unavailable Unavailable Kimble, F Malia TIRE SERVICE TECHNICIAN-BC Unavailable Unavailable Kimble, F Malia TIRE SERVICE TECHNICIAN-BC Unavailable Unavailable Kimble, F Malia TIRE SERVICE TECHNICIAN-BC Unavailable Unavailable Kimble, F Malia TIRE SERVICE TECHNICIAN-BC Unavailable Unavailable Kimble, F Malia TIRE SERVICE TECHNICIAN-BC Unavailable Unavailable Kimble, F Malia TIRE SERVICE TECHNICIAN-BC Unavailable Unavailable Kimble, F Malia TIRE SERVICE TECHNICIAN-BC Unavailable Unavailable [place], F Malia TIRE SERVICE TECHNICIAN-BC Unavailable Unavailable Kimble, F Malia TIRE SERVICE TECHNICIAN-BC Unavailable Unavailable Kimble, F Malia TIRE SERVICE TECHNICIAN-BC Unavailable Unavailable Kimble, F Malia TIRE SERVICE TECHNICIAN-BC Unavailable Unavailable Kimble, F Malia TIRE SERVICE TECHNICIAN-BC Unavailable Unavailable Kimble, F Malia TIRE SERVICE TECHNICIAN-BC Unavailable Unavailable Kimble, F Malia TIRE SERVICE TECHNICIAN-BC Unavailable Unavailable Kimble, F Malia TIRE SERVICE TECHNICIAN-BC Unavailable Unavailable Kimble, F Malia TIRE SERVICE TECHNICIAN-BC Unavailable Unavailable Kimble, F Malia TIRE SERVICE TECHNICIAN-BC Unavailable Unavailable Kimble, F Malia TIRE SERVICE TECHNICIAN-BC Unavailable Unavailable Kimble, F Malia TIRE SERVICE TECHNICIAN-BC Unavailable Unavailable Kimble, F Malia TIRE SERVICE TECHNICIAN-BC Unavailable Unavailable Kimble, F Malia TIRE SERVICE TECHNICIAN-BC Unavailable Unavailable Scordo, M Rebecca PA Unavailable Unavailable Scordo, M Rebecca PA Unavailable Unavailable Scordo, M Rebecca PA Unavailable Unavailable Scordo, M Rebecca PA Unavailable Unavailable Scordo, M Rebecca PA Unavailable Unavailable Scordo, M Rebecca PA Unavailable Unavailable Scordo, M Rebecca PA Unavailable Unavailable Scordo, M Rebecca PA Unavailable Unavailable Scordo, M Rebecca PA Unavailable Unavailable Scordo, M Rebecca PA Unavailable Unavailable Scordo, M Rebecca PA Unavailable Unavailable Scordo, M Rebecca PA Unavailable Unavailable Scordo, M Rebecca PA Unavailable Unavailable Scordo, M Rebecca PA Unavailable Unavailable Scordo, M Rebecca PA Unavailable Unavailable Scordo, M Rebecca PA Unavailable Unavailable Scordo, M Rebecca PA Unavailable Unavailable Scordo, M Rebecca PA Unavailable Unavailable Scordo, M Rebecca PA Unavailable Unavailable Scordo, M Rebecca PA Unavailable Unavailable Scordo, M Rebecca PA Unavailable Unavailable Scordo, M Rebecca PA Unavailable Unavailable Scordo, M Rebecca PA Unavailable Unavailable Scordo, M Rebecca PA Unavailable Unavailable Scordo, M Rebecca PA Unavailable Unavailable Scordo, M Rebecca PA Unavailable Unavailable Scordo, M Rebecca PA Unavailable Unavailable Scordo, M Rebecca PA Unavailable Unavailable Scordo, M Rebecca PA Unavailable Unavailable Scordo, M Rebecca PA Unavailable Unavailable Scordo, M Rebecca PA Unavailable Unavailable Scordo, M Rebecca PA Unavailable Unavailable Scordo, M Rebecca PA Unavailable Unavailable Scordo, M Rebecca PA Unavailable Unavailable Scordo, M Rebecca PA Unavailable Unavailable Scordo, M Rebecca PA Unavailable Unavailable Scordo, M Rebecca PA Unavailable Unavailable Scordo, M Rebecca PA Unavailable Unavailable Scordo, M Rebecca PA Unavailable Unavailable Scordo, M Rebecca PA Unavailable Unavailable Scordo, M Rebecca PA Unavailable Unavailable Scordo, M Rebecca PA Unavailable Unavailable Scordo, M Rebecca PA Unavailable Unavailable Scordo, M Rebecca PA Unavailable Unavailable Scordo, M Rebecca PA Unavailable Unavailable Scordo, M Rebecca PA Unavailable Unavailable Scordo, M Rebecca PA Unavailable Unavailable Re-disclosure Warning The records that [...] is protected by Article 27-F of the [facility] Public Health law. If you continue you may have access to information: Regarding HIV / AIDS; Provided by facilities licensed or operated by the [facility] Office of Mental Health; or Provided by the [facility] Office for People With Developmental Disabilities. If such information is present, then the following [facility] mandated warning applies: This information has been [...] law may result in a fine or mcfp sentence or both. A general authorization for the release of medical or other information is NOT sufficient authorization for further disc losure. Family History Family Member Name Family Member Gender Family Member Status Date o f Status Description Data Source(s) Unknown Male Problem MEDENT ([facility]) Unknown Male Problem MEDENT ([facility]) Encounters Encounter Providers Location Date Indications Data Source(s ) Nena Ledezma LCSW-R: [address] [facility], [facility] [address], [place] [address], Ph. Attender: Nena James [facility] Medical 05/12/2021 12:00:00 AM EDT NINA ([facility]) ( ESTOB) [facility] Est OB [address] [place] [address] 04/22/2021 12:00:00 AM EDT eCW1 ([facility]) ( ESTOB) [facility] Est OB [address] [place] [address] 04/01/2021 12:00:00 AM EDT eCW1 ([facility]) Nena Ledezma LCSW-R: [address], [place] [address], Ph. Attender: Nena James [facility] Medical 03/10/2021 12:00:00 AM EDT NINA ([facility]) Nena Ledezma LCSW-R: [address], [place] [address], Ph. Attender: Nena James [facility] Medical 03/10/2021 12:00:00 AM EDT [facility]) Rebecca Aguirre PA-C: [address], [place] [address], Ph. Attender: Rebecca REYES [facility] Medical 03/07/2021 12:00:00 AM EDT NINA ([facility]) Rebecca Aguirre PA-C: [address], [facility] [place] [address], Ph. Attender: Rebecca REYES [facility] Medical 03/07/2021 12:00:00 AM EDT NINA ([facility]) Rebecca Aguirre PA-C: [address], [facility] [place] [address], Ph. Attender: Rebecca REYES [facility] Medical 03/07/2021 12:00:00 AM EDT NINA ([facility]) Unknown [address] [facility], [facility] [address] 03/05/2021 12:00:00 AM EDT eCW1 ([facility]) ( ESTOB) [facility] [address] [place] [address] 03/04/2021 12:00:00 AM EDT eCW1 ([facility]) (WC ESTOB) [facility] [address] [place] [address] 01/24/2021 12:00:00 AM EDT eCW1 ([facility]) Rebecca Aguirre PA-C: [address], [place] [address], Ph. Attender: Rebecca REYES [facility] Medical 01/06/2021 12:00:00 AM EDT NINA ([facility]) Rebecca Aguirre PA-C: [address], [place] [address], Ph. Attender: Rebecca REYES [facility] Medical 01/06/2021 12:00:00 AM EDT OVID ([facility]) Rebecca Aguirre PA-C: [address], [place] [address], Ph. Attender: Rebecca REYES [facility] Medical 01/06/2021 12:00:00 AM EDT OVID ([facility]) Rebecca Aguirre PA-C: [address], [place] [address], Ph. Attender: Rebecca REYES [facility] Medical 01/06/2021 12:00:00 AM EDT OVID ([facility]) RAMU RodríguezW-R: [address], [place] [address], Ph. Attender: Nena James [facility] Medical 12/30/2020 12:00:00 AM EDT [facility]) RAMU RodríguezW-R: [address], [place] [address], Ph. Attender: Nena James [facility] Medical 12/30/2020 12:00:00 AM EDT OVID ([facility]) Nena Ledezma LCSW-R: [address], [place] [address], Ph. Attender: Nena James [facility] Medical 12/30/2020 12:00:00 AM EDT OVID ([facility]) RAMU RodríguezW-R: [address], [place] [address], Ph. Attender: Nena James [facility] Medical 12/30/2020 12:00:00 AM EDT NINA ([facility]) RAMU RodríguezW-R: [address], [place] [address], Ph. Attender: Nena James [facility] Medical 12/30/2020 12:00:00 AM EDT NINA ([facility]) Unknown [address] [facility] [address] 12/20/2020 12:00:00 AM EDT eCW1 ([facility]) (WC ESTOB) [facility] Est OB [address] [place] [address] 12/19/2020 12:00:00 AM EDT eCW1 ([facility]) Nena Ledezma LCSW-R: [address], [place] [address], Ph. Attender: Nena James [facility] Medical 11/11/2020 12:00:00 AM EST NINA ([facility]) Nena Ledezma LCSW-R: [address], [place] [address], Ph. Attender: Nena James [facility] Medical 11/11/2020 12:00:00 AM EST NINA ([facility]) Nena Ledezma LCSW-R: [address], [place] [address], Ph. Attender: Nena James [facility] Medical 11/11/2020 12:00:00 AM EST NINA ([facility]) RAMU RodríguezW-R: [address], [place] [address], Ph. Attender: Nena James [facility] Medical 11/11/2020 12:00:00 AM EST NINA ([facility]) RAMU RodríguezW-R: [address], [place] [address], Ph. Attender: Nena James [facility] Medical 11/11/2020 12:00:00 AM EST NINA ([facility]) RAMU RodríguezW-R: [address], [place] [address], Ph. Attender: Nena James [facility] Medical 11/11/2020 12:00:00 AM EST NINA ([facility]) Wally Cerrato MD: [address], [place] [address], Ph. Attender: Wally Cerrato MD [facility] Medical 11/04/2020 12:00:00 AM EST NINA ([facility]) Wally Cerrato MD: [address], [place] [address], Ph. Attender: Wally Cerrato MD [facility] Medical 11/04/2020 12:00:00 AM EST NINA ([facility]) Wally Cerrato MD: [address], [place] [address], Ph. Attender: Wally Cerrato MD [facility] Medical 11/04/2020 12:00:00 AM EST NINA ([facility]) Wally Cerrato MD: [address], [place] [address], Ph. Attender: Wally Cerrato MD [facility] Medical 11/04/2020 12:00:00 AM EST NINA ([facility]) Wally Cerrato MD: [address], [place] [address], Ph. Attender: Wally Cerrato MD [facility] Medical 11/04/2020 12:00:00 AM EST NINA ([facility]) Wally Cerrato MD: [address], [place] [address], Ph. Attender: Wally Cerrato MD [facility] Medical 11/04/2020 12:00:00 AM EST NINA ([facility]) Wally Cerrato MD: [address], [place] [address], Ph. Attender: Wally Cerrato MD [facility] Medical 11/04/2020 12:00:00 AM EST NINA ([facility]) NAYLA JohnsonBC: [address], [place] [address], Ph. Attender: Viktoriya Carcamo [facility] Medical 10/10/2020 12:00:00 AM EST NINA ([facility]) NAYLA JohnsonBC: [address], [place] [address], Ph. Attender: Viktoriya Carcamo [facility] Medical 10/10/2020 12:00:00 AM EST NINA ([facility]) JR Johnson: [address], [place] [address], Ph. Attender: Viktoriya Carcamo [facility] Medical 10/10/2020 12:00:00 AM EST NINA ([facility]) NAYLA JohnsonBC: [address], [place] [address], Ph. Attender: Viktoriya Carcamo [facility] Medical 10/10/2020 12:00:00 AM EST NINA ([facility]) Viktoriya Carcamo [facility]: [address], [place] [address], Ph. Attender: Viktoriya Carcamo [facility] Medical 10/10/2020 12:00:00 AM EST NINA ([facility]) Viktoriya Carcamo [facility]: [address], [place] [address], Ph. Attender: Viktoriya Carcamo [facility] Medical 10/10/2020 12:00:00 AM EST NINA ([facility]) Viktoriya Carcamo [facility]: [address], [place] [address], Ph. Attender: Viktoriya Carcamo [facility] Medical 10/10/2020 12:00:00 AM EST NINA ([facility]) Viktoriya Carcamo [facility]: [address], [place] [address], Ph. Attender: Viktoriya Carcamo [facility] Medical 10/10/2020 12:00:00 AM EST NINA ([facility]) Viktoriya Carcamo [facility]: [address], [place] [address], Ph. Attender: Viktoriya Carcamo [facility] Medical 10/10/2020 12:00:00 AM EST NINA ([facility]) Nena Ledezma LCSW-R: [address], [place] [address], Ph. Attender: Nena James [facility] Medical 09/30/2020 12:00:00 AM EST NINA ([facility]) RAMU RodríguezW-R: [address], [place] [address], Ph. Attender: Nena James [facility] Medical 09/30/2020 12:00:00 AM EST NINA ([facility]) RAMU RodríguezW-R: [address], [place] [address], Ph. Attender: Nena James [facility] Medical 09/30/2020 12:00:00 AM EST NINA [facility]) RAMU RodríguezW-R: [address], [place] [address], Ph. Attender: Nenasly James [facility] Medical 09/30/2020 12:00:00 AM EST NINA ([facility]) RAMU RodríguezW-R: [address], [place] [address], Ph. Attender: Nena James [facility] Medical 09/30/2020 12:00:00 AM EST NINA ([facility]) RAMU RodríguezW-R: [address], [place] [address], Ph. Attender: Nena Erika [facility] Medical 09/30/2020 12:00:00 AM EST NINA ([facility]) RAMU RodríguezW-R: [address], [place] [address], Ph. Attender: Nena James [facility] Medical 09/30/2020 12:00:00 AM EST NINA ([facility]) RAMU RodríguezW-R: [address], [place] [address], Ph. Attender: Nena James [facility] Medical 09/30/2020 12:00:00 AM EST NINA ([facility]) RAMU RodríguezW-R: [address], [place] [address], Ph. Attender: Nena Dickinsonmaxine [facility] Medical 09/30/2020 12:00:00 AM EST NINA ([facility]) RAMU RodríguezW-R: [address], [place] [address], Ph. Attender: Nena Gardunokirstenannymaxine [facility] Medical 09/30/2020 12:00:00 AM EST NINA ([facility]) RAMU RodríguezW-R: [address], [place] [address], Ph. Attender: Nena James [facility] Medical 09/16/2020 12:00:00 AM EST NINA ([facility]) Nena Ledezma LCSW-R: [address], [place] [address], Ph. Attender: Nena Gardunotadeo [facility] Medical 09/16/2020 12:00:00 AM EST NINA ([facility]) RAMU RodríguezW-R: [address], [place] [address], Ph. Attender: Nenasly James [facility] Medical 09/16/2020 12:00:00 AM EST NINA ([facility]) RAMU RodríguezW-R: [address], [place] [address], Ph. Attender: Nena Eddieannymaxine [facility] Medical 09/16/2020 12:00:00 AM EST NINA ([facility]) RAMU RodríguezW-R: [address], [place] [address], Ph. Attender: Nenasly James [facility] Medical 09/16/2020 12:00:00 AM CLARISSE WOOD ([facility]) RAMU RodríguezW-R: [address], [place] [address], Ph. Attender: Nena James [facility] Medical 09/16/2020 12:00:00 AM EST NINA ([facility]) RAMU RodríguezW-R: [address], [place] [address], Ph. Attender: Nena James [facility] Medical 09/16/2020 12:00:00 AM CLARISSE WOOD ([facility]) Nena Ledezma LCSW-R: [address], [place] [address], Ph. Attender: Nena James [facility] Medical 09/16/2020 12:00:00 AM EST NINA ([facility]) RAMU RodríguezW-R: [address], [place] [address], Ph. Attender: Nena James [facility] Medical 09/16/2020 12:00:00 AM EST NINA ([facility]) Nena Ledezma, [employer] MANAGER-R: [address], [place] [address], Ph. Attender: Nena James [facility] Medical 09/16/2020 12:00:00 AM EST NINA ([facility]) Nenasly Ledezma LCSW-R: [address], [place] [address], Ph. Attender: Nena James [facility] Medical 09/16/2020 12:00:00 AM EST NINA ([facility]) Viktoriya Carcamo TIRE SERVICE TECHNICIAN-: [address], [place] [address], Ph. Attender: Viktoriya Carcamo [facility] Medical 08/28/2020 12:00:00 AM EST NINA ([facility]) [facility] [address], [place] [address], Ph. Attender: Viktoriya Carcamo [facility] Medical 08/28/2020 12:00:00 AM EST NINA ([facility]) NAYLA Johnson: [address], [place] [address], Ph. Attender: Viktoriya Carcamo [facility] Medical 08/28/2020 12:00:00 AM EST NINA ([facility]) NAYLA Johnson: [address], [place] [address], Ph. Attender: Viktoriya Carcamo [facility] Medical 08/28/2020 12:00:00 AM EST NINA ([facility]) NAYLA Johnson: [address], [place] [address], Ph. Attender: Viktoriya Carcamo [facility] Medical 08/28/2020 12:00:00 AM EST NINA ([facility]) Viktoriya Carcamo [facility]: [address], [place] [address], Ph. Attender: Viktoriya Carcamo [facility] Medical 08/28/2020 12:00:00 AM EST NINA ([facility]) Viktoriya Carcamo [facility]: [address], [place] [address], Ph. Attender: Viktoriya Carcamo [facility] Medical 08/28/2020 12:00:00 AM EST NINA ([facility]) Viktoriya Carcamo [facility]: [address], [place] [address], Ph. Attender: Viktoriya Carcamo [facility] Medical 08/28/2020 12:00:00 AM EST NINA ([facility]) Viktoriya Carcamo [facility]: [address], [place] [address], Ph. Attender: Viktoriya Carcamo [facility] Medical 08/28/2020 12:00:00 AM EST NINA ([facility]) Viktoriya Carcamo [facility]: [address], [place] [address], Ph. Attender: Viktoriya Carcamo [facility] Medical 08/28/2020 12:00:00 AM EST NINA ([facility]) Viktoriya Carcamo [facility]: [address], [place] [address], Ph. Attender: Viktoriya Carcamo [facility] Medical 08/28/2020 12:00:00 AM EST NINA ([facility]) Viktoriya [facility]: [address], [place] [address], Ph. Attender: Viktoriya Carcamo [facility] Medical 08/28/2020 12:00:00 AM EST NINA ([facility]) RAMU RodríguezW-R: [address], [place] [facility] [place] [address], Ph. Attender: Nena James [facility] Medical 08/19/2020 12:00:00 AM EST NINA [facility]) RAMU RodríguezW-R: [address], [place] [address], Ph. Attender: Nena James [facility] Medical 08/19/2020 12:00:00 AM EST NINA ([facility]) RAMU RodríguezW-R: [address], [place] [address], Ph. Attender: Nena James [facility] Medical 08/19/2020 12:00:00 AM EST NINA ([facility]) RAMU RodríguezW-R: [address], [place] [address], Ph. Attender: Nena James [facility] Medical 08/19/2020 12:00:00 AM EST NINA ([facility]) RAMU RodríguezW-R: [address], [place] [address], Ph. Attender: Nena James [facility] Medical 08/19/2020 12:00:00 AM EST NINA ([facility]) Nena Ledezma LCSW-R: [address], [place] [address], Ph. Attender: Nena James [facility] Medical 08/19/2020 12:00:00 AM EST NINA ([facility]) Nena Ledezma LCSW-R: [address], [place] [address], Ph. Attender: Nena James [facility] Medical 08/19/2020 12:00:00 AM EST NINA ([facility]) Nena Ledezma LCSW-R: [address], [place] [address], Ph. Attender: Nena James [facility] Medical 08/19/2020 12:00:00 AM EST NINA ([facility]) Nena Ledezma LCSW-R: [address], [place] [address], Ph. Attender: Nena James [facility] Medical 08/19/2020 12:00:00 AM EST NINA ([facility]) Nena Ledezma LCSW-R: [address], [place] [address], Ph. Attender: Nena James [facility] Medical 08/19/2020 12:00:00 AM EST NINA ([facility]) Nena Ledezma LCSW-R: [address], [place] [address], Ph. Attender: Nena James [facility] Medical 08/19/2020 12:00:00 AM EST NINA ([facility]) Nena Ledezma, [employer]-R: [address], [place] [address], Ph. Attender: Nenasly James [facility] Medical 08/19/2020 12:00:00 AM EST NINA ([facility]) Nena AnguianoRAMU avinaW-R: [address], [place] [address], Ph. Attender: Nena James [facility] Medical 08/19/2020 12:00:00 AM EST NINA ([facility]) Unknown [address] [facility] [address] 07/29/2020 12:00:00 AM EST eCW1 ([facility]) Outpatient [address] [facility] [address] 07/25/2020 12:00:00 AM EST eCW1 ([facility]) Outpatient Attender: SANDRA IVAN 07/16/2020 04:18:01 PM EST [facility] NenaRAMU ZuluagaW-R: [address], [place] [address], Ph. Attender: Nena James [facility] Medical 07/04/2020 12:00:00 AM EDT NINA ([facility]) Nena Ledezma LCSW-R: [address], [address], [place] [address], Ph. Attender: Nena James [facility] Medical 07/04/2020 12:00:00 AM EDT NINA ([facility]) RAMU RordíguezW-R: [address], [address], [place] [address], Ph. Attender: Nena James [facility] Medical 07/04/2020 12:00:00 AM EDT OVID ([facility]) RAMU RodríguezW-R: [address], [address], [place] [address], Ph. Attender: Nena James [facility] Medical 07/04/2020 12:00:00 AM EDT OVID ([facility]) RAMU RodríguezW-R: [address], [address], [place] [address], Ph. Attender: Nena James [facility] Medical 07/04/2020 12:00:00 AM EDT OVID ([facility]) RAMU RodríguezW-R: [address], [address], [place] [address], Ph. Attender: Nena James [facility] Medical 07/04/2020 12:00:00 AM EDT OVID ([facility]) RAMU RodríguezW-R: [address], [address], [place] [address], Ph. Attender: Nena James [facility] Medical 07/04/2020 12:00:00 AM EDT NINA ([facility]) RAMU RodríguezW-R: [address], [address], [place] [address], Ph. Attender: Nena James [facility] Medical 07/04/2020 12:00:00 AM EDT OVID ([facility]) RAMU RodríguezW-R: [address], [address], [place] [address], Ph. Attender: Nena James [facility] Medical 07/04/2020 12:00:00 AM EDT OVID ([facility]) Nena AnguianoRAMU avinaW-R: [address], [address], [place] [address], Ph. Attender: Nena James [facility] Medical 07/04/2020 12:00:00 AM EDT NINA ([facility]) Nena LedezmaRAMU avinaW-R: [address], [address], [place] [address], Ph. Attender: Nena James [facility] Medical 07/04/2020 12:00:00 AM EDT OVID ([facility]) RAMU RodríguezW-R: [address], [address], [place] [address], Ph. Attender: Nena James [facility] Medical 07/04/2020 12:00:00 AM EDT NINA ([facility]) RAMU RodríguezW-R: [address], [address], [place] [address], Ph. Attender: Nena James [facility] Medical 07/04/2020 12:00:00 AM EDT NINA ([facility]) Nena LedezmaRAMU avinaW-R: [address], [address], [place] [address], Ph. Attender: Nena James [facility] Medical 07/04/2020 12:00:00 AM EDT OVID ([facility]) Outpatient Attender: Malia NORRIS FP 07/01/2020 04: 32:01 PM EDT [facility] Outpatient Attender: SANDRA FLORES FP 06/29/2020 11:43:00 AM EDT [facility] Outpatient Attender: SANDRA Kimble TIRE SERVICE TECHNICIAN FP 06/27/2020 11:02:03 AM EDT [facility] Outpatient Attender: SANDRA Kimble TIRE SERVICE TECHNICIAN FP 06/20/2020 12:02:08 AM EDT [facility] Outpatient Attender: Malia Lamin FLORES-BC FP 06/19/2020 02: 40:01 PM EDT [facility] Outpatient Attender: SANDRA Lamin GURROLAP FP 06/19/2020 02:16:00 PM EDT [facility] Outpatient Attender: Malia Lamin FLORES-BC FP 06/14/2020 05: 27:00 PM EDT [facility] Outpatient Attender: Malia Lamin FLORES-BC FP 06/14/2020 03: 20:02 PM EDT [facility] Outpatient Attender: SANDRA Lamin GURROLAP FP 06/13/2020 10:24:00 AM EDT [facility] Outpatient Attender: Malia Lamin FLORES-BC FP 06/05/2020 12: 29:00 PM EDT [facility] Outpatient Attender: SANDRA Lamin GURROLAP FP 06/03/2020 03:15:01 PM EDT [facility] Outpatient Attender: Malia Lamin GURROLAP-BC FP 06/03/2020 12: 49:02 PM EDT [facility] Outpatient Attender: Malia Lamin FLORES-BC FP 05/31/2020 09: 22:02 AM EDT [facility] Outpatient Attender: Malia Lamin GURROLAP-BC FP 05/27/2020 03: 37:02 PM EDT [facility] Outpatient Attender: SANDRA Lamin GURROLAP FP 05/22/2020 11:28:01 AM EDT [facility] Immunizations Vaccine Date Status Description Data Source(s) COVID-19 VACCINE Pfizer 05/29/2021 12:00:00 AM EDT completed [facility] Vaccine Series Complete: YESThis Data wa s Submitted to [facility] Via [employer]. COVID-19 VACCINE Pfizer 05/08/2021 12:00:00 AM EDT completed [facility] Vaccine Series Complete: NOThis Data was Submitted to [facility] Via [employer]. Tdap 03/04/2021 04:06:00 PM EDT completed e CW1 ([facility]) Tdap 03/04/2021 04:06:00 PM EDT completed e CW1 ([facility]) Tdap 03/04/2021 04:06:00 PM EDT completed e CW1 ([facility]) Tdap 03/04/2021 04:06:00 PM EDT completed e CW1 ([facility]) As of May 1999, a 2-dose hepatitis B schedule for adolescents (11-15 year olds) was FDA approved for Merck's Recombivax HB adult formulation. Use code 43 for the 2-dose. This code should be used for any use of standard adult formulation of hepatitis B vaccine. 07/25/2020 03:22:00 PM EST completed eCW1 ([facility]) As of May 1999, a 2-dose hepatitis B schedule for adolescents (11-15 year olds) was FDA approved for Merck's Recombivax HB adult formulation. Use code 43 for the 2-dose. This code should be used for any use of standard adult formulation of hepatitis B vaccine. 07/25/2020 03:22:00 PM EST completed eCW1 ([facility]) As of May 1999, a 2-dose hepatitis B schedule for adolescents (11-15 year olds) was FDA approved for Merck's Recombivax HB adult formulation. Use code 43 for the 2-dose. This code should be used for any use of standard adult formulation of hepatitis B vaccine. 07/25/2020 03:22:00 PM EST completed eCW1 ([facility]) As of May 1999, a 2-dose hepatitis B schedule for adolescents (11-15 year olds) was FDA approved for Merck's Recombivax HB adult formulation. Use code 43 for the 2-dose. This code should be used for any use of standard adult formulation of hepatitis B vaccine. 07/25/2020 03:22:00 PM EST completed eCW1 ([facility]) As of May 1999, a 2-dose hepatitis B schedule for adolescents (11-15 year olds) was FDA approved for Merck's Recombivax HB adult formulation. Use code 43 for the 2-dose. This code should be used for any use of standard adult formulation of hepatitis B vaccine. 07/25/2020 03:22:00 PM EST completed eCW1 ([facility]) As of May 1999, a 2-dose hepatitis B schedule for adolescents (11-15 year olds) was FDA approved for Merck's Recombivax HB adult formulation. Use code 43 for the 2-dose. This code should be used for any use of standard adult formulation of hepatitis B vaccine. 07/25/2020 03:22:00 PM EST completed eCW1 ([facility]) As of May 1999, a 2-dose hepatitis B schedule for adolescents (11-15 year olds) was FDA approved for Merck's Recombivax HB adult formulation. Use code 43 for the 2-dose. This code should be used for any use of standard adult formulation of hepatitis B vaccine. 07/25/2020 03:22:00 PM EST completed eCW1 ([facility]) As of May 1999, a 2-dose hepatitis B schedule for adolescents (11-15 year olds) was FDA approved for Merck's Recombivax HB adult formulation. Use code 43 for the 2-dose. This code should be used for any use of standard adult formulation of hepatitis B vaccine. 07/25/2020 03:22:00 PM EST completed eCW1 ([facility]) As of May 1999, a 2-dose hepatitis B schedule for adolescents (11-15 year olds) was FDA approved for Merck's Recombivax HB adult formulation. Use code 43 for the 2-dose. This code should be used for any use of standard adult formulation of hepatitis B vaccine. 07/25/2020 03:22:00 PM EST completed eCW1 ([facility]) Medications Medication Brand Name Start Date Product Form Dose Route Admi nistrative Instructions Pharmacy Instructions Status Indications Reaction Description Data Source(s) Cephalexin 500 MG Oral Capsule cephalexi n 500 mg capsule TAKE ONE CAPSULE BY MOUTH TWICE A DAY cephalexin 500 mg capsule TAKE ONE CAPSU LE BY MOUTH TWICE A DAY completed cephalexin 500 M G Oral Capsule NINA ([facility]) Cephalexin 500 MG Oral Capsule cephalexi n 500 mg capsule TAKE ONE CAPSULE BY MOUTH TWICE A DAY cephalexin 500 mg capsule TAKE ONE CAPSU LE BY MOUTH TWICE A DAY completed cephalexin 500 M G Oral Capsule NINA ([facility]) Triamcinolone Acetonide 0.005 MG/MG Topi chip Ointment triamcinolone acetonide 0.5 % topical ointment APPLY A THIN LAYER TO THE AFFECTED AREA S TOPICALLY TWO TIMES A DAY triamcinolone acetonide 0.5 % topical oi ntment APPLY A THIN LAYER TO THE AFFECTED AREA S TOPICALLY TWO TIMES A DAY completed triamcinolone acetonide 0.005 MG/MG Topical Ointment NINA ([facility]) Triamcinolone Acetonide 0.005 MG/MG Topi chip Ointment triamcinolone acetonide 0.5 % topical ointment APPLY A THIN LAYER TO THE AFFECTED AREA S TOPICALLY TWO TIMES A DAY triamcinolone acetonide 0.5 % topical oi ntment APPLY A THIN LAYER TO THE AFFECTED AREA S TOPICALLY TWO TIMES A DAY completed triamcinolone acetonide 0.005 MG/MG Topical Ointment OVID ([facility]) lamotrigine 25 MG Oral Tablet [Lamictal] Lamictal 25 mg tablet Take 2 tablets twice a day by oral route. Lamictal 25 mg tablet Take 2 tablets twi ce a day by oral route. 2 completed lamotrigin e 25 MG Oral Tablet [Lamictal] NINA ([facility]) lamotrigine 25 MG Oral Tablet [Lamictal] Lamictal 25 mg tablet Take 2 tablets twice a day by oral route. Lamictal 25 mg tablet Take 2 tablets twi ce a day by oral route. 2 completed lamotrigin e 25 MG Oral Tablet [Lamictal] OVID ([facility]) Cephalexin 500 MG Oral Capsule cephalexi n 500 mg capsule TAKE ONE CAPSULE BY MOUTH TWICE A DAY cephalexin 500 mg capsule TAKE ONE CAPSU LE BY MOUTH TWICE A DAY completed cephalexin 500 M G Oral Capsule OVID ([facility]) Sulfamethoxazole 800 MG / Trimethoprim 1 60 MG Oral Tablet [Bactrim] Bactrim DS 800 mg-160 mg tablet Take 1 tablet every 12 hours by oral route for 10 days. Bactrim DS 800 mg-160 mg tablet Take 1 tablet every 12 hours by oral route for 10 days. 1 completed sulfa methoxazole 800 MG / trimethoprim 160 MG Oral Tablet [Bactrim] NINA ([facility]) Prednisone 20 MG Oral Tablet prednisone 20 mg tablet Take 1 tablet every day by oral route. prednisone 20 mg tablet Take 1 tablet every day by oral route. 1 completed prednisone 20 MG Oral Tablet NINA ([facility]) Triamcinolone Acetonide 0.005 MG/MG Topi chip Ointment triamcinolone acetonide 0.5 % topical ointment APPLY A THIN LAYER TO THE AFFECTED AREA S TOPICALLY TWO TIMES A DAY triamcinolone acetonide 0.5 % topical oi ntment APPLY A THIN LAYER TO THE AFFECTED AREA S TOPICALLY TWO TIMES A DAY completed triamcinolone acetonide 0.005 MG/MG Topical Ointment NINA ([facility]) Prednisone 20 MG Oral Tablet prednisone 20 mg tablet Take 1 tablet every day by oral route. prednisone 20 mg tablet Take 1 tablet every day by oral route. 1 completed prednisone 20 MG Oral Tablet OVID ([facility]) lamotrigine 25 MG Oral Tablet [Lamictal] Lamictal 25 mg tablet Take 2 tablets twice a day by oral route. Lamictal 25 mg tablet Take 2 tablets twi ce a day by oral route. 2 completed lamotrigin e 25 MG Oral Tablet [Lamictal] NINA ([facility]) Prednisone 20 MG Oral Tablet prednisone 20 mg tablet Take 1 tablet every day by oral route. prednisone 20 mg tablet Take 1 tablet every day by oral route. 1 completed prednisone 20 MG Oral Tablet OVID ([facility]) Triamcinolone Acetonide 0.005 MG/MG Topi chip Ointment triamcinolone acetonide 0.5 % topical ointment APPLY A THIN LAYER TO THE AFFECTED AREA S TOPICALLY TWO TIMES A DAY triamcinolone acetonide 0.5 % topical oi ntment APPLY A THIN LAYER TO THE AFFECTED AREA S TOPICALLY TWO TIMES A DAY completed triamcinolone acetonide 0.005 MG/MG Topical Ointment NINA ([facility]) Sulfamethoxazole 800 MG / Trimethoprim 1 60 MG Oral Tablet [Bactrim] Bactrim DS 800 mg-160 mg tablet Take 1 tablet every 12 hours by oral route for 10 days. Bactrim DS 800 mg-160 mg tablet Take 1 tablet every 12 hours by oral route for 10 days. 1 completed sulfa methoxazole 800 MG / trimethoprim 160 MG Oral Tablet [Bactrim] NINA [facility] er) Sulfamethoxazole 800 MG / Trimethoprim 1 60 MG Oral Tablet [Bactrim] Bactrim DS 800 mg-160 mg tablet Take 1 tablet every 12 hours by oral route for 10 days. Bactrim DS 800 mg-160 mg tablet Take 1 tablet every 12 hours by oral route for 10 days. 1 completed sulfa methoxazole 800 MG / trimethoprim 160 MG Oral Tablet [Bactrim] NINA ([facility]) lamotrigine 25 MG Oral Tablet [Lamictal] Lamictal 25 mg tablet Take 2 tablets twice a day by oral route. Lamictal 25 mg tablet Take 2 tablets twi ce a day by oral route. 2 completed lamotrigin e 25 MG Oral Tablet [Lamictal] NINA ([facility]) Sulfamethoxazole 800 MG / Trimethoprim 1 60 MG Oral Tablet [Bactrim] Bactrim DS 800 mg-160 mg tablet Take 1 tablet every 12 hours by oral route for 10 days. Bactrim DS 800 mg-160 mg tablet Take 1 tablet every 12 hours by oral route for 10 days. 1 completed sulfa methoxazole 800 MG / trimethoprim 160 MG Oral Tablet [Bactrim] NINA ([facility]) lamotrigine 25 MG Oral Tablet [Lamictal] Lamictal 25 mg tablet Take 2 tablets twice a day by oral route. Lamictal 25 mg tablet Take 2 tablets twi ce a day by oral route. 2 completed lamotrigin e 25 MG Oral Tablet [Lamictal] NINA ([facility]) Cephalexin 500 MG Oral Capsule cephalexi n 500 mg capsule TAKE ONE CAPSULE BY MOUTH TWICE A DAY cephalexin 500 mg capsule TAKE ONE CAPSU LE BY MOUTH TWICE A DAY completed cephalexin 500 M G Oral Capsule OVID ([facility]) Prednisone 20 MG Oral Tablet prednisone 20 mg tablet Take 1 tablet every day by oral route. prednisone 20 mg tablet Take 1 tablet every day by oral route. 1 completed prednisone 20 MG Oral Tablet OVID ([facility]) Insurance Providers Payer name Policy type / Coverage type Policy ID Covered alliance party ID Covered alliance party's relationship to rodriguez Policy Rodriguez Plan Information [id number] [facility]() Workers Compensation [id number] Self [facility]() Workers Compensation [id number] Self Pma Ins () Workers Compensation [id number] Self W [id number] [facility]) Workers Compensation [id number] Self [facility] [id number] FA2 [id number] [facility] [id number] FA2 [id number] [employer] [id number] FA2 [id number] [facility] [id number] FA2 [id number] UMR [facility] [id number] FA2 [id number] [employer] (pr) Commercial [id number] Family Dependent [employer] (pr) Commercial [id number] Family Dependent [id number] R [facility] [id number] FA2 [id number] Medicaid S [id number] S [id number] [facility] [id number] SP [id number] SELF PAY [facility] [id number] SP [id number] [facility] [id number] SP [id number] Managed Care [facility] Community Plan P [id number] S [id number] [employer] Commercial [id number] Family Dependent [id number] [employer] Maintenance [employer] (HMO) [id number] Family Dependent [id number] [employer] [id number] FA2 [id number] [employer] Commercial [id number] Family Dependent [id number] [employer] Commercial [id number] Family Dependent [id number] [employer] Commercial [id number] Family Dependent [id number] [employer] Commercial [id number] Family Dependent [id number] [employer] Commercial [id number] Family Dependent [id number] [employer] PPO O [id number] C [id number] [employer] -O/P [id number] 19 [id number] UMR O [id number] C [id number] [employer] Commercial [id number] Family Dependent [id number] Umr Medigap Part B [id number] Self [id number] [employer] [id number] Family Dependent [id number] Umr Medigap Part B [id number] Self [id number] [employer] Commercial [id number] Family Dependent [id number] Umr Medigap Part B [id number] Self [id number] [employer] Commercial [id number] Family Dependent [id number] r Medigap Part B [id number] Self [id number] [facility] [id number] SP [id number] Managed Care [facility] Community Plan S [id number] S [id number] UMR O [id number] S [id number] Self Pay P UNAVAILABLE S UNAVAILA BLE [employer] P [id number] S [id number] [facility] [id number] SP [id number] [facility] PL[facility] [id number] SP [id number] [facility] [id number] SP [id number] SELF PAY ONLY [id number] SP [id number] EMEDNY [id number] SP [id number] [facility](MCAID) O [id number] S [id number] MEDICAID [id number] SP [id number] [facility] [id number] SP [id number] [facility] P [id number] S [id number] SELF PAY UNAVAILABLE SP UNAVAILA BLE 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 [id number] SP [id number] 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 P [id number] S [id number] [facility] [id number] SP [id number] OTHER WORKERS COMPENSATION [id number] SP [id number] [employer] Commercial [id number] Family Dependent [employer] Ppo Commercial [id number] Family Dependent [employer] Health Maintenance Organization (HMO) [id number] Family Dependent [id number] Problems, Conditions, and Diagnoses Code Display Name Description Problem Type Effective Dates Data Source(s) Q51.3 Bicornuate uterus Bicornuate uterus Problem 03/04/2021 12:00:00 AM EDT eCW1 ([facility]) F33.41 [id number] Recurrent major depressive disor amisha, in partial remission Problem 01/15/2021 12:00:00 AM EDT eCW1 ([facility]) [id number] Hidradenitis suppurativa Hidradenitis Suppurativa Prob ailin 01/07/2021 12:00:00 AM EDT NINA ([facility]) 10249097 Hidradenitis suppurativa Hidradenitis Suppurativa Prob ailin 01/07/2021 12:00:00 AM EDT NINA ([facility]) 74909678 Hidradenitis suppurativa Hidradenitis Suppurativa Prob ailin 01/07/2021 12:00:00 AM EDT NINA ([facility]) 05080023 Hidradenitis suppurativa Hidradenitis Suppurativa Prob ailin 01/07/2021 12:00:00 AM EDT NINA ([facility]) Z34.80 care Supervision of other normal P scot 11/29/2020 12:00:00 AM EDT eCW1 ([facility]) B18.2 [id number] Chronic hepatitis C without hepatic coma Problem 06/20/2020 12:00:00 AM EDT eCW1 ([facility]) F19.10 [id number] Polysubstance abuse Problem 06/20/2020 12:00 :00 AM EDT eCW1 ([facility]) B17.10 52745340 Acute hepatitis C virus infection without hepatic coma Problem 06/20/2020 12:00:00 AM EDT eCW1 ([facility]) F19.11 [id number] Intravenous drug abuse in remission Probl em 06/20/2020 12:00:00 AM EDT eCW1 ([facility]) 78554775 Schizoaffective disorder, bipolar type S chizoaffective Disorder, Bipolar Type Problem 06/13/2020 12:00:00 AM EDT OVID ([facility]) 82991650 Schizoaffective disorder, bipolar type S chizoaffective Disorder, Bipolar Type Problem 06/13/2020 12:00:00 AM EDT OVID ([facility]) [id number] Schizoaffective disorder, bipolar type S chizoaffective Disorder, Bipolar Type Problem 06/13/2020 12:00:00 AM EDT OVID ([facility]) [id number] Schizoaffective disorder, bipolar type S chizoaffective Disorder, Bipolar Type Problem 06/13/2020 12:00:00 AM EDT NINA ([facility]) [id number] Schizoaffective disorder, bipolar type S chizoaffective Disorder, Bipolar Type Problem 06/13/2020 12:00:00 AM EDT OVID ([facility]) [id number] Schizoaffective disorder, bipolar type S chizoaffective Disorder, Bipolar Type Problem 06/13/2020 12:00:00 AM EDT OVID ([facility]) [id number] Schizoaffective disorder, bipolar type S chizoaffective Disorder, Bipolar Type Problem 06/13/2020 12:00:00 AM EDT NINA ([facility]) [id number] Keratoma Keratoma Problem 05/15/2020 12:0 0:00 AM EDT - 01/06/2021 12:00:00 AM EDT NINA ([facility]) [id number] Finding of body region Finding of Body Region Problem 05/15/2020 12:00:00 AM EDT - 01/06/2021 12:00:00 AM EDT NINA ([facility]) [id number] Keratoma Keratoma Problem 05/15/2020 12:0 0:00 AM EDT - 01/06/2021 12:00:00 AM EDT NINA ([facility]) [id number] Finding of body region Finding of Body Region Problem 05/15/2020 12:00:00 AM EDT - 01/06/2021 12:00:00 AM EDT NINA ([facility]) [id number] Keratoma Keratoma Problem 05/15/2020 12:0 0:00 AM EDT - 01/06/2021 12:00:00 AM EDT NINA ([facility]) [id number] Finding of body region Finding of Body Region Problem 05/15/2020 12:00:00 AM EDT - 01/06/2021 12:00:00 AM EDT NINA ([facility]) [id number] Keratoma Keratoma Problem 05/15/2020 12:0 0:00 AM EDT - 01/06/2021 12:00:00 AM EDT NINA ([facility]) [id number] Finding of body region Finding of Body Region Problem 05/15/2020 12:00:00 AM EDT - 01/06/2021 12:00:00 AM EDT NINA ([facility]) [id number] Clinical finding Clinical Finding Problem 020 12:00:00 AM EDT - 01/06/2021 12:00:00 AM EDT NINA ([facility]) [id number] Patient asked to attend Patient Asked to Attend Proble m 02/22/2020 12:00:00 AM EDT - 03/09/2021 12:00:00 AM EDT NINA ([facility]) [id number] Clinical finding Clinical Finding Problem 12:00:00 AM EDT - 01/06/2021 12:00:00 AM EDT NINA ([facility]) [id number] Patient asked to attend Patient Asked to Attend Proble 02/22/2020 12:00:00 AM EDT - 03/09/2021 12:00:00 AM EDT NINA ([facility]) [id number] Clinical finding Clinical Finding Problem 12:00:00 AM EDT - 01/06/2021 12:00:00 AM EDT NINA ([facility]) [id number] Patient asked to attend Patient Asked to Attend Proble 02/22/2020 12:00:00 AM EDT - 03/09/2021 12:00:00 AM EDT NINA ([facility]) [id number] Clinical finding Clinical Finding Problem 020 12:00:00 AM EDT - 01/06/2021 12:00:00 AM EDT NINA ([facility]) [id number] Acquired absence of multiple teeth Acquired Abse nce of Multiple Teeth Problem 11/16/2019 12:00:00 AM EST - 01/07/2021 12:00:00 AM ED T NINA ([facility]) [id number] Acquired absence of multiple teeth Acquired Abse nce of Multiple Teeth Problem 11/16/2019 12:00:00 AM EST - 01/07/2021 12:00:00 AM ED Kirsten WOOD ([facility]) [id number] Acquired absence of multiple teeth Acquired Abse nce of Multiple Teeth Problem 11/16/2019 12:00:00 AM EST - 01/07/2021 12:00:00 AM ED T NINA ([facility]) [id number] Acquired absence of multiple teeth Acquired Abse nce of Multiple Teeth Problem 11/16/2019 12:00:00 AM EST - 01/07/2021 12:00:00 AM ED T NINA ([facility]) [id number] SNOMED CT Concept SNOMED CT Concept Problem 09/12 12:00:00 AM EST - 01/06/2021 12:00:00 AM EDT NINA ([facility]) [id number] Finding of body region Finding of Body Region Problem 09/12/2019 12:00:00 AM EST - 01/06/2021 12:00:00 AM EDT NINA ([facility]) [id number] Endocrine/metabolic screening Endocrine/metabolic Scre ening Problem 09/12/2019 12:00:00 AM EST - 01/06/2021 12:00:00 AM EDT NINA ([facility]) [id number] SNOMED CT Concept SNOMED CT Concept Problem 09/12 12:00:00 AM EST - 01/06/2021 12:00:00 AM EDT NINA ([facility]) [id number] Finding of body region Finding of Body Region Problem 09/12/2019 12:00:00 AM EST - 01/06/2021 12:00:00 AM EDT NINA ([facility]) [id number] Endocrine/metabolic screening Endocrine/metabolic Scre ening Problem 09/12/2019 12:00:00 AM EST - 01/06/2021 12:00:00 AM EDT NINA ([facility]) [id number] SNOMED CT Concept SNOMED CT Concept Problem 09/12 12:00:00 AM EST - 01/06/2021 12:00:00 AM EDT NINA ([facility]) [id number] Finding of body region Finding of Body Region Problem 09/12/2019 12:00:00 AM EST - 01/06/2021 12:00:00 AM EDT NINA ([facility]) [id number] Endocrine/metabolic screening Endocrine/metabolic Scre ening Problem 09/12/2019 12:00:00 AM EST - 01/06/2021 12:00:00 AM EDT NINA ([facility]) [id number] SNOMED CT Concept SNOMED CT Concept Problem 09/12 12:00:00 AM EST - 01/06/2021 12:00:00 AM EDT NINA ([facility]) [id number] Finding of body region Finding of Body Region Problem 09/12/2019 12:00:00 AM EST - 01/06/2021 12:00:00 AM EDT OVID ([facility]) [id number] Endocrine/metabolic screening Endocrine/metabolic Scre ening Problem 09/12/2019 12:00:00 AM EST - 01/06/2021 12:00:00 AM EDT OVID ([facility]) Surgeries/Procedures Procedure Description Date Indications Data Source(s) TDAP VACCINE 7/> YR IM 03/04/2021 12:00:00 AM EDT eCW1 ([facility]) HEPATITIS B VACCINE ADULT DOSAGE INTRAMUSCULAR 020 12:00:00 AM EST eCW1 ([facility]) Results ID Date Data Source [id number] 05/01/2021 07:26:00 AM EDT OVID ([facility]) Name Value Range Interpretation Code Description Data Ale rce(s) Supporting Document(s) white blood count 12.4 10 4.0-10.0 Above high normal White Blood Count OVID ([facility]) red blood count 3.19 10 4.00-5.40 Below low normal Red Blood Coun t OVID ([facility]) hemoglobin 9.0 g/dL 12.0-15.5 Below low normal Hemoglobin OVID ( [facility]) hematocrit 27.2 % 36.0-47.0 Below low normal Hematocrit OVID ( [facility]) mean corpuscular volume 85.3 fL 80.0-96.0 Mean Corpusc ular Volume OVID ([facility]) mean corpuscular hemoglobin 28.2 pg 27.0-33.0 Mean Cor puscular Hemoglobin OVID ([facility]) mean corpuscular HGB conc 33.1 g/dL 32.0-36.5 Mean Corpu scular HGB Conc OVID ([facility]) red cell distribution width 15.3 % 11.5-14.5 Above high no rmal Red Cell Distribution Width OVID ([facility]) platelet count, automated 136 10 150-450 Below low denys l Platelet Count, Automated OVID ([facility]) nucleated red blood cell % 0.0 % 0-0 Nucleated Red Blood Cell % OVID ([facility]) ID Date Data Source [id number] 04/30/2021 11:04:00 PM EDT OVID ([facility]) Name Value Range Interpretation Code Description Data Ale rce(s) Supporting Document(s) glucose, fasting 100 mg/dL 70-100 Glucose, Fasting AT [facility]) blood urea nitrogen 10 mg/dL 7-18 Blood Urea Nitro gen OVID ([facility]) creatinine for GFR 0.72 mg/dL 0.55-1.30 Creatinine for GF R OVID ([facility]) glomerular filtration rate > 60.0 >60 Glomerula r Filtration Rate OVID ([facility]) sodium level 141 mEq/L 136-145 Sodium Level OVID ([facility]) potassium serum 3.7 mEq/L 3.5-5.1 Potassium Serum [facility] ([facility]) chloride level 111 mEq/L 98-107 Above high normal Chloride Level OVID ([facility]) carbon dioxide level 25 mEq/L 21-32 Carbon Dioxide Level OVID ([facility]) anion gap 5 mEq/L 8-16 Below low normal Anion Gap OVID ( [facility]) calcium level 8.1 mg/dL 8.5-10.1 Below low normal Calcium Level AT [facility]) AST/SGOT 27 U/L 7-37 AST/SGOT OV[facility] ([facility]) ALT/SGPT 22 U/L 12-78 ALT/SGPT OVID ([facility]) alkaline phosphatase 82 U/L 45-117 Alkaline Phosph atase OVID ([facility]) bilirubin,total 0.5 mg/dL 0.2-1.0 Bilirubin,total ATHE [facility]) albumin 2.0 gm/dL 3.2-5.2 Below low normal Albumin OVID ( [facility]) total protein 4.7 gm/dL 6.4-8.2 Below low normal Total Protein AT [facility]) albumin/globulin ratio 1.2-2.2 Below low normal Albumin /globulin Ratio OVID ([facility]) ID Date Data Source [id number] 04/30/2021 08:32:00 AM EDT OVID ([facility]) Name Value Range Interpretation Code Description Data Ale rce(s) Supporting Document(s) color, urine rfx annie yellow Color, Urine Rfx AT AGUSTIN ([facility]) appearance, urine rfx hazy clear Appearance, Ur ine Rfx OVID ([facility]) pH,urine rfx 5.0 units 5.0-9.0 pH,urine Rfx NINA ([facility]) protein, urine auto rfx 2+ negative Above high normal Prote in, Urine Auto Rfx OV[facility] ([facility]) specific gravity ur auto rfx 1.002-1.035 Specif ic [place] Ur Auto Rfx OV[facility] ([facility]) ketone, urine auto rfx trace negative Above high normal Ketone , Urine Auto Rfx OV[facility] ([facility]) glucose, urine (UA) auto rfx negative negative Glucose , Urine (UA) Auto Rfx OV[facility] ([facility]) bilirubin, urine auto rfx negative negative Bilirubin, Urine Auto Rfx OV[facility] ([facility]) urobilinogen, urine auto rfx 4.0 mg/dL 0.0-2.0 Above high n ormal Urobilinogen, Urine Auto Rfx OV[facility] ([facility]) leukocyte esterase ur auto rfx negative negative Leukocyte Esterase Ur Auto Rfx NINA ([facility]) nitrite, urine auto rfx negative negative Nitrite, Uri ne Auto Rfx OVID ([facility]) blood, urine blood rfx 3+ negative Above high normal Blood, Urine Blood Rfx OV[facility] ([facility]) WBC, urine auto rfx 2 /hpf 0-3 WBC, Urine Auto Rfx OV[facility] ([facility]) RBC, urine auto rfx tntc 0-3 Above high normal RBC, Urin e Auto Rfx OV[facility] ([facility]) bacteria, urine auto rfx negative negative Bacteria, U rine Auto Rfx OVID ([facility]) transitional epithelial AU rfx 1 /hpf none Trans itional Epithelial AU Rfx NINA ([facility]) squam epithelial cell ur aurfx 5 /hpf 0-6 Squam Epithelial Cell Ur Aurfx NINA ([facility]) hyaline cast, urine auto rfx 0 /lpf 0-1 Hyaline Cast, Urine Auto Rfx NINA ([facility]) mucus, urine rfx moderate negative Mucus, Urine Rfx AT [facility] ([facility]) ID Date Data Source [id number] 04/30/2021 05:42:00 AM EDT OVID ([facility]) Name Value Range Interpretation Code Description Data Lae rce(s) Supporting Document(s) syphilis nonreactive nonreactive Syphilis NINA ([facility]) ID Date Data Source [id number] 04/30/2021 05:42:00 AM EDT OVID ([facility]) Name Value Range Interpretation Code Description Data Ale rce(s) Supporting Document(s) blood type A positive Blood Type NINA ([facility]) Ab screen (indirect pamella)vis negative Ab Sc reen (Indirect Pamella)vis OVID ([facility]) ID Date Data Source [id number] 04/30/2021 05:42:00 AM EDT [facility]) Name Value Range Interpretation Code Description Data Ale rce(s) Supporting Document(s) white blood count 12.8 10 4.0-10.0 Above high normal White Blood Count NINA ([facility]) red blood count 5.16 10 4.00-5.40 Red Blood Count ATHE ([facility]) hemoglobin 14.4 g/dL 12.0-15.5 Hemoglobin NINA ([facility]) hematocrit 42.4 % 36.0-47.0 Hematocrit NINA ([facility]) mean corpuscular volume 82.2 fL 80.0-96.0 Mean Corpusc ular Volume NINA ([facility]) mean corpuscular hemoglobin 27.9 pg 27.0-33.0 Mean Cor puscular Hemoglobin OVID ([facility]) mean corpuscular HGB conc 34.0 g/dL 32.0-36.5 Mean Corpu scular HGB Conc OVID ([facility]) red cell distribution width 15.0 % 11.5-14.5 Above high no rmal Red Cell Distribution Width OV[facility] ([facility]) platelet count, automated 240 10 150-450 Platelet C ount, Automated OVID ([facility]) nucleated red blood cell % 0.0 % 0-0 Nucleated Red Blood Cell % OVID ([facility]) ID Date Data Source [id number] 04/30/2021 05:41:00 AM EDT [facility]) Name Value Range Interpretation Code Description Data Ale rce(s) Supporting Document(s) barbiturates urine reflex negative negative Barbiturat es Urine Reflex OV[facility] ([facility]) amphetamines urine reflex negative negative Amphetamin es Urine Reflex OVID ([facility]) benzodiazepines urine reflex negative negative Benzodi azepines Urine Reflex OVID ([facility]) cocaine metabolite urine refle negative negative Cocaine Metabolite Urine Refle OVID ([facility]) cannabinoids urine reflex negative negative Cannabinoi ds Urine Reflex OV[facility] ([facility]) opiates urine reflex negative negative Opiates Urine R eflex OVID ([facility]) methadone urine reflex negative negative Methadone Uri ne Reflex OVID ([facility]) phencyclidine urine reflex negative negative Phencycli dine Urine Reflex OV[facility] ([facility]) ID Date Data Source [id number] 03/06/2021 12:15:00 PM EDT [facility]) Name Value Range Interpretation Code Description Data Ale rce(s) Supporting Document(s) fibrosis stage F1-F2 . Fibrosis Stage OVID ([facility]) fibrosis score 0.00-0.21 Above high normal Fibrosis Score OVID ([facility]) necroinflam score 0.00-0.17 Above high normal Necroinflam Score NINA ([facility]) necroinflamm grade A0-A1 . Necroinflamm Grad e NINA ([facility]) haptoglobin 12 mg/dL 33-278 Below low normal Haptoglobin NINA ([facility]) alpha 2-macroglobulin 291 mg/dL 110-276 Above high normal Alpha 2 -Macroglobulin NINA ([facility]) total bilirubin 0.5 mg/dL 0.0-1.2 Total Bilirubin ATHE NA ([facility]) apolipoprotein A-1 127 mg/dL 116-209 Apolipoprotein a- 1 NINA ([facility]) GGT 10 IU/L 0-60 Ggt NINA ([facility]) interpretation . Interpretation NINA ([facility]) ALT 35 IU/L 0-40 Alt OVID ([facility]) necroinflam scoring . Necroinflam Scor ing OVID ([facility]) limitations . Limitations NINA ([facility]) fibrosis scoring . Fibrosis Scoring AT [facility] ([facility]) comment : . Comment : OVID ([facility]) ID Date Data Source [id number] 03/06/2021 12:15:00 PM EDT OVID ([facility]) Name Value Range Interpretation Code Description Data Ale rce(s) Supporting Document(s) hepatitis B core antibody IgG negative negative Hepati tis B Core Antibody IgG [facility]) ID Date Data Source [id number] 03/06/2021 12:15:00 PM EDT OVID ([facility]) Name Value Range Interpretation Code Description Data Ale rce(s) Supporting Document(s) hepatitis A IgG total positive negative Abnormal ( applies to non-numeric results) Hepatitis a IgG Total NINA ([facility]) ID Date Data Source [id number] 03/06/2021 12:15:00 PM EDT OVID ([facility]) Name Value Range Interpretation Code Description Data Ale rce(s) Supporting Document(s) hepatitis C quantitation 6084167 IU/mL . Hepatiti s C Quantitation OVID ([facility]) hepatitis C log10 . Hepatitis C Log10 OV[facility] ([facility]) test information: . Test Information: [facility]) ID Date Data Source [id number] 03/06/2021 12:15:00 PM EDT [facility]) Name Value Range Interpretation Code Description Data Ale rce(s) Supporting Document(s) comment for hepc genotype . Comment fo r Hepc Genotype OVID ([facility]) hepatitis C virus genotype . Hepatitis C Virus Genotype OVID ([facility]) ID Date Data Source [id number] 03/06/2021 12:15:00 PM EDT OVID ([facility]) Name Value Range Interpretation Code Description Data Ale rce(s) Supporting Document(s) white blood count 9.9 10 4.0-10.0 White Blood Count OV[facility] ([facility]) red blood count 4.84 10 4.00-5.40 Red Blood Count [facility] ([facility]) hemoglobin 13.8 g/dL 12.0-15.5 Hemoglobin OVID ([facility]) hematocrit 41.3 % 36.0-47.0 Hematocrit NINA ([facility]) mean corpuscular volume 85.3 fL 80.0-96.0 Mean Corpusc ular Volume NINA ([facility]) mean corpuscular hemoglobin 28.5 pg 27.0-33.0 Mean Cor puscular Hemoglobin NINA ([facility]) mean corpuscular HGB conc 33.4 g/dL 32.0-36.5 Mean Corpu scular HGB Conc OVID ([facility]) red cell distribution width 14.3 % 11.5-14.5 Red Cell Distribution Width OV[facility] ([facility]) platelet count, automated 234 10 150-450 Platelet C ount, Automated NINA ([facility]) nucleated red blood cell % 0.0 % 0-0 Nucleated Red Blood Cell % NINA ([facility]) ID Date Data Source [id number] 03/06/2021 12:15:00 PM EDT NINA ([facility]) Name Value Range Interpretation Code Description Data Ale rce(s) Supporting Document(s) white blood count 9.9 10 4.0-10.0 White Blood Count NINA ([facility]) red blood count 4.84 10 4.00-5.40 Red Blood Count ATHE NA ([facility]) hemoglobin 13.8 g/dL 12.0-15.5 Hemoglobin NINA ([facility]) hematocrit 41.3 % 36.0-47.0 Hematocrit NINA ([facility]) mean corpuscular HGB conc 33.4 g/dL 32.0-36.5 Mean Corpu scular HGB Conc NINA ([facility]) mean corpuscular hemoglobin 28.5 pg 27.0-33.0 Mean Cor puscular Hemoglobin NINA ([facility]) mean corpuscular volume 85.3 fL 80.0-96.0 Mean Corpusc ular Volume NINA ([facility]) platelet count, automated 234 10 150-450 Platelet C ount, Automated NINA ([facility]) red cell distribution width 14.3 % 11.5-14.5 Red Cell Distribution Width NINA ([facility]) nucleated red blood cell % 0.0 % 0-0 Nucleated Red Blood Cell % NINA ([facility]) ID Date Data Source [id number] 03/06/2021 12:15:00 PM EDT OVID ([facility]) Name Value Range Interpretation Code Description Data Ale rce(s) Supporting Document(s) red blood count 4.84 10 4.00-5.40 Red Blood Count ATHE NA ([facility]) white blood count 9.9 10 4.0-10.0 White Blood Count NINA ([facility]) hematocrit 41.3 % 36.0-47.0 Hematocrit NINA ([facility]) hemoglobin 13.8 g/dL 12.0-15.5 Hemoglobin INNA ([facility]) mean corpuscular volume 85.3 fL 80.0-96.0 Mean Corpusc ular Volume NINA ([facility]) mean corpuscular hemoglobin 28.5 pg 27.0-33.0 Mean Cor puscular Hemoglobin NINA ([facility]) red cell distribution width 14.3 % 11.5-14.5 Red Cell Distribution Width NINA ([facility]) platelet count, automated 234 10 150-450 Platelet C ount, Automated NINA ([facility]) mean corpuscular HGB conc 33.4 g/dL 32.0-36.5 Mean Corpu scular HGB Conc OV[facility] ([facility]) nucleated red blood cell % 0.0 % 0-0 Nucleated Red Blood Cell % OV[facility] ([facility]) ID Date Data Source [id number] 03/06/2021 12:14:00 PM EDT OVID ([facility]) Name Value Range Interpretation Code Description Data Ale rce(s) Supporting Document(s) Ab screen (indirect pamella)vis negative Ab Sc reen (Indirect Pamella)vis OV[facility] ([facility]) blood type A positive Blood Type OV[facility] ([facility]) ID Date Data Source [id number] 03/06/2021 12:14:00 PM EDT OVID ([facility]) Name Value Range Interpretation Code Description Data Ale rce(s) Supporting Document(s) HIV 1&2 screen centaur negative negative HIV 1&2 Scree n Cent[facility] ([facility]) ID Date Data Source [id number] 03/06/2021 12:14:00 PM EDT [facility]) Name Value Range Interpretation Code Description Data Ale rce(s) Supporting Document(s) hepatitis A antibody IgM negative negative Hepatitis a Antibody IgM [facility]) ID Date Data Source [id number] 03/06/2021 12:14:00 PM EDT OVID ([facility]) Name Value Range Interpretation Code Description Data Ale rce(s) Supporting Document(s) hepatitis B core antibody IgM negative negative Hepati tis B Core Antibody IgM [facility]) ID Date Data Source [id number] 03/06/2021 12:14:00 PM EDT [facility]) Name Value Range Interpretation Code Description Data Ale rce(s) Supporting Document(s) hepatitis B surface antibody negative positive Hepatit is B Surface Antibody [facility]) ID Date Data Source [id number] 03/06/2021 12:14:00 PM EDT [facility]) Name Value Range Interpretation Code Description Data Ale rce(s) Supporting Document(s) hepatitis B surface antigen negative negative Hepatiti s B Surface Antigen [facility]) ID Date Data Source [id number] 03/06/2021 12:14:00 PM EDT [facility]) Name Value Range Interpretation Code Description Data Ale rce(s) Supporting Document(s) glucose challenge test 1 hour 107 mg/dL less than 140 Glucose Challenge Test 1 Hour OVID ([facility]) ID Date Data Source [id number] 03/06/2021 12:14:00 PM EDT [facility]) Name Value Range Interpretation Code Description Data Ale rce(s) Supporting Document(s) hepatitis C virus roosevelt index > 11.0 <0.8 Above high no rmal Hepatitis C Virus Roosevelt Index [facility]) ID Date Data Source [id number] 03/06/2021 12:14:00 PM EDT NINA ([facility]) Name Value Range Interpretation Code Description Data Ale rce(s) Supporting Document(s) glucose, fasting 107 mg/dL 70-100 Above high normal Glucose, Fas ting NINA ([facility]) glomerular filtration rate > 60.0 >60 Glomerula r Filtration Rate NINA ([facility]) creatinine for GFR 0.47 mg/dL 0.55-1.30 Below low normal Creatinine for GFR NINA ([facility]) blood urea nitrogen 5 mg/dL 7-18 Below low normal Blood Urea Nitrogen OVID ([facility]) potassium serum 3.6 mEq/L 3.5-5.1 Potassium Serum ATHE ([facility]) sodium level 140 mEq/L 136-145 Sodium Level NINA ([facility]) chloride level 108 mEq/L 98-107 Above high normal Chloride Level NINA ([facility]) carbon dioxide level 25 mEq/L 21-32 Carbon Dioxide Level NINA ([facility]) calcium level 9.0 mg/dL 8.5-10.1 Calcium Level OVID ( [facility]) AST/SGOT 38 U/L 7-37 Above high normal AST/SGOT NINA ([facility]) anion gap 7 mEq/L 8-16 Below low normal Anion Gap NINA ( [facility]) alkaline phosphatase 74 U/L 45-117 Alkaline Phosph atase NINA ([facility]) ALT/SGPT 43 U/L 12-78 ALT/SGPT NINA ([facility]) bilirubin,total 0.7 mg/dL 0.2-1.0 Bilirubin,total ATHE NA ([facility]) albumin 2.7 gm/dL 3.2-5.2 Below low normal Albumin OVID ( [facility]) albumin/globulin ratio 1.2-2.2 Below low normal Albumin /globulin Ratio NINA ([facility]) total protein 6.4 gm/dL 6.4-8.2 Total Protein NINA ( [facility]) ID Date Data Source [id number] 03/06/2021 12:14:00 PM EDT [facility]) Name Value Range Interpretation Code Description Data Ale rce(s) Supporting Document(s) blood type A positive Blood Type OVID ([facility]) Ab screen (indirect pamella)vis negative Ab Sc reen (Indirect Pamella)vis OVID ([facility]) ID Date Data Source [id number] 03/06/2021 12:14:00 PM EDT OVID ([facility]) Name Value Range Interpretation Code Description Data Ale rce(s) Supporting Document(s) HIV 1&2 screen centaur negative negative HIV 1&2 Scree n Centaur OVID ([facility]) ID Date Data Source [id number] 03/06/2021 12:14:00 PM EDT [facility]) Name Value Range Interpretation Code Description Data Ale rce(s) Supporting Document(s) hepatitis A antibody IgM negative negative Hepatitis a Antibody IgM [facility]) ID Date Data Source [id number] 03/06/2021 12:14:00 PM EDT [facility]) Name Value Range Interpretation Code Description Data Ale rce(s) Supporting Document(s) hepatitis B core antibody IgM negative negative Hepati tis B Core Antibody IgM [facility]) ID Date Data Source [id number] 03/06/2021 12:14:00 PM EDT [facility]) Name Value Range Interpretation Code Description Data Ale rce(s) Supporting Document(s) hepatitis B surface antibody negative positive Hepatit is B Surface Antibody [facility]) ID Date Data Source [id number] 03/06/2021 12:14:00 PM EDT [facility]) Name Value Range Interpretation Code Description Data Ale rce(s) Supporting Document(s) hepatitis B surface antigen negative negative Hepatiti s B Surface Antigen [facility]) ID Date Data Source [id number] 03/06/2021 12:14:00 PM EDT [facility]) Name Value Range Interpretation Code Description Data Ale rce(s) Supporting Document(s) glucose challenge test 1 hour 107 mg/dL less than 140 Glucose Challenge Test 1 Hour OVID ([facility]) ID Date Data Source [id number] 03/06/2021 12:14:00 PM EDT [facility]) Name Value Range Interpretation Code Description Data Ale rce(s) Supporting Document(s) hepatitis C virus roosevelt index > 11.0 <0.8 Above high no rmal Hepatitis C Virus Roosevelt Index [facility]) ID Date Data Source [id number] 03/06/2021 12:14:00 PM EDT [facility]) Name Value Range Interpretation Code Description Data Ale rce(s) Supporting Document(s) glucose, fasting 107 mg/dL 70-100 Above high normal [facility], [facility] blood urea nitrogen 5 mg/dL 7-18 Below low normal Blood Urea Nitrogen NINA ([facility]) glomerular filtration rate > 60.0 >60 Glomerula r Filtration Rate NINA ([facility]) creatinine for GFR 0.47 mg/dL 0.55-1.30 Below low normal Creatinine for GFR NINA ([facility]) sodium level 140 mEq/L 136-145 Sodium Level NINA ([facility]) potassium serum 3.6 mEq/L 3.5-5.1 Potassium Serum ATH NA [facility]) anion gap 7 mEq/L 8-16 Below low normal Anion Gap OVID ( [facility]) chloride level 108 mEq/L 98-107 Above high normal Chloride Level NINA ([facility]) carbon dioxide level 25 mEq/L 21-32 Carbon Dioxide Level NINA ([facility]) ALT/SGPT 43 U/L 12-78 ALT/SGPT NINA ([facility]) calcium level 9.0 mg/dL 8.5-10.1 Calcium Level NINA ( [facility]) AST/SGOT 38 U/L 7-37 Above high normal AST/SGOT NINA ([facility]) alkaline phosphatase 74 U/L 45-117 Alkaline Phosph atase NINA ([facility]) bilirubin,total 0.7 mg/dL 0.2-1.0 Bilirubin,total ATHE NA ([facility]) albumin 2.7 gm/dL 3.2-5.2 Below low normal Albumin NINA ( [facility]) total protein 6.4 gm/dL 6.4-8.2 Total Protein NINA ( [facility]) albumin/globulin ratio 1.2-2.2 Below low normal Albumin /globulin Ratio NINA ([facility]) ID Date Data Source [id number] 03/06/2021 12:14:00 PM EDT OVID ([facility]) Name Value Range Interpretation Code Description Data Ale rce(s) Supporting Document(s) blood type A positive Blood Type NINA ([facility]) Ab screen (indirect pamella)vis negative Ab Sc reen (Indirect Pamella)vis OVID ([facility]) ID Date Data Source [id number] 03/06/2021 12:14:00 PM EDT OVID ([facility]) Name Value Range Interpretation Code Description Data Ale rce(s) Supporting Document(s) HIV 1&2 screen centaur negative negative HIV 1&2 Scree n Centaur NINA ([facility]) ID Date Data Source [id number] 03/06/2021 12:14:00 PM EDT [facility]) Name Value Range Interpretation Code Description Data Ale rce(s) Supporting Document(s) hepatitis A antibody IgM negative negative Hepatitis a Antibody IgM [facility]) ID Date Data Source [id number] 03/06/2021 12:14:00 PM EDT OVID ([facility]) Name Value Range Interpretation Code Description Data Ale rce(s) Supporting Document(s) hepatitis B core antibody IgM negative negative Hepati tis B Core Antibody IgM [facility]) ID Date Data Source [id number] 03/06/2021 12:14:00 PM EDT [facility]) Name Value Range Interpretation Code Description Data Ale rce(s) Supporting Document(s) hepatitis B surface antibody negative positive Hepatit is B Surface Antibody [facility]) ID Date Data Source [id number] 03/06/2021 12:14:00 PM EDT [facility]) Name Value Range Interpretation Code Description Data Ale rce(s) Supporting Document(s) hepatitis B surface antigen negative negative Hepatiti s B Surface Antigen [facility]) ID Date Data Source [id number] 03/06/2021 12:14:00 PM EDT [facility]) Name Value Range Interpretation Code Description Data Ale rce(s) Supporting Document(s) glucose challenge test 1 hour 107 mg/dL less than 140 Glucose Challenge Test 1 Hour OVID ([facility]) ID Date Data Source [id number] 03/06/2021 12:14:00 PM EDT [facility]) Name Value Range Interpretation Code Description Data Ale rce(s) Supporting Document(s) hepatitis C virus roosevelt index > 11.0 <0.8 Above high no rmal Hepatitis C Virus [place] Index [facility]) ID Date Data Source [id number] 03/06/2021 12:14:00 PM EDT NINA ([facility]) Name Value Range Interpretation Code Description Data Ale rce(s) Supporting Document(s) glucose, fasting 107 mg/dL 70-100 Above high normal Glucose, Fas ting NINA ([facility]) blood urea nitrogen 5 mg/dL 7-18 Below low normal Blood Urea Nitrogen NINA ([facility]) creatinine for GFR 0.47 mg/dL 0.55-1.30 Below low normal Creatinine for GFR NINA ([facility]) glomerular filtration rate > 60.0 >60 Glomerula r Filtration Rate NINA ([facility]) potassium serum 3.6 mEq/L 3.5-5.1 Potassium Serum ATHE ([facility]) sodium level 140 mEq/L 136-145 Sodium Level NINA ([facility]) carbon dioxide level 25 mEq/L 21-32 Carbon Dioxide Level NINA ([facility]) chloride level 108 mEq/L 98-107 Above high normal Chloride Level NINA ([facility]) anion gap 7 mEq/L 8-16 Below low normal Anion Gap NINA ( [facility]) calcium level 9.0 mg/dL 8.5-10.1 Calcium Level OVID ( [facility]) AST/SGOT 38 U/L 7-37 Above high normal AST/SGOT NINA ([facility]) ALT/SGPT 43 U/L 12-78 ALT/SGPT NINA ([facility]) alkaline phosphatase 74 U/L 45-117 Alkaline Phosph atase NINA ([facility]) total protein 6.4 gm/dL 6.4-8.2 Total Protein NINA ( [facility]) bilirubin,total 0.7 mg/dL 0.2-1.0 Bilirubin,total ATHE ([facility]) albumin/globulin ratio 1.2-2.2 Below low normal Albumin /globulin Ratio NINA ([facility]) albumin 2.7 gm/dL 3.2-5.2 Below low normal Albumin NINA ( [facility]) ID Date Data Source [id number] 03/06/2021 12:10:00 PM EDT [facility]) Name Value Range Interpretation Code Description Data Ale rce(s) Supporting Document(s) HCV RNA LETYT qualitative positive negative Abnormal (applies to non-numeric results) HCV RNA LETTY Qualitative [facility]) ID Date Data Source [id number] 03/06/2021 12:10:00 PM EDT NINA ([facility]) Name Value Range Interpretation Code Description Data Ale rce(s) Supporting Document(s) HCV RNA LETTY qualitative positive negative Abnormal (applies to non-numeric results) HCV RNA LETTY Qualitative [facility]) ID Date Data Source CBC - Complete Blood Count 03/06/2021 12:00:00 AM EDT eCW ( [facility]) Name Value Range Interpretation Code Description Data Ale rce(s) Supporting Document(s) 9.9 4.0-10.0 WHITE BLOOD COUNT eCW1 ([facility]) 4.84 4.00-5.40 RED BLOOD COUNT eCW1 ([facility]) 13.8 12.0-15.5 HEMOGLOBIN eCW1 ([facility]) 85.3 80.0-96.0 MEAN CORPUSCULAR VOLUME e CW1 ([facility]) 41.3 36.0-47.0 HEMATOCRIT eCW1 ([facility]) 33.4 32.0-36.5 MEAN CORPUSCULAR HGB CONC eCW1 ([facility]) 28.5 27.0-33.0 MEAN CORPUSCULAR HEMOGLOB IN eCW1 ([facility]) 14.3 11.5-14.5 RED CELL DISTRIBUTION WID TH eCW1 ([facility]) 234 150-450 PLATELET COUNT, AUTOMATED eCW1 ([facility]) ID Date Data Source DRUG PROF UR QL ([facility]) 12/19/2020 12:00:00 AM EDT eCW1 ([facility]) Name Value Range Interpretation Code Description Data Ale rce(s) Supporting Document(s) DRUG PROF UR QL ([facility]) e CW1 ([facility]) ID Date Data Source HBSAG 12/19/2020 12:00:00 AM EDT eCW1 ([facility]) Name Value Range Interpretation Code Description Data Ale rce(s) Supporting Document(s) NEGATIVE NEGATIVE HBsAg eCW1 ([facility]) ID Date Data Source URINE CULTURE 12/19/2020 12:00:00 AM EDT eCW1 ([facility]) Name Value Range Interpretation Code Description Data Ale rce(s) Supporting Document(s) URINE CULTURE eCW1 ([facility]) ID Date Data Source RUBELLA IMMUNE STATUS IgG 12/19/2020 12:00:00 AM EDT eCW1 ([facility]) Name Value Range Interpretation Code Description Data Ale rce(s) Supporting Document(s) IMMUNE IMMUNE RUBELLA IgG QUALITATIVE eCW1 ( [facility]) ID Date Data Source SYPHILIS ANTIBODY (RPR SCREEN) 12/19/2020 12:00:00 AM EDT eC W1 ([facility]) Name Value Range Interpretation Code Description Data Ale rce(s) Supporting Document(s) NONREACTIVE NONREACTIVE SYPHILIS eCW1 ([facility]) ID Date Data Source [id number] 12/19/2020 12:00:00 AM EDT eCW1 ([facility]) Name Value Range Interpretation Code Description Data Ale rce(s) Supporting Document(s) HIV 1&2 ANTIBODY SCREEN eCW1 ( [facility]) ID Date Data Source HEPATITIS C ANTIBODY INDEX 12/19/2020 12:00:00 AM EDT eCW1 ( [facility]) Name Value Range Interpretation Code Description Data Ale rce(s) Supporting Document(s) > 11.0 <0.8 HEPATITIS C VIRUS [place] IND EX eCW1 ([facility]) ID Date Data Source Type and Screen Prenatal1 12/19/2020 12:00:00 AM EDT eCW1 ([facility]) Name Value Range Interpretation Code Description Data Ale rce(s) Supporting Document(s) NEGATIVE AB SCREEN PNP1 GEL (VIS) eCW1 ([facility]) ID Date Data Source [id number] 10/10/2020 01:00:00 PM EST [facility]) Name Value Range Interpretation Code Description Data Ale rce(s) Supporting Document(s) chlamydia DNA amplification negative negative [facility]di [facility] trichomonas vaginalis (amp) not detected negative Tricho monas Vaginalis (Amp) OVID ([facility]) GC DNA amplification positive negative Above high normal GC DNA A mplification [facility]) ID Date Data Source [id number] 10/10/2020 01:00:00 PM EST [facility]) Name Value Range Interpretation Code Description Data Ale rce(s) Supporting Document(s) chlamydia DNA amplification negative negative [facility]ydi [facility] GC DNA amplification positive negative Above high normal GC DNA A mplification [facility]) trichomonas vaginalis (amp) not detected negative Tricho monas Vaginalis (Amp) [facility]) ID Date Data Source [id number] 10/10/2020 01:00:00 PM EST [facility]) Name Value Range Interpretation Code Description Data Ale rce(s) Supporting Document(s) chlamydia DNA amplification negative negative [facility]di [facility] trichomonas vaginalis (amp) not detected negative Tricho monas Vaginalis (Amp) [facility] GC DNA amplification positive negative Above high normal GC DNA A mplification [facility]) ID Date Data Source [id number] 10/10/2020 01:00:00 PM EST [facility]) Name Value Range Interpretation Code Description Data Ale rce(s) Supporting Document(s) chlamydia DNA amplification negative negative Chlamydi a DNA Amplification NINA ([facility]) GC DNA amplification positive negative Above high normal GC DNA [facility] trichomonas vaginalis (amp) not detected negative Tricho monas Vaginalis (Amp) [facility]) ID Date Data Source [id number] 10/10/2020 01:00:00 PM EST [facility]) Name Value Range Interpretation Code Description Data Ale rce(s) Supporting Document(s) chlamydia DNA amplification negative negative Chlamydi a DNA Amplification NINA ([facility]) GC DNA amplification positive negative Above high normal GC DNA A mplification OVID ([facility]) trichomonas vaginalis (amp) not detected negative Tricho monas Vaginalis (Amp) [facility]) ID Date Data Source [id number] 10/10/2020 01:00:00 PM EST OVID ([facility]) Name Value Range Interpretation Code Description Data Ale rce(s) Supporting Document(s) chlamydia DNA amplification negative negative Chlamydi a DNA Amplification NINA ([facility]) GC DNA amplification positive negative Above high normal GC DNA A mplification [facility]) trichomonas vaginalis (amp) not detected negative Tricho monas Vaginalis (Amp) [facility]) ID Date Data Source [id number] 10/10/2020 01:00:00 PM EST [facility]) Name Value Range Interpretation Code Description Data Ale rce(s) Supporting Document(s) chlamydia DNA amplification negative negative [facility]lamydi [facility] trichomonas vaginalis (amp) not detected negative Tricho monas Vaginalis (Amp) OVID ([facility]) GC DNA amplification positive negative Above high normal GC DNA A mplification [facility]) ID Date Data Source [id number] 10/10/2020 11:06:00 AM EST NINA ([facility]) Name Value Range Interpretation Code Description Data Ale rce(s) Supporting Document(s) HCV RNA LETTY qualitative positive negative Abnormal (applies to non-numeric results) HCV RNA LETTY Qualitative OVID ([facility]) ID Date Data Source [id number] 10/10/2020 11:06:00 AM EST NINA ([facility]) Name Value Range Interpretation Code Description Data Ale rce(s) Supporting Document(s) HIV 1&2 screen centaur negative negative HIV 1&2 Scree n Centaur OVID ([facility]) ID Date Data Source [id number] 10/10/2020 11:06:00 AM EST OVID ([facility]) Name Value Range Interpretation Code Description Data Ale rce(s) Supporting Document(s) hepatitis C virus roosevelt index > 11.0 <0.8 Above high no rmal Hepatitis C Virus Roosevelt Index OVID ([facility]) ID Date Data Source [id number] 10/10/2020 11:06:00 AM EST [facility]) Name Value Range Interpretation Code Description Data Ale rce(s) Supporting Document(s) blood urea nitrogen 7 mg/dL 7-18 Blood Urea Nitro gen NINA ([facility]) glucose, fasting 88 mg/dL 70-100 Glucose, Fasting AT AGUSTIN ([facility]) glomerular filtration rate > 60.0 >60 Glomerula r Filtration Rate OVID ([facility]) potassium serum 4.2 mEq/L 3.5-5.1 Potassium Serum ATHE NA ([facility]) creatinine for GFR 0.58 mg/dL 0.55-1.30 Creatinine for GF R NINA ([facility]) sodium level 140 mEq/L 136-145 Sodium Level NINA ([facility]) chloride level 106 mEq/L 98-107 Chloride Level OVID ([facility]) carbon dioxide level 25 mEq/L 21-32 Carbon Dioxide Level NINA ([facility]) calcium level 9.6 mg/dL 8.5-10.1 Calcium Level NINA ( [facility]) AST/SGOT 29 U/L 7-37 AST/SGOT NINA ([facility]) anion gap 9 mEq/L 8-16 Anion Gap NINA ([facility]) ALT/SGPT 44 U/L 12-78 ALT/SGPT NINA ([facility]) bilirubin,total 0.4 mg/dL 0.2-1.0 Bilirubin,total ATHE ([facility]) total protein 7.3 gm/dL 6.4-8.2 Total Protein NINA ( [facility]) alkaline phosphatase 39 U/L 45-117 Below low normal Alkaline Phosphatase NINA ([facility]) albumin 3.9 gm/dL 3.2-5.2 Albumin NINA ([facility]) albumin/globulin ratio 1.2-2.2 Below low normal Albumin /globulin Ratio NINA ([facility]) ID Date Data Source [id number] 10/10/2020 11:06:00 AM EST NINA ([facility]) Name Value Range Interpretation Code Description Data Ale rce(s) Supporting Document(s) white blood count 7.4 10 4.0-10.0 White Blood Count NINA ([facility]) mean corpuscular volume 82.8 fL 80.0-96.0 Mean Corpusc ular Volume NINA ([facility]) hemoglobin 14.7 g/dL 12.0-15.5 Hemoglobin NINA ([facility]) red blood count 5.35 10 4.00-5.40 Red Blood Count ATHE NA ([facility]) hematocrit 44.3 % 36.0-47.0 Hematocrit NINA ([facility]) red cell distribution width 15.0 % 11.5-14.5 Above high no rmal Red Cell Distribution Width NINA ([facility]) mean corpuscular hemoglobin 27.5 pg 27.0-33.0 Mean Cor puscular Hemoglobin NINA ([facility]) mean corpuscular HGB conc 33.2 g/dL 32.0-36.5 Mean Corpu scular HGB Conc NINA ([facility]) neutrophils % 64.8 % 36.0-66.0 Neutrophils % NINA ( [facility]) lymph % 20.8 % 24.0-44.0 Below low normal Lymph % NINA ( [facility]) platelet count, automated 233 10 150-450 Platelet C ount, Automated NINA ([facility]) mono % 8.0 % 0.0-5.0 Above high normal Tift % OVID ([facility]) eos % 5.2 % 0.0-3.0 Above high normal Eos % OVID ([facility]) baso % 0.8 % 0.0-1.0 Baso % OVID ([facility]) nucleated red blood cell % 0.0 % 0-0 Nucleated Red Blood Cell % NINA ([facility]) neutrophils # 4.8 10 1.5-8.5 Neutrophils # OVID ( [facility]) immature granulocyte % 0.4 % 0-3.0 Immature Gran ulocyte % NINA ([facility]) eos # 0.4 10 0.0-0.5 Eos # NINA ([facility]) lymph # 1.5 10 1.5-5.0 Lymph # NINA ([facility]) mono # 0.6 10 0.0-0.8 Tift # NINA ([facility]) baso # 0.1 10 0.0-0.2 Baso # NINA ([facility]) ID Date Data Source [id number] 10/10/2020 11:06:00 AM EST NINA ([facility]) Name Value Range Interpretation Code Description Data Ale rce(s) Supporting Document(s) HCV RNA LETTY qualitative positive negative Abnormal (applies to non-numeric results) HCV RNA LETTY Qualitative OVID ([facility]) ID Date Data Source [id number] 10/10/2020 11:06:00 AM EST NINA ([facility]) Name Value Range Interpretation Code Description Data Lae rce(s) Supporting Document(s) HIV 1&2 screen centaur negative negative HIV 1&2 Scree n Centaur NINA ([facility]) ID Date Data Source [id number] 10/10/2020 11:06:00 AM EST NINA ([facility]) Name Value Range Interpretation Code Description Data Ale rce(s) Supporting Document(s) hepatitis C virus roosevelt index > 11.0 <0.8 Above high no rmal Hepatitis C Virus Roosevelt Index OVID ([facility]) ID Date Data Source [id number] 10/10/2020 11:06:00 AM EST NINA ([facility]) Name Value Range Interpretation Code Description Data Ale rce(s) Supporting Document(s) blood urea nitrogen 7 mg/dL 7-18 Blood Urea Nitro gen NINA ([facility]) glucose, fasting 88 mg/dL 70-100 Glucose, Fasting AT [facility] ([facility]) creatinine for GFR 0.58 mg/dL 0.55-1.30 Creatinine for GF R OVID ([facility]) sodium level 140 mEq/L 136-145 Sodium Level NINA ([facility]) glomerular filtration rate > 60.0 >60 Glomerula r Filtration Rate NINA ([facility]) potassium serum 4.2 mEq/L 3.5-5.1 Potassium Serum ATHE NA ([facility]) carbon dioxide level 25 mEq/L 21-32 Carbon Dioxide Level NINA ([facility]) chloride level 106 mEq/L 98-107 Chloride Level NINA ([facility]) AST/SGOT 29 U/L 7-37 AST/SGOT OVID ([facility]) calcium level 9.6 mg/dL 8.5-10.1 Calcium Level NINA ( [facility]) ALT/SGPT 44 U/L 12-78 ALT/SGPT NINA ([facility]) anion gap 9 mEq/L 8-16 Anion Gap NINA ([facility]) alkaline phosphatase 39 U/L 45-117 Below low normal Alkaline Phosphatase NINA ([facility]) total protein 7.3 gm/dL 6.4-8.2 Total Protein NINA ( [facility]) bilirubin,total 0.4 mg/dL 0.2-1.0 Bilirubin,total ATHE NA ([facility]) albumin 3.9 gm/dL 3.2-5.2 Albumin NINA ([facility]) albumin/globulin ratio 1.2-2.2 Below low normal Albumin /globulin Ratio NINA ([facility]) ID Date Data Source [id number] 10/10/2020 11:06:00 AM EST NINA ([facility]) Name Value Range Interpretation Code Description Data Ale rce(s) Supporting Document(s) white blood count 7.4 10 4.0-10.0 White Blood Count NINA ([facility]) hematocrit 44.3 % 36.0-47.0 Hematocrit NINA ([facility]) hemoglobin 14.7 g/dL 12.0-15.5 Hemoglobin NINA ([facility]) red blood count 5.35 10 4.00-5.40 Red Blood Count ATHE ([facility]) mean corpuscular volume 82.8 fL 80.0-96.0 Mean Corpusc ular Volume NINA ([facility]) mean corpuscular HGB conc 33.2 g/dL 32.0-36.5 Mean Corpu scular HGB Conc NINA ([facility]) mean corpuscular hemoglobin 27.5 pg 27.0-33.0 Mean Cor puscular Hemoglobin NINA ([facility]) platelet count, automated 233 10 150-450 Platelet C ount, Automated NINA ([facility]) red cell distribution width 15.0 % 11.5-14.5 Above high no rmal Red Cell Distribution Width NINA ([facility]) neutrophils % 64.8 % 36.0-66.0 Neutrophils % NINA ( [facility]) eos % 5.2 % 0.0-3.0 Above high normal Eos % NINA ([facility]) mono % 8.0 % 0.0-5.0 Above high normal Tift % NINA ([facility]) lymph % 20.8 % 24.0-44.0 Below low normal Lymph % NINA ( [facility]) nucleated red blood cell % 0.0 % 0-0 Nucleated Red Blood Cell % OVID ([facility]) immature granulocyte % 0.4 % 0-3.0 Immature Gran ulocyte % NINA ([facility]) baso % 0.8 % 0.0-1.0 Baso % NINA ([facility]) mono # 0.6 10 0.0-0.8 Tift # OVID ([facility]) lymph # 1.5 10 1.5-5.0 Lymph # OVID ([facility]) neutrophils # 4.8 10 1.5-8.5 Neutrophils # NINA ( [facility]) eos # 0.4 10 0.0-0.5 Eos # NINA ([facility]) baso # 0.1 10 0.0-0.2 Baso # NINA ([facility]) ID Date Data Source [id number] 10/10/2020 11:06:00 AM EST NINA ([facility]) Name Value Range Interpretation Code Description Data Ale rce(s) Supporting Document(s) HCV RNA LETTY qualitative positive negative Abnormal (applies to non-numeric results) HCV RNA LETTY Qualitative OVID ([facility]) ID Date Data Source [id number] 10/10/2020 11:06:00 AM EST OVID ([facility]) Name Value Range Interpretation Code Description Data Ale rce(s) Supporting Document(s) HIV 1&2 screen centaur negative negative HIV 1&2 Scree n Centaur OVID ([facility]) ID Date Data Source [id number] 10/10/2020 11:06:00 AM EST NINA ([facility]) Name Value Range Interpretation Code Description Data Ale rce(s) Supporting Document(s) hepatitis C virus roosevelt index > 11.0 <0.8 Above high no rmal Hepatitis C Virus Roosevelt Index OVID ([facility]) ID Date Data Source [id number] 10/10/2020 11:06:00 AM EST NINA ([facility]) Name Value Range Interpretation Code Description Data Ale rce(s) Supporting Document(s) glucose, fasting 88 mg/dL 70-100 Glucose, Fasting AT [facility] ([facility]) creatinine for GFR 0.58 mg/dL 0.55-1.30 Creatinine for GF R OVID ([facility]) blood urea nitrogen 7 mg/dL 7-18 Blood Urea Nitro gen NINA ([facility]) glomerular filtration rate > 60.0 >60 Glomerula r Filtration Rate NINA ([facility]) chloride level 106 mEq/L 98-107 Chloride Level NINA ([facility]) sodium level 140 mEq/L 136-145 Sodium Level NINA ([facility]) potassium serum 4.2 mEq/L 3.5-5.1 Potassium Serum ATHE ([facility]) carbon dioxide level 25 mEq/L 21-32 Carbon Dioxide Level NINA ([facility]) anion gap 9 mEq/L 8-16 Anion Gap NINA ([facility]) calcium level 9.6 mg/dL 8.5-10.1 Calcium Level NINA ( [facility]) alkaline phosphatase 39 U/L 45-117 Below low normal Alkaline Phosphatase NINA ([facility]) AST/SGOT 29 U/L 7-37 AST/SGOT NINA ([facility]) bilirubin,total 0.4 mg/dL 0.2-1.0 Bilirubin,total ATHE ([facility]) ALT/SGPT 44 U/L 12-78 ALT/SGPT NINA ([facility]) total protein 7.3 gm/dL 6.4-8.2 Total Protein NINA ( [facility]) albumin/globulin ratio 1.2-2.2 Below low normal Albumin /globulin Ratio NINA ([facility]) albumin 3.9 gm/dL 3.2-5.2 Albumin NINA ([facility]) ID Date Data Source [id number] 10/10/2020 11:06:00 AM EST NINA ([facility]) Name Value Range Interpretation Code Description Data Ale rce(s) Supporting Document(s) red blood count 5.35 10 4.00-5.40 Red Blood Count ATHE NA ([facility]) white blood count 7.4 10 4.0-10.0 White Blood Count NINA ([facility]) hematocrit 44.3 % 36.0-47.0 Hematocrit NINA ([facility]) mean corpuscular volume 82.8 fL 80.0-96.0 Mean Corpusc ular Volume NINA ([facility]) hemoglobin 14.7 g/dL 12.0-15.5 Hemoglobin NINA ([facility]) mean corpuscular hemoglobin 27.5 pg 27.0-33.0 Mean Cor puscular Hemoglobin NINA ([facility]) red cell distribution width 15.0 % 11.5-14.5 Above high no rmal Red Cell Distribution Width NINA ([facility]) mean corpuscular HGB conc 33.2 g/dL 32.0-36.5 Mean Corpu scular HGB Conc NINA ([facility]) lymph % 20.8 % 24.0-44.0 Below low normal Lymph % NINA ( [facility]) platelet count, automated 233 10 150-450 Platelet C ount, Automated NINA ([facility]) neutrophils % 64.8 % 36.0-66.0 Neutrophils % NINA ( [facility]) baso % 0.8 % 0.0-1.0 Baso % INNA ([facility]) mono % 8.0 % 0.0-5.0 Above high normal Tift % NINA ([facility]) eos % 5.2 % 0.0-3.0 Above high normal Eos % NINA ([facility]) neutrophils # 4.8 10 1.5-8.5 Neutrophils # OVID ( [facility]) immature granulocyte % 0.4 % 0-3.0 Immature Gran ulocyte % OVID ([facility]) nucleated red blood cell % 0.0 % 0-0 Nucleated Red Blood Cell % NINA ([facility]) lymph # 1.5 10 1.5-5.0 Lymph # NINA ([facility]) mono # 0.6 10 0.0-0.8 Tift # NINA ([facility]) eos # 0.4 10 0.0-0.5 Eos # NINA ([facility]) baso # 0.1 10 0.0-0.2 Baso # NINA ([facility]) ID Date Data Source [id number] 10/10/2020 11:06:00 AM EST NINA ([facility]) Name Value Range Interpretation Code Description Data Ale rce(s) Supporting Document(s) HCV RNA LETTY qualitative positive negative Abnormal (applies to non-numeric results) HCV RNA LETTY Qualitative OVID ([facility]) ID Date Data Source [id number] 10/10/2020 11:06:00 AM EST NINA ([facility]) Name Value Range Interpretation Code Description Data Ale rce(s) Supporting Document(s) HIV 1&2 screen centaur negative negative HIV 1&2 Scree n Centaur OVID ([facility]) ID Date Data Source [id number] 10/10/2020 11:06:00 AM EST OVID ([facility]) Name Value Range Interpretation Code Description Data Ale rce(s) Supporting Document(s) hepatitis C virus roosevelt index > 11.0 <0.8 Above high no rmal Hepatitis C Virus Roosevelt Index OVID ([facility]) ID Date Data Source [id number] 10/10/2020 11:06:00 AM EST NINA ([facility]) Name Value Range Interpretation Code Description Data Ale rce(s) Supporting Document(s) glucose, fasting 88 mg/dL 70-100 Glucose, Fasting AT [facility] ([facility]) creatinine for GFR 0.58 mg/dL 0.55-1.30 Creatinine for GF R NINA ([facility]) blood urea nitrogen 7 mg/dL 7-18 Blood Urea Nitro gen NINA ([facility]) sodium level 140 mEq/L 136-145 Sodium Level NINA (No [facility]) glomerular filtration rate > 60.0 >60 Glomerula r Filtration Rate NINA ([facility]) chloride level 106 mEq/L 98-107 Chloride Level NINA ([facility]) potassium serum 4.2 mEq/L 3.5-5.1 Potassium Serum ATHE NA ([facility]) carbon dioxide level 25 mEq/L 21-32 Carbon Dioxide Level NINA ([facility]) anion gap 9 mEq/L 8-16 Anion Gap NINA ([facility]) calcium level 9.6 mg/dL 8.5-10.1 Calcium Level NINA ( [facility]) AST/SGOT 29 U/L 7-37 AST/SGOT NINA ([facility]) ALT/SGPT 44 U/L 12-78 ALT/SGPT NINA ([facility]) bilirubin,total 0.4 mg/dL 0.2-1.0 Bilirubin,total ATHE ([facility]) alkaline phosphatase 39 U/L 45-117 Below low normal Alkaline Phosphatase NINA ([facility]) albumin 3.9 gm/dL 3.2-5.2 Albumin NINA ([facility]) total protein 7.3 gm/dL 6.4-8.2 Total Protein NINA ( [facility]) albumin/globulin ratio 1.2-2.2 Below low normal Albumin /globulin Ratio NINA ([facility]) ID Date Data Source [id number] 10/10/2020 11:06:00 AM EST NINA ([facility]) Name Value Range Interpretation Code Description Data Ale rce(s) Supporting Document(s) white blood count 7.4 10 4.0-10.0 White Blood Count NINA ([facility]) red blood count 5.35 10 4.00-5.40 Red Blood Count ATHE NA ([facility]) hemoglobin 14.7 g/dL 12.0-15.5 Hemoglobin NINA ([facility]) mean corpuscular volume 82.8 fL 80.0-96.0 Mean Corpusc ular Volume NINA ([facility]) hematocrit 44.3 % 36.0-47.0 Hematocrit NINA ([facility]) mean corpuscular hemoglobin 27.5 pg 27.0-33.0 Mean Cor puscular Hemoglobin NINA ([facility]) mean corpuscular HGB conc 33.2 g/dL 32.0-36.5 Mean Corpu scular HGB Conc OVID ([facility]) red cell distribution width 15.0 % 11.5-14.5 Above high no rmal Red Cell Distribution Width OVID ([facility]) platelet count, automated 233 10 150-450 Platelet C ount, Automated OVID ([facility]) neutrophils % 64.8 % 36.0-66.0 Neutrophils % OVID ( [facility]) mono % 8.0 % 0.0-5.0 Above high normal Tift % [facility]) lymph % 20.8 % 24.0-44.0 Below low normal Lymph % OVID ( [facility]) baso % 0.8 % 0.0-1.0 Baso % NINA ([facility]) eos % 5.2 % 0.0-3.0 Above high normal Eos % OVID ([facility]) immature granulocyte % 0.4 % 0-3.0 Immature Gran ulocyte % OVID ([facility]) nucleated red blood cell % 0.0 % 0-0 Nucleated Red Blood Cell % OVID ([facility]) neutrophils # 4.8 10 1.5-8.5 Neutrophils # OVID ( [facility]) lymph # 1.5 10 1.5-5.0 Lymph # NINA ([facility]) mono # 0.6 10 0.0-0.8 Tift # NINA ([facility]) eos # 0.4 10 0.0-0.5 Eos # NINA ([facility]) baso # 0.1 10 0.0-0.2 Baso # NINA ([facility]) ID Date Data Source [id number] 10/10/2020 11:06:00 AM EST NINA ([facility]) Name Value Range Interpretation Code Description Data Ale rce(s) Supporting Document(s) HCV RNA LETTY qualitative positive negative Abnormal (applies to non-numeric results) HCV RNA LETTY Qualitative OVID ([facility]) ID Date Data Source [id number] 10/10/2020 11:06:00 AM EST NINA ([facility]) Name Value Range Interpretation Code Description Data Ale rce(s) Supporting Document(s) HIV 1&2 screen centaur negative negative HIV 1&2 Scree n Centaur OVID ([facility]) ID Date Data Source [id number] 10/10/2020 11:06:00 AM EST OVID ([facility]) Name Value Range Interpretation Code Description Data Ale rce(s) Supporting Document(s) hepatitis C virus roosevelt index > 11.0 <0.8 Above high no rmal Hepatitis C Virus Roosevelt Index OVID ([facility]) ID Date Data Source [id number] 10/10/2020 11:06:00 AM EST NINA ([facility]) Name Value Range Interpretation Code Description Data Ale rce(s) Supporting Document(s) blood urea nitrogen 7 mg/dL 7-18 Blood Urea Nitro gen OVID ([facility]) glucose, fasting 88 mg/dL 70-100 Glucose, Fasting AT [facility] ([facility]) glomerular filtration rate > 60.0 >60 Glomerula r Filtration Rate NINA ([facility]) sodium level 140 mEq/L 136-145 Sodium Level NINA ([facility]) creatinine for GFR 0.58 mg/dL 0.55-1.30 Creatinine for GF R NINA ([facility]) carbon dioxide level 25 mEq/L 21-32 Carbon Dioxide Level NINA ([facility]) chloride level 106 mEq/L 98-107 Chloride Level NINA ([facility]) anion gap 9 mEq/L 8-16 Anion Gap NINA ([facility]) potassium serum 4.2 mEq/L 3.5-5.1 Potassium Serum ATHE ([facility]) calcium level 9.6 mg/dL 8.5-10.1 Calcium Level NINA ( [facility]) AST/SGOT 29 U/L 7-37 AST/SGOT NINA ([facility]) ALT/SGPT 44 U/L 12-78 ALT/SGPT NINA ([facility]) bilirubin,total 0.4 mg/dL 0.2-1.0 Bilirubin,total ATHE ([facility]) total protein 7.3 gm/dL 6.4-8.2 Total Protein NINA ( [facility]) alkaline phosphatase 39 U/L 45-117 Below low normal Alkaline Phosphatase NINA ([facility]) albumin 3.9 gm/dL 3.2-5.2 Albumin NINA ([facility]) albumin/globulin ratio 1.2-2.2 Below low normal Albumin /globulin Ratio NINA ([facility]) ID Date Data Source [id number] 10/10/2020 11:06:00 AM EST NINA ([facility]) Name Value Range Interpretation Code Description Data Ale rce(s) Supporting Document(s) red blood count 5.35 10 4.00-5.40 Red Blood Count ATHE ([facility]) white blood count 7.4 10 4.0-10.0 White Blood Count NINA ([facility]) hemoglobin 14.7 g/dL 12.0-15.5 Hemoglobin NINA ([facility]) mean corpuscular volume 82.8 fL 80.0-96.0 Mean Corpusc ular Volume NINA ([facility]) hematocrit 44.3 % 36.0-47.0 Hematocrit NINA ([facility]) mean corpuscular hemoglobin 27.5 pg 27.0-33.0 Mean Cor puscular Hemoglobin NINA ([facility]) red cell distribution width 15.0 % 11.5-14.5 Above high no rmal Red Cell Distribution Width NINA ([facility]) platelet count, automated 233 10 150-450 Platelet C ount, Automated NINA ([facility]) mean corpuscular HGB conc 33.2 g/dL 32.0-36.5 Mean Corpu scular HGB Conc NINA ([facility]) neutrophils % 64.8 % 36.0-66.0 Neutrophils % NINA ( [facility]) lymph % 20.8 % 24.0-44.0 Below low normal Lymph % NINA ( [facility]) mono % 8.0 % 0.0-5.0 Above high normal Tift % NINA ([facility]) nucleated red blood cell % 0.0 % 0-0 Nucleated Red Blood Cell % OVID ([facility]) immature granulocyte % 0.4 % 0-3.0 Immature Gran ulocyte % NINA ([facility]) baso % 0.8 % 0.0-1.0 Baso % NINA ([facility]) eos % 5.2 % 0.0-3.0 Above high normal Eos % NINA ([facility]) neutrophils # 4.8 10 1.5-8.5 Neutrophils # NINA ( [facility]) lymph # 1.5 10 1.5-5.0 Lymph # NINA ([facility]) mono # 0.6 10 0.0-0.8 Tift # NINA ([facility]) baso # 0.1 10 0.0-0.2 Baso # NINA ([facility]) eos # 0.4 10 0.0-0.5 Eos # NINA ([facility]) ID Date Data Source [id number] 10/10/2020 11:06:00 AM EST NINA ([facility]) Name Value Range Interpretation Code Description Data Ale rce(s) Supporting Document(s) HCV RNA LETTY qualitative positive negative Abnormal (applies to non-numeric results) HCV RNA LETTY Qualitative [facility]) ID Date Data Source [id number] 10/10/2020 11:06:00 AM EST NINA ([facility]) Name Value Range Interpretation Code Description Data Ale rce(s) Supporting Document(s) HIV 1&2 screen centaur negative negative HIV 1&2 Scree n Centaur NINA ([facility]) ID Date Data Source [id number] 10/10/2020 11:06:00 AM EST NINA ([facility]) Name Value Range Interpretation Code Description Data Ale rce(s) Supporting Document(s) hepatitis C virus roosevelt index > 11.0 <0.8 Above high no rmal Hepatitis C Virus Roosevelt Index OVID ([facility]) ID Date Data Source [id number] 10/10/2020 11:06:00 AM EST [facility]) Name Value Range Interpretation Code Description Data Ale rce(s) Supporting Document(s) glucose, fasting 88 mg/dL 70-100 Glucose, Fasting AT [facility]) creatinine for GFR 0.58 mg/dL 0.55-1.30 Creatinine for GF R OVID ([facility]) blood urea nitrogen 7 mg/dL 7-18 Blood Urea Nitro gen NINA ([facility]) glomerular filtration rate > 60.0 >60 Glomerula r Filtration Rate OVID ([facility]) chloride level 106 mEq/L 98-107 Chloride Level OVID ([facility]) potassium serum 4.2 mEq/L 3.5-5.1 Potassium Serum ATHE NA ([facility]) sodium level 140 mEq/L 136-145 Sodium Level NINA ([facility]) AST/SGOT 29 U/L 7-37 AST/SGOT NINA ([facility]) carbon dioxide level 25 mEq/L 21-32 Carbon Dioxide Level NINA ([facility]) calcium level 9.6 mg/dL 8.5-10.1 Calcium Level NINA ( [facility]) anion gap 9 mEq/L 8-16 Anion Gap NINA ([facility]) ALT/SGPT 44 U/L 12-78 ALT/SGPT NINA ([facility]) bilirubin,total 0.4 mg/dL 0.2-1.0 Bilirubin,total ATHE ([facility]) alkaline phosphatase 39 U/L 45-117 Below low normal Alkaline Phosphatase NINA ([facility]) total protein 7.3 gm/dL 6.4-8.2 Total Protein NINA ( [facility]) albumin 3.9 gm/dL 3.2-5.2 Albumin NINA ([facility]) albumin/globulin ratio 1.2-2.2 Below low normal Albumin /globulin Ratio NINA ([facility]) ID Date Data Source [id number] 10/10/2020 11:06:00 AM EST NINA ([facility]) Name Value Range Interpretation Code Description Data Ale rce(s) Supporting Document(s) red blood count 5.35 10 4.00-5.40 Red Blood Count ATHE NA ([facility]) hemoglobin 14.7 g/dL 12.0-15.5 Hemoglobin NINA ([facility]) white blood count 7.4 10 4.0-10.0 White Blood Count NINA ([facility]) mean corpuscular hemoglobin 27.5 pg 27.0-33.0 Mean Cor puscular Hemoglobin NINA ([facility]) mean corpuscular volume 82.8 fL 80.0-96.0 Mean Corpusc ular Volume NINA ([facility]) hematocrit 44.3 % 36.0-47.0 Hematocrit OVID ([facility]) mean corpuscular HGB conc 33.2 g/dL 32.0-36.5 Mean Corpu scular HGB Conc OVID ([facility]) neutrophils % 64.8 % 36.0-66.0 Neutrophils % OVID ( [facility]) red cell distribution width 15.0 % 11.5-14.5 Above high no rmal Red Cell Distribution Width OVID ([facility]) platelet count, automated 233 10 150-450 Platelet C ount, Automated OVID ([facility]) mono % 8.0 % 0.0-5.0 Above high normal Tift % OVID ([facility]) eos % 5.2 % 0.0-3.0 Above high normal Eos % OVID ([facility]) lymph % 20.8 % 24.0-44.0 Below low normal Lymph % OVID ( [facility]) nucleated red blood cell % 0.0 % 0-0 Nucleated Red Blood Cell % OVID ([facility]) immature granulocyte % 0.4 % 0-3.0 Immature Gran ulocyte % OVID ([facility]) baso % 0.8 % 0.0-1.0 Baso % OVID ([facility]) mono # 0.6 10 0.0-0.8 Tift # OVID ([facility]) lymph # 1.5 10 1.5-5.0 Lymph # OVID ([facility]) eos # 0.4 10 0.0-0.5 Eos # NINA ([facility]) neutrophils # 4.8 10 1.5-8.5 Neutrophils # OVID ( [facility]) baso # 0.1 10 0.0-0.2 Baso # OVID ([facility]) ID Date Data Source [id number] 10/10/2020 11:06:00 AM EST OVID ([facility]) Name Value Range Interpretation Code Description Data Ale rce(s) Supporting Document(s) HCV RNA LETTY qualitative positive negative Abnormal (applies to non-numeric results) HCV RNA LETTY Qualitative OVID ([facility]) ID Date Data Source [id number] 10/10/2020 11:06:00 AM EST NINA ([facility]) Name Value Range Interpretation Code Description Data Ale rce(s) Supporting Document(s) HIV 1&2 screen centaur negative negative HIV 1&2 Scree n Centaur OVID ([facility]) ID Date Data Source [id number] 10/10/2020 11:06:00 AM EST OVID ([facility]) Name Value Range Interpretation Code Description Data Ale rce(s) Supporting Document(s) hepatitis C virus roosevelt index > 11.0 <0.8 Above high no rmal Hepatitis C Virus Roosevelt Index OVID ([facility]) ID Date Data Source [id number] 10/10/2020 11:06:00 AM EST OVID ([facility]) Name Value Range Interpretation Code Description Data Ale rce(s) Supporting Document(s) blood urea nitrogen 7 mg/dL 7-18 Blood Urea Nitro gen OVID ([facility]) creatinine for GFR 0.58 mg/dL 0.55-1.30 Creatinine for GF R OVID ([facility]) glucose, fasting 88 mg/dL 70-100 Glucose, Fasting AT [facility]) chloride level 106 mEq/L 98-107 Chloride Level NINA ([facility]) sodium level 140 mEq/L 136-145 Sodium Level NINA ([facility]) potassium serum 4.2 mEq/L 3.5-5.1 Potassium Serum ATHE NA ([facility]) glomerular filtration rate > 60.0 >60 Glomerula r Filtration Rate OVID ([facility]) calcium level 9.6 mg/dL 8.5-10.1 Calcium Level OVID ( [facility]) anion gap 9 mEq/L 8-16 Anion Gap NINA ([facility]) carbon dioxide level 25 mEq/L 21-32 Carbon Dioxide Level NINA ([facility]) AST/SGOT 29 U/L 7-37 AST/SGOT NINA ([facility]) alkaline phosphatase 39 U/L 45-117 Below low normal Alkaline Phosphatase NINA ([facility]) total protein 7.3 gm/dL 6.4-8.2 Total Protein NINA ( [facility]) ALT/SGPT 44 U/L 12-78 ALT/SGPT NINA ([facility]) bilirubin,total 0.4 mg/dL 0.2-1.0 Bilirubin,total ATHE NA ([facility]) albumin 3.9 gm/dL 3.2-5.2 Albumin NINA ([facility]) albumin/globulin ratio 1.2-2.2 Below low normal Albumin /globulin Ratio NINA ([facility]) ID Date Data Source [id number] 10/10/2020 11:06:00 AM EST NINA ([facility]) Name Value Range Interpretation Code Description Data Ale rce(s) Supporting Document(s) white blood count 7.4 10 4.0-10.0 White Blood Count NINA ([facility]) red blood count 5.35 10 4.00-5.40 Red Blood Count ATHE ([facility]) hematocrit 44.3 % 36.0-47.0 Hematocrit NINA ([facility]) mean corpuscular volume 82.8 fL 80.0-96.0 Mean Corpusc ular Volume NINA ([facility]) hemoglobin 14.7 g/dL 12.0-15.5 Hemoglobin NINA ([facility]) mean corpuscular HGB conc 33.2 g/dL 32.0-36.5 Mean Corpu scular HGB Conc NINA ([facility]) platelet count, automated 233 10 150-450 Platelet C ount, Automated NINA ([facility]) mean corpuscular hemoglobin 27.5 pg 27.0-33.0 Mean Cor puscular Hemoglobin NINA ([facility]) red cell distribution width 15.0 % 11.5-14.5 Above high no rmal Red Cell Distribution Width NINA ([facility]) lymph % 20.8 % 24.0-44.0 Below low normal Lymph % NINA ( [facility]) eos % 5.2 % 0.0-3.0 Above high normal Eos % NINA ([facility]) mono % 8.0 % 0.0-5.0 Above high normal Tift % OVID ([facility]) neutrophils % 64.8 % 36.0-66.0 Neutrophils % NINA ( [facility]) nucleated red blood cell % 0.0 % 0-0 Nucleated Red Blood Cell % NINA ([facility]) baso % 0.8 % 0.0-1.0 Baso % OVID ([facility]) immature granulocyte % 0.4 % 0-3.0 Immature Gran ulocyte % OVID ([facility]) neutrophils # 4.8 10 1.5-8.5 Neutrophils # OVID ( [facility]) lymph # 1.5 10 1.5-5.0 Lymph # NINA ([facility]) mono # 0.6 10 0.0-0.8 Tift # NINA ([facility]) eos # 0.4 10 0.0-0.5 Eos # NINA ([facility]) baso # 0.1 10 0.0-0.2 Baso # NINA ([facility]) ID Date Data Source [id number] 09/11/2020 01:15:00 PM EST OVID ([facility]) Name Value Range Interpretation Code Description Data Ale rce(s) Supporting Document(s) blood urea nitrogen 8 mg/dL 7-18 Blood Urea Nitro gen OVID ([facility]) glucose, fasting 92 mg/dL 70-100 Glucose, Fasting AT [facility] ([facility]) creatinine for GFR 0.63 mg/dL 0.55-1.30 Creatinine for GF R OVID ([facility]) sodium level 137 mEq/L 136-145 Sodium Level OVID ([facility]) potassium serum 4.2 mEq/L 3.5-5.1 Potassium Serum ATHE NA ([facility]) chloride level 106 mEq/L 98-107 Chloride Level NINA ([facility]) glomerular filtration rate > 60.0 >60 Glomerula r Filtration Rate NINA ([facility]) carbon dioxide level 26 mEq/L 21-32 Carbon Dioxide Level NINA ([facility]) anion gap 5 mEq/L 8-16 Below low normal Anion Gap NINA ( [facility]) calcium level 9.1 mg/dL 8.5-10.1 Calcium Level NINA ( [facility]) ID Date Data Source [id number] 09/11/2020 01:15:00 PM EST OVID ([facility]) Name Value Range Interpretation Code Description Data Ale rce(s) Supporting Document(s) white blood count 7.9 10 4.0-10.0 White Blood Count NINA ([facility]) red blood count 5.48 10 4.00-5.40 Above high normal Red Blood Cou nt OVID ([facility]) mean corpuscular volume 79.9 fL 80.0-96.0 Below low normal Mean Corpuscular Volume NINA ([facility]) mean corpuscular hemoglobin 26.1 pg 27.0-33.0 Below low nor mal Mean Corpuscular Hemoglobin NINA ([facility]) hematocrit 43.8 % 36.0-47.0 Hematocrit NINA ([facility]) hemoglobin 14.3 g/dL 12.0-15.5 Hemoglobin NINA ([facility]) nucleated red blood cell % 0.0 % 0-0 Nucleated Red Blood Cell % NINA ([facility]) mean corpuscular HGB conc 32.6 g/dL 32.0-36.5 Mean Corpu scular HGB Conc OVID ([facility]) red cell distribution width 14.6 % 11.5-14.5 Above high no rmal Red Cell Distribution Width NINA ([facility]) platelet count, automated 258 10 150-450 Platelet C ount, Automated NINA ([facility]) ID Date Data Source [id number] 09/11/2020 01:15:00 PM EST NINA ([facility]) Name Value Range Interpretation Code Description Data Ale rce(s) Supporting Document(s) glomerular filtration rate > 60.0 >60 Glomerula r Filtration Rate NINA ([facility]) glucose, fasting 92 mg/dL 70-100 Glucose, Fasting AT [facility] ([facility]) creatinine for GFR 0.63 mg/dL 0.55-1.30 Creatinine for GF R NINA ([facility]) blood urea nitrogen 8 mg/dL 7-18 Blood Urea Nitro gen NINA ([facility]) potassium serum 4.2 mEq/L 3.5-5.1 Potassium Serum ATH NA ([facility]) carbon dioxide level 26 mEq/L 21-32 Carbon Dioxide Level OVID ([facility]) chloride level 106 mEq/L 98-107 Chloride Level NINA ([facility]) sodium level 137 mEq/L 136-145 Sodium Level NINA ([facility]) anion gap 5 mEq/L 8-16 Below low normal Anion Gap NINA ( [facility]) calcium level 9.1 mg/dL 8.5-10.1 Calcium Level OVID ( [facility]) ID Date Data Source [id number] 09/11/2020 01:15:00 PM EST NINA ([facility]) Name Value Range Interpretation Code Description Data Ale rce(s) Supporting Document(s) red blood count 5.48 10 4.00-5.40 Above high normal Red Blood Cou nt NINA ([facility]) white blood count 7.9 10 4.0-10.0 White Blood Count NINA ([facility]) hematocrit 43.8 % 36.0-47.0 Hematocrit NINA ([facility]) mean corpuscular volume 79.9 fL 80.0-96.0 Below low normal Mean Corpuscular Volume NINA ([facility]) mean corpuscular hemoglobin 26.1 pg 27.0-33.0 Below low nor mal Mean Corpuscular Hemoglobin NINA ([facility]) hemoglobin 14.3 g/dL 12.0-15.5 Hemoglobin NINA ([facility]) platelet count, automated 258 10 150-450 Platelet C ount, Automated NINA ([facility]) mean corpuscular HGB conc 32.6 g/dL 32.0-36.5 Mean Corpu scular HGB Conc NINA ([facility]) nucleated red blood cell % 0.0 % 0-0 Nucleated Red Blood Cell % NINA ([facility]) red cell distribution width 14.6 % 11.5-14.5 Above high no rmal Red Cell Distribution Width NINA ([facility]) ID Date Data Source [id number] 09/11/2020 01:15:00 PM EST OVID ([facility]) Name Value Range Interpretation Code Description Data Ale rce(s) Supporting Document(s) glomerular filtration rate > 60.0 >60 Glomerula r Filtration Rate NINA ([facility]) glucose, fasting 92 mg/dL 70-100 Glucose, Fasting AT [facility] ([facility]) creatinine for GFR 0.63 mg/dL 0.55-1.30 Creatinine for GF R NINA ([facility]) blood urea nitrogen 8 mg/dL 7-18 Blood Urea Nitro gen NINA ([facility]) chloride level 106 mEq/L 98-107 Chloride Level NINA ([facility]) potassium serum 4.2 mEq/L 3.5-5.1 Potassium Serum ATHE NA ([facility]) sodium level 137 mEq/L 136-145 Sodium Level NINA ([facility]) carbon dioxide level 26 mEq/L 21-32 Carbon Dioxide Level NINA ([facility]) calcium level 9.1 mg/dL 8.5-10.1 Calcium Level NINA ( [facility]) anion gap 5 mEq/L 8-16 Below low normal Anion Gap NINA ( [facility]) ID Date Data Source [id number] 09/11/2020 01:15:00 PM EST OVID ([facility]) Name Value Range Interpretation Code Description Data Ale rce(s) Supporting Document(s) hemoglobin 14.3 g/dL 12.0-15.5 Hemoglobin OVID ([facility]) red blood count 5.48 10 4.00-5.40 Above high normal Red Blood Cou nt OVID ([facility]) white blood count 7.9 10 4.0-10.0 White Blood Count OVID ([facility]) mean corpuscular volume 79.9 fL 80.0-96.0 Below low normal Mean Corpuscular Volume OVID ([facility]) hematocrit 43.8 % 36.0-47.0 Hematocrit OVID ([facility]) mean corpuscular hemoglobin 26.1 pg 27.0-33.0 Below low nor mal Mean Corpuscular Hemoglobin OVID ([facility]) nucleated red blood cell % 0.0 % 0-0 Nucleated Red Blood Cell % OVID ([facility]) red cell distribution width 14.6 % 11.5-14.5 Above high no rmal Red Cell Distribution Width OVID ([facility]) platelet count, automated 258 10 150-450 Platelet C ount, Automated [facility]) mean corpuscular HGB conc 32.6 g/dL 32.0-36.5 Mean Corpu scular HGB Conc OVID ([facility]) ID Date Data Source [id number] 09/11/2020 01:15:00 PM EST OVID ([facility]) Name Value Range Interpretation Code Description Data Ale rce(s) Supporting Document(s) glucose, fasting 92 mg/dL 70-100 Glucose, Fasting AT [facility] ([facility]) creatinine for GFR 0.63 mg/dL 0.55-1.30 Creatinine for GF R OVID ([facility]) blood urea nitrogen 8 mg/dL 7-18 Blood Urea Nitro gen NINA ([facility]) glomerular filtration rate > 60.0 >60 [facility] chloride level 106 mEq/L 98-107 Chloride Level OVID ([facility]) sodium level 137 mEq/L 136-145 Sodium Level NINA ([facility]) carbon dioxide level 26 mEq/L 21-32 Carbon Dioxide Level NINA ([facility]) potassium serum 4.2 mEq/L 3.5-5.1 Potassium Serum ATHE NA ([facility]) anion gap 5 mEq/L 8-16 Below low normal Anion Gap NINA ( [facility]) calcium level 9.1 mg/dL 8.5-10.1 Calcium Level NINA ( [facility]) ID Date Data Source [id number] 09/11/2020 01:15:00 PM EST OVID ([facility]) Name Value Range Interpretation Code Description Data Ale rce(s) Supporting Document(s) white blood count 7.9 10 4.0-10.0 White Blood Count NINA ([facility]) hematocrit 43.8 % 36.0-47.0 Hematocrit NINA ([facility]) hemoglobin 14.3 g/dL 12.0-15.5 Hemoglobin NINA ([facility]) red blood count 5.48 10 4.00-5.40 Above high normal Red Blood Cou nt NINA ([facility]) mean corpuscular hemoglobin 26.1 pg 27.0-33.0 Below low nor mal Mean Corpuscular Hemoglobin NINA ([facility]) red cell distribution width 14.6 % 11.5-14.5 Above high no rmal Red Cell Distribution Width NINA ([facility]) mean corpuscular volume 79.9 fL 80.0-96.0 Below low normal Mean Corpuscular Volume NINA ([facility]) mean corpuscular HGB conc 32.6 g/dL 32.0-36.5 Mean Corpu scular HGB Conc NINA ([facility]) nucleated red blood cell % 0.0 % 0-0 Nucleated Red Blood Cell % NINA ([facility]) platelet count, automated 258 10 150-450 [facility] ID Date Data Source [id number] 09/11/2020 01:15:00 PM EST NINA ([facility]) Name Value Range Interpretation Code Description Data Ale rce(s) Supporting Document(s) glucose, fasting 92 mg/dL 70-100 Glucose, Fasting AT [facility] ([facility]) glomerular filtration rate > 60.0 >60 Glomerula r Filtration Rate NINA ([facility]) blood urea nitrogen 8 mg/dL 7-18 Blood Urea Nitro gen NINA ([facility]) sodium level 137 mEq/L 136-145 Sodium Level NINA ([facility]) creatinine for GFR 0.63 mg/dL 0.55-1.30 Creatinine for GF R NINA ([facility]) chloride level 106 mEq/L 98-107 Chloride Level OVID ([facility]) carbon dioxide level 26 mEq/L 21-32 Carbon Dioxide Level OVID ([facility]) potassium serum 4.2 mEq/L 3.5-5.1 Potassium Serum ATH NA ([facility]) anion gap 5 mEq/L 8-16 Below low normal Anion Gap NINA ( [facility]) calcium level 9.1 mg/dL 8.5-10.1 Calcium Level OVID ( [facility]) ID Date Data Source [id number] 09/11/2020 01:15:00 PM EST NINA ([facility]) Name Value Range Interpretation Code Description Data Ale rce(s) Supporting Document(s) white blood count 7.9 10 4.0-10.0 White Blood Count OVID ([facility]) hematocrit 43.8 % 36.0-47.0 Hematocrit OVID ([facility]) hemoglobin 14.3 g/dL 12.0-15.5 Hemoglobin NINA ([facility]) red blood count 5.48 10 4.00-5.40 Above high normal Red Blood Cou nt NINA ([facility]) mean corpuscular hemoglobin 26.1 pg 27.0-33.0 Below low nor mal Mean Corpuscular Hemoglobin OVID ([facility]) mean corpuscular volume 79.9 fL 80.0-96.0 Below low normal Mean Corpuscular Volume NINA ([facility]) red cell distribution width 14.6 % 11.5-14.5 Above high no rmal Red Cell Distribution Width OVID ([facility]) mean corpuscular HGB conc 32.6 g/dL 32.0-36.5 Mean Corpu scular HGB Conc NINA ([facility]) platelet count, automated 258 10 150-450 Platelet C ount, Automated NINA ([facility]) nucleated red blood cell % 0.0 % 0-0 Nucleated Red Blood Cell % OVID ([facility]) ID Date Data Source [id number] 09/11/2020 01:15:00 PM EST [facility]) Name Value Range Interpretation Code Description Data Ale rce(s) Supporting Document(s) blood urea nitrogen 8 mg/dL 7-18 Blood Urea Nitro gen NINA ([facility]) glomerular filtration rate > 60.0 >60 Glomerula r Filtration Rate NINA ([facility]) glucose, fasting 92 mg/dL 70-100 Glucose, Fasting AT [facility]) creatinine for GFR 0.63 mg/dL 0.55-1.30 Creatinine for GF R NINA ([facility]) chloride level 106 mEq/L 98-107 Chloride Level OVID ([facility]) potassium serum 4.2 mEq/L 3.5-5.1 Potassium Serum ATHE NA ([facility]) sodium level 137 mEq/L 136-145 Sodium Level NINA ([facility]) carbon dioxide level 26 mEq/L 21-32 Carbon Dioxide Level OVID ([facility]) anion gap 5 mEq/L 8-16 Below low normal Anion Gap NINA ( [facility]) calcium level 9.1 mg/dL 8.5-10.1 Calcium Level OVID ( [facility]) ID Date Data Source [id number] 09/11/2020 01:15:00 PM EST [facility]) Name Value Range Interpretation Code Description Data Ale rce(s) Supporting Document(s) hemoglobin 14.3 g/dL 12.0-15.5 Hemoglobin OVID ([facility]) red blood count 5.48 10 4.00-5.40 Above high normal Red Blood Cou nt OVID ([facility]) white blood count 7.9 10 4.0-10.0 White Blood Count OVID ([facility]) mean corpuscular volume 79.9 fL 80.0-96.0 Below low normal Mean Corpuscular Volume OVID ([facility]) mean corpuscular hemoglobin 26.1 pg 27.0-33.0 Below low nor mal Mean Corpuscular Hemoglobin OVID ([facility]) hematocrit 43.8 % 36.0-47.0 Hematocrit OVID ([facility]) mean corpuscular HGB conc 32.6 g/dL 32.0-36.5 Mean Corpu scular HGB Conc OVID ([facility]) platelet count, automated 258 10 150-450 Platelet C ount, Automated OVID ([facility]) nucleated red blood cell % 0.0 % 0-0 Nucleated Red Blood Cell % OVID ([facility]) red cell distribution width 14.6 % 11.5-14.5 Above high no rmal Red Cell Distribution Width OVID ([facility]) ID Date Data Source [id number] 09/11/2020 01:15:00 PM EST OVID ([facility]) Name Value Range Interpretation Code Description Data Ale rce(s) Supporting Document(s) glucose, fasting 92 mg/dL 70-100 Glucose, Fasting AT [facility] ([facility]) blood urea nitrogen 8 mg/dL 7-18 Blood Urea Nitro gen OVID ([facility]) creatinine for GFR 0.63 mg/dL 0.55-1.30 Creatinine for GF R OVID ([facility]) chloride level 106 mEq/L 98-107 Chloride Level OVID ([facility]) glomerular filtration rate > 60.0 >60 Glomerula r Filtration Rate OVID ([facility]) potassium serum 4.2 mEq/L 3.5-5.1 Potassium Serum ATHE NA ([facility]) sodium level 137 mEq/L 136-145 Sodium Level NINA ([facility]) anion gap 5 mEq/L 8-16 Below low normal Anion Gap NINA ( [facility]) calcium level 9.1 mg/dL 8.5-10.1 Calcium Level NINA ( [facility]) carbon dioxide level 26 mEq/L 21-32 Carbon Dioxide Level NINA ([facility]) ID Date Data Source [id number] 09/11/2020 01:15:00 PM EST NINA ([facility]) Name Value Range Interpretation Code Description Data Ale rce(s) Supporting Document(s) white blood count 7.9 10 4.0-10.0 White Blood Count NINA ([facility]) mean corpuscular volume 79.9 fL 80.0-96.0 Below low normal Mean Corpuscular Volume NINA ([facility]) hemoglobin 14.3 g/dL 12.0-15.5 Hemoglobin NINA ([facility]) mean corpuscular hemoglobin 26.1 pg 27.0-33.0 Below low nor mal Mean Corpuscular Hemoglobin NINA ([facility]) red blood count 5.48 10 4.00-5.40 Above high normal Red Blood Cou nt OVID ([facility]) hematocrit 43.8 % 36.0-47.0 Hematocrit NINA ([facility]) nucleated red blood cell % 0.0 % 0-0 Nucleated Red Blood Cell % NINA ([facility]) platelet count, automated 258 10 150-450 Platelet C ount, Automated NINA ([facility]) mean corpuscular HGB conc 32.6 g/dL 32.0-36.5 Mean Corpu scular HGB Conc NINA ([facility]) red cell distribution width 14.6 % 11.5-14.5 Above high no rmal Red Cell Distribution Width NINA ([facility]) ID Date Data Source [id number] 09/11/2020 01:15:00 PM EST NINA ([facility]) Name Value Range Interpretation Code Description Data Ale rce(s) Supporting Document(s) glucose, fasting 92 mg/dL 70-100 Glucose, Fasting AT [facility]) blood urea nitrogen 8 mg/dL 7-18 Blood Urea Nitro gen NINA ([facility]) glomerular filtration rate > 60.0 >60 Glomerula r Filtration Rate OVID ([facility]) creatinine for GFR 0.63 mg/dL 0.55-1.30 Creatinine for GF R OVID ([facility]) sodium level 137 mEq/L 136-145 Sodium Level OVID ([facility]) anion gap 5 mEq/L 8-16 Below low normal Anion Gap OVID ( [facility]) carbon dioxide level 26 mEq/L 21-32 Carbon Dioxide Level OVID ([facility]) chloride level 106 mEq/L 98-107 Chloride Level OVID ([facility]) calcium level 9.1 mg/dL 8.5-10.1 Calcium Level OVID ( [facility]) potassium serum 4.2 mEq/L 3.5-5.1 Potassium Serum ATHE NA ([facility]) ID Date Data Source [id number] 09/11/2020 01:15:00 PM EST OVID ([facility]) Name Value Range Interpretation Code Description Data Ale rce(s) Supporting Document(s) white blood count 7.9 10 4.0-10.0 White Blood Count OVID ([facility]) hemoglobin 14.3 g/dL 12.0-15.5 Hemoglobin OVID ([facility]) red blood count 5.48 10 4.00-5.40 Above high normal Red Blood Cou nt OVID ([facility]) hematocrit 43.8 % 36.0-47.0 Hematocrit NINA ([facility]) mean corpuscular volume 79.9 fL 80.0-96.0 Below low normal Mean Corpuscular Volume NINA ([facility]) mean corpuscular hemoglobin 26.1 pg 27.0-33.0 Below low nor mal Mean Corpuscular Hemoglobin NINA ([facility]) red cell distribution width 14.6 % 11.5-14.5 Above high no rmal Red Cell Distribution Width OVID ([facility]) mean corpuscular HGB conc 32.6 g/dL 32.0-36.5 Mean Corpu scular HGB Conc OVID ([facility]) nucleated red blood cell % 0.0 % 0-0 Nucleated Red Blood Cell % OVID ([facility]) platelet count, automated 258 10 150-450 [facility], [facility] ID Date Data Source [id number] 09/11/2020 01:15:00 PM EST OVID ([facility]) Name Value Range Interpretation Code Description Data Ale rce(s) Supporting Document(s) glucose, fasting 92 mg/dL 70-100 Glucose, Fasting AT [facility]) blood urea nitrogen 8 mg/dL 7-18 Blood Urea Nitro gen NINA ([facility]) glomerular filtration rate > 60.0 >60 Glomerula r Filtration Rate OVID ([facility]) sodium level 137 mEq/L 136-145 Sodium Level OVID (No [facility]) creatinine for GFR 0.63 mg/dL 0.55-1.30 Creatinine for GF R OVID ([facility]) carbon dioxide level 26 mEq/L 21-32 Carbon Dioxide Level [facility]) calcium level 9.1 mg/dL 8.5-10.1 Calcium Level NINA ( [facility]) chloride level 106 mEq/L 98-107 Chloride Level OVID ([facility]) anion gap 5 mEq/L 8-16 Below low normal Anion Gap NINA ( [facility]) potassium serum 4.2 mEq/L 3.5-5.1 Potassium Serum ATH NA [facility]) ID Date Data Source [id number] 09/11/2020 01:15:00 PM EST [facility]) Name Value Range Interpretation Code Description Data Ale rce(s) Supporting Document(s) red blood count 5.48 10 4.00-5.40 Above high normal Red Blood Cou nt NINA ([facility]) white blood count 7.9 10 4.0-10.0 White Blood Count OVID ([facility]) hemoglobin 14.3 g/dL 12.0-15.5 Hemoglobin NINA ([facility]) mean corpuscular hemoglobin 26.1 pg 27.0-33.0 Below low nor mal Mean Corpuscular Hemoglobin NINA ([facility]) mean corpuscular volume 79.9 fL 80.0-96.0 Below low normal Mean Corpuscular Volume OVID ([facility]) hematocrit 43.8 % 36.0-47.0 Hematocrit OVID ([facility]) platelet count, automated 258 10 150-450 Platelet C ount, Automated OVID ([facility]) nucleated red blood cell % 0.0 % 0-0 Nucleated Red Blood Cell % OVID ([facility]) red cell distribution width 14.6 % 11.5-14.5 Above high no rmal Red Cell Distribution Width OVID ([facility]) mean corpuscular HGB conc 32.6 g/dL 32.0-36.5 Mean Corpu scular HGB Conc OVID ([facility]) ID Date Data Source [id number] 09/11/2020 01:15:00 PM EST OVID ([facility]) Name Value Range Interpretation Code Description Data Ale rce(s) Supporting Document(s) blood urea nitrogen 8 mg/dL 7-18 Blood Urea Nitro gen NINA ([facility]) glucose, fasting 92 mg/dL 70-100 Glucose, Fasting AT [facility] ([facility]) creatinine for GFR 0.63 mg/dL 0.55-1.30 Creatinine for GF R OVID ([facility]) glomerular filtration rate > 60.0 >60 Glomerula r Filtration Rate NINA ([facility]) sodium level 137 mEq/L 136-145 Sodium Level NINA (No [facility]) potassium serum 4.2 mEq/L 3.5-5.1 Potassium Serum ATHE NA ([facility]) chloride level 106 mEq/L 98-107 Chloride Level NINA ([facility]) carbon dioxide level 26 mEq/L 21-32 Carbon Dioxide Level NINA ([facility]) calcium level 9.1 mg/dL 8.5-10.1 Calcium Level NINA ( [facility]) anion gap 5 mEq/L 8-16 Below low normal Anion Gap NINA ( [facility]) ID Date Data Source [id number] 09/11/2020 01:15:00 PM EST NINA ([facility]) Name Value Range Interpretation Code Description Data Ale rce(s) Supporting Document(s) white blood count 7.9 10 4.0-10.0 White Blood Count NINA ([facility]) hemoglobin 14.3 g/dL 12.0-15.5 Hemoglobin NINA ([facility]) red blood count 5.48 10 4.00-5.40 Above high normal Red Blood Cou nt NINA ([facility]) mean corpuscular hemoglobin 26.1 pg 27.0-33.0 Below low nor mal Mean Corpuscular Hemoglobin NINA ([facility]) hematocrit 43.8 % 36.0-47.0 Hematocrit NINA ([facility]) mean corpuscular volume 79.9 fL 80.0-96.0 Below low normal Mean Corpuscular Volume NINA ([facility]) red cell distribution width 14.6 % 11.5-14.5 Above high no rmal Red Cell Distribution Width NINA ([facility]) mean corpuscular HGB conc 32.6 g/dL 32.0-36.5 Mean Corpu scular HGB Conc NINA ([facility]) platelet count, automated 258 10 150-450 Platelet C ount, Automated NINA ([facility]) nucleated red blood cell % 0.0 % 0-0 Nucleated Red Blood Cell % NINA ([facility]) ID Date Data Source [id number] 09/11/2020 01:15:00 PM EST NINA ([facility]) Name Value Range Interpretation Code Description Data Ale rce(s) Supporting Document(s) blood urea nitrogen 8 mg/dL 7-18 Blood Urea Nitro gen NINA ([facility]) glucose, fasting 92 mg/dL 70-100 Glucose, Fasting AT AGUSTIN [facility]) creatinine for GFR 0.63 mg/dL 0.55-1.30 Creatinine for GF R NINA ([facility]) potassium serum 4.2 mEq/L 3.5-5.1 Potassium Serum ATH NA ([facility]) chloride level 106 mEq/L 98-107 Chloride Level OVID ([facility]) carbon dioxide level 26 mEq/L 21-32 Carbon Dioxide Level OVID ([facility]) glomerular filtration rate > 60.0 >60 Glomerula r Filtration Rate NINA ([facility]) sodium level 137 mEq/L 136-145 Sodium Level NINA ([facility]) anion gap 5 mEq/L 8-16 Below low normal Anion Gap NINA ( [facility]) calcium level 9.1 mg/dL 8.5-10.1 Calcium Level OVID ( [facility]) ID Date Data Source [id number] 09/11/2020 01:15:00 PM EST OVID ([facility]) Name Value Range Interpretation Code Description Data Ale rce(s) Supporting Document(s) hemoglobin 14.3 g/dL 12.0-15.5 Hemoglobin NINA ([facility]) red blood count 5.48 10 4.00-5.40 Above high normal Red Blood Cou nt NINA ([facility]) hematocrit 43.8 % 36.0-47.0 Hematocrit OVID ([facility]) white blood count 7.9 10 4.0-10.0 White Blood Count [facility]) mean corpuscular volume 79.9 fL 80.0-96.0 Below low normal Mean Corpuscular Volume NINA ([facility]) red cell distribution width 14.6 % 11.5-14.5 Above high no rmal Red [facility] mean corpuscular HGB conc 32.6 g/dL 32.0-36.5 Mean Corpu scular HGB Conc NINA ([facility]) mean corpuscular hemoglobin 26.1 pg 27.0-33.0 Below low nor mal Mean Corpuscular Hemoglobin NINA ([facility]) nucleated red blood cell % 0.0 % 0-0 Nucleated Red Blood Cell % NINA ([facility]) platelet count, automated 258 10 150-450 Platelet C ount, Automated NINA ([facility]) ID Date Data Source HEPATITIS C QUANT BY PCR 07/25/2020 12:00:00 AM EST eCW1 ([facility]) Name Value Range Interpretation Code Description Data Ale rce(s) Supporting Document(s) 240 . HEPATITIS C QUANTITATION eCW1 ([facility]) 2.380 . Hepatitis C log10 eCW1 ([facility]) ID Date Data Source LIVER PROFILE 07/25/2020 12:00:00 AM EST eCW1 ([facility]) Name Value Range Interpretation Code Description Data Ale rce(s) Supporting Document(s) 13 7-37 AST/SGOT eCW1 ([facility]) 0.6 0.2-1.0 BILIRUBIN,TOTAL eCW1 ([facility]) 25 12-78 ALT/SGPT eCW1 ([facility]) 0.2 0.0-0.2 BILIRUBIN,DIRECT eCW1 ([facility]) 51 45-117 ALKALINE PHOSPHATASE eCW1 ([facility]) 4.0 3.2-5.2 ALBUMIN eCW1 ([facility]) 1.1 1.2-2.2 ALBUMIN/GLOBULIN RATIO eCW1 ([facility]) 7.7 6.4-8.2 TOTAL PROTEIN eCW1 ([facility]) ID Date Data Source [id number] 06/19/2020 02:17:19 PM EDT [facility] Measurements & CalculationsHeight: 66.50 inches [...] provider? Yes - orthoHave you seen a dentist? NoIntake performed by: Nitza Carbajal LPN, June [...] Hypertension ()Social/Personal History:lives with boyfriend Born in [facility]. Not employed. Highest education level: high school graduate. Sexually Active: Yes. Advised to Quit/Tobacco Education: YesChief Complaintfollow-up visitHistory of Present Illness (HPI)Pt was roomed by the nurse and left without being seen by provider. Reported a family emergency. Nurse only visit.HPI performed by: Naveen REYES, June 19, 2020 2:38 PMTransitions of Care InboundProblem ReviewProblem List was reviewed and/or updated during this visit.Medication Reconciliation & ReviewMedication List was reviewed and/or updated during this visit, including review of any [id number] medications, herbal therapies, and/or supplements.Allergy ReviewAllergy List [...] health is? FairAssessment & Plan Problems:Assessed:Other acne ([id number]) Assessment: Instructions: Pt reported to nurse, no change to skin symtpoms. All creams have been reportedly denied by insurance, we will call pharmacy to verify.Follicular disorder, unspecified ([id number]) Assessment: Instructions: As above.Patient Instructions/Care Plan: Other [...] 5Allergies:* LATEX (Critical)HYDROCODONE (Severe)* SEASONAL (Mild)Orders:Nurse Visit [[id number]] Follow-Up Return to clinic: as needed Clinical Visit Summary DeclinedElec richard signed by Naveen REYES on 06/19/2020 at 2:39 PM Name Value Range Interpretation Code Description Data Ale rce(s) Supporting Document(s) Procedure Social History Code Duration Value Status Description Data Source(s ) Smoking 04/22/2021 12:00:00 AM EDT Current Smoker completed Curre nt Smoker eCW1 ([facility]) Smoking 04/01/2021 12:00:00 AM EDT Current Smoker completed Curre nt Smoker eCW1 ([facility]) Smoking 03/03/2021 12:00:00 AM EDT Current Smoker completed Curre nt Smoker eCW1 ([facility]) Smoking 03/03/2021 12:00:00 AM EDT Current Smoker completed Curre nt Smoker eCW1 ([facility]) Smoking 01/24/2021 12:00:00 AM EDT Current Smoker completed Curre nt Smoker eCW1 ([facility]) Smoking 12/19/2020 12:00:00 AM EDT Current Smoker completed Curre nt Smoker eCW1 ([facility]) Smoking 12/19/2020 12:00:00 AM EDT Current Smoker completed Curre nt Smoker eCW1 ([facility]) Smoking 07/25/2020 12:00:00 AM EST Current Smoker completed Curre nt Smoker eCW1 ([facility]) Smoking 07/25/2020 12:00:00 AM EST Current Smoker completed Curre nt Smoker eCW1 ([facility]) Vital Signs ID Date Data Source UNK Name Value Range Interpretation Code Description Data Source(s) Body mass index (BMI) [Ratio] 31.951 kg/m2 31.9 51 kg/m2 eCW1 ([facility]) Systolic blood pressure 132 mm[Hg] 132 mm[Hg] e CW1 ([facility]) Diastolic blood pressure 78 mm[Hg] 78 mm[Hg] eCW1 ([facility]) Body weight 204 [lb_av] 204 [lb_av] eCW1 ([facility]) Body height 67 [in_i] 67 [in_i] eCW1 ([facility]) Body weight 204.2 [lb_av] 204.2 [lb_av] eCW1 ([facility]) Body weight 92.62 kg 92.62 kg eCW1 ([facility]) Body height 67 [in_i] 67 [in_i] eCW1 ([facility]) Body mass index (BMI) [Ratio] 31.982 kg/m2 31.9 82 kg/m2 eCW1 ([facility]) Systolic blood pressure 128 mm[Hg] 128 mm[Hg] e CW1 ([facility]) Diastolic blood pressure 78 mm[Hg] 78 mm[Hg] eCW1 ([facility]) Body weight 200.6 [lb_av] 200.6 [lb_av] eCW1 ([facility]) Body weight 90.99 kg 90.99 kg eCW1 ([facility]) Body height 67 [in_i] 67 [in_i] eCW1 ([facility]) Body mass index (BMI) [Ratio] 31.418 kg/m2 31.4 18 kg/m2 eCW1 ([facility]) Systolic blood pressure 140 mm[Hg] 140 mm[Hg] e CW1 ([facility]) Diastolic blood pressure 80 mm[Hg] 80 mm[Hg] eCW1 ([facility]) Body weight 198.6 [lb_av] 198.6 [lb_av] eCW1 ([facility]) Body height 67 [in_i] 67 [in_i] eCW1 ([facility]) Body mass index (BMI) [Ratio] 31.105 kg/m2 31.1 05 kg/m2 eCW1 ([facility]) Systolic blood pressure 134 mm[Hg] 134 mm[Hg] e CW1 ([facility]) Diastolic blood pressure 84 mm[Hg] 84 mm[Hg] eCW1 ([facility]) Diastolic blood pressure 74 mm[Hg] 74 mm[Hg] NINA ([facility]) Body height 66.5 [in_i] 66.5 [in_i] NINA ([facility]) Body mass index (BMI) [Ratio] 31 kg/m2 31 kg/ m2 NINA ([facility]) Systolic blood pressure 121 mm[Hg] 121 mm[Hg] A THENA ([facility]) Body weight 3122 [oz_av] 3122 [oz_av] NINA ([facility]) Diastolic blood pressure 74 mm[Hg] 74 mm[Hg] NINA ([facility]) Body height 66.5 [in_i] 66.5 [in_i] NINA ([facility]) Body mass index (BMI) [Ratio] 31 kg/m2 31 kg/ m2 NINA ([facility]) Systolic blood pressure 121 mm[Hg] 121 mm[Hg] A THENA ([facility]) Body weight 3122 [oz_av] 3122 [oz_av] NINA ([facility]) Diastolic blood pressure 74 mm[Hg] 74 mm[Hg] NINA ([facility]) Body height 66.5 [in_i] 66.5 [in_i] NINA ([facility]) Body mass index (BMI) [Ratio] 31 kg/m2 31 kg/ m2 NINA ([facility]) Systolic blood pressure 121 mm[Hg] 121 mm[Hg] A THENA ([facility]) Body weight 3122 [oz_av] 3122 [oz_av] NINA ([facility]) Diastolic blood pressure 74 mm[Hg] 74 mm[Hg] NINA ([facility]) Body height 66.5 [in_i] 66.5 [in_i] NINA ([facility]) Body mass index (BMI) [Ratio] 31 kg/m2 31 kg/ m2 NINA ([facility]) Systolic blood pressure 121 mm[Hg] 121 mm[Hg] A THENA ([facility]) Body weight 3122 [oz_av] 3122 [oz_av] NINA ([facility]) Diastolic blood pressure 82 mm[Hg] 82 mm[Hg] eCW1 ([facility]) Systolic blood pressure 124 mm[Hg] 124 mm[Hg] e CW1 ([facility]) Body weight 188 [lb_av] 188 [lb_av] eCW1 ([facility]) Body height 67 [in_i] 67 [in_i] eCW1 ([facility]) Body mass index (BMI) [Ratio] 29.445 kg/m2 29.4 45 kg/m2 eC1 ([facility]) Body height 66.5 [in_i] 66.5 [in_i] NINA ([facility]) Body height 66.5 [in_i] 66.5 [in_i] NINA ([facility]) Body height 66.5 [in_i] 66.5 [in_i] NINA ([facility]) Body height 66.5 [in_i] 66.5 [in_i] NINA ([facility]) Body height 66.5 [in_i] 66.5 [in_i] NINA ([facility]) Body height 66.5 [in_i] 66.5 [in_i] NINA ([facility]) Body height 66.5 [in_i] 66.5 [in_i] NINA ([facility]) Diastolic blood pressure 71 mm[Hg] 71 mm[Hg] NINA ([facility]) Body height 66.5 [in_i] 66.5 [in_i] NINA ([facility]) Body mass index (BMI) [Ratio] 29.8 kg/m2 29.8 k g/m2 NINA ([facility]) Systolic blood pressure 114 mm[Hg] 114 mm[Hg] A THENA ([facility]) Body weight 3000 [oz_av] 3000 [oz_av] NINA ([facility]) Diastolic blood pressure 71 mm[Hg] 71 mm[Hg] NINA ([facility]) Body height 66.5 [in_i] 66.5 [in_i] NINA ([facility]) Body mass index (BMI) [Ratio] 29.8 kg/m2 29.8 k g/m2 NIAN ([facility]) Systolic blood pressure 114 mm[Hg] 114 mm[Hg] A THENA ([facility]) Body weight 3000 [oz_av] 3000 [oz_av] NINA ([facility]) Diastolic blood pressure 71 mm[Hg] 71 mm[Hg] NINA ([facility]) Body height 66.5 [in_i] 66.5 [in_i] NINA ([facility]) Body mass index (BMI) [Ratio] 29.8 kg/m2 29.8 k g/m2 NINA ([facility]) Systolic blood pressure 114 mm[Hg] 114 mm[Hg] A THENA ([facility]) Body weight 3000 [oz_av] 3000 [oz_av] NINA ([facility]) Diastolic blood pressure 71 mm[Hg] 71 mm[Hg] NINA ([facility]) Body height 66.5 [in_i] 66.5 [in_i] NINA ([facility]) Body mass index (BMI) [Ratio] 29.8 kg/m2 29.8 k g/m2 NINA ([facility]) Systolic blood pressure 114 mm[Hg] 114 mm[Hg] A THENA ([facility]) Body weight 3000 [oz_av] 3000 [oz_av] NINA ([facility]) Diastolic blood pressure 71 mm[Hg] 71 mm[Hg] NINA ([facility]) Body height 66.5 [in_i] 66.5 [in_i] NINA ([facility]) Body mass index (BMI) [Ratio] 29.8 kg/m2 29.8 k g/m2 NINA ([facility]) Systolic blood pressure 114 mm[Hg] 114 mm[Hg] A THENA ([facility]) Body weight 3000 [oz_av] 3000 [oz_av] NINA ([facility]) Diastolic blood pressure 71 mm[Hg] 71 mm[Hg] NINA ([facility]) Body height 66.5 [in_i] 66.5 [in_i] NINA ([facility]) Body mass index (BMI) [Ratio] 29.8 kg/m2 29.8 k g/m2 NINA ([facility]) Systolic blood pressure 114 mm[Hg] 114 mm[Hg] A THENA ([facility]) Body weight 3000 [oz_av] 3000 [oz_av] NINA ([facility]) Diastolic blood pressure 71 mm[Hg] 71 mm[Hg] NINA ([facility]) Body height 66.5 [in_i] 66.5 [in_i] NINA ([facility]) Body mass index (BMI) [Ratio] 29.8 kg/m2 29.8 k g/m2 NINA ([facility]) Systolic blood pressure 114 mm[Hg] 114 mm[Hg] A THENA ([facility]) Body weight 3000 [oz_av] 3000 [oz_av] NINA ([facility]) Diastolic blood pressure 71 mm[Hg] 71 mm[Hg] NINA ([facility]) Body height 66.5 [in_i] 66.5 [in_i] NINA ([facility]) Body mass index (BMI) [Ratio] 29.8 kg/m2 29.8 k g/m2 NINA ([facility]) Systolic blood pressure 114 mm[Hg] 114 mm[Hg] A THENA ([facility]) Body weight 3000 [oz_av] 3000 [oz_av] NINA ([facility]) Diastolic blood pressure 71 mm[Hg] 71 mm[Hg] NINA ([facility]) Body height 66.5 [in_i] 66.5 [in_i] NINA ([facility]) Body mass index (BMI) [Ratio] 29.8 kg/m2 29.8 k g/m2 NINA ([facility]) Systolic blood pressure 114 mm[Hg] 114 mm[Hg] A THENA ([facility]) Body weight 3000 [oz_av] 3000 [oz_av] NINA ([facility]) Body mass index (BMI) [Ratio] 28.7 kg/m2 28.7 k g/m2 NINA ([facility]) Diastolic blood pressure 74 mm[Hg] 74 mm[Hg] NINA ([facility]) Body height 66.5 [in_i] 66.5 [in_i] NINA ([facility]) Diastolic blood pressure 74 mm[Hg] 74 mm[Hg] NINA ([facility]) Body height 66.5 [in_i] 66.5 [in_i] NINA ([facility]) Body mass index (BMI) [Ratio] 28.7 kg/m2 28.7 k g/m2 NINA ([facility]) Systolic blood pressure 128 mm[Hg] 128 mm[Hg] A THENA ([facility]) Body weight 2886 [oz_av] 2886 [oz_av] NINA ([facility]) Systolic blood pressure 128 mm[Hg] 128 mm[Hg] A THENA ([facility]) Body weight 2886 [oz_av] 2886 [oz_av] NINA ([facility]) Diastolic blood pressure 74 mm[Hg] 74 mm[Hg] NINA ([facility]) Body height 66.5 [in_i] 66.5 [in_i] NINA ([facility]) Body mass index (BMI) [Ratio] 28.7 kg/m2 28.7 k g/m2 NINA ([facility]) Systolic blood pressure 128 mm[Hg] 128 mm[Hg] A THENA ([facility]) Body weight 2886 [oz_av] 2886 [oz_av] NINA ([facility]) Diastolic blood pressure 74 mm[Hg] 74 mm[Hg] NINA ([facility]) Body height 66.5 [in_i] 66.5 [in_i] NINA ([facility]) Body mass index (BMI) [Ratio] 28.7 kg/m2 28.7 k g/m2 NINA ([facility]) Systolic blood pressure 128 mm[Hg] 128 mm[Hg] A THENA ([facility]) Body weight 2886 [oz_av] 2886 [oz_av] NINA ([facility]) Diastolic blood pressure 74 mm[Hg] 74 mm[Hg] NINA ([facility]) Body height 66.5 [in_i] 66.5 [in_i] NINA ([facility]) Body mass index (BMI) [Ratio] 28.7 kg/m2 28.7 k g/m2 NINA ([facility]) Systolic blood pressure 128 mm[Hg] 128 mm[Hg] A THENA ([facility]) Body weight 2886 [oz_av] 2886 [oz_av] NINA ([facility]) Diastolic blood pressure 74 mm[Hg] 74 mm[Hg] NINA ([facility]) Body height 66.5 [in_i] 66.5 [in_i] NINA ([facility]) Body mass index (BMI) [Ratio] 28.7 kg/m2 28.7 k g/m2 NINA ([facility]) Systolic blood pressure 128 mm[Hg] 128 mm[Hg] A THENA ([facility]) Body weight 2886 [oz_av] 2886 [oz_av] NINA ([facility]) Diastolic blood pressure 74 mm[Hg] 74 mm[Hg] NINA ([facility]) Systolic blood pressure 128 mm[Hg] 128 mm[Hg] A THENA ([facility]) Body weight 2886 [oz_av] 2886 [oz_av] NINA ([facility]) Body height 66.5 [in_i] 66.5 [in_i] NINA ([facility]) Body mass index (BMI) [Ratio] 28.7 kg/m2 28.7 k g/m2 NINA ([facility]) Diastolic blood pressure 74 mm[Hg] 74 mm[Hg] NINA ([facility]) Body height 66.5 [in_i] 66.5 [in_i] NINA ([facility]) Body mass index (BMI) [Ratio] 28.7 kg/m2 28.7 k g/m2 NINA ([facility]) Systolic blood pressure 128 mm[Hg] 128 mm[Hg] A THENA ([facility]) Body weight 2886 [oz_av] 2886 [oz_av] NINA ([facility]) Diastolic blood pressure 74 mm[Hg] 74 mm[Hg] NINA ([facility]) Body height 66.5 [in_i] 66.5 [in_i] NINA ([facility]) Body mass index (BMI) [Ratio] 28.7 kg/m2 28.7 k g/m2 NINA ([facility]) Systolic blood pressure 128 mm[Hg] 128 mm[Hg] A THENA ([facility]) Body weight 2886 [oz_av] 2886 [oz_av] NINA ([facility]) Diastolic blood pressure 74 mm[Hg] 74 mm[Hg] NINA ([facility]) Body height 66.5 [in_i] 66.5 [in_i] NINA ([facility]) Body mass index (BMI) [Ratio] 28.7 kg/m2 28.7 k g/m2 NINA ([facility]) Systolic blood pressure 128 mm[Hg] 128 mm[Hg] A THENA ([facility]) Body weight 2886 [oz_av] 2886 [oz_av] NINA ([facility]) Diastolic blood pressure 74 mm[Hg] 74 mm[Hg] NINA ([facility]) Body height 66.5 [in_i] 66.5 [in_i] NINA ([facility]) Body mass index (BMI) [Ratio] 28.7 kg/m2 28.7 k g/m2 NINA ([facility]) Systolic blood pressure 128 mm[Hg] 128 mm[Hg] A THENA ([facility]) Body weight 2886 [oz_av] 2886 [oz_av] NINA ([facility]) Diastolic blood pressure 74 mm[Hg] 74 mm[Hg] NINA ([facility]) Body height 66.5 [in_i] 66.5 [in_i] NINA ([facility]) Body mass index (BMI) [Ratio] 28.7 kg/m2 28.7 k g/m2 NINA ([facility]) Systolic blood pressure 128 mm[Hg] 128 mm[Hg] A THENA ([facility]) Body weight 2886 [oz_av] 2886 [oz_av] NINA ([facility]) Body weight 171 [lb_av] 171 [lb_av] eCW1 ([facility]) Body height 67 [in_i] 67 [in_i] eCW1 ([facility]) Body mass index (BMI) [Ratio] 26.78 kg/m2 26.78 kg/m2 W1 ([facility]) Heart rate 127 /min 127 /min eCW1 ([facility]) Respiratory rate 18 /min 18 /min eCW1 ([facility]) Body temperature 97.5 [degF] 97.5 [degF] eCW1 ( [facility]) Systolic blood pressure 132 mm[Hg] 132 mm[Hg] e CW1 ([facility]) Diastolic blood pressure 70 mm[Hg] 70 mm[Hg] eCW1 ([facility]) Diastolic blood pressure 72 mm[Hg] 72 mm[Hg] NINA ([facility]) Body height 66.5 [in_i] 66.5 [in_i] NINA ([facility]) Body mass index (BMI) [Ratio] 27.13 kg/m2 27.13 kg/m2 NINA ([facility]) Systolic blood pressure 134 mm[Hg] 134 mm[Hg] A [facility] ([facility]) Body weight 2720 [oz_av] 2720 [oz_av] NINA ([facility]) Systolic blood pressure 134 mm[Hg] 134 mm[Hg] [facility] Diastolic blood pressure 72 mm[Hg] 72 mm[Hg] NINA ([facility]) Body height 66.5 [in_i] 66.5 [in_i] NINA ([facility]) Body mass index (BMI) [Ratio] 27.13 kg/m2 27.13 kg/m2 NINA ([facility]) Body weight 2720 [oz_av] 2720 [oz_av] NINA ([facility]) Diastolic blood pressure 72 mm[Hg] 72 mm[Hg] NINA ([facility]) Body height 66.5 [in_i] 66.5 [in_i] NINA ([facility]) Body mass index (BMI) [Ratio] 27.13 kg/m2 27.13 kg/m2 NINA ([facility]) Systolic blood pressure 134 mm[Hg] 134 mm[Hg] A THENA ([facility]) Body weight 2720 [oz_av] 2720 [oz_av] NINA ([facility]) Diastolic blood pressure 72 mm[Hg] 72 mm[Hg] NINA ([facility]) Body height 66.5 [in_i] 66.5 [in_i] NINA ([facility]) Body mass index (BMI) [Ratio] 27.13 kg/m2 27.13 kg/m2 NINA ([facility]) Systolic blood pressure 134 mm[Hg] 134 mm[Hg] A THENA ([facility]) Body weight 2720 [oz_av] 2720 [oz_av] NINA ([facility]) Diastolic blood pressure 72 mm[Hg] 72 mm[Hg] NINA ([facility]) Body height 66.5 [in_i] 66.5 [in_i] NINA ([facility]) Body mass index (BMI) [Ratio] 27.13 kg/m2 27.13 kg/m2 NINA ([facility]) Systolic blood pressure 134 mm[Hg] 134 mm[Hg] A THENA ([facility]) Body weight 2720 [oz_av] 2720 [oz_av] NINA ([facility]) Diastolic blood pressure 72 mm[Hg] 72 mm[Hg] NINA ([facility]) Body height 66.5 [in_i] 66.5 [in_i] NINA ([facility]) Body mass index (BMI) [Ratio] 27.13 kg/m2 27.13 kg/m2 NINA ([facility]) Systolic blood pressure 134 mm[Hg] 134 mm[Hg] A THENA ([facility]) Body weight 2720 [oz_av] 2720 [oz_av] NINA ([facility]) Diastolic blood pressure 72 mm[Hg] 72 mm[Hg] NINA ([facility]) Body height 66.5 [in_i] 66.5 [in_i] NINA ([facility]) Body mass index (BMI) [Ratio] 27.13 kg/m2 27.13 kg/m2 NINA ([facility]) Systolic blood pressure 134 mm[Hg] 134 mm[Hg] A THENA ([facility]) Body weight 2720 [oz_av] 2720 [oz_av] NINA ([facility]) Diastolic blood pressure 78 mm[Hg] 78 mm[Hg] NINA ([facility]) Body height 66.5 [in_i] 66.5 [in_i] NINA ([facility]) Body mass index (BMI) [Ratio] 27.38 kg/m2 27.38 kg/m2 NINA ([facility]) Systolic blood pressure 128 mm[Hg] 128 mm[Hg] A THENA ([facility]) Body weight 2745.6 [oz_av] 2745.6 [oz_av] ATHEN A ([facility]) Diastolic blood pressure 78 mm[Hg] 78 mm[Hg] NINA ([facility]) Body height 66.5 [in_i] 66.5 [in_i] NINA ([facility]) Body mass index (BMI) [Ratio] 27.38 kg/m2 27.38 kg/m2 NINA ([facility]) Systolic blood pressure 128 mm[Hg] 128 mm[Hg] A [facility] ([facility]) Body weight 2745.6 [oz_av] 2745.6 [oz_av] ATHEN A ([facility]) Diastolic blood pressure 78 mm[Hg] 78 mm[Hg] NINA ([facility]) Body height 66.5 [in_i] 66.5 [in_i] NINA ([facility]) Body mass index (BMI) [Ratio] 27.38 kg/m2 27.38 kg/m2 NINA ([facility]) Systolic blood pressure 128 mm[Hg] 128 mm[Hg] A THENA ([facility]) Body weight 2745.6 [oz_av] 2745.6 [oz_av] ATHEN A ([facility]) Diastolic blood pressure 78 mm[Hg] 78 mm[Hg] NINA ([facility]) Body height 66.5 [in_i] 66.5 [in_i] NINA ([facility]) Body mass index (BMI) [Ratio] 27.38 kg/m2 27.38 kg/m2 NINA ([facility]) Systolic blood pressure 128 mm[Hg] 128 mm[Hg] A THENA ([facility]) Body weight 2745.6 [oz_av] 2745.6 [oz_av] ATHEN A ([facility]) Diastolic blood pressure 78 mm[Hg] 78 mm[Hg] NINA ([facility]) Body height 66.5 [in_i] 66.5 [in_i] NINA ([facility]) Body mass index (BMI) [Ratio] 27.38 kg/m2 27.38 kg/m2 NINA ([facility]) Systolic blood pressure 128 mm[Hg] 128 mm[Hg] [facility] Body weight 2745.6 [oz_av] 2745.6 [oz_av] ATHEN A ([facility]) Diastolic blood pressure 78 mm[Hg] 78 mm[Hg] NINA ([facility]) Body height 66.5 [in_i] 66.5 [in_i] NINA ([facility]) Body mass index (BMI) [Ratio] 27.38 kg/m2 27.38 kg/m2 NINA ([facility]) Systolic blood pressure 128 mm[Hg] 128 mm[Hg] A [facility] ([facility]) Body weight 2745.6 [oz_av] 2745.6 [oz_av] ATHEN A ([facility]) Body height 66.5 [in_i] 66.5 [in_i] NINA ([facility]) Body mass index (BMI) [Ratio] 27.38 kg/m2 27.38 kg/m2 NINA ([facility]) Systolic blood pressure 128 mm[Hg] 128 mm[Hg] [facility] Body weight 2745.6 [oz_av] 2745.6 [oz_av] ATHEN A ([facility]) Diastolic blood pressure 78 mm[Hg] 78 mm[Hg] NINA ([facility]) Patient Treatment Plan of Care Planned Activity Planned Date Details Description Data Source (s) Triamcinolone Acetonide 0.005 MG/MG Topical Ointment NINA ([facility]) Prednisone 20 MG Oral Tablet NINA ([facility]) lamotrigine 25 MG Oral Tablet [Lamictal] NINA ([facility]) Cephalexin 500 MG Oral Capsule NINA ([facility]) Sulfamethoxazole 800 MG / Trimethoprim 160 MG Oral Tablet [Bactrim] NINA ([facility]) Triamcinolone Acetonide 0.005 MG/MG Topical Ointment NINA ([facility]) Prednisone 20 MG Oral Tablet NINA ([facility]) lamotrigine 25 MG Oral Tablet [Lamictal] NINA ([facility]) Cephalexin 500 MG Oral Capsule NINA ([facility]) Sulfamethoxazole 800 MG / Trimethoprim 160 MG Oral Tablet [Bactrim] NINA ([facility]) Triamcinolone Acetonide 0.005 MG/MG Topical Ointment NINA ([facility]) Prednisone 20 MG Oral Tablet NINA ([facility]) lamotrigine 25 MG Oral Tablet [Lamictal] NINA ([facility]) Cephalexin 500 MG Oral Capsule NINA ([facility]) Sulfamethoxazole 800 MG / Trimethoprim 160 MG Oral Tablet [Bactrim] NINA ([facility]) Triamcinolone Acetonide 0.005 MG/MG Topical Ointment NINA ([facility]) Prednisone 20 MG Oral Tablet NINA ([facility]) lamotrigine 25 MG Oral Tablet [Lamictal] NINA ([facility]) Cephalexin 500 MG Oral Capsule NINA ([facility]) Sulfamethoxazole 800 MG / Trimethoprim 160 MG Oral Tablet [Bactrim] NINA ([facility]) lamotrigine 25 MG Oral Tablet [Lamictal] NINA ([facility])
[2021-07-22 04:19] VITALS: BP 134/78
--- OUTSIDE RECORDS SUMMARY | 2021-07-22 05:53 | CCD ---
Author Author [facility] Organization [facility] Address Unknown Phone Unavailable Support Name Relationship Address Phone DAYO ELDER Next Of Kin [address] [facility] [address] [place] [address] DAYO GÓMEZ Next Of Kin [address] [place] [address] THONY ELDER Next Of Kin [address] [place] [address] Ute Gonzales Next Of Kin Unknown Unavailable Malia Squires Next Of Kin [address] [place] [address] VIJAY GONZALES Next Of Kin [address] [place] [address] Demarcus Baez MD Next Of Kin [address] [place] [address] DISABLED Next Of Kin Unknown Unavailable ISMAEL GUY Next Of Kin [address] [place] [address] UE Next Of Kin Unknown Unavailable CONVERGYS Next Of Kin [address] [place] [address] STREAM Next Of Kin [address] [place] [address] [employer] [address] CROSSMARK Next Of Kin [place] [place] [address] Next Of Kin Unknown Unavailable [place] [address] JOHN WANG Next Of Kin [address] [place] [address] Viktoriya Vega Next Of Kin [address] [place] [address] UN Next Of Kin Unknown Unavailable Felisha Wang Next Of Kin unknown [place], [place] [id number] UNKNOWN, DAYO ECON [address] [place] [address] Unavailable Care Team Providers Care Smooth And Burr Worker Composites Name Role Phone Malia Kimble JACQUARD TWINE POLISHER OPERATOR JACQUARD TWINE POLISHER OPERATOR Unavailable Unavailable Linda Cerrato MD Unavailable Unavailable Linda Cerrato MD Unavailable Unavailable Linda Cerrato MD Unavailable Unavailable Linda Cerrato MD Unavailable Unavailable Linda Cerrato MD Unavailable Unavailable Linda Cerrato MD Unavailable Unavailable Linda Cerrato MD Unavailable Unavailable Linda Cerrato MD Unavailable Unavailable Linda Cerrato MD Unavailable Unavailable Carlos Alberto, A Viktoriya JACQUARD TWINE POLISHER OPERATOR Unavailable Unavailable Carlos Alberto, A Viktoriya JACQUARD TWINE POLISHER OPERATOR Unavailable Unavailable Carlos Alberto, A Viktoriya JACQUARD TWINE POLISHER OPERATOR Unavailable Unavailable Carlos Alberto, A Viktoriya JACQUARD TWINE POLISHER OPERATOR Unavailable Unavailable Carlos Alberto, A Viktoriya JACQUARD TWINE POLISHER OPERATOR Unavailable Unavailable Carlos Alberto, A Viktoriya JACQUARD TWINE POLISHER OPERATOR Unavailable Unavailable [place], A Viktoriya JACQUARD TWINE POLISHER OPERATOR Unavailable Unavailable [place], A Viktoriya JACQUARD TWINE POLISHER OPERATOR Unavailable Unavailable [place], A Viktoriya JACQUARD TWINE POLISHER OPERATOR Unavailable Unavailable [place], A Viktoriya JACQUARD TWINE POLISHER OPERATOR Unavailable Unavailable [place], A Viktoriya JACQUARD TWINE POLISHER OPERATOR Unavailable Unavailable [place], A Viktoriya JACQUARD TWINE POLISHER OPERATOR Unavailable Unavailable [place], A Viktoriya JACQUARD TWINE POLISHER OPERATOR Unavailable Unavailable [place], A Viktoriya JACQUARD TWINE POLISHER OPERATOR Unavailable Unavailable [place], A Viktoriay JACQUARD TWINE POLISHER OPERATOR Unavailable Unavailable [place], A Viktoriya JACQUARD TWINE POLISHER OPERATOR Unavailable Unavailable [place], A Viktoriya JACQUARD TWINE POLISHER OPERATOR Unavailable Unavailable [place], A Viktoriya JACQUARD TWINE POLISHER OPERATOR Unavailable Unavailable [place], A Viktoriya JACQUARD TWINE POLISHER OPERATOR Unavailable Unavailable [place], A Viktoriya JACQUARD TWINE POLISHER OPERATOR Unavailable Unavailable Carlos Alberto, A Viktoriya JACQUARD TWINE POLISHER OPERATOR Unavailable Unavailable Carlos Alberto, A Viktoriya JACQUARD TWINE POLISHER OPERATOR Unavailable Unavailable Carlos Alberto, A Viktoriya JACQUARD TWINE POLISHER OPERATOR Unavailable Unavailable Carlos Alberto, A Viktoriya JACQUARD TWINE POLISHER OPERATOR Unavailable Unavailable Carlos Alberto, A Viktoriya JACQUARD TWINE POLISHER OPERATOR Unavailable Unavailable Carlos Alberto, A Viktoriya JACQUARD TWINE POLISHER OPERATOR Unavailable Unavailable Carlos Alberto, A Viktoriya JACQUARD TWINE POLISHER OPERATOR Unavailable Unavailable Carlos Alberto, A Viktoriya JACQUARD TWINE POLISHER OPERATOR Unavailable Unavailable Carlos Alberto, A Viktoriya JACQUARD TWINE POLISHER OPERATOR Unavailable Unavailable Carlos Alberto, A Viktoriya JACQUARD TWINE POLISHER OPERATOR Unavailable Unavailable Carlos Alberto, A Viktoriya JACQUARD TWINE POLISHER OPERATOR Unavailable Unavailable [place], Nena Unavailable Unavailable [place], Nena Unavailable Unavailable Kimble, F Malia JACQUARD TWINE POLISHER OPERATOR-BC Unavailable Unavailable Kimble, F Malia JACQUARD TWINE POLISHER OPERATOR-BC Unavailable Unavailable Kimble, F Malia JACQUARD TWINE POLISHER OPERATOR-BC Unavailable Unavailable Kimble, F Malia JACQUARD TWINE POLISHER OPERATOR-BC Unavailable Unavailable Kimble, F Malia JACQUARD TWINE POLISHER OPERATOR-BC Unavailable Unavailable Kimble, F Malia JACQUARD TWINE POLISHER OPERATOR-BC Unavailable Unavailable Kimble, F Malia JACQUARD TWINE POLISHER OPERATOR-BC Unavailable Unavailable Kimble, F Malia JACQUARD TWINE POLISHER OPERATOR-BC Unavailable Unavailable Kimble, F Malia JACQUARD TWINE POLISHER OPERATOR-BC Unavailable Unavailable Kimble, F Malia JACQUARD TWINE POLISHER OPERATOR-BC Unavailable Unavailable Kimble, F Malia JACQUARD TWINE POLISHER OPERATOR-BC Unavailable Unavailable Kimble, F Malia JACQUARD TWINE POLISHER OPERATOR-BC Unavailable Unavailable Kimble, F Malia JACQUARD TWINE POLISHER OPERATOR-BC Unavailable Unavailable Kimble, F Malia JACQUARD TWINE POLISHER OPERATOR-BC Unavailable Unavailable Kimble, F Malia JACQUARD TWINE POLISHER OPERATOR-BC Unavailable Unavailable Kimble, F Malia JACQUARD TWINE POLISHER OPERATOR-BC Unavailable Unavailable Kimble, F Malia JACQUARD TWINE POLISHER OPERATOR-BC Unavailable Unavailable Kimble, F Malia JACQUARD TWINE POLISHER OPERATOR-BC Unavailable Unavailable Kimble, F Malia JACQUARD TWINE POLISHER OPERATOR-BC Unavailable Unavailable Kimble, F Malia JACQUARD TWINE POLISHER OPERATOR-BC Unavailable Unavailable Kimble, F Malia JACQUARD TWINE POLISHER OPERATOR-BC Unavailable Unavailable Kimble, F Malia JACQUARD TWINE POLISHER OPERATOR-BC Unavailable Unavailable Kimble, F Malia JACQUARD TWINE POLISHER OPERATOR-BC Unavailable Unavailable Scordo, M Rebecca PA Unavailable [...] is protected by Article 27-F of the [facility] Public Health law. If you continue you may have access to information: Regarding HIV / AIDS; Provided by facilities licensed or operated by the [facility] Office of Mental Health; or Provided by the [facility] Office for People With Developmental Disabilities. If such information is present, then the following [facility] mandated warning applies: This information has been [...] law may result in a fine or residential sentence or both. A general authorization for the release of medical or other information is NOT sufficient authorization for further disc losure. Family History Family Member Name Family Member Gender Family Member Status Date o f Status Description Data Source(s) Unknown Male Problem MEDENT ([facility]) Unknown Male Problem MEDENT ([facility]) Encounters Encounter Providers Location Date Indications Data Source(s ) Nena Ledezma LCSW-R: [address] [facility], [facility] [address], [place] [address], Ph. Attender: Nena James [facility] Medical 05/12/2021 12:00:00 AM EDT NINA ([facility]) ( ESTOB) [facility] Est OB [address] [place] [address] 04/22/2021 12:00:00 AM EDT eCW1 ([facility]ly [facility]) ( ESTOB) [facility] Est OB [address] [place] [address] 04/01/2021 12:00:00 AM EDT eCW1 ([facility]) Nena Ledezma LCSW-R: [address], [place] [address], Ph. Attender: Nena James [facility] Medical 03/10/2021 12:00:00 AM EDT NINA ([facility]) Nena Ledezma LCSW-R: [address], [place] [address], Ph. Attender: Nena James [facility] Medical 03/10/2021 12:00:00 AM EDT [facility]) Rebecca Aguirre PA-C: [address], [place] [address], Ph. Attender: Rebecca REYES [facility] 03/07/2021 12:00:00 AM EDT NINA ([facility]) Rebecca Aguirre PA-C: [address], [place] [address], Ph. Attender: Rebecca REYES [facility] Medical 03/07/2021 12:00:00 AM EDT NINA ([facility]) Rebecca Aguirre PA-C: [address], [facility] [place] [address], Ph. Attender: Rebecca REYES [facility] Medical 03/07/2021 12:00:00 AM EDT NINA ([facility]) Unknown [address] [facility], [facility] [address] 03/05/2021 12:00:00 AM EDT [facility]CW1 [facility] ( ESTOB) [facility] [address] [facility] [address] [place] [address] 03/04/2021 12:00:00 AM EDT eCW1 ([facility]) (WC ESTOB) [facility] [address] [place] [address] 01/24/2021 12:00:00 AM EDT eCW1 ([facility]) Rebecca Aguirre PA-C: [address], [place] [address], Ph. Attender: Rebecca REYES [facility] Medical 01/06/2021 12:00:00 AM EDT NINA ([facility]) Rebecca Aguirre PA-C: [address], [place] [address], Ph. Attender: Rebecca REYES [facility] Medical 01/06/2021 12:00:00 AM EDT DAFTER ([facility]) Rebecca Aguirre PA-C: [address], [place] [address], Ph. Attender: Rebecca REYES [facility] Medical 01/06/2021 12:00:00 AM EDT DAFTER ([facility]) Rebecca Aguirre PA-C: [address], [place] [address], Ph. Attender: Rebecca REYES [facility] Medical 01/06/2021 12:00:00 AM EDT DAFTER ([facility]) RAMU RodríguezW-R: [address], [place] [address], Ph. Attender: Nena James [facility] Medical 12/30/2020 12:00:00 AM EDT [facility]) RAMU RodríguezW-R: [address], [place] [address], Ph. Attender: Nena James [facility] Medical 12/30/2020 12:00:00 AM EDT DAFTER ([facility]) Nena Ledezma LCSW-R: [address], [place] [address], Ph. Attender: Nena James [facility] Medical 12/30/2020 12:00:00 AM EDT DAFTER ([facility]) RAMU RodríguezW-R: [address], [place] [address], Ph. Attender: Nena James [facility] Medical 12/30/2020 12:00:00 AM EDT NINA ([facility]) RAMU RodríguezW-R: [address], [place] [address], Ph. Attender: Nena James [facility] Medical 12/30/2020 12:00:00 AM EDT NINA ([facility]) Unknown [address] [facility] [address] 12/20/2020 12:00:00 AM EDT eCW1 ([facility]) (WC ESTOB) [facility] Est OB [address] [place] [address] 12/19/2020 12:00:00 AM EDT eCW1 ([facility]) Nena Ledezma LCSW-R: [address], [place] [address], Ph. Attender: Nena James [facility] Medical 11/11/2020 12:00:00 AM EST NINA ([facility]) Nena Ledezma LCSW-R: [address], [place] [address], Ph. Attender: Nena James [facility] Medical 11/11/2020 12:00:00 AM EST NINA ([facility]) Nena Ledezma LCSW-R: [address], [place] [address], Ph. Attender: Nena James [facility] Medical 11/11/2020 12:00:00 AM EST NINA ([facility]) RAMU RodríguezW-R: [address], [place] [address], Ph. Attender: Nena James [facility] Medical 11/11/2020 12:00:00 AM EST NINA ([facility]) RAMU RodríguezW-R: [address], [place] [address], Ph. Attender: Nena James [facility] Medical 11/11/2020 12:00:00 AM EST NINA ([facility]) RAMU RodríguezW-R: [address], [place] [address], Ph. Attender: Nena James [facility] Medical 11/11/2020 12:00:00 AM EST NINA ([facility]) Wally Cerrato MD: [address], [place] [address], Ph. Attender: Wally Cerrato MD [facility] Medical 11/04/2020 12:00:00 AM EST NINA ([facility]) Wally Cerrato MD: [address], [place] [address], Ph. Attender: Wally Cerrato MD [facility] Medical 11/04/2020 12:00:00 AM EST NINA ([facility]) Wally Cerrato MD: [address], [place] [address], Ph. Attender: Wally Cerrato MD [facility] Medical 11/04/2020 12:00:00 AM EST NINA ([facility]) Wally Cerrato MD: [address], [place] [address], Ph. Attender: Wally Cerrato MD [facility] Medical 11/04/2020 12:00:00 AM EST NINA ([facility]) Wally Cerrato MD: [address], [place] [address], Ph. Attender: Wally Cerrato MD [facility] Medical 11/04/2020 12:00:00 AM EST NINA ([facility]) Wally Cerrato MD: [address], [place] [address], Ph. Attender: Wally Cerrato MD [facility] Medical 11/04/2020 12:00:00 AM EST NINA ([facility]) Wally Cerrato MD: [address], [place] [address], Ph. Attender: Wally Cerrato MD [facility] Medical 11/04/2020 12:00:00 AM EST NINA ([facility]) NAYLA JohnsonBC: [address], [place] [address], Ph. Attender: Viktoriya Carcamo [facility] Medical 10/10/2020 12:00:00 AM EST NINA ([facility]) NAYLA JohnsonBC: [address], [place] [address], Ph. Attender: Viktoriya Carcamo [facility] Medical 10/10/2020 12:00:00 AM EST NINA ([facility]) JR Johnson: [address], [place] [address], Ph. Attender: Viktoriya Carcamo [facility] Medical 10/10/2020 12:00:00 AM EST NINA ([facility]) NAYLA JohnsonBC: [address], [place] [address], Ph. Attender: Viktoriya Carcamo [facility] Medical 10/10/2020 12:00:00 AM EST NINA ([facility]) Viktoriya Carcamo [facility]: [address], [place] [address], Ph. Attender: Viktoriya Carcamo [facility] Medical 10/10/2020 12:00:00 AM EST NINA ([facility]) Viktoriya Carcamo [facility]: [address], [place] [address], Ph. Attender: Viktoriya Carcamo [facility] Medical 10/10/2020 12:00:00 AM EST NINA ([facility]) Viktoriya Carcamo [facility]: [address], [place] [address], Ph. Attender: Viktoriya Carcamo [facility] Medical 10/10/2020 12:00:00 AM EST NINA ([facility]) Viktoriya Carcamo [facility]: [address], [place] [address], Ph. Attender: Viktoriya Carcamo [facility] Medical 10/10/2020 12:00:00 AM EST NINA ([facility]) Viktoriya Carcamo [facility]: [address], [place] [address], Ph. Attender: Viktoriya Carcamo [facility] Medical 10/10/2020 12:00:00 AM EST NINA ([facility]) Nena Ledezma LCSW-R: [address], [place] [address], Ph. Attender: Nena James [facility] Medical 09/30/2020 12:00:00 AM EST NINA ([facility]) RAMU RodríguezW-R: [address], [place] [address], Ph. Attender: Nena James [facility] Medical 09/30/2020 12:00:00 AM EST NINA ([facility]) RAMU RodríguezW-R: [address], [place] [address], Ph. Attender: Nena James [facility] Medical 09/30/2020 12:00:00 AM EST NINA [facility]) RAMU RodríguezW-R: [address], [place] [address], Ph. Attender: Nenasly James [facility] Medical 09/30/2020 12:00:00 AM EST NINA ([facility]) RAMU RodríguezW-R: [address], [place] [address], Ph. Attender: Nena James [facility] Medical 09/30/2020 12:00:00 AM EST NINA ([facility]) RAMU RodríguezW-R: [address], [place] [address], Ph. Attender: Nena Erika [facility] Medical 09/30/2020 12:00:00 AM EST NINA ([facility]) RAMU RodríguezW-R: [address], [place] [address], Ph. Attender: Nena James [facility] Medical 09/30/2020 12:00:00 AM EST NINA ([facility]) RAMU RodríguezW-R: [address], [place] [address], Ph. Attender: Nena James [facility] Medical 09/30/2020 12:00:00 AM EST NINA ([facility]) RAMU RodríguezW-R: [address], [place] [address], Ph. Attender: Nena Dickinsonmaxine [facility] Medical 09/30/2020 12:00:00 AM EST NINA ([facility]) RAMU RodríguezW-R: [address], [place] [address], Ph. Attender: Nena Gardunokirstenannymaxine [facility] Medical 09/30/2020 12:00:00 AM EST NINA ([facility]) RAMU RodríguezW-R: [address], [place] [address], Ph. Attender: Nena James [facility] Medical 09/16/2020 12:00:00 AM EST NINA ([facility]) Nena Ledezma LCSW-R: [address], [place] [address], Ph. Attender: Nena Gardunotadeo [facility] Medical 09/16/2020 12:00:00 AM EST NINA ([facility]) RAMU RodríguezW-R: [address], [place] [address], Ph. Attender: Nenasly James [facility] Medical 09/16/2020 12:00:00 AM EST NINA ([facility]) RAMU RodríguezW-R: [address], [place] [address], Ph. Attender: Nena Eddieannymaxine [facility] Medical 09/16/2020 12:00:00 AM EST NINA ([facility]) RAMU RodríguezW-R: [address], [place] [address], Ph. Attender: Nenasly James [facility] Medical 09/16/2020 12:00:00 AM CLARISSE WOOD ([facility]) RAMU RodríguezW-R: [address], [place] [address], Ph. Attender: Nena James [facility] Medical 09/16/2020 12:00:00 AM EST NINA ([facility]) RAMU RodríguezW-R: [address], [place] [address], Ph. Attender: Nena James [facility] Medical 09/16/2020 12:00:00 AM CLARISSE WOOD ([facility]) Nena Ledezma LCSW-R: [address], [place] [address], Ph. Attender: Nena James [facility] Medical 09/16/2020 12:00:00 AM EST NINA ([facility]) RAMU RodríguezW-R: [address], [place] [address], Ph. Attender: Nena James [facility] Medical 09/16/2020 12:00:00 AM EST NINA ([facility]) Nena Ledezma, [employer] WH[employer]-R: [address], [place] [address], Ph. Attender: Nena James [facility] Medical 09/16/2020 12:00:00 AM EST NINA ([facility]) Nenasly Ledezma LCSW-R: [address], [place] [address], Ph. Attender: Nena James [facility] Medical 09/16/2020 12:00:00 AM EST NINA ([facility]) Viktoriya Carcamo JACQUARD TWINE POLISHER OPERATOR-: [address], [place] [address], Ph. Attender: Viktoriya Carcamo [facility] Medical 08/28/2020 12:00:00 AM EST NINA ([facility]) [facility]: [address], [place] [address], Ph. Attender: Viktoriya Carcamo [facility] Medical 08/28/2020 12:00:00 AM EST NINA ([facility]) NAYLA Johnson: [address], [place] [address], Ph. Attender: Viktoriya Carcamo [facility] Medical 08/28/2020 12:00:00 AM EST NINA ([facility]) NAYLA Johnson: [address], [place] [address], Ph. Attender: Viktoriya Carcamo [facility] Medical 08/28/2020 12:00:00 AM EST NINA ([facility]) NAYLA Johnson: [address], [place] [address], Ph. Attender: Viktoriya Carcamo [facility] Medical 08/28/2020 12:00:00 AM EST NINA ([facility]) Viktoriya Carcamo [facility]: [address], [place] [address], Ph. Attender: Viktoriya Carcamo [facility] Medical 08/28/2020 12:00:00 AM EST NINA ([facility]) Viktoriya Carcamo [facility]: [address], [place] [address], Ph. Attender: Viktoriya Carcamo [facility] Medical 08/28/2020 12:00:00 AM EST NINA ([facility]) Viktoriya Carcamo [facility]: [address], [place] [address], Ph. Attender: Viktoriya Carcamo [facility] Medical 08/28/2020 12:00:00 AM EST NINA ([facility]) Viktoriya Carcamo [facility]: [address], [place] [address], Ph. Attender: Viktoriya Carcamo [facility] Medical 08/28/2020 12:00:00 AM EST NINA ([facility]) Viktoriya Carcamo [facility]: [address], [place] [address], Ph. Attender: Viktoriya Carcamo [facility] Medical 08/28/2020 12:00:00 AM EST NINA ([facility]) Viktoriya Carcamo [facility]: [address], [place] [address], Ph. Attender: Viktoriya Carcamo [facility] Medical 08/28/2020 12:00:00 AM EST NINA ([facility]) Viktoriya Carcamo [facility]-BC: [address], [place] [address], Ph. Attender: Viktoriya Carcamo [facility] Medical 08/28/2020 12:00:00 AM EST NINA ([facility]) RAMU RodríguezW-R: [address], [place] [address], Ph. Attender: Nena James [facility] Medical 08/19/2020 12:00:00 AM EST NINA [facility]) RAMU RodríguezW-R: [address], [place] [address], Ph. Attender: Nena James [facility] Medical 08/19/2020 12:00:00 AM EST NINA ([facility]) RAMU RodríguezW-R: [address], [place] [address], Ph. Attender: Nena James [facility] Medical 08/19/2020 12:00:00 AM EST NINA ([facility]) RAMU RodríguezW-R: [address], [place] [address], Ph. Attender: Nena James [facility] Medical 08/19/2020 12:00:00 AM EST NINA ([facility]) RAMU RodríguezW-R: [address], [place] [address], Ph. Attender: Nena James [facility] Medical 08/19/2020 12:00:00 AM EST NINA ([facility]) Nena Ledezma LCSW-R: [address], [place] [address], Ph. Attender: Nena James [facility] Medical 08/19/2020 12:00:00 AM EST NINA ([facility]) Nena Ledezma LCSW-R: [address] [address], [place] [address], Ph. Attender: Nena James [facility] Medical 08/19/2020 12:00:00 AM EST NINA ([facility]) Nena Ledezma LCSW-R: [address], [place] [address], Ph. Attender: Nena James [facility] Medical 08/19/2020 12:00:00 AM EST NINA ([facility]) Nena Ledezma LCSW-R: [address], [place] [address], Ph. Attender: Nena James [facility] Medical 08/19/2020 12:00:00 AM EST NINA ([facility]) Nena Ledezma LCSW-R: [address], [place] [address], Ph. Attender: Nena James [facility] Medical 08/19/2020 12:00:00 AM EST NINA ([facility]) Nena Ledezma LCSW-R: [address], [place] [address], Ph. Attender: Nena James [facility] Medical 08/19/2020 12:00:00 AM EST NINA ([facility]) Nena Ledezma, [employer]-R: [address], [place] [address], Ph. Attender: Nenasly James [facility] Medical 08/19/2020 12:00:00 AM EST NINA ([facility]) Nena AnguianoRAMU avinaW-R: [address], [place] [address], Ph. Attender: Nena James [facility] Medical 08/19/2020 12:00:00 AM EST NINA ([facility]) Unknown [address] [facility] [address] 07/29/2020 12:00:00 AM EST eCW1 ([facility]) Outpatient [address] [facility] [address] 07/25/2020 12:00:00 AM EST eCW1 ([facility]) Outpatient Attender: SANDRA IVAN 07/16/2020 04:18:01 PM EST [facility] NenaRAMU ZuluagaW-R: [address], [address], [place] [address], Ph. Attender: Nena James [facility] Medical 07/04/2020 12:00:00 AM EDT NINA ([facility]) Nena Ledezma LCSW-R: [address], [address], [place] [address], Ph. Attender: Nena James [facility] Medical 07/04/2020 12:00:00 AM EDT NINA ([facility]) RAMU RodríguezW-R: [address], [address], [place] [address], Ph. Attender: Nena James [facility] Medical 07/04/2020 12:00:00 AM EDT DAFTER ([facility]) RAMU RodríguezW-R: [address], [address], [place] [address], Ph. Attender: Nena James [facility] Medical 07/04/2020 12:00:00 AM EDT DAFTER ([facility]) RAMU RodríguezW-R: [address], [address], [place] [address], Ph. Attender: eNna James [facility] Medical 07/04/2020 12:00:00 AM EDT DAFTER ([facility]) RAMU RodríguezW-R: [address], [address], [place] [address], Ph. Attender: Nena James [facility] Medical 07/04/2020 12:00:00 AM EDT DAFTER ([facility]) RAMU RodríguezW-R: [address], [address], [place] [address], Ph. Attender: Nena James [facility] Medical 07/04/2020 12:00:00 AM EDT NINA ([facility]) RAMU RodríguezW-R: [address], [address], [place] [address], Ph. Attender: Nena James [facility] Medical 07/04/2020 12:00:00 AM EDT DAFTER ([facility]) RAMU RodríguezW-R: [address], [address], [place] [address], Ph. Attender: Nena James [facility] Medical 07/04/2020 12:00:00 AM EDT DAFTER ([facility]) Nena AnguianoRAMU avinaW-R: [address], [address], [place] [address], Ph. Attender: Nena James [facility] Medical 07/04/2020 12:00:00 AM EDT NINA ([facility]) Nena LedezmaRAMU avinaW-R: [address], [address], [place] [address], Ph. Attender: Nena James [facility] Medical 07/04/2020 12:00:00 AM EDT DAFTER ([facility]) RAMU RodríguezW-R: [address], [address], [place] [address], Ph. Attender: Nena James [facility] Medical 07/04/2020 12:00:00 AM EDT NINA ([facility]) RAMU RodríguezW-R: [address], [address], [place] [address], Ph. Attender: Nena James [facility] Medical 07/04/2020 12:00:00 AM EDT NINA ([facility]) Nena LedezmaRAMU avinaW-R: [address], [address], [place] [address], Ph. Attender: Nena James [facility] Medical 07/04/2020 12:00:00 AM EDT DAFTER ([facility]) Outpatient Attender: Malia NORRIS FP 07/01/2020 04: 32:01 PM EDT [facility] Outpatient Attender: SANDRA FLORES FP 06/29/2020 11:43:00 AM EDT [facility] Outpatient Attender: SANDRA Kimble JACQUARD TWINE POLISHER OPERATOR FP 06/27/2020 11:02:[address] [facility] Outpatient Attender: SANDRA Kimble JACQUARD TWINE POLISHER OPERATOR FP 06/20/2020 12:02:08 AM EDT [facility] Outpatient Attender: Malia Lamin FLORES-BC FP 06/19/2020 02: 40:01 PM EDT [facility] Outpatient Attender: SANDRA Lamin GURROLAP FP 06/19/2020 02:16:00 PM EDT [facility] Outpatient Attender: Malia Lamin FLORES-BC FP 06/14/2020 05: 27:00 PM EDT [facility] Outpatient Attender: Malia Lamin FLORES-BC FP 06/14/2020 03: 20:02 PM EDT [facility] Outpatient Attender: SANDRA Lamin GURROLAP FP 06/13/2020 10:24:00 AM EDT [facility] Outpatient Attender: Malia Lamin FLORES-BC FP 06/05/2020 12: 29:[address] [facility] Outpatient Attender: SANDRA Lamin GURROLAP FP 06/03/2020 03:15:01 PM EDT [facility] Outpatient Attender: Malia Lamin GURROLAP-BC FP 06/03/2020 12: 49:02 PM EDT [facility] Outpatient Attender: Malia Lamin FLORES-BC FP 05/31/2020 09: 22:02 AM EDT [facility] Outpatient Attender: Malia Lamin GURROLAP-BC FP 05/27/2020 03: 37:02 PM EDT [facility] Outpatient Attender: SANDRA Lamin GURROLAP FP 05/22/2020 11:28:01 AM EDT [facility] Immunizations Vaccine Date Status Description Data Source(s) COVID-19 VACCINE Pfizer 05/29/2021 12:00:00 AM EDT completed [facility] Vaccine Series Complete: YESThis Data wa s Submitted to [facility] Via [employer]. COVID-19 VACCINE Pfizer 05/08/2021 12:00:00 AM EDT completed [place] Vaccine Series Complete: NOThis Data was Submitted to [facility] [employer]. Tdap 03/04/2021 04:06:00 PM EDT completed e CW1 ([facility]) Tdap 03/04/2021 04:06:00 PM EDT completed e CW1 ([facility]) Tdap 03/04/2021 04:06:00 PM EDT completed e CW1 ([facility]) Tdap 03/04/2021 04:06:00 PM EDT completed e CW1 ([facility]) As of May 1999, a 2-dose hepatitis B schedule for adolescents (11-15 year olds) was FDA approved for Merck's Recombivax HB adult formulation. Use code 43 for the 2-dose. This code should be used for any use of standard adult formulation of hepatitis B vaccine. 07/25/2020 03:22:00 PM EST completed eCW1 ([facility]) As of May 1999, a 2-dose hepatitis B schedule for adolescents (11-15 year olds) was FDA approved for Merck's Recombivax HB adult formulation. Use code 43 for the 2-dose. This code should be used for any use of standard adult formulation of hepatitis B vaccine. 07/25/2020 03:22:00 PM EST completed eCW1 ([facility]) As of May 1999, a 2-dose hepatitis B schedule for adolescents (11-15 year olds) was FDA approved for Merck's Recombivax HB adult formulation. Use code 43 for the 2-dose. This code should be used for any use of standard adult formulation of hepatitis B vaccine. 07/25/2020 03:22:00 PM EST completed eCW1 ([facility]) As of May 1999, a 2-dose hepatitis B schedule for adolescents (11-15 year olds) was FDA approved for Merck's Recombivax HB adult formulation. Use code 43 for the 2-dose. This code should be used for any use of standard adult formulation of hepatitis B vaccine. 07/25/2020 03:22:00 PM EST completed eCW1 ([facility]) As of May 1999, a 2-dose hepatitis B schedule for adolescents (11-15 year olds) was FDA approved for Merck's Recombivax HB adult formulation. Use code 43 for the 2-dose. This code should be used for any use of standard adult formulation of hepatitis B vaccine. 07/25/2020 03:22:00 PM EST completed eCW1 ([facility]) As of May 1999, a 2-dose hepatitis B schedule for adolescents (11-15 year olds) was FDA approved for Merck's Recombivax HB adult formulation. Use code 43 for the 2-dose. This code should be used for any use of standard adult formulation of hepatitis B vaccine. 07/25/2020 03:22:00 PM EST completed eCW1 ([facility]) As of May 1999, a 2-dose hepatitis B schedule for adolescents (11-15 year olds) was FDA approved for Merck's Recombivax HB adult formulation. Use code 43 for the 2-dose. This code should be used for any use of standard adult formulation of hepatitis B vaccine. 07/25/2020 03:22:00 PM EST completed eCW1 ([facility]) As of May 1999, a 2-dose hepatitis B schedule for adolescents (11-15 year olds) was FDA approved for Merck's Recombivax HB adult formulation. Use code 43 for the 2-dose. This code should be used for any use of standard adult formulation of hepatitis B vaccine. 07/25/2020 03:22:00 PM EST completed eCW1 ([facility]) As of May 1999, a 2-dose hepatitis B schedule for adolescents (11-15 year olds) was FDA approved for Merck's Recombivax HB adult formulation. Use code 43 for the 2-dose. This code should be used for any use of standard adult formulation of hepatitis B vaccine. 07/25/2020 03:22:00 PM EST completed eCW1 ([facility]) Medications Medication Brand Name Start Date [...] completed triamcinolone acetonide 0.005 MG/MG Topical Ointment DAFTER ([facility]) lamotrigine 25 MG [...] lamotrigin e 25 MG Oral Tablet [Lamictal] DAFTER ([facility]) Cephalexin 500 MG Oral Capsule cephalexi n 500 mg capsule TAKE ONE CAPSULE BY MOUTH TWICE A DAY cephalexin 500 mg capsule TAKE ONE CAPSU LE BY MOUTH TWICE A DAY completed cephalexin 500 M G Oral Capsule DAFTER ([facility]) Sulfamethoxazole 800 MG [...] trimethoprim 160 MG Oral Tablet [Bactrim] NINA ([facility]) Prednisone 20 MG Oral Tablet prednisone [...] 1 completed prednisone 20 MG Oral Tablet DAFTER ([facility]) lamotrigine 25 MG [...] 1 completed prednisone 20 MG Oral Tablet DAFTER ([facility]) Triamcinolone Acetonide 0.005 [...] trimethoprim 160 MG Oral Tablet [Bactrim] NINA [facility]) Sulfamethoxazole 800 MG / Trimethoprim 1 60 MG Oral Tablet [Bactrim] Bactrim DS 800 mg-160 mg tablet Take 1 tablet every 12 hours by oral route for 10 days. Bactrim DS 800 mg-160 mg tablet Take 1 tablet every 12 hours by oral route for 10 days. 1 completed sulfa methoxazole 800 MG / trimethoprim 160 MG Oral Tablet [Bactrim] NINA ([facility]) lamotrigine 25 MG Oral Tablet [Lamictal] Lamictal [...] trimethoprim 160 MG Oral Tablet [Bactrim] NINA ([facility]) lamotrigine 25 MG Oral Tablet [Lamictal] Lamictal [...] completed cephalexin 500 M G Oral Capsule DAFTER ([facility]) Prednisone 20 MG Oral Tablet prednisone 20 mg tablet Take 1 tablet every day by oral route. prednisone 20 mg tablet Take 1 tablet every day by oral route. 1 completed prednisone 20 MG Oral Tablet DAFTER ([facility]) Insurance Providers Payer name Policy type / Coverage type Policy ID Covered constitution party ID Covered constitution party's relationship to rodriguez Policy Rodriguez Plan Information [id number] [facility]() Workers Compensation [id number] [facility]() Workers Compensation [id number] Self Pma Ins () Workers Compensation [id number] Self W [id number] [facility](WC) Workers Compensation [id number] Self UMR [facility] [id number] FA2 [id number] [facility] [id number] FA2 [id number] [facility] [id number] FA2 [id number] UMR [facility] [id number] FA2 [id number] UMR [facility] [id number] FA2 [id number] [employer] (pr) Commercial [id number] Family Dependent [employer] (pr) Commercial [id number] Family Dependent [id number] R [facility] [id number] FA2 [id number] Medicaid S [id number] S [id number] [facility] COMMUNITY PLAN [facility] [id number] SP [id number] SELF PAY [facility] [id number] SP [id number] [facility] [id number] SP [id number] Managed Care [facility] Community Plan P [id number] S [id number] [employer] Commercial [id number] Family Dependent [id number] [employer] Health Maintenance Organization (HMO) [id number] Family Dependent [id number] [employer] [id number] FA2 [id number] [employer] Commercial [id number] Family Dependent [id number] [employer] Commercial [id number] Family Dependent [id number] [employer] Commercial [id number] Family Dependent [id number] [employer] Commercial [id number] Family Dependent [id number] [employer] Commercial [id number] Family Dependent [id number] [employer] PPO O [id number] C [id number] [employer] -O/P [id number] 19 [id number] UMR O [id number] C [id number] [employer] Commercial [id number] Family Dependent [id number] Umr Medigap Part B [id number] Self [id number] [employer] Commercial [id number] Family Dependent [id number] Umr Medigap Part B [id number] Self [id number] [employer] Commercial [id number] Family Dependent [id number] Umr Medigap Part B [id number] Self [id number] [employer] Commercial [id number] Family Dependent [id number] r Medigap Part B [id number] Self [id number] [facility] COMMUNITY PLAN [facility] [id number] SP [id number] Managed Care [facility] Community Plan S [id number] S [id number] UMR O [id number] S [id number] Self Pay P UNAVAILABLE S UNAVAILA BLE [employer] P [id number] S [id number] [facility] COMMUNITY PLAN [facility] [id number] SP [id number] [facility] PLAN [facility] [id number] SP [id number] [facility] [id number] SP [id number] SELF PAY ONLY [id number] SP [id number] EMEDNY [id number] SP [id number] [facility](MCA[facility]) O [id number] S [id number] MEDICAID [id number] SP [id number] [facility] [id number] SP [id number] [facility] P [id number] S [id number] SELF PAY UNAVAILABLE SP UNAVAILA BLE 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 [id number] SP [id number] 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 P [id number] S [id number] [facility] [id number] SP [id number] OTHER WORKERS COMPENSATION [id number] SP [id number] [employer] Commercial [id number] Family Dependent [employer] Ppo Commercial [id number] Family Dependent [employer] Health Maintenance Organization (HMO) [id number] Family Dependent [id number] Problems, Conditions, and Diagnoses Code Display Name Description Problem Type Effective Dates Data Source(s) Q51.3 Bicornuate uterus Bicornuate uterus Problem 03/04/2021 12:00:00 AM EDT eCW1 ([facility]) F33.41 [id number] Recurrent major depressive disor amisha, in partial remission Problem 01/15/2021 12:00:00 AM EDT eCW1 ([facility]) [id number] Hidradenitis suppurativa Hidradenitis Suppurativa Prob ailin 01/07/2021 12:00:00 AM EDT NINA ([facility]) 82830926 Hidradenitis suppurativa Hidradenitis Suppurativa Prob ailin 01/07/2021 12:00:00 AM EDT NINA ([facility]) 65204434 Hidradenitis suppurativa Hidradenitis Suppurativa Prob ailin 01/07/2021 12:00:00 AM EDT NINA ([facility]) 81212565 Hidradenitis suppurativa Hidradenitis Suppurativa Prob ailin 01/07/2021 12:00:00 AM EDT NINA ([facility]) Z34.80 care Supervision of other normal P scot 11/29/2020 12:00:00 AM EDT eCW1 ([facility]) B18.2 107230149 Chronic hepatitis C without hepatic coma Problem 06/20/2020 12:00:00 AM EDT eCW1 ([facility]) F19.10 [id number] Polysubstance abuse Problem 06/20/2020 12:00 :00 AM EDT eCW1 ([facility]) B17.10 62761829 Acute hepatitis C virus infection without hepatic coma Problem 06/20/2020 12:00:00 AM EDT eCW1 ([facility]) F19.11 708201583 Intravenous drug abuse in remission Probl em 06/20/2020 12:00:00 AM EDT eCW1 ([facility]) 56625102 Schizoaffective disorder, bipolar type S chizoaffective Disorder, Bipolar Type Problem 06/13/2020 12:00:00 AM EDT DAFTER ([facility]) 33758742 Schizoaffective disorder, bipolar type S chizoaffective Disorder, Bipolar Type Problem 06/13/2020 12:00:00 AM EDT DAFTER ([facility]) 28180559 Schizoaffective disorder, bipolar type S chizoaffective Disorder, Bipolar Type Problem 06/13/2020 12:00:00 AM EDT DAFTER ([facility]) [id number] Schizoaffective disorder, bipolar type S chizoaffective Disorder, Bipolar Type Problem 06/13/2020 12:00:00 AM EDT NINA ([facility]) [id number] Schizoaffective disorder, bipolar type S chizoaffective Disorder, Bipolar Type Problem 06/13/2020 12:00:00 AM EDT DAFTER ([facility]) 89574027 Schizoaffective disorder, bipolar type S chizoaffective Disorder, Bipolar Type Problem 06/13/2020 12:00:00 AM EDT DAFTER ([facility]) 91743075 Schizoaffective disorder, bipolar type S chizoaffective Disorder, Bipolar Type Problem 06/13/2020 12:00:00 AM EDT NINA ([facility]) 254020191 Keratoma Keratoma Problem 05/15/2020 12:0 0:00 AM EDT - 01/06/2021 12:00:00 AM EDT NINA ([facility]) 438399327 Finding of body region Finding of Body Region Problem 05/15/2020 12:00:00 AM EDT - 01/06/2021 12:00:00 AM EDT NINA ([facility]) 511264493 Keratoma Keratoma Problem 05/15/2020 12:0 0:00 AM EDT - 01/06/2021 12:00:00 AM EDT NINA ([facility]) 762541561 Finding of body region Finding of Body Region Problem 05/15/2020 12:00:00 AM EDT - 01/06/2021 12:00:00 AM EDT NINA ([facility]) 402390168 Keratoma Keratoma Problem 05/15/2020 12:0 0:00 AM EDT - 01/06/2021 12:00:00 AM EDT NINA ([facility]) 007911706 Finding of body region Finding of Body Region Problem 05/15/2020 12:00:00 AM EDT - 01/06/2021 12:00:00 AM EDT NINA ([facility]) 481957773 Keratoma Keratoma Problem 05/15/2020 12:0 0:00 AM EDT - 01/06/2021 12:00:00 AM EDT NINA ([facility]) 748789428 Finding of body region Finding of Body Region Problem 05/15/2020 12:00:00 AM EDT - 01/06/2021 12:00:00 AM EDT NINA ([facility]) 275320122 Clinical finding Clinical Finding Problem 020 12:00:00 AM EDT - 01/06/2021 12:00:00 AM EDT NINA ([facility]) [id number] Patient asked to attend Patient Asked to Attend Proble m 02/22/2020 12:00:00 AM EDT - 03/09/2021 12:00:00 AM EDT NINA ([facility]) [id number] Clinical finding Clinical Finding Problem 12:00:00 AM EDT - 01/06/2021 12:00:00 AM EDT NINA ([facility]) 920128859 Patient asked to attend Patient Asked to Attend Proble 02/22/2020 12:00:00 AM EDT - 03/09/2021 12:00:00 AM EDT NINA ([facility]) [id number] Clinical finding Clinical Finding Problem 12:00:00 AM EDT - 01/06/2021 12:00:00 AM EDT NINA ([facility]) [id number] Patient asked to attend Patient Asked to Attend Proble 02/22/2020 12:00:00 AM EDT - 03/09/2021 12:00:00 AM EDT NINA ([facility]) [id number] Clinical finding Clinical Finding Problem 020 12:00:00 AM EDT - 01/06/2021 12:00:00 AM EDT NINA ([facility]) 082844841 Acquired absence of multiple teeth Acquired Abse nce of Multiple Teeth Problem 11/16/2019 12:00:00 AM EST - 01/07/2021 12:00:00 AM ED T NINA ([facility]) 992071411 Acquired absence of multiple teeth Acquired Abse nce of Multiple Teeth Problem 11/16/2019 12:00:00 AM EST - 01/07/2021 12:00:00 AM ED Kirsten WOOD ([facility]) [id number] Acquired absence of multiple teeth Acquired Abse nce of Multiple Teeth Problem 11/16/2019 12:00:00 AM EST - 01/07/2021 12:00:00 AM ED T NINA ([facility]) 554346069 Acquired absence of multiple teeth Acquired Abse nce of Multiple Teeth Problem 11/16/2019 12:00:00 AM EST - 01/07/2021 12:00:00 AM ED T NINA ([facility]) 465318890 SNOMED CT Concept SNOMED CT Concept Problem 09/12 12:00:00 AM EST - 01/06/2021 12:00:00 AM EDT NINA ([facility]) 139597845 Finding of body region Finding of Body Region Problem 09/12/2019 12:00:00 AM EST - 01/06/2021 12:00:00 AM EDT NINA ([facility]) 360133104 Endocrine/metabolic screening Endocrine/metabolic Scre ening Problem 09/12/2019 12:00:00 AM EST - 01/06/2021 12:00:00 AM EDT NINA ([facility]) 380837838 SNOMED CT Concept SNOMED CT Concept Problem 09/12 12:00:00 AM EST - 01/06/2021 12:00:00 AM EDT NINA ([facility]) 222813749 Finding of body region Finding of Body Region Problem 09/12/2019 12:00:00 AM EST - 01/06/2021 12:00:00 AM EDT NINA ([facility]) 836153506 Endocrine/metabolic screening Endocrine/metabolic Scre ening Problem 09/12/2019 12:00:00 AM EST - 01/06/2021 12:00:00 AM EDT NINA ([facility]) 047546756 SNOMED CT Concept SNOMED CT Concept Problem 09/12 12:00:00 AM EST - 01/06/2021 12:00:00 AM EDT NINA ([facility]) 223838113 Finding of body region Finding of Body Region Problem 09/12/2019 12:00:00 AM EST - 01/06/2021 12:00:00 AM EDT NINA ([facility]) 654429016 Endocrine/metabolic screening Endocrine/metabolic Scre ening Problem 09/12/2019 12:00:00 AM EST - 01/06/2021 12:00:00 AM EDT NINA ([facility]) 885986654 SNOMED CT Concept SNOMED CT Concept Problem 09/12 12:00:00 AM EST - 01/06/2021 12:00:00 AM EDT NINA ([facility]) 763253594 Finding of body region Finding of Body Region Problem 09/12/2019 12:00:00 AM EST - 01/06/2021 12:00:00 AM EDT DAFTER ([facility]) 847824765 Endocrine/metabolic screening Endocrine/metabolic Scre ening Problem 09/12/2019 12:00:00 AM EST - 01/06/2021 12:00:00 AM EDT DAFTER ([facility]) Surgeries/Procedures Procedure Description Date Indications Data Source(s) TDAP VACCINE 7/> YR IM 03/04/2021 12:00:00 AM EDT eCW1 ([facility]) HEPATITIS B VACCINE ADULT DOSAGE INTRAMUSCULAR 020 12:00:00 AM EST eCW1 ([facility]) Results ID Date Data Source [id number] 05/01/2021 07:26:00 AM EDT DAFTER ([facility]) Name Value Range Interpretation Code Description Data Ale rce(s) Supporting Document(s) white blood count 12.4 10 4.0-10.0 Above high normal White Blood Count DAFTER ([facility]) red blood count 3.19 10 4.00-5.40 Below low normal Red Blood Coun t DAFTER ([facility]) hemoglobin 9.0 g/dL 12.0-15.5 Below low normal Hemoglobin DAFTER ( [facility]) hematocrit 27.2 % 36.0-47.0 Below low normal Hematocrit DAFTER ( [facility]) mean corpuscular volume 85.3 fL 80.0-96.0 Mean Corpusc ular Volume DAFTER ([facility]) mean corpuscular hemoglobin 28.2 pg 27.0-33.0 Mean Cor puscular Hemoglobin DAFTER ([facility]) mean corpuscular HGB conc 33.1 g/dL 32.0-36.5 Mean Corpu scular HGB Conc DAFTER ([facility]) red cell distribution width 15.3 % 11.5-14.5 Above high no rmal Red Cell Distribution Width DAFTER ([facility]) platelet count, automated 136 10 150-450 Below low denys l Platelet Count, Automated DAFTER ([facility]) nucleated red blood cell % 0.0 % 0-0 Nucleated Red Blood Cell % DAFTER ([facility]) ID Date Data Source [id number] 04/30/2021 11:04:00 PM EDT DAFTER ([facility]) Name Value Range Interpretation Code Description Data Ale rce(s) Supporting Document(s) glucose, fasting 100 mg/dL 70-100 Glucose, Fasting AT [facility]) blood urea nitrogen 10 mg/dL 7-18 Blood Urea Nitro gen DAFTER ([facility]) creatinine for GFR 0.72 mg/dL 0.55-1.30 Creatinine for GF R DAFTER ([facility]) glomerular filtration rate > 60.0 >60 Glomerula r Filtration Rate DAFTER ([facility]) sodium level 141 mEq/L 136-145 Sodium Level DAFTER ([facility]) potassium serum 3.7 mEq/L 3.5-5.1 [facility]assium [facility] chloride level 111 mEq/L 98-107 Above high normal Chloride Level DAFTER ([facility]) carbon dioxide level 25 mEq/L 21-32 Carbon Dioxide Level DAFTER ([facility]) anion gap 5 mEq/L 8-16 Below low normal Anion Gap DAFTER ( [facility]) calcium level 8.1 mg/dL 8.5-10.1 Below low normal Calcium Level AT [facility]) AST/SGOT 27 U/L 7-37 AST/SGOT DAFTER ([facility]) ALT/SGPT 22 U/L 12-78 ALT/SGPT DAFTER ([facility]) alkaline phosphatase 82 U/L 45-117 Alkaline Phosph atase DAFTER ([facility]) bilirubin,total 0.5 mg/dL 0.2-1.0 Bilirubin,total ATHE [facility]) albumin 2.0 gm/dL 3.2-5.2 Below low normal Albumin DAFTER ( [facility]) total protein 4.7 gm/dL 6.4-8.2 Below low normal Total Protein AT [facility]) albumin/globulin ratio 1.2-2.2 Below low normal Albumin /globulin Ratio DAFTER ([facility]) ID Date Data Source [id number] 04/30/2021 08:32:00 AM EDT DAFTER ([facility]) Name Value Range Interpretation Code Description Data Ale rce(s) Supporting Document(s) color, urine rfx annie yellow Color, Urine Rfx AT AGUSTIN ([facility]) appearance, urine rfx hazy clear Appearance, Ur ine Rfx DAFTER ([facility]) pH,urine rfx 5.0 units 5.0-9.0 pH,urine Rfx NINA (No [facility]) protein, urine auto rfx 2+ negative Above high normal Prote in, Urine Auto Rfx DAFTER ([facility]) specific gravity ur auto rfx 1.002-1.035 Specif ic Thompson Ur Auto Rfx DAFTER ([facility]) ketone, urine auto rfx trace negative Above high normal Ketone , Urine Auto Rfx DAFTER ([facility]) glucose, urine (UA) auto rfx negative negative Glucose , Urine (UA) Auto Rfx DAFTER ([facility]) bilirubin, urine auto rfx negative negative Bilirubin, Urine Auto Rfx DAFTER ([facility]) urobilinogen, urine auto rfx 4.0 mg/dL 0.0-2.0 Above high n ormal Urobilinogen, Urine Auto Rfx DAFTER ([facility]) leukocyte esterase ur auto rfx negative negative Leukocyte Esterase Ur Auto Rfx NINA ([facility]) nitrite, urine auto rfx negative negative Nitrite, Uri ne Auto Rfx DAFTER ([facility]) blood, urine blood rfx 3+ negative Above high normal Blood, Urine Blood Rfx DAFTER ([facility]) WBC, urine auto rfx 2 /hpf 0-3 WBC, Urine Auto Rfx DAFTER ([facility]) RBC, urine auto rfx tntc 0-3 Above high normal RBC, Urin e Auto Rfx DAFTER ([facility]) bacteria, urine auto rfx negative negative Bacteria, U rine Auto Rfx DAFTER ([facility]) transitional epithelial AU [facility] ID Date Data Source [id number] 04/30/2021 05:42:00 AM EDT DAFTER ([facility]) Name Value Range Interpretation Code Description Data Ale rce(s) Supporting Document(s) syphilis nonreactive nonreactive Syphilis NINA ([facility]) ID Date Data Source [id number] 04/30/2021 05:42:00 AM EDT DAFTER ([facility]) Name Value Range Interpretation Code Description Data Ale rce(s) Supporting Document(s) blood type A positive Blood Type NINA ([facility]) Ab screen (indirect pamella)vis negative Ab Sc reen (Indirect Pamella)vis DAFTER ([facility]) ID Date Data Source [id number] 04/30/2021 05:42:00 AM EDT [facility]) Name Value Range Interpretation Code Description Data Ale rce(s) Supporting Document(s) white blood count 12.8 10 4.0-10.0 Above high normal White Blood Count NINA ([facility]) red blood count 5.16 10 4.00-5.40 Red Blood Count ATHE ([facility]) hemoglobin 14.4 g/dL 12.0-15.5 Hemoglobin NIAN ([facility]) hematocrit 42.4 % 36.0-47.0 Hematocrit NINA ([facility]) mean corpuscular volume 82.2 fL 80.0-96.0 Mean Corpusc ular Volume NINA ([facility]) mean corpuscular hemoglobin 27.9 pg 27.0-33.0 Mean Cor puscular Hemoglobin DAFTER ([facility]) mean corpuscular HGB conc 34.0 g/dL 32.0-36.5 Mean Corpu scular HGB Conc DAFTER ([facility]) red cell distribution width 15.0 % 11.5-14.5 Above high no rmal Red Cell Distribution Width DAFTER ([facility]) platelet count, automated 240 10 150-450 Platelet C ount, Automated DAFTER ([facility]) nucleated red blood cell % 0.0 % 0-0 Nucleated Red Blood Cell % DAFTER ([facility]) ID Date Data Source [id number] 04/30/2021 05:41:00 AM EDT [facility]) Name Value Range Interpretation Code Description Data Ale rce(s) Supporting Document(s) barbiturates urine reflex negative negative Barbiturat es Urine Reflex DAFTER ([facility]) amphetamines urine reflex negative negative Amphetamin es Urine Reflex DAFTER ([facility]) benzodiazepines urine reflex negative negative Benzodi azepines Urine Reflex DAFTER ([facility]) cocaine metabolite urine refle negative negative Cocaine Metabolite Urine Refle DAFTER ([facility]) cannabinoids urine reflex negative negative Cannabinoi ds Urine Reflex DAFTER ([facility]) opiates urine reflex negative negative Opiates Urine R eflex DAFTER ([facility]) methadone urine reflex negative negative Methadone Uri ne Reflex DAFTER ([facility]) phencyclidine urine reflex negative negative Phencycli dine Urine Reflex DAFTER ([facility]) ID Date Data Source [id number] 03/06/2021 12:15:00 PM EDT [facility]) Name Value Range Interpretation Code Description Data Ale rce(s) Supporting Document(s) fibrosis stage F1-F2 . Fibrosis Stage DAFTER ([facility]) fibrosis score 0.00-0.21 Above high normal Fibrosis Score DAFTER ([facility]) necroinflam score 0.00-0.17 [...] Center) GGT 10 IU/L 0-60 Ggt NINA ([facility]) interpretation . Interpretation NINA (No [facility]) ALT 35 IU/L 0-40 Alt DAFTER ([facility]) necroinflam scoring . Necroinflam Scor ing DAFTER ([facility]) limitations . Limitations NINA ([facility]) fibrosis scoring . Fibrosis Scoring AT [facility] ([facility]) comment : . Comment : DAFTER ([facility]) ID Date Data Source [id number] 03/06/2021 12:15:00 PM EDT DAFTER ([facility]) Name Value Range Interpretation Code Description Data Ale rce(s) Supporting Document(s) hepatitis B core antibody IgG negative negative Hepati tis B Core Antibody IgG [facility]) ID Date Data Source [id number] 03/06/2021 12:15:00 PM EDT DAFTER ([facility]) Name Value Range Interpretation Code Description Data Ale rce(s) Supporting Document(s) hepatitis A IgG total positive negative Abnormal ( applies to non-numeric results) Hepatitis a IgG Total NINA ([facility]) ID Date Data Source [id number] 03/06/2021 12:15:00 PM EDT DAFTER ([facility]) Name Value Range Interpretation Code Description Data Ale rce(s) Supporting Document(s) hepatitis C quantitation 0341616 IU/mL . Hepatiti s C Quantitation DAFTER ([facility]) hepatitis C log10 . Hepatitis C Log10 DAFTER ([facility]) test information: . Test Information: [facility]) ID Date Data Source [id number] 03/06/2021 12:15:00 PM EDT [facility]) Name Value Range Interpretation Code Description Data Ale rce(s) Supporting Document(s) comment for hepc genotype . Comment fo r Hepc Genotype DAFTER ([facility]) hepatitis C virus genotype . Hepatitis C Virus Genotype DAFTER ([facility]) ID Date Data Source [id number] 03/06/2021 12:15:00 PM EDT DAFTER ([facility]) Name Value Range Interpretation Code Description Data Ale rce(s) Supporting Document(s) white blood count 9.9 10 4.0-10.0 White Blood Count DAFTER ([facility]) red blood count 4.84 10 4.00-5.40 [facility]) hemoglobin 13.8 g/dL 12.0-15.5 Hemoglobin DAFTER ([facility]) hematocrit 41.3 % 36.0-47.0 Hematocrit NINA ([facility]) mean corpuscular volume 85.3 fL 80.0-96.0 Mean Corpusc ular Volume NINA ([facility]) mean corpuscular hemoglobin 28.5 pg 27.0-33.0 Mean Cor puscular Hemoglobin NINA ([facility]) mean corpuscular HGB conc 33.4 g/dL 32.0-36.5 Mean Corpu scular HGB Conc DAFTER ([facility]) red cell distribution width 14.3 % 11.5-14.5 Red Cell Distribution Width DAFTER ([facility]) platelet count, automated 234 10 150-450 Platelet C ount, Automated NINA ([facility]) nucleated red blood cell % 0.0 % 0-0 Nucleated Red Blood Cell % NINA ([facility]) ID Date Data Source [id number] 03/06/2021 12:15:00 PM EDT NINA [facility] ID Date Data Source [id number] 03/06/2021 12:15:00 PM EDT DAFTER ([facility]) Name Value Range [...] g/dL 32.0-36.5 Mean Corpu scular HGB Conc DAFTER ([facility]) nucleated red blood cell % 0.0 % 0-0 Nucleated Red Blood Cell % DAFTER ([facility]) ID Date Data Source [id number] 03/06/2021 12:14:00 PM EDT DAFTER ([facility]) Name Value Range Interpretation Code Description Data Ale rce(s) Supporting Document(s) Ab screen (indirect pamella)vis negative Ab Sc reen (Indirect Pamella)vis DAFTER ([facility]) blood type A positive Blood Type DAFTER ([facility]) ID Date Data Source [id number] 03/06/2021 12:14:00 PM EDT DAFTER ([facility]) Name Value Range Interpretation Code Description Data Ale rce(s) Supporting Document(s) HIV 1&2 screen centaur negative negative HIV 1&2 Scree n Centaur DAFTER ([facility]) ID Date Data Source [id number] 03/06/2021 12:14:00 PM EDT [facility]) Name Value Range Interpretation Code Description Data Ale rce(s) Supporting Document(s) hepatitis A antibody IgM negative negative Hepatitis a Antibody IgM [facility]) ID Date Data Source [id number] 03/06/2021 12:14:00 PM EDT DAFTER ([facility]) Name Value Range Interpretation Code Description Data Ale rce(s) Supporting Document(s) hepatitis B core antibody IgM negative negative Hepati tis B Core Antibody IgM [facility]) ID Date Data Source [id number] 03/06/2021 12:14:00 PM EDT [facility]) Name Value Range Interpretation Code Description Data Ale rce(s) Supporting Document(s) hepatitis B surface antibody negative positive Hepatit is B Surface Antibody [facility]) ID Date Data Source [id number] 03/06/2021 12:14:00 PM EDT [facility]) Name Value Range Interpretation Code Description Data Ale rce(s) Supporting Document(s) hepatitis B surface antigen negative negative Hepatiti s B Surface Antigen [facility]) ID Date Data Source [id number] 03/06/2021 12:14:00 PM EDT [facility]) Name Value Range Interpretation Code Description Data Ale rce(s) Supporting Document(s) glucose challenge test 1 hour 107 mg/dL less than 140 Glucose Challenge Test 1 Hour DAFTER ([facility]) ID Date Data Source [id number] 03/06/2021 12:14:00 PM EDT [facility]) Name Value Range Interpretation Code Description Data Ale rce(s) Supporting Document(s) hepatitis C virus roosevelt index > 11.0 <0.8 Above high no rmal Hepatitis C Virus Roosevelt Index [facility]) ID Date Data Source [id number] 03/06/2021 12:14:00 PM EDT [facility] [...] 7-18 Below low normal Blood Urea Nitrogen DAFTER ([facility]) potassium serum 3.6 mEq/L 3.5-5.1 Potassium Serum ATHE ([facility]) sodium level 140 mEq/L 136-145 Sodium Level NINA ([facility]) chloride level 108 mEq/L 98-107 Above high normal Chloride Level NINA ([facility]) carbon dioxide level 25 mEq/L 21-32 Carbon Dioxide Level NINA ([facility]) calcium level 9.0 mg/dL 8.5-10.1 Calcium Level DAFTER ( [facility]) AST/SGOT 38 U/L 7-37 Above high normal AST/SGOT NINA ([facility]) anion gap 7 mEq/L 8-16 Below low normal Anion Gap NINA ( [facility]) alkaline phosphatase 74 U/L 45-117 Alkaline Phosph atase NINA ([facility]) ALT/SGPT 43 U/L 12-78 ALT/SGPT NINA ([facility]) bilirubin,total 0.7 mg/dL 0.2-1.0 Bilirubin,total ATHE NA ([facility]) albumin 2.7 gm/dL 3.2-5.2 Below low normal Albumin DAFTER ( [facility]) albumin/globulin ratio 1.2-2.2 Below low normal Albumin /globulin Ratio NINA ([facility]) total protein 6.4 gm/dL 6.4-8.2 Total Protein NINA ( [facility]) ID Date Data Source [id number] 03/06/2021 12:14:00 PM EDT [facility]) Name Value Range Interpretation Code Description Data Ale rce(s) Supporting Document(s) blood type A positive Blood Type DAFTER ([facility]) Ab screen (indirect pamella)vis negative Ab Sc reen (Indirect Pamella)vis DAFTER ([facility]) ID Date Data Source [id number] 03/06/2021 12:14:00 PM EDT DAFTER ([facility]) Name Value Range Interpretation Code Description Data Ale rce(s) Supporting Document(s) HIV 1&2 screen centaur negative negative HIV 1&2 Scree n Centaur DAFTER ([facility]) ID Date Data Source [id number] 03/06/2021 12:14:00 PM EDT [facility]) Name Value Range Interpretation Code Description Data Ale rce(s) Supporting Document(s) hepatitis A antibody IgM negative negative Hepatitis a Antibody IgM [facility]) ID Date Data Source [id number] 03/06/2021 12:14:00 PM EDT [facility]) Name Value Range Interpretation Code Description Data Ale rce(s) Supporting Document(s) hepatitis B core antibody IgM negative negative Hepati tis B Core Antibody IgM [facility]) ID Date Data Source [id number] 03/06/2021 12:14:00 PM EDT [facility]) Name Value Range Interpretation Code Description Data Ale rce(s) Supporting Document(s) hepatitis B surface antibody negative positive Hepatit is B Surface Antibody [facility]) ID Date Data Source [id number] 03/06/2021 12:14:00 PM EDT [facility]) Name Value Range Interpretation Code Description Data Ale rce(s) Supporting Document(s) hepatitis B surface antigen negative negative Hepatiti s B Surface Antigen [facility]) ID Date Data Source [id number] 03/06/2021 12:14:00 PM EDT [facility]) Name Value Range Interpretation Code Description Data Ale rce(s) Supporting Document(s) glucose challenge test 1 hour 107 mg/dL less than 140 Glucose Challenge Test 1 Hour DAFTER ([facility]) ID Date Data Source [id number] 03/06/2021 12:14:00 PM EDT [facility]) Name Value Range Interpretation Code Description Data Ale rce(s) Supporting Document(s) hepatitis C virus roosevelt index > 11.0 <0.8 Above high no rmal Hepatitis C Virus Roosevelt Index [facility]) ID Date Data Source [id number] 03/06/2021 12:14:00 PM EDT [facility]) Name Value Range Interpretation Code Description Data Ale rce(s) Supporting Document(s) glucose, fasting 107 mg/dL 70-100 Above high normal [facility], [facility] blood urea nitrogen 5 mg/dL 7-18 Below low normal Blood Urea Nitrogen NINA ([facility]) glomerular filtration rate > 60.0 >60 Glomerula r Filtration Rate NINA ([facility]) creatinine for GFR 0.47 mg/dL 0.55-1.30 Below low normal Creatinine for GFR NINA ([facility]) sodium level 140 mEq/L 136-145 Sodium Level NINA ([facility]) potassium serum 3.6 mEq/L 3.5-5.1 Potassium Serum ATH NA [facility]) anion gap 7 mEq/L 8-16 Below low normal Anion Gap DAFTER ( [facility]) chloride level 108 mEq/L 98-107 Above high normal Chloride Level NINA ([facility]) carbon dioxide level 25 mEq/L 21-32 Carbon Dioxide Level NINA ([facility]) ALT/SGPT 43 U/L 12-78 ALT/SGPT NINA ([facility]) calcium level 9.0 mg/dL 8.5-10.1 Calcium Level [facility] ID Date Data Source [id number] 03/06/2021 12:14:00 PM EDT DAFTER ([facility]) Name Value Range Interpretation Code Description Data Ale rce(s) Supporting Document(s) blood type A positive Blood Type NINA ([facility]) Ab screen (indirect pamella)vis negative Ab Sc reen (Indirect Pamella)vis DAFTER ([facility]) ID Date Data Source [id number] 03/06/2021 12:14:00 PM EDT DAFTER ([facility]) Name Value Range Interpretation Code Description Data Ale rce(s) Supporting Document(s) HIV 1&2 screen centaur negative negative HIV 1&2 Scree n Centaur NINA ([facility]) ID Date Data Source [id number] 03/06/2021 12:14:00 PM EDT [facility]) Name Value Range Interpretation Code Description Data Ale rce(s) Supporting Document(s) hepatitis A antibody IgM negative negative Hepatitis a Antibody IgM [facility]) ID Date Data Source [id number] 03/06/2021 12:14:00 PM EDT DAFTER ([facility]) Name Value Range Interpretation Code Description Data Ale rce(s) Supporting Document(s) hepatitis B core antibody IgM negative negative Hepati tis B Core Antibody IgM [facility]) ID Date Data Source [id number] 03/06/2021 12:14:00 PM EDT [facility]) Name Value Range Interpretation Code Description Data Ale rce(s) Supporting Document(s) hepatitis B surface antibody negative positive Hepatit is B Surface Antibody [facility]) ID Date Data Source [id number] 03/06/2021 12:14:00 PM EDT [facility]) Name Value Range Interpretation Code Description Data Ale rce(s) Supporting Document(s) hepatitis B surface antigen negative negative Hepatiti s B Surface Antigen [facility]) ID Date Data Source [id number] 03/06/2021 12:14:00 PM EDT [facility]) Name Value Range Interpretation Code Description Data Ale rce(s) Supporting Document(s) glucose challenge test 1 hour 107 mg/dL less than 140 Glucose Challenge Test 1 Hour DAFTER ([facility]) ID Date Data Source [id number] 03/06/2021 12:14:00 PM EDT [facility]) Name Value Range Interpretation Code Description Data Ale rce(s) Supporting Document(s) hepatitis C virus roosevelt index > 11.0 <0.8 Above high no rmal Hepatitis C Virus Roosevelt Index [facility]) ID Date Data Source [id number] 03/06/2021 12:14:00 PM EDT [facility] ([facility] [...] level 140 mEq/L 136-145 Sodium Level NINA ([facility]) carbon dioxide level 25 mEq/L 21-32 Carbon Dioxide Level NINA ([facility]) chloride level 108 mEq/L 98-107 Above high normal Chloride Level NINA ([facility]) anion gap 7 mEq/L 8-16 Below low normal Anion Gap NINA ( [facility]) calcium level 9.0 mg/dL 8.5-10.1 Calcium Level DAFTER ( [facility]) AST/SGOT 38 U/L 7-37 Above high normal AST/SGOT NINA ([facility]) ALT/SGPT 43 U/L 12-78 ALT/SGPT NINA ([facility]) alkaline phosphatase 74 U/L 45-117 Alkaline Phosph [facility] ID Date Data Source [id number] 03/06/2021 12:10:00 PM EDT [facility]) Name Value Range Interpretation Code Description Data Ale rce(s) Supporting Document(s) HCV RNA LETTY qualitative positive negative Abnormal (applies to non-numeric results) HCV RNA LETTY Qualitative [facility]) ID Date Data Source [id number] 03/06/2021 12:10:00 PM EDT NINA ([facility]) Name Value Range Interpretation Code Description Data Ale rce(s) Supporting Document(s) HCV RNA LETTY qualitative positive negative Abnormal (applies to non-numeric results) HCV RNA LETTY Qualitative [facility]) ID Date Data Source CBC - Complete Blood Count 03/06/2021 12:00:00 AM EDT eCW ( [facility]) Name Value Range Interpretation Code Description Data Ale rce(s) Supporting Document(s) 9.9 4.0-10.0 WHITE BLOOD COUNT eCW1 ([facility]) 4.84 4.00-5.40 RED BLOOD COUNT eCW1 ([facility]) 13.8 12.0-15.5 HEMOGLOBIN eCW1 ([facility]) 85.3 80.0-96.0 MEAN CORPUSCULAR VOLUME e CW1 ([facility]) 41.3 36.0-47.0 HEMATOCRIT eCW1 ([facility] [place]) 33.4 32.0-36.5 MEAN CORPUSCULAR HGB CONC eCW1 ([facility]) 28.5 27.0-33.0 MEAN CORPUSCULAR HEMOGLOB IN eCW1 ([facility]) 14.3 11.5-14.5 RED CELL DISTRIBUTION WID TH eCW1 ([facility]) 234 150-450 PLATELET COUNT, AUTOMATED eCW1 ([facility]) ID Date Data Source DRUG PROF UR QL ([facility]) 12/19/2020 12:00:00 AM EDT eCW1 ([facility]) Name Value Range Interpretation Code Description Data Ale rce(s) Supporting Document(s) DRUG PROF UR QL ([facility]) e CW1 ([facility]) ID Date Data Source HBSAG 12/19/2020 12:00:00 AM EDT eCW1 ([facility]) Name Value Range Interpretation Code Description Data Ale rce(s) Supporting Document(s) NEGATIVE NEGATIVE HBsAg eCW1 ([facility]) ID Date Data Source URINE CULTURE 12/19/2020 12:00:00 AM EDT eCW1 ([facility]) Name Value Range Interpretation Code Description Data Ale rce(s) Supporting Document(s) URINE CULTURE eCW1 ([facility]) ID Date Data Source RUBELLA IMMUNE STATUS IgG 12/19/2020 12:00:00 AM EDT eCW1 ([facility]) Name Value Range Interpretation Code Description Data Ale rce(s) Supporting Document(s) IMMUNE IMMUNE RUBELLA IgG QUALITATIVE eCW1 ( [facility]) ID Date Data Source SYPHILIS ANTIBODY (RPR SCREEN) 12/19/2020 12:00:00 AM EDT eC W1 ([facility]) Name Value Range Interpretation Code Description Data Ale rce(s) Supporting Document(s) NONREACTIVE NONREACTIVE SYPHILIS eCW1 ([facility]) ID Date Data Source [id number] 12/19/2020 12:00:00 AM EDT eCW1 ([facility]) Name Value Range Interpretation Code Description Data Ale rce(s) Supporting Document(s) HIV 1&2 ANTIBODY SCREEN eCW1 ( [facility]) ID Date Data Source HEPATITIS C ANTIBODY INDEX 12/19/2020 12:00:00 AM EDT eCW1 ( [facility]) Name Value Range Interpretation Code Description Data Ale rce(s) Supporting Document(s) > 11.0 <0.8 HEPATITIS C VIRUS [place] IND EX eCW1 ([facility]) ID Date Data Source Type and Screen Prenatal1 12/19/2020 12:00:00 AM EDT eCW1 ([facility]) Name Value Range Interpretation Code Description Data Ale rce(s) Supporting Document(s) NEGATIVE AB SCREEN PNP1 GEL (VIS) eCW1 ([facility]) ID Date Data Source [id number] 10/10/2020 01:00:00 PM EST [facility]) Name Value Range Interpretation Code Description Data Ale rce(s) Supporting Document(s) chlamydia DNA amplification negative negative [facility]di [facility] trichomonas vaginalis (amp) not detected negative Tricho monas Vaginalis (Amp) DAFTER ([facility]) GC DNA amplification positive negative Above high normal GC DNA A mplification [facility]) ID Date Data Source [id number] 10/10/2020 01:00:00 PM EST [facility]) Name Value Range Interpretation Code Description Data Ale rce(s) Supporting Document(s) chlamydia DNA amplification negative negative Chlamydi a [facility] GC DNA amplification positive negative Above high normal GC DNA A mplification [facility]) trichomonas vaginalis (amp) not detected negative Tricho monas Vaginalis (Amp) [facility]) ID Date Data Source [id number] 10/10/2020 01:00:00 PM EST [facility]) Name Value Range Interpretation Code Description Data Ale rce(s) Supporting Document(s) chlamydia DNA amplification negative negative Chlamydi a [facility] trichomonas vaginalis (amp) not detected negative Tricho monas Vaginalis (Amp) [facility] GC DNA amplification positive negative Above high normal GC DNA A mplification [facility]) ID Date Data Source [id number] 10/10/2020 01:00:00 PM EST [facility]) Name Value Range Interpretation Code Description Data Ale rce(s) Supporting Document(s) chlamydia DNA amplification negative negative Chlamydi a DNA Amplification NINA ([facility]) GC DNA amplification positive negative Above high normal GC DNA [facility] trichomonas vaginalis (amp) not detected negative Tricho monas Vaginalis (Amp) [facility]) ID Date Data Source [id number] 10/10/2020 01:00:00 PM EST [facility]) Name Value Range Interpretation Code Description Data Ale rce(s) Supporting Document(s) chlamydia DNA amplification negative negative Chlamydi a DNA Amplification NINA ([facility]) GC DNA amplification positive negative Above high normal GC DNA A mplification DAFTER ([facility]) trichomonas vaginalis (amp) not detected negative Tricho monas Vaginalis (Amp) [facility]) ID Date Data Source [id number] 10/10/2020 01:00:00 PM EST DAFTER ([facility]) Name Value Range Interpretation Code Description Data Ale rce(s) Supporting Document(s) chlamydia DNA amplification negative negative Chlamydi a DNA Amplification NINA ([facility]) GC DNA amplification positive negative Above high normal GC DNA A mplification [facility]) trichomonas vaginalis (amp) not detected negative Tricho monas Vaginalis (Amp) [facility]) ID Date Data Source [id number] 10/10/2020 01:00:00 PM EST [facility]) Name Value Range Interpretation Code Description Data Ale rce(s) Supporting Document(s) chlamydia DNA amplification negative negative Chlamydi a DNA [facility] trichomonas vaginalis (amp) not detected negative Tricho monas Vaginalis (Amp) DAFTER ([facility]) GC DNA amplification positive negative Above high normal GC DNA A mplification [facility]) ID Date Data Source [id number] 10/10/2020 11:06:00 AM EST NINA ([facility]) Name Value Range Interpretation Code Description Data Ale rce(s) Supporting Document(s) HCV RNA LETTY qualitative positive negative Abnormal (applies to non-numeric results) HCV RNA LETTY Qualitative DAFTER ([facility]) ID Date Data Source [id number] 10/10/2020 11:06:00 AM EST NINA ([facility]) Name Value Range Interpretation Code Description Data Ale rce(s) Supporting Document(s) HIV 1&2 screen centaur negative negative HIV 1&2 Scree n Centaur DAFTER ([facility]) ID Date Data Source [id number] 10/10/2020 11:06:00 AM EST DAFTER ([facility]) Name Value Range Interpretation Code Description Data Ale rce(s) Supporting Document(s) hepatitis C virus roosevelt index > 11.0 <0.8 Above high no rmal Hepatitis C Virus Roosevelt Index DAFTER ([facility]) ID Date Data Source [id number] 10/10/2020 11:06:00 AM EST [facility]) Name Value Range Interpretation Code Description Data Ale rce(s) Supporting Document(s) blood urea nitrogen 7 mg/dL 7-18 Blood Urea Nitro gen NINA ([facility]) glucose, fasting 88 mg/dL 70-100 Glucose, Fasting AT [facility] ([facility]) glomerular filtration rate > 60.0 >60 Glomerula r Filtration Rate DAFTER ([facility]) potassium serum 4.2 mEq/L 3.5-5.1 Potassium Serum ATHE NA ([facility]) creatinine for GFR 0.58 mg/dL 0.55-1.30 Creatinine for GF R NINA ([facility]) sodium level 140 mEq/L 136-145 Sodium Level NINA ([facility]) chloride level 106 mEq/L 98-107 Chloride Level DAFTER ([facility]) carbon dioxide level 25 mEq/L 21-32 Carbon Dioxide Level NINA ([facility]) calcium level 9.6 mg/dL 8.5-10.1 Calcium Level NINA ( [facility]) AST/SGOT 29 U/L 7-37 AST/SGOT NINA ([facility]) anion gap 9 mEq/L 8-16 Anion Gap NINA ([facility]) ALT/SGPT 44 U/L 12-78 ALT/SGPT NINA ([facility]) bilirubin,total 0.4 mg/dL 0.2-1.0 Bilirubin,total ATHE ([facility]) total protein 7.3 gm/dL 6.4-8.2 Total Protein NINA ( [facility]) alkaline phosphatase 39 U/L 45-117 Below low normal Alkaline Phosphatase NINA ([facility]) albumin 3.9 gm/dL 3.2-5.2 Albumin NINA ([facility]) albumin/globulin ratio 1.2-2.2 Below low normal Albumin /globulin Ratio NINA ([facility]) ID Date Data Source [id number] 10/10/2020 11:06:00 AM EST NINA ([facility] [...] % 8.0 % 0.0-5.0 Above high normal [place] % DAFTER ([facility]) eos % 5.2 % 0.0-3.0 Above high normal Eos % DAFTER ([facility]) baso % 0.8 % 0.0-1.0 Baso % DAFTER ([facility]) nucleated red blood cell % 0.0 % 0-0 Nucleated Red Blood Cell % NINA ([facility]) neutrophils # 4.8 10 1.5-8.5 Neutrophils # DAFTER ( [facility]) immature granulocyte % 0.4 % 0-3.0 Immature Gran ulocyte % NINA ([facility]) eos # 0.4 10 0.0-0.5 Eos # NINA ([facility]) lymph # 1.5 10 1.5-5.0 Lymph # NINA ([facility]) mono # 0.6 10 0.0-0.8 [place] # NINA ([facility]) baso # 0.1 10 0.0-0.2 Baso # NINA ([facility]) ID Date Data Source [id number] 10/10/2020 11:06:00 AM EST NINA ([facility]) Name Value Range Interpretation Code Description Data Ale rce(s) Supporting Document(s) HCV RNA LETTY qualitative positive negative Abnormal (applies to non-numeric results) HCV RNA LETTY Qualitative DAFTER ([facility]) ID Date Data Source [id number] 10/10/2020 11:06:00 AM EST NINA ([facility]) Name Value Range Interpretation Code Description Data Ale rce(s) Supporting Document(s) HIV 1&2 screen centaur negative negative HIV 1&2 Scree n Centaur NINA ([facility]) ID Date Data Source [id number] 10/10/2020 11:06:00 AM EST NINA ([facility]) Name Value Range Interpretation Code Description Data Ale rce(s) Supporting Document(s) hepatitis C virus roosevelt index > 11.0 <0.8 Above high no rmal Hepatitis C Virus Roosevelt Index DAFTER ([facility]) ID Date Data Source [id number] 10/10/2020 11:06:00 AM EST NINA ([facility]) Name Value Range Interpretation Code Description Data Ale rce(s) Supporting Document(s) blood urea nitrogen 7 mg/dL 7-18 Blood Urea Nitro gen NINA ([facility]) glucose, fasting 88 mg/dL 70-100 Glucose, Fasting AT [facility] ([facility]) creatinine for GFR 0.58 mg/dL 0.55-1.30 Creatinine for GF R DAFTER ([facility]) sodium level 140 mEq/L 136-145 Sodium Level NINA ([facility]) glomerular filtration rate > 60.0 >60 Glomerula r Filtration Rate NINA ([facility]) potassium serum 4.2 mEq/L 3.5-5.1 Potassium Serum ATHE NA ([facility]) carbon dioxide level 25 mEq/L 21-32 Carbon Dioxide Level NINA ([facility]) chloride level 106 mEq/L 98-107 Chloride Level NINA ([facility]) AST/SGOT 29 U/L 7-37 AST/SGOT DAFTER ([facility]) calcium level 9.6 mg/dL 8.5-10.1 Calcium Level NINA ( [facility]) ALT/SGPT 44 U/L 12-78 ALT/SGPT NINA ([facility]) anion gap 9 mEq/L 8-16 Anion Gap NINA ([facility]) alkaline phosphatase 39 U/L 45-117 Below low normal Alkaline Phosphatase NINA ([facility]) total protein 7.3 gm/dL 6.4-8.2 Total Protein NINA ( [facility]) bilirubin,total 0.4 mg/dL 0.2-1.0 Bilirubin,total ATHE NA ([facility]) albumin 3.9 gm/dL 3.2-5.2 Albumin NINA ([facility]) albumin/globulin ratio 1.2-2.2 Below low normal Albumin /globulin Ratio NINA ([facility]) ID Date Data Source [id number] 10/10/2020 11:06:00 AM EST NINA ([facility] [...] 233 10 150-450 Platelet C ount, Automated INNA ([facility]) red cell distribution width 15.0 % 11.5-14.5 Above high no rmal Red Cell Distribution Width NINA ([facility]) neutrophils % 64.8 % 36.0-66.0 Neutrophils % NINA ( [facility]) eos % 5.2 % 0.0-3.0 Above high normal Eos % NINA ([facility]) mono % 8.0 % 0.0-5.0 Above high normal [place] % NINA ([facility]) lymph % 20.8 % 24.0-44.0 Below low normal Lymph % NINA ( [facility]) nucleated red blood cell % 0.0 % 0-0 Nucleated Red Blood Cell % DAFTER ([facility]) immature granulocyte % 0.4 % 0-3.0 Immature Gran ulocyte % NINA ([facility]) baso % 0.8 % 0.0-1.0 Baso % NINA ([facility]) mono # 0.6 10 0.0-0.8 [place] # DAFTER ([facility]) lymph # 1.5 10 1.5-5.0 Lymph # DAFTER ([facility]) neutrophils # 4.8 10 1.5-8.5 Neutrophils # NINA ( [facility]) eos # 0.4 10 0.0-0.5 Eos # NINA ([facility]) baso # 0.1 10 0.0-0.2 Baso # NINA ([facility]) ID Date Data Source [id number] 10/10/2020 11:06:00 AM EST NINA ([facility]) Name Value Range Interpretation Code Description Data Ale rce(s) Supporting Document(s) HCV RNA LETTY qualitative positive negative Abnormal (applies to non-numeric results) HCV RNA LETTY Qualitative DAFTER ([facility]) ID Date Data Source [id number] 10/10/2020 11:06:00 AM EST DAFTER ([facility]) Name Value Range Interpretation Code Description Data Ael rce(s) Supporting Document(s) HIV 1&2 screen centaur negative negative HIV 1&2 Scree n Centaur DAFTER ([facility]) ID Date Data Source [id number] 10/10/2020 11:06:00 AM EST NINA ([facility]) Name Value Range Interpretation Code Description Data Ale rce(s) Supporting Document(s) hepatitis C virus roosevelt index > 11.0 <0.8 Above high no rmal Hepatitis C Virus Roosevelt Index DAFTER ([facility]) ID Date Data Source [id number] 10/10/2020 11:06:00 AM EST NINA ([facility]) Name Value Range Interpretation Code Description Data Ale rce(s) Supporting Document(s) glucose, fasting 88 mg/dL 70-100 Glucose, Fasting AT [facility] ([facility]) creatinine for GFR 0.58 mg/dL 0.55-1.30 Creatinine for GF R DAFTER ([facility]) blood urea nitrogen 7 mg/dL 7-18 Blood Urea Nitro gen NINA ([facility]) glomerular filtration rate > 60.0 >60 Glomerula r Filtration Rate NINA ([facility]) chloride level 106 mEq/L 98-107 Chloride Level NINA ([facility]) sodium level 140 mEq/L 136-145 Sodium Level NINA ([facility]) potassium serum 4.2 mEq/L 3.5-5.1 Potassium Serum ATHE ([facility]) carbon dioxide level 25 mEq/L 21-32 Carbon Dioxide Level NINA ([facility]) anion gap 9 mEq/L 8-16 Anion Gap NINA ([facility]) calcium level 9.6 mg/dL 8.5-10.1 Calcium Level NINA ( [facility]) alkaline phosphatase 39 U/L 45-117 Below low normal Alkaline Phosphatase NINA ([facility]) AST/SGOT 29 U/L 7-37 AST/SGOT NINA ([facility]) bilirubin,total 0.4 mg/dL 0.2-1.0 Bilirubin,total ATHE ([facility]) ALT/SGPT 44 U/L 12-78 ALT/SGPT NINA ([facility]) total protein 7.3 gm/dL 6.4-8.2 Total Protein NINA ( [facility]) albumin/globulin ratio 1.2-2.2 Below low normal Albumin /globulin Ratio NINA ([facility]) albumin 3.9 gm/dL 3.2-5.2 Albumin NINA ([facility]) ID Date Data Source [id number] 10/10/2020 11:06:00 AM EST NINA ([facility] [...] % 0.8 % 0.0-1.0 Baso % NINA ([facility]) mono % 8.0 % 0.0-5.0 Above high normal [place] % NINA ([facility]) eos % 5.2 % 0.0-3.0 Above high normal Eos % NINA ([facility]) neutrophils # 4.8 10 1.5-8.5 Neutrophils # DAFTER ( [facility]) immature granulocyte % 0.4 % 0-3.0 Immature Gran ulocyte % DAFTER ([facility]) nucleated red blood cell % 0.0 % 0-0 Nucleated Red Blood Cell % NINA ([facility]) lymph # 1.5 10 1.5-5.0 Lymph # NINA ([facility]) mono # 0.6 10 0.0-0.8 [place] # NINA ([facility]) eos # 0.4 10 0.0-0.5 Eos # NINA ([facility]) baso # 0.1 10 0.0-0.2 Baso # NINA ([facility]) ID Date Data Source [id number] 10/10/2020 11:06:00 AM EST NINA ([facility]) Name Value Range Interpretation Code Description Data Ale rce(s) Supporting Document(s) HCV RNA LETTY qualitative positive negative Abnormal (applies to non-numeric results) HCV RNA LETTY Qualitative DAFTER ([facility]) ID Date Data Source [id number] 10/10/2020 11:06:00 AM EST NINA ([facility]) Name Value Range Interpretation Code Description Data Ale rce(s) Supporting Document(s) HIV 1&2 screen centaur negative negative HIV 1&2 Scree n Cent[facility] DAFTER ([facility]) ID Date Data Source [id number] 10/10/2020 11:06:00 AM EST DAFTER ([facility]) Name Value Range Interpretation Code Description Data Ale rce(s) Supporting Document(s) hepatitis C virus roosevelt index > 11.0 <0.8 Above high no rmal Hepatitis C Virus Roosevelt Index DAFTER ([facility]) ID Date Data Source [id number] 10/10/2020 11:06:00 AM EST NINA ([facility] [...] 140 mEq/L 136-145 Sodium Level NINA ([facility]) glomerular filtration rate > 60.0 >60 Glomerula r Filtration Rate NINA ([facility]) chloride level 106 mEq/L 98-107 Chloride Level NINA ([facility]) potassium serum 4.2 mEq/L 3.5-5.1 Potassium Serum ATHE NA ([facility]) carbon dioxide level 25 mEq/L 21-32 Carbon Dioxide Level NINA ([facility]) anion gap 9 mEq/L 8-16 Anion Gap NINA ([facility]) calcium level 9.6 mg/dL 8.5-10.1 Calcium Level NINA ( [facility]) AST/SGOT 29 U/L 7-37 AST/SGOT NINA ([facility]) ALT/SGPT 44 U/L 12-78 ALT/SGPT NINA ([facility]) bilirubin,total 0.4 mg/dL 0.2-1.0 Bilirubin,total ATHE ([facility]) alkaline phosphatase 39 U/L 45-117 Below low normal Alkaline Phosphatase NINA ([facility]) albumin 3.9 gm/dL 3.2-5.2 Albumin NINA ([facility]) total protein 7.3 gm/dL 6.4-8.2 Total Protein NINA ( [facility]) albumin/globulin ratio 1.2-2.2 Below low normal Albumin /globulin Ratio NINA ([facility]) ID Date Data Source [id number] 10/10/2020 11:06:00 AM EST NINA ([facility] [...] g/dL 32.0-36.5 Mean Corpu scular HGB Conc DAFTER ([facility]) red cell distribution width 15.0 % 11.5-14.5 Above high no rmal Red Cell Distribution Width DAFTER ([facility]) platelet count, automated 233 10 150-450 Platelet C ount, Automated DAFTER ([facility]) neutrophils % 64.8 % 36.0-66.0 Neutrophils % DAFTER ( [facility]) mono % 8.0 % 0.0-5.0 Above high normal [place] % [facility]) lymph % 20.8 % 24.0-44.0 Below low normal Lymph % DAFTER ( [facility]) baso % 0.8 % 0.0-1.0 Baso % NINA ([facility]) eos % 5.2 % 0.0-3.0 Above high normal Eos % DAFTER ([facility]) immature granulocyte % 0.4 % 0-3.0 Immature Gran ulocyte % DAFTER ([facility]) nucleated red blood cell % 0.0 % 0-0 Nucleated Red Blood Cell % DAFTER ([facility]) neutrophils # 4.8 10 1.5-8.5 Neutrophils # DAFTER ( [facility]) lymph # 1.5 10 1.5-5.0 Lymph # NINA ([facility]) mono # 0.6 10 0.0-0.8 [place] # NINA ([facility]) eos # 0.4 10 0.0-0.5 Eos # NINA ([facility]) baso # 0.1 10 0.0-0.2 Baso # NINA ([facility]) ID Date Data Source [id number] 10/10/2020 11:06:00 AM EST NINA ([facility]) Name Value Range Interpretation Code Description Data Ale rce(s) Supporting Document(s) HCV RNA LETTY qualitative positive negative Abnormal (applies to non-numeric results) HCV RNA LETTY Qualitative DAFTER ([facility]) ID Date Data Source [id number] 10/10/2020 11:06:00 AM EST NINA ([facility]) Name Value Range Interpretation Code Description Data Ale rce(s) Supporting Document(s) HIV 1&2 screen centaur negative negative HIV 1&2 Scree n Centaur DAFTER ([facility]) ID Date Data Source [id number] 10/10/2020 11:06:00 AM EST DAFTER ([facility]) Name Value Range Interpretation Code Description Data Ale rce(s) Supporting Document(s) hepatitis C virus roosevelt index > 11.0 <0.8 Above high no rmal Hepatitis C Virus Roosevelt Index DAFTER ([facility]) ID Date Data Source [id number] 10/10/2020 11:06:00 AM EST NINA ([facility]) Name Value Range Interpretation Code Description Data Ale rce(s) Supporting Document(s) blood urea nitrogen 7 mg/dL 7-18 Blood Urea Nitro gen DAFTER ([facility]) glucose, fasting 88 mg/dL 70-100 Glucose, Fasting AT [facility] ([facility]) glomerular filtration rate > 60.0 >60 Glomerula r Filtration Rate NINA ([facility]) sodium level 140 mEq/L 136-145 Sodium Level NINA ([facility]) creatinine for GFR 0.58 mg/dL 0.55-1.30 Creatinine for GF R NINA ([facility]) carbon dioxide level 25 mEq/L 21-32 Carbon Dioxide Level NINA ([facility]) chloride level 106 mEq/L 98-107 Chloride Level NINA ([facility]) anion gap 9 mEq/L 8-16 Anion Gap NINA ([facility]) potassium serum 4.2 mEq/L 3.5-5.1 Potassium Serum ATHE ([facility]) calcium level 9.6 mg/dL 8.5-10.1 Calcium Level NINA ( [facility]) AST/SGOT 29 U/L 7-37 AST/SGOT NINA ([facility]) ALT/SGPT 44 U/L 12-78 ALT/SGPT NINA ([facility]) bilirubin,total 0.4 mg/dL 0.2-1.0 Bilirubin,total ATHE ([facility]) total protein 7.3 gm/dL 6.4-8.2 Total Protein NINA ( [facility]) alkaline phosphatase 39 U/L 45-117 Below low normal Alkaline Phosphatase NINA ([facility]) albumin 3.9 gm/dL 3.2-5.2 Albumin NINA ([facility]) albumin/globulin ratio 1.2-2.2 Below low normal Albumin /globulin Ratio NINA ([facility]) ID Date Data Source [id number] 10/10/2020 11:06:00 AM EST NINA ([facility] [...] % 8.0 % 0.0-5.0 Above high normal [place] % NINA ([facility]) nucleated red blood cell % 0.0 % 0-0 Nucleated Red Blood Cell % DAFTER ([facility]) immature granulocyte % 0.4 % 0-3.0 Immature Gran ulocyte % NINA ([facility]) baso % 0.8 % 0.0-1.0 Baso % NINA ([facility]) eos % 5.2 % 0.0-3.0 Above high normal Eos % NINA ([facility]) neutrophils # 4.8 10 1.5-8.5 Neutrophils # NINA ( [facility]) lymph # 1.5 10 1.5-5.0 Lymph # NINA ([facility]) mono # 0.6 10 0.0-0.8 [place] # NINA ([facility]) baso # 0.1 10 0.0-0.2 Baso # NINA ([facility]) eos # 0.4 10 0.0-0.5 Eos # NINA ([facility]) ID Date Data Source [id number] 10/10/2020 11:06:00 AM EST NINA ([facility]) Name Value Range Interpretation Code Description Data Ale rce(s) Supporting Document(s) HCV RNA LETTY qualitative positive negative Abnormal (applies to non-numeric results) HCV RNA LETTY Qualitative [facility]) ID Date Data Source [id number] 10/10/2020 11:06:00 AM EST NINA ([facility]) Name Value Range Interpretation Code Description Data Ale rce(s) Supporting Document(s) HIV 1&2 screen centaur negative negative HIV 1&2 Scree n Centaur NINA ([facility]) ID Date Data Source [id number] 10/10/2020 11:06:00 AM EST INNA ([facility]) Name Value Range Interpretation Code Description Data Ale rce(s) Supporting Document(s) hepatitis C virus roosevelt index > 11.0 <0.8 Above high no rmal Hepatitis C Virus Roosevelt Index DAFTER ([facility]) ID Date Data Source [id number] 10/10/2020 11:06:00 AM EST [facility]) Name Value Range Interpretation Code Description Data Ale rce(s) Supporting Document(s) glucose, fasting 88 mg/dL 70-100 Glucose, Fasting AT [facility]) creatinine for GFR 0.58 mg/dL 0.55-1.30 Creatinine for GF R DAFTER ([facility]) blood urea nitrogen 7 mg/dL 7-18 Blood Urea Nitro gen NINA ([facility]) glomerular filtration rate > 60.0 >60 Glomerula r Filtration Rate DAFTER ([facility]) chloride level 106 mEq/L 98-107 Chloride Level DAFTER ([facility]) potassium serum 4.2 mEq/L 3.5-5.1 Potassium Serum ATHE NA ([facility]) sodium level 140 mEq/L 136-145 Sodium Level NINA ([facility]) AST/SGOT 29 U/L 7-37 AST/SGOT NINA ([facility]) carbon dioxide level 25 mEq/L 21-32 Carbon Dioxide Level NINA ([facility]) calcium level 9.6 mg/dL 8.5-10.1 Calcium Level NINA ( [facility]) anion gap 9 mEq/L 8-16 Anion Gap NINA ([facility]) ALT/SGPT 44 U/L 12-78 ALT/SGPT NINA ([facility]) bilirubin,total 0.4 mg/dL 0.2-1.0 Bilirubin,total ATHE ([facility]) alkaline phosphatase 39 U/L 45-117 Below low normal Alkaline Phosphatase NINA ([facility]) total protein 7.3 gm/dL 6.4-8.2 Total Protein NINA ( [facility]) albumin 3.9 gm/dL 3.2-5.2 Albumin NINA ([facility]) albumin/globulin ratio 1.2-2.2 Below low normal Albumin /globulin Ratio NINA ([facility]) ID Date Data Source [id number] 10/10/2020 11:06:00 AM EST [facility] hematocrit 44.3 % 36.0-47.0 Hematocrit DAFTER ([facility]) mean corpuscular HGB conc 33.2 g/dL 32.0-36.5 Mean Corpu scular HGB Conc DAFTER ([facility]) neutrophils % 64.8 % 36.0-66.0 Neutrophils % DAFTER ( [facility]) red cell distribution width 15.0 % 11.5-14.5 Above high no rmal Red Cell Distribution Width DAFTER ([facility]) platelet count, automated 233 10 150-450 Platelet C ount, Automated DAFTER ([facility]) mono % 8.0 % 0.0-5.0 Above high normal [place] % DAFTER ([facility]) eos % 5.2 % 0.0-3.0 Above high normal Eos % DAFTER ([facility]) lymph % 20.8 % 24.0-44.0 Below low normal Lymph % DAFTER ( [facility]) nucleated red blood cell % 0.0 % 0-0 Nucleated Red Blood Cell % DAFTER ([facility]) immature granulocyte % 0.4 % 0-3.0 Immature Gran ulocyte % DAFTER ([facility]) baso % 0.8 % 0.0-1.0 Baso % DAFTER ([facility]) mono # 0.6 10 0.0-0.8 [place] # DAFTER ([facility]) lymph # 1.5 10 1.5-5.0 Lymph # DAFTER ([facility]) eos # 0.4 10 0.0-0.5 Eos # NINA ([facility]) neutrophils # 4.8 10 1.5-8.5 Neutrophils # DAFTER ( [facility]) baso # 0.1 10 0.0-0.2 Baso # DAFTER ([facility]) ID Date Data Source [id number] 10/10/2020 11:06:00 AM EST DAFTER ([facility]) Name Value Range Interpretation Code Description Data Ale rce(s) Supporting Document(s) HCV RNA LETTY qualitative positive negative Abnormal (applies to non-numeric results) HCV RNA LETTY Qualitative DAFTER ([facility]) ID Date Data Source [id number] 10/10/2020 11:06:00 AM EST NINA ([facility]) Name Value Range Interpretation Code Description Data Ale rce(s) Supporting Document(s) HIV 1&2 screen centaur negative negative HIV 1&2 Scree n Centaur DAFTER ([facility]) ID Date Data Source [id number] 10/10/2020 11:06:00 AM EST DAFTER ([facility]) Name Value Range Interpretation Code Description Data Ale rce(s) Supporting Document(s) hepatitis C virus roosevelt index > 11.0 <0.8 Above high no rmal Hepatitis C Virus Roosevelt Index DAFTER ([facility]) ID Date Data Source [id number] 10/10/2020 11:06:00 AM EST DAFTER ([facility]) Name Value Range Interpretation Code Description Data Ale rce(s) Supporting Document(s) blood urea nitrogen 7 mg/dL 7-18 Blood Urea Nitro gen DAFTER ([facility]) creatinine for GFR 0.58 mg/dL 0.55-1.30 Creatinine for GF R DAFTER ([facility]) glucose, fasting 88 mg/dL 70-100 Glucose, Fasting AT [facility]) chloride level 106 mEq/L 98-107 Chloride Level NINA ([facility]) sodium level 140 mEq/L 136-145 Sodium Level NINA ([facility]) potassium serum 4.2 mEq/L 3.5-5.1 Potassium Serum ATHE NA ([facility]) glomerular filtration rate > 60.0 >60 Glomerula r Filtration Rate DAFTER ([facility]) calcium level 9.6 mg/dL 8.5-10.1 Calcium Level DAFTER ( [facility]) anion gap 9 mEq/L 8-16 Anion Gap NINA ([facility]) carbon dioxide level 25 mEq/L 21-32 Carbon Dioxide Level NINA ([facility]) AST/SGOT 29 U/L 7-37 AST/SGOT NINA ([facility]) alkaline phosphatase 39 U/L 45-117 Below low normal Alkaline Phosphatase NINA ([facility]) total protein 7.3 gm/dL 6.4-8.2 Total Protein NINA ( [facility]) ALT/SGPT 44 U/L 12-78 ALT/SGPT NINA ([facility]) bilirubin,total 0.4 mg/dL 0.2-1.0 Bilirubin,total ATHE NA ([facility]) albumin 3.9 gm/dL 3.2-5.2 Albumin NINA ([facility]) albumin/globulin ratio 1.2-2.2 Below low normal Albumin /globulin Ratio NINA ([facility]) ID Date Data Source [id number] 10/10/2020 11:06:00 AM EST [facility] ([facility] [...] % 8.0 % 0.0-5.0 Above high normal [place] % DAFTER ([facility]) neutrophils % 64.8 % 36.0-66.0 Neutrophils % NINA ( [facility]) nucleated red blood cell % 0.0 % 0-0 Nucleated Red Blood Cell % NINA ([facility]) baso % 0.8 % 0.0-1.0 Baso % DAFTER ([facility]) immature granulocyte % 0.4 % 0-3.0 Immature Gran ulocyte % DAFTER ([facility]) neutrophils # 4.8 10 1.5-8.5 Neutrophils # DAFTER ( [facility]) lymph # 1.5 10 1.5-5.0 Lymph # NINA ([facility]) mono # 0.6 10 0.0-0.8 [place] # NINA ([facility]) eos # 0.4 10 0.0-0.5 Eos # NINA ([facility]) baso # 0.1 10 0.0-0.2 Baso # NINA ([facility]) ID Date Data Source [id number] 09/11/2020 01:15:00 PM EST DAFTER ([facility]) Name Value Range Interpretation Code Description Data Ale rce(s) Supporting Document(s) blood urea nitrogen 8 mg/dL 7-18 Blood Urea Nitro gen DAFTER ([facility]) glucose, fasting 92 mg/dL 70-100 Glucose, Fasting AT [facility] ([facility]) creatinine for GFR 0.63 mg/dL 0.55-1.30 Creatinine for GF R DAFTER ([facility]) sodium level 137 mEq/L 136-145 Sodium Level DAFTER (No [facility]) potassium serum 4.2 mEq/L 3.5-5.1 Potassium Serum [facility] ID Date Data Source [id number] 09/11/2020 01:15:00 PM EST DAFTER ([facility]) Name Value Range Interpretation Code Description Data Ale rce(s) Supporting Document(s) white blood count 7.9 10 4.0-10.0 White Blood Count NINA ([facility]) red blood count 5.48 10 4.00-5.40 Above high normal Red Blood Cou nt DAFTER ([facility]) mean corpuscular volume [...] g/dL 32.0-36.5 Mean Corpu scular HGB Conc DAFTER ([facility]) red cell distribution width 14.6 % 11.5-14.5 Above high no rmal Red Cell Distribution Width NINA ([facility]) platelet count, automated 258 10 150-450 Platelet C ount, Automated NINA ([facility]) ID Date Data Source [id number] 09/11/2020 01:15:00 PM EST [facility] ([facility] [...] level 26 mEq/L 21-32 Carbon Dioxide Level DAFTER ([facility]) chloride level 106 mEq/L 98-107 Chloride Level NINA ([facility]) sodium level 137 mEq/L 136-145 Sodium Level NINA ([facility]) anion gap 5 mEq/L 8-16 Below low normal Anion Gap NINA ( [facility]) calcium level 9.1 mg/dL 8.5-10.1 Calcium Level DAFTER ( [facility]) ID Date Data Source [id number] 09/11/2020 01:15:00 PM EST NINA [facility] ID Date Data Source [id number] 09/11/2020 01:15:00 PM EST DAFTER ([facility]) Name Value Range Interpretation Code Description Data Ale rce(s) Supporting Document(s) glomerular filtration rate > 60.0 >60 Glomerula r Filtration Rate NINA ([facility]) glucose, fasting 92 mg/dL 70-100 Glucose, Fasting AT [facility] ([facility]) creatinine for GFR [...] 137 mEq/L 136-145 Sodium Level NINA (No [facility]) carbon dioxide level 26 mEq/L 21-32 Carbon Dioxide Level NINA ([facility]) calcium level 9.1 mg/dL 8.5-10.1 Calcium Level NINA ( [facility]) anion gap 5 mEq/L 8-16 Below low normal Anion Gap NINA ( [facility]) ID Date Data Source [id number] 09/11/2020 01:15:00 PM EST DAFTER ([facility]) Name Value Range Interpretation Code Description Data Ale rce(s) Supporting Document(s) hemoglobin 14.3 g/dL 12.0-15.5 Hemoglobin DAFTER ([facility]) red blood count 5.48 10 4.00-5.40 Above high normal Red Blood Cou nt DAFTER ([facility]) white blood count 7.9 10 4.0-10.0 White Blood Count DAFTER ([facility]) mean corpuscular volume 79.9 fL 80.0-96.0 Below low normal Mean Corpuscular Volume DAFTER ([facility]) hematocrit 43.8 % 36.0-47.0 Hematocrit DAFTER ([facility]) mean corpuscular hemoglobin 26.1 pg 27.0-33.0 Below low nor mal Mean Corpuscular Hemoglobin DAFTER ([facility]) nucleated red blood cell % 0.0 % 0-0 Nucleated Red Blood Cell % DAFTER ([facility]) red cell distribution width 14.6 % 11.5-14.5 Above high no rmal Red Cell Distribution Width DAFTER ([facility]) platelet count, automated 258 10 150-450 Platelet C ount, Automated [facility]) mean corpuscular HGB conc 32.6 g/dL 32.0-36.5 Mean Corpu scular HGB Conc DAFTER ([facility]) ID Date Data Source [id number] 09/11/2020 01:15:00 PM EST DAFTER ([facility]) Name Value Range Interpretation Code Description Data Ale rce(s) Supporting Document(s) glucose, fasting 92 mg/dL 70-100 Glucose, Fasting AT [facility] ([facility]) creatinine for GFR 0.63 mg/dL 0.55-1.30 Creatinine for GF R DAFTER ([facility]) blood urea nitrogen 8 mg/dL 7-18 Blood Urea Nitro gen NINA ([facility]) glomerular filtration rate > 60.0 >60 [facility]omerula [facility] chloride level 106 mEq/L 98-107 Chloride Level DAFTER ([facility]) sodium level 137 mEq/L 136-145 Sodium Level NINA ([facility]) carbon dioxide level 26 mEq/L 21-32 Carbon Dioxide Level NINA ([facility]) potassium serum 4.2 mEq/L 3.5-5.1 Potassium Serum ATHE NA ([facility]) anion gap 5 mEq/L 8-16 Below low normal Anion Gap NINA ( [facility]) calcium level 9.1 mg/dL 8.5-10.1 Calcium Level NINA ( [facility]) ID Date Data Source [id number] 09/11/2020 01:15:00 PM EST DAFTER ([facility]) Name Value Range [...] 258 10 150-450 Platelet C ount, [facility]ated [facility] ID Date Data Source [id number] 09/11/2020 01:15:00 PM EST [place] ([facility] [...] 137 mEq/L 136-145 Sodium Level NINA ([facility]) creatinine for GFR 0.63 mg/dL 0.55-1.30 Creatinine for GF R NINA ([facility]) chloride level 106 mEq/L 98-107 Chloride Level DAFTER ([facility]) carbon dioxide level 26 mEq/L 21-32 Carbon Dioxide Level DAFTER ([facility]) potassium serum 4.2 mEq/L 3.5-5.1 Potassium Serum ATH NA ([facility]) anion gap 5 mEq/L 8-16 Below low normal Anion Gap NINA ( [facility]) calcium level 9.1 mg/dL 8.5-10.1 Calcium Level DAFTER ( [facility]) ID Date Data Source [id number] 09/11/2020 01:15:00 PM EST NINA ([facility]) Name Value Range Interpretation Code Description Data Ale rce(s) Supporting Document(s) white blood count 7.9 10 4.0-10.0 White Blood Count DAFTER ([facility]) hematocrit 43.8 % 36.0-47.0 Hematocrit DAFTER ([facility]) hemoglobin 14.3 g/dL 12.0-15.5 Hemoglobin NINA ([facility]) red blood count 5.48 10 4.00-5.40 Above high normal Red Blood Cou nt NINA ([facility]) mean corpuscular hemoglobin 26.1 pg 27.0-33.0 Below low nor mal Mean Corpuscular Hemoglobin DAFTER ([facility]) mean corpuscular volume 79.9 fL 80.0-96.0 Below low normal Mean Corpuscular Volume NINA ([facility]) red cell distribution width 14.6 % 11.5-14.5 Above high no rmal Red Cell Distribution Width DAFTER ([facility]) mean corpuscular HGB conc 32.6 g/dL 32.0-36.5 Mean Corpu scular HGB Conc NINA ([facility]) platelet count, automated 258 10 150-450 Platelet C ount, Automated NINA ([facility]) nucleated red blood cell % 0.0 % 0-0 Nucleated Red Blood Cell % DAFTER ([facility]) ID Date Data Source [id number] 09/11/2020 01:15:00 PM EST [facility]) Name Value Range Interpretation Code Description Data Ale rce(s) Supporting Document(s) blood urea nitrogen 8 mg/dL 7-18 Blood Urea Nitro gen NINA ([facility]) glomerular filtration rate > 60.0 >60 Glomerula r Filtration Rate NINA ([facility]) glucose, fasting 92 mg/dL 70-100 Glucose, Fasting AT [facility]) creatinine for GFR 0.63 mg/dL 0.55-1.30 Creatinine for GF R NINA ([facility]) chloride level 106 mEq/L 98-107 Chloride Level DAFTER ([facility]) potassium serum 4.2 mEq/L 3.5-5.1 Potassium Serum ATHE NA ([facility]) sodium level 137 mEq/L 136-145 Sodium Level NINA (No [facility]) carbon dioxide level 26 mEq/L 21-32 Carbon Dioxide Level DAFTER ([facility]) anion gap 5 mEq/L 8-16 Below low normal Anion Gap NINA ( [facility]) calcium level 9.1 mg/dL 8.5-10.1 Calcium Level DAFTER ( [facility]) ID Date Data Source [id number] 09/11/2020 01:15:00 PM EST [facility]) Name Value Range Interpretation Code Description Data Ale rce(s) Supporting Document(s) hemoglobin 14.3 g/dL 12.0-15.5 Hemoglobin DAFTER ([facility]) red blood count 5.48 10 4.00-5.40 Above high normal Red Blood Cou nt DAFTER ([facility]) white blood count 7.9 10 4.0-10.0 White Blood Count DAFTER ([facility]) mean corpuscular volume 79.9 fL 80.0-96.0 Below low normal Mean Corpuscular Volume DAFTER ([facility]) mean corpuscular hemoglobin 26.1 pg 27.0-33.0 Below low nor mal Mean Corpuscular Hemoglobin DAFTER ([facility]) hematocrit 43.8 % 36.0-47.0 Hematocrit DAFTER ([facility]) mean corpuscular HGB conc 32.6 g/dL 32.0-36.5 Mean Corpu scular HGB Conc DAFTER ([facility]) platelet count, automated 258 10 150-450 Platelet C ount, Automated DAFTER ([facility]) nucleated red blood cell % 0.0 % 0-0 Nucleated Red Blood Cell % DAFTER ([facility]) red cell distribution width 14.6 % 11.5-14.5 Above high no rmal Red Cell Distribution Width DAFTER ([facility]) ID Date Data Source [id number] 09/11/2020 01:15:00 PM EST DAFTER ([facility]) Name Value Range Interpretation Code Description Data Ale rce(s) Supporting Document(s) glucose, fasting 92 mg/dL 70-100 Glucose, Fasting AT [facility] ([facility]) blood urea nitrogen 8 mg/dL 7-18 Blood Urea Nitro gen DAFTER ([facility]) creatinine for GFR 0.63 mg/dL 0.55-1.30 Creatinine for GF R DAFTER ([facility]) chloride level 106 mEq/L 98-107 Chloride Level DAFTER ([facility]) glomerular filtration rate > 60.0 >60 Glomerula r Filtration Rate DAFTER ([facility]) potassium serum 4.2 mEq/L 3.5-5.1 Potassium Serum ATHE NA ([facility]) sodium level 137 mEq/L 136-145 Sodium Level NINA ([facility]) anion gap 5 mEq/L 8-16 Below low normal Anion Gap NINA ( [facility]) calcium level 9.1 mg/dL 8.5-10.1 Calcium Level NINA ( [facility]) carbon dioxide level 26 mEq/L 21-32 Carbon Dioxide Level NINA ([facility]) ID Date Data Source [id number] 09/11/2020 01:15:00 PM EST NINA ([facility] [...] Above high normal Red Blood Cou nt DAFTER ([facility]) hematocrit 43.8 % [facility] ID Date Data Source [id number] 09/11/2020 01:15:00 PM EST NINA ([facility]) Name Value Range Interpretation Code Description Data Ale rce(s) Supporting Document(s) glucose, fasting 92 mg/dL 70-100 Glucose, Fasting AT [facility]) blood urea nitrogen 8 mg/dL 7-18 Blood Urea Nitro gen NINA ([facility]) glomerular filtration rate > 60.0 >60 Glomerula r Filtration Rate DAFTER ([facility]) creatinine for GFR 0.63 mg/dL 0.55-1.30 Creatinine for GF R DAFTER ([facility]) sodium level 137 mEq/L 136-145 Sodium Level DAFTER (No [facility]) anion gap 5 mEq/L 8-16 Below low normal Anion Gap DAFTER ( [facility]) carbon dioxide level 26 mEq/L 21-32 Carbon Dioxide Level DAFTER ([facility]) chloride level 106 mEq/L 98-107 Chloride Level DAFTER ([facility]) calcium level 9.1 mg/dL 8.5-10.1 Calcium Level DAFTER ( [facility]) potassium serum 4.2 mEq/L 3.5-5.1 Potassium Serum ATHE NA ([facility]) ID Date Data Source [id number] 09/11/2020 01:15:00 PM EST DAFTER ([facility]) Name Value Range Interpretation Code Description Data Ale rce(s) Supporting Document(s) white blood count 7.9 10 4.0-10.0 White Blood Count DAFTER ([facility]) hemoglobin 14.3 g/dL 12.0-15.5 Hemoglobin DAFTER ([facility]) red blood count 5.48 10 4.00-5.40 Above high normal Red Blood Cou nt DAFTER ([facility]) hematocrit 43.8 % [...] high no rmal Red Cell Distribution Width DAFTER ([facility]) mean corpuscular HGB conc 32.6 g/dL 32.0-36.5 Mean Corpu scular HGB Conc DAFTER ([facility]) nucleated red blood cell % 0.0 % 0-0 Nucleated Red Blood Cell % DAFTER ([facility]) platelet count, automated 258 10 150-450 Platelet C ount, Automated [facility] ID Date Data Source [id number] 09/11/2020 01:15:00 PM EST DAFTER ([facility]) Name Value Range Interpretation Code Description Data Ale rce(s) Supporting Document(s) glucose, fasting 92 mg/dL 70-100 Glucose, Fasting AT [facility]) blood urea nitrogen 8 mg/dL 7-18 Blood Urea Nitro gen NINA ([facility]) glomerular filtration rate > 60.0 >60 Glomerula r Filtration Rate DAFTER ([facility]) sodium level 137 mEq/L 136-145 Sodium Level DAFTER (No [facility]) creatinine for GFR 0.63 mg/dL 0.55-1.30 Creatinine for GF R DAFTER ([facility]) carbon dioxide level 26 mEq/L 21-32 Carbon Dioxide Level [facility]) calcium level 9.1 mg/dL 8.5-10.1 Calcium Level NINA ( [facility]) chloride level 106 mEq/L 98-107 Chloride Level DAFTER ([facility]) anion gap 5 mEq/L 8-16 Below low normal Anion Gap NINA ( [facility]) potassium serum 4.2 mEq/L 3.5-5.1 Potassium Serum ATH NA [facility]) ID Date Data Source [id number] 09/11/2020 01:15:00 PM EST [facility]) Name Value Range Interpretation Code Description Data Ale rce(s) Supporting Document(s) red blood count 5.48 10 4.00-5.40 Above high normal Red Blood Cou nt NINA ([facility]) white blood count 7.9 10 4.0-10.0 White Blood Count DAFTER ([facility]) hemoglobin 14.3 g/dL 12.0-15.5 Hemoglobin NINA ([facility]) mean corpuscular hemoglobin 26.1 pg 27.0-33.0 Below low nor mal Mean Corpuscular Hemoglobin NINA ([facility]) mean corpuscular volume 79.9 fL 80.0-96.0 Below low normal Mean Corpuscular Volume DAFTER ([facility]) hematocrit 43.8 % 36.0-47.0 Hematocrit DAFTER ([facility]) platelet count, automated 258 10 150-450 Platelet C ount, Automated DAFTER ([facility]) nucleated red blood cell % 0.0 % 0-0 Nucleated Red Blood Cell % DAFTER ([facility]) red cell distribution width 14.6 % 11.5-14.5 Above high no rmal Red Cell Distribution Width DAFTER ([facility]) mean corpuscular HGB conc 32.6 g/dL 32.0-36.5 Mean Corpu scular HGB Conc DAFTER ([facility]) ID Date Data Source [id number] 09/11/2020 01:15:00 PM EST DAFTER ([facility]) Name Value Range Interpretation Code Description Data Ale rce(s) Supporting Document(s) blood urea nitrogen 8 mg/dL 7-18 Blood Urea Nitro gen NINA ([facility]) glucose, fasting 92 mg/dL 70-100 Glucose, Fasting AT [facility] ([facility]) creatinine for GFR 0.63 mg/dL 0.55-1.30 Creatinine for GF R DAFTER ([facility]) glomerular filtration rate > 60.0 >60 Glomerula r Filtration Rate NINA ([facility]) sodium level 137 mEq/L 136-145 Sodium Level NINA (No [facility]) potassium serum 4.2 mEq/L 3.5-5.1 Potassium Serum [facility] ID Date Data Source [id number] 09/11/2020 01:15:00 PM EST [facility] ID Date Data Source [id number] 09/11/2020 01:15:00 PM EST NINA ([facility]) Name Value Range Interpretation Code Description Data Ale rce(s) Supporting Document(s) blood urea nitrogen 8 mg/dL 7-18 Blood Urea Nitro gen NINA ([facility]) glucose, fasting 92 mg/dL 70-100 Gl[facility], [facility] creatinine for GFR 0.63 mg/dL 0.55-1.30 Creatinine for GF R NINA ([facility]) potassium serum 4.2 mEq/L 3.5-5.1 Potassium Serum ATH NA ([facility]) chloride level 106 mEq/L 98-107 Chloride Level DAFTER ([facility]) carbon dioxide level 26 mEq/L 21-32 Carbon Dioxide Level DAFTER ([facility]) glomerular filtration rate > 60.0 >60 Glomerula r Filtration Rate NINA ([facility]) sodium level 137 mEq/L 136-145 Sodium Level NINA ([facility]) anion gap 5 mEq/L 8-16 Below low normal Anion Gap NINA ( [facility]) calcium level 9.1 mg/dL 8.5-10.1 Calcium Level DAFTER ( [facility]) ID Date Data Source [id number] 09/11/2020 01:15:00 PM EST DAFTER ([facility]) Name Value Range Interpretation Code Description Data Ale rce(s) Supporting Document(s) hemoglobin 14.3 g/dL 12.0-15.5 Hemoglobin NINA ([facility]) red blood count 5.48 10 4.00-5.40 Above high normal Red Blood Cou nt NINA ([facility]) hematocrit 43.8 % 36.0-47.0 Hematocrit DAFTER ([facility]) white blood count 7.9 10 4.0-10.0 White Blood Count [facility]) mean corpuscular volume 79.9 fL 80.0-96.0 Below low normal Mean Corpuscular Volume NINA ([facility]) red cell distribution width 14.6 % 11.5-14.5 Above high no rmal Red Cell [facility] mean corpuscular HGB conc 32.6 g/dL [...] 07/25/2020 12:00:00 AM EST eCW1 ([facility]) Name Value Range Interpretation Code Description Data Ale rce(s) Supporting Document(s) 240 . HEPATITIS C QUANTITATION eCW1 ([facility]) 2.380 . Hepatitis C log10 eCW1 ([facility]) ID Date Data Source LIVER PROFILE 07/25/2020 12:00:00 AM EST eCW1 ([facility]) Name Value Range Interpretation Code Description Data Ale rce(s) Supporting Document(s) 13 7-37 AST/SGOT eCW1 ([facility]) 0.6 0.2-1.0 BILIRUBIN,TOTAL eCW1 ([facility]) 25 12-78 ALT/SGPT eCW1 ([facility]) 0.2 0.0-0.2 BILIRUBIN,DIRECT eCW1 ([facility]) 51 45-117 ALKALINE PHOSPHATASE eCW1 ([facility]) 4.0 3.2-5.2 ALBUMIN eCW1 ([facility]) 1.1 1.2-2.2 ALBUMIN/GLOBULIN RATIO eCW1 ([facility]) 7.7 6.4-8.2 TOTAL PROTEIN eCW1 ([facility]) ID Date Data Source [id number] 06/19/2020 02:17:19 PM EDT [facility] Measurements & CalculationsHeight: 66.50 inches 168.91 [...] Hypertension ()Social/Personal History:lives with boyfriend Born in [facility]. Not employed. Highest education level: high school [...] during this visit, including review of any [id number] medications, herbal therapies, and/or supplements.Allergy ReviewAllergy List [...] health is? FairAssessment & Plan Problems:Assessed:Other acne ([id number]) Assessment: Instructions: Pt reported to nurse, no change to skin symtpoms. All creams have been reportedly denied by insurance, we will call pharmacy to verify.Follicular disorder, unspecified (BGL31-Z07.9) Assessment: Instructions: As above.Patient Instructions/Care Plan: Other [...] 5Allergies:* LATEX (Critical)HYDROCODONE (Severe)* SEASONAL (Mild)Orders:Nurse Visit [[id number]] Follow-Up Return to clinic: as needed Clinical Visit Summary DeclinedElec richard signed by Naveen REYES on 06/19/2020 at 2:39 PM Name Value Range Interpretation Code Description Data Ale rce(s) Supporting Document(s) Procedure Social History Code Duration Value Status Description Data Source(s ) Smoking 04/22/2021 12:00:00 AM EDT Current Smoker completed Curre nt Smoker eCW1 ([facility]) Smoking 04/01/2021 12:00:00 AM EDT Current Smoker completed Curre nt Smoker eCW1 ([facility]) Smoking 03/03/2021 12:00:00 AM EDT Current Smoker completed Curre nt Smoker eCW1 ([facility]) Smoking 03/03/2021 12:00:00 AM EDT Current Smoker completed Curre nt Smoker eCW1 ([facility]) Smoking 01/24/2021 12:00:00 AM EDT Current Smoker completed Curre nt Smoker eCW1 ([facility]) Smoking 12/19/2020 12:00:00 AM EDT Current Smoker completed Curre nt Smoker eCW1 ([facility]) Smoking 12/19/2020 12:00:00 AM EDT Current Smoker completed Curre nt Smoker eCW1 ([facility]) Smoking 07/25/2020 12:00:00 AM EST Current Smoker completed Curre nt Smoker eCW1 ([facility]) Smoking 07/25/2020 12:00:00 AM EST Current Smoker completed Curre nt Smoker eCW1 ([facility]) Vital Signs ID Date Data Source [id number] Name Value Range Interpretation Code Description Data Source(s) Body mass index (BMI) [Ratio] 31.951 kg/m2 31.9 51 kg/m2 eCW1 ([facility]) Systolic blood pressure 132 mm[Hg] 132 mm[Hg] e CW1 ([facility]) Diastolic blood pressure 78 mm[Hg] 78 mm[Hg] eCW1 ([facility]) Body weight 204 [lb_av] 204 [lb_av] eCW1 ([facility]) Body height 67 [in_i] 67 [in_i] eCW1 ([facility]) Body weight 204.2 [lb_av] 204.2 [lb_av] eCW1 ([facility]) Body weight 92.62 kg 92.62 kg eCW1 ([facility]) Body height 67 [in_i] 67 [in_i] eCW1 ([facility]) Body mass index (BMI) [Ratio] 31.982 kg/m2 31.9 82 kg/m2 eCW1 ([facility]) Systolic blood pressure 128 mm[Hg] 128 mm[Hg] e CW1 ([facility]) Diastolic blood pressure 78 mm[Hg] 78 mm[Hg] eCW1 ([facility]) Body weight 200.6 [lb_av] 200.6 [lb_av] eCW1 ([facility]) Body weight 90.99 kg 90.99 kg eCW1 ([facility]) Body height 67 [in_i] 67 [in_i] eCW1 ([facility]) Body mass index (BMI) [Ratio] 31.418 kg/m2 31.4 18 kg/m2 eCW1 ([facility]) Systolic blood pressure 140 mm[Hg] 140 mm[Hg] e CW1 ([facility]) Diastolic blood pressure 80 mm[Hg] 80 mm[Hg] eCW1 ([facility]) Body weight 198.6 [lb_av] 198.6 [lb_av] eCW1 ([facility]) Body height 67 [in_i] 67 [in_i] eCW1 ([facility]) Body mass index (BMI) [Ratio] 31.105 kg/m2 31.1 05 kg/m2 eCW1 ([facility]) Systolic blood pressure 134 mm[Hg] 134 mm[Hg] e CW1 ([facility]) Diastolic blood pressure 84 mm[Hg] 84 mm[Hg] eCW1 ([facility]) Diastolic blood pressure 74 mm[Hg] 74 mm[Hg] NINA ([facility]) Body height 66.5 [in_i] 66.5 [in_i] NINA ([facility]) Body mass index (BMI) [Ratio] 31 kg/m2 31 kg/ m2 NINA ([facility]) Systolic blood pressure 121 mm[Hg] 121 mm[Hg] A THENA ([facility]) Body weight 3122 [oz_av] 3122 [oz_av] NINA ([facility]) Diastolic blood pressure 74 mm[Hg] 74 mm[Hg] NINA ([facility]) Body height 66.5 [in_i] 66.5 [in_i] NINA ([facility]) Body mass index (BMI) [Ratio] 31 kg/m2 31 kg/ m2 NINA ([facility]) Systolic blood pressure 121 mm[Hg] 121 mm[Hg] A THENA ([facility]) Body weight 3122 [oz_av] 3122 [oz_av] NINA ([facility]) Diastolic blood pressure 74 mm[Hg] 74 mm[Hg] NINA ([facility]) Body height 66.5 [in_i] 66.5 [in_i] NINA ([facility]) Body mass index (BMI) [Ratio] 31 kg/m2 31 kg/ m2 NINA ([facility]) Systolic blood pressure 121 mm[Hg] 121 mm[Hg] A THENA ([facility]) Body weight 3122 [oz_av] 3122 [oz_av] NINA ([facility]) Diastolic blood pressure 74 mm[Hg] 74 mm[Hg] NINA ([facility]) Body height 66.5 [in_i] 66.5 [in_i] NINA ([facility]) Body mass index (BMI) [Ratio] 31 kg/m2 31 kg/ m2 NINA ([facility]) Systolic blood pressure 121 mm[Hg] 121 mm[Hg] A THENA ([facility]) Body weight 3122 [oz_av] 3122 [oz_av] NINA ([facility]) Diastolic blood pressure 82 mm[Hg] 82 mm[Hg] eCW1 ([facility]) Systolic blood pressure 124 mm[Hg] 124 mm[Hg] e CW1 ([facility]) Body weight 188 [lb_av] 188 [lb_av] eCW1 ([facility]) Body height 67 [in_i] 67 [in_i] eCW1 ([facility]) Body mass index (BMI) [Ratio] 29.445 kg/m2 29.4 45 kg/m2 eC1 ([facility]) Body height 66.5 [in_i] 66.5 [in_i] NINA ([facility]) Body height 66.5 [in_i] 66.5 [in_i] NINA ([facility]) Body height 66.5 [in_i] 66.5 [in_i] NINA ([facility]) Body height 66.5 [in_i] 66.5 [in_i] NINA ([facility]) Body height 66.5 [in_i] 66.5 [in_i] NINA ([facility]) Body height 66.5 [in_i] 66.5 [in_i] NINA ([facility]) Body height 66.5 [in_i] 66.5 [in_i] NINA ([facility]) Diastolic blood pressure 71 mm[Hg] 71 mm[Hg] NINA ([facility]) Body height 66.5 [in_i] 66.5 [in_i] NINA ([facility]) Body mass index (BMI) [Ratio] 29.8 kg/m2 29.8 k g/m2 NINA ([facility]) Systolic blood pressure 114 mm[Hg] 114 mm[Hg] [facility] Body weight 3000 [oz_av] 3000 [oz_av] NINA ([facility]) Diastolic blood pressure 71 mm[Hg] 71 mm[Hg] NINA ([facility]) Body mass index (BMI) [Ratio] 29.8 kg/m2 29.8 k g/m2 NINA ([facility]) Systolic blood pressure 114 mm[Hg] 114 mm[Hg] A THENA ([facility]) Body height 66.5 [in_i] 66.5 [in_i] NINA ([facility]) Body weight 3000 [oz_av] 3000 [oz_av] NINA ([facility]) Diastolic blood pressure 71 mm[Hg] 71 mm[Hg] NINA ([facility]) Body height 66.5 [in_i] 66.5 [in_i] NINA ([facility]) Body mass index (BMI) [Ratio] 29.8 kg/m2 29.8 k g/m2 NINA ([facility]) Systolic blood pressure 114 mm[Hg] 114 mm[Hg] A THENA ([facility]) Body weight 3000 [oz_av] 3000 [oz_av] NINA ([facility]) Diastolic blood pressure 71 mm[Hg] 71 mm[Hg] NINA ([facility]) Body height 66.5 [in_i] 66.5 [in_i] NINA ([facility]) Body mass index (BMI) [Ratio] 29.8 kg/m2 29.8 k g/m2 NINA ([facility]) Systolic blood pressure 114 mm[Hg] 114 mm[Hg] A THENA ([facility]) Body weight 3000 [oz_av] 3000 [oz_av] NINA ([facility]) Diastolic blood pressure 71 mm[Hg] 71 mm[Hg] NINA ([facility]) Body height 66.5 [in_i] 66.5 [in_i] NINA ([facility]) Body mass index (BMI) [Ratio] 29.8 kg/m2 29.8 k g/m2 NINA ([facility]) Systolic blood pressure 114 mm[Hg] 114 mm[Hg] A THENA ([facility]) Body weight 3000 [oz_av] 3000 [oz_av] NINA ([facility]) Diastolic blood pressure 71 mm[Hg] 71 mm[Hg] NINA ([facility]) Body height 66.5 [in_i] 66.5 [in_i] NINA ([facility]) Body mass index (BMI) [Ratio] 29.8 kg/m2 29.8 k g/m2 NINA ([facility]) Systolic blood pressure 114 mm[Hg] 114 mm[Hg] A THENA ([facility]) Body weight 3000 [oz_av] 3000 [oz_av] NINA ([facility]) Diastolic blood pressure 71 mm[Hg] 71 mm[Hg] NINA ([facility]) Body height 66.5 [in_i] 66.5 [in_i] NINA ([facility]) Body mass index (BMI) [Ratio] 29.8 kg/m2 29.8 k g/m2 NINA ([facility]) Systolic blood pressure 114 mm[Hg] 114 mm[Hg] A THENA ([facility]) Body weight 3000 [oz_av] 3000 [oz_av] NINA ([facility]) Diastolic blood pressure 71 mm[Hg] 71 mm[Hg] NINA ([facility]) Body height 66.5 [in_i] 66.5 [in_i] NINA ([facility]) Body mass index (BMI) [Ratio] 29.8 kg/m2 29.8 k g/m2 NINA ([facility]) Systolic blood pressure 114 mm[Hg] 114 mm[Hg] A THENA ([facility]) Body weight 3000 [oz_av] 3000 [oz_av] NINA ([facility]) Diastolic blood pressure 71 mm[Hg] 71 mm[Hg] NINA ([facility]) Body height 66.5 [in_i] 66.5 [in_i] NINA ([facility]) Body mass index (BMI) [Ratio] 29.8 kg/m2 29.8 k g/m2 NINA ([facility]) Systolic blood pressure 114 mm[Hg] 114 mm[Hg] A THENA ([facility]) Body weight 3000 [oz_av] 3000 [oz_av] NINA ([facility]) Diastolic blood pressure 74 mm[Hg] 74 mm[Hg] NIAN ([facility]) Body height 66.5 [in_i] 66.5 [in_i] NINA ([facility]) Body mass index (BMI) [Ratio] 28.7 kg/m2 28.7 k g/m2 NINA ([facility]) Body height 66.5 [in_i] 66.5 [in_i] NINA ([facility]) Systolic blood pressure 128 mm[Hg] 128 mm[Hg] A THENA ([facility]) Body weight 2886 [oz_av] 2886 [oz_av] NINA ([facility]) Body mass index (BMI) [Ratio] 28.7 kg/m2 28.7 k g/m2 NINA ([facility]) Body weight 2886 [oz_av] 2886 [oz_av] NINA ([facility]) Systolic blood pressure 128 mm[Hg] 128 mm[Hg] A THENA ([facility]) Diastolic blood pressure 74 mm[Hg] 74 mm[Hg] NINA ([facility]) Diastolic blood pressure 74 mm[Hg] 74 mm[Hg] NINA ([facility]) Body height 66.5 [in_i] 66.5 [in_i] NINA ([facility]) Body mass index (BMI) [Ratio] 28.7 kg/m2 28.7 k g/m2 NINA ([facility]) Systolic blood pressure 128 mm[Hg] 128 mm[Hg] A THENA ([facility]) Body weight 2886 [oz_av] 2886 [oz_av] NINA ([facility]) Diastolic blood pressure 74 mm[Hg] 74 mm[Hg] NINA ([facility]) Body height 66.5 [in_i] 66.5 [in_i] NINA ([facility]) Body mass index (BMI) [Ratio] 28.7 kg/m2 28.7 k g/m2 NINA ([facility]) Systolic blood pressure 128 mm[Hg] 128 mm[Hg] A THENA ([facility]) Body weight 2886 [oz_av] 2886 [oz_av] NINA ([facility]) Diastolic blood pressure 74 mm[Hg] 74 mm[Hg] NINA ([facility]) Body height 66.5 [in_i] 66.5 [in_i] NINA ([facility]) Body mass index (BMI) [Ratio] 28.7 kg/m2 28.7 k g/m2 NINA ([facility]) Systolic blood pressure 128 mm[Hg] 128 mm[Hg] A THENA ([facility]) Body weight 2886 [oz_av] 2886 [oz_av] NINA ([facility]) Diastolic blood pressure 74 mm[Hg] 74 mm[Hg] NINA ([facility]) Body height 66.5 [in_i] 66.5 [in_i] NINA ([facility]) Body mass index (BMI) [Ratio] 28.7 kg/m2 28.7 k g/m2 NINA ([facility]) Systolic blood pressure 128 mm[Hg] 128 mm[Hg] [facility] Body weight 2886 [oz_av] 2886 [oz_av] NINA ([facility]) Systolic blood pressure 128 mm[Hg] 128 mm[Hg] A THENA ([facility]) Diastolic blood pressure 74 mm[Hg] 74 mm[Hg] NINA ([facility]) Body height 66.5 [in_i] 66.5 [in_i] NINA ([facility]) Body mass index (BMI) [Ratio] 28.7 kg/m2 28.7 k g/m2 NINA ([facility]) Body weight 2886 [oz_av] 2886 [oz_av] NINA ([facility]) Diastolic blood pressure 74 mm[Hg] 74 mm[Hg] NINA ([facility]) Body height 66.5 [in_i] 66.5 [in_i] NINA ([facility]) Body mass index (BMI) [Ratio] 28.7 kg/m2 28.7 k g/m2 NINA ([facility]) Systolic blood pressure 128 mm[Hg] 128 mm[Hg] A THENA ([facility]) Body weight 2886 [oz_av] 2886 [oz_av] NINA ([facility]) Body height 66.5 [in_i] 66.5 [in_i] NINA ([facility]) Body mass index (BMI) [Ratio] 28.7 kg/m2 28.7 k g/m2 NINA ([facility]) Systolic blood pressure 128 mm[Hg] 128 mm[Hg] A THENA ([facility]) Diastolic blood pressure 74 mm[Hg] 74 mm[Hg] NINA ([facility]) Body weight 2886 [oz_av] 2886 [oz_av] NINA ([facility]) Diastolic blood pressure 74 mm[Hg] 74 mm[Hg] NINA ([facility]) Body height 66.5 [in_i] 66.5 [in_i] NINA ([facility]) Body mass index (BMI) [Ratio] 28.7 kg/m2 28.7 k g/m2 NINA ([facility]) Systolic blood pressure 128 mm[Hg] 128 mm[Hg] A THENA ([facility]) Body weight 2886 [oz_av] 2886 [oz_av] NINA ([facility]) Diastolic blood pressure 74 mm[Hg] 74 mm[Hg] NINA ([facility]) Body height 66.5 [in_i] 66.5 [in_i] NINA ([facility]) Body mass index (BMI) [Ratio] 28.7 kg/m2 28.7 k g/m2 NINA ([facility]) Systolic blood pressure 128 mm[Hg] 128 mm[Hg] A THENA ([facility]) Body weight 2886 [oz_av] 2886 [oz_av] NINA ([facility]) Diastolic blood pressure 74 mm[Hg] 74 mm[Hg] NINA ([facility]) Body height 66.5 [in_i] 66.5 [in_i] NINA ([facility]) Body mass index (BMI) [Ratio] 28.7 kg/m2 28.7 k g/m2 NINA ([facility]) Systolic blood pressure 128 mm[Hg] 128 mm[Hg] A THENA ([facility]) Body weight 2886 [oz_av] 2886 [oz_av] NINA ([facility]) Body weight 171 [lb_av] 171 [lb_av] eCW1 ([facility]) Body height 67 [in_i] 67 [in_i] eCW1 ([facility]) Body mass index (BMI) [Ratio] 26.78 kg/m2 26.78 kg/m2 W1 ([facility]) Heart rate 127 /min 127 /min eCW1 ([facility]) Respiratory rate 18 /min 18 /min eCW1 ([facility]) Body temperature 97.5 [degF] 97.5 [degF] eCW1 ( [facility]) Systolic blood pressure 132 mm[Hg] 132 mm[Hg] e CW1 ([facility]) Diastolic blood pressure 70 mm[Hg] 70 mm[Hg] eCW1 ([facility]) Body mass index (BMI) [Ratio] 27.13 kg/m2 27.13 kg/m2 NINA ([facility]) Systolic blood pressure 134 mm[Hg] 134 mm[Hg] A THENA ([facility]) Diastolic blood pressure 72 mm[Hg] 72 mm[Hg] NINA ([facility]) Body weight 2720 [oz_av] 2720 [oz_av] NINA ([facility]) Body height 66.5 [in_i] 66.5 [in_i] NINA ([facility]) Systolic blood pressure 134 mm[Hg] 134 mm[Hg] A THENA ([facility]) Body weight 2720 [oz_av] 2720 [oz_av] NINA ([facility]) Diastolic blood pressure 72 mm[Hg] 72 mm[Hg] NINA ([facility]) Body height 66.5 [in_i] 66.5 [in_i] NINA ([facility]) Body mass index (BMI) [Ratio] 27.13 kg/m2 27.13 kg/m2 NINA ([facility]) Diastolic blood pressure 72 mm[Hg] 72 mm[Hg] NINA ([facility]) Body height 66.5 [in_i] 66.5 [in_i] NINA ([facility]) Body mass index (BMI) [Ratio] 27.13 kg/m2 27.13 kg/m2 NINA ([facility]) Systolic blood pressure 134 mm[Hg] 134 mm[Hg] A THENA ([facility]) Body weight 2720 [oz_av] 2720 [oz_av] NINA ([facility]) Diastolic blood pressure 72 mm[Hg] 72 mm[Hg] NINA ([facility]) Body height 66.5 [in_i] 66.5 [in_i] NINA ([facility]) Body mass index (BMI) [Ratio] 27.13 kg/m2 27.13 kg/m2 NINA ([facility]) Systolic blood pressure 134 mm[Hg] 134 mm[Hg] A THENA ([facility]) Body weight 2720 [oz_av] 2720 [oz_av] NINA ([facility]) Diastolic blood pressure 72 mm[Hg] 72 mm[Hg] NINA ([facility]) Body height 66.5 [in_i] 66.5 [in_i] NINA ([facility]) Body mass index (BMI) [Ratio] 27.13 kg/m2 27.13 kg/m2 NINA ([facility]) Systolic blood pressure 134 mm[Hg] 134 mm[Hg] [facility] Body weight 2720 [oz_av] 2720 [oz_av] NINA ([facility]) Body mass index (BMI) [Ratio] 27.13 kg/m2 27.13 kg/m2 NINA ([facility]) Diastolic blood pressure 72 mm[Hg] 72 mm[Hg] NINA ([facility]) Body height 66.5 [in_i] 66.5 [in_i] NINA ([facility]) Systolic blood pressure 134 mm[Hg] 134 mm[Hg] A THENA ([facility]) Body weight 2720 [oz_av] 2720 [oz_av] NINA ([facility]) Diastolic blood pressure 72 mm[Hg] 72 mm[Hg] NINA ([facility]) Body height 66.5 [in_i] 66.5 [in_i] NINA ([facility]) Body mass index (BMI) [Ratio] 27.13 kg/m2 27.13 kg/m2 NINA ([facility]) Systolic blood pressure 134 mm[Hg] 134 mm[Hg] A THENA ([facility]) Body weight 2720 [oz_av] 2720 [oz_av] NINA ([facility]) Systolic blood pressure 128 mm[Hg] 128 mm[Hg] A THENA ([facility]) Body weight 2745.6 [oz_av] 2745.6 [oz_av] ATHEN A ([facility]) Diastolic blood pressure 78 mm[Hg] 78 mm[Hg] NINA ([facility]) Body height 66.5 [in_i] 66.5 [in_i] NINA ([facility]) Body mass index (BMI) [Ratio] 27.38 kg/m2 27.38 kg/m2 NINA ([facility]) Diastolic blood pressure 78 mm[Hg] 78 mm[Hg] NINA ([facility]) Body height 66.5 [in_i] 66.5 [in_i] NINA ([facility]) Body mass index (BMI) [Ratio] 27.38 kg/m2 27.38 kg/m2 NINA ([facility]) Systolic blood pressure 128 mm[Hg] 128 mm[Hg] A THENA ([facility]) Body weight 2745.6 [oz_av] 2745.6 [oz_av] ATHEN A ([facility]) Diastolic blood pressure 78 mm[Hg] 78 mm[Hg] NINA ([facility]) Body height 66.5 [in_i] 66.5 [in_i] NINA ([facility]) Body mass index (BMI) [Ratio] 27.38 kg/m2 27.38 kg/m2 NINA ([facility]) Systolic blood pressure 128 mm[Hg] 128 mm[Hg] A THENA ([facility]) Body weight 2745.6 [oz_av] 2745.6 [oz_av] ATHEN A ([facility]) Diastolic blood pressure 78 mm[Hg] 78 mm[Hg] NINA ([facility]) Body height 66.5 [in_i] 66.5 [in_i] NINA ([facility]) Body mass index (BMI) [Ratio] 27.38 kg/m2 27.38 kg/m2 NINA ([facility]) Systolic blood pressure 128 mm[Hg] 128 mm[Hg] A THENA ([facility]) Body weight 2745.6 [oz_av] 2745.6 [oz_av] ATHEN A ([facility]) Diastolic blood pressure 78 mm[Hg] 78 mm[Hg] NINA ([facility]) Body height 66.5 [in_i] 66.5 [in_i] NINA ([facility]) Body mass index (BMI) [Ratio] 27.38 kg/m2 27.38 kg/m2 NINA ([facility]) Systolic blood pressure 128 mm[Hg] 128 mm[Hg] A MARK ([facility]) Body weight 2745.6 [oz_av] 2745.6 [oz_av] ATHEN A ([facility]) Diastolic blood pressure 78 mm[Hg] 78 mm[Hg] NINA ([facility]) Body height 66.5 [in_i] 66.5 [in_i] NINA ([facility]) Body mass index (BMI) [Ratio] 27.38 kg/m2 27.38 kg/m2 NINA ([facility]) Systolic blood pressure 128 mm[Hg] 128 mm[Hg] A MARK ([facility]) Body weight 2745.6 [oz_av] 2745.6 [oz_av] ATHEN A ([facility]) Body height 66.5 [in_i] 66.5 [in_i] NINA ([facility]) Diastolic blood pressure 78 mm[Hg] 78 mm[Hg] NINA ([facility]) Body mass index (BMI) [Ratio] 27.38 kg/m2 27.38 kg/m2 NINA ([facility]) Systolic blood pressure 128 mm[Hg] 128 mm[Hg] A MARK ([facility]) Body weight 2745.6 [oz_av] 2745.6 [oz_av] ATHEN A ([facility] [facility] Patient Treatment Plan [...]
== END 2021-07-22 05:49 | disposition left against medical advice (07) ==
LOC: M ED 21:25
DX: Z53.21 Procedure and treatment not carried out due to patient leaving prior to being seen by health care provider (principal)

== ENCOUNTER → 2022-02-16 | Outpatient (CLI) | payer OTHER ==
[~2022-02-16] MED LIST changes: -LATU80TA PO; +LATU80TA2 PO; +OMEP-173 PO; -OMEP-218 PO
[2022-02-16 14:27] LABS: BASO # 0.1 10^3/uL (0.0-0.2); BASO % 1.3 % (0.0-1.0); EOS # 0.6 10^3/uL (0.0-0.5); EOS % 9.2 % (0.0-3.0); HEMATOCRIT 44.2 % (36.0-47.0); HEMOGLOBIN 14.4 g/dl (12.0-15.5); LYMPH # 2.4 10^3/uL (1.5-5.0); LYMPH % 34.8 % (24.0-44.0); MEAN CORPUSCULAR HEMOGLOBIN 26.8 pg (27.0-33.0); MEAN CORPUSCULAR HGB CONC 32.6 g/dl (32.0-36.5); MEAN CORPUSCULAR VOLUME 82.2 fl (80.0-96.0); MONO # 0.6 10^3/uL (0.0-0.8); MONO % 8.3 % (2.0-8.0); NEUTROPHILS # 3.1 10^3/uL (1.5-8.5); NEUTROPHILS % 46.1 % (36.0-66.0); PLATELET COUNT, AUTOMATED 251 10^3/uL (150-450); RED BLOOD COUNT 5.38 10^6/uL (4.00-5.40); WHITE BLOOD COUNT 6.8 10^3/uL (4.0-10.0)
[2022-02-16 15:05] LABS: ALBUMIN 3.9 GM/DL (3.2-5.2); ALT/SGPT 111 U/L (12-78); BILIRUBIN,TOTAL 0.4 MG/DL (0.2-1.0); BLOOD UREA NITROGEN 11 MG/DL (7-18); CALCIUM LEVEL 9.6 MG/DL (8.5-10.1); CARBON DIOXIDE LEVEL 29 MEQ/L (21-32); CHLORIDE LEVEL 109 MEQ/L (98-107); FREE T4 0.98 NG/DL (0.76-1.46); GLOMERULAR FILTRATION RATE > 60.0 (>60); GLUCOSE, FASTING 78 MG/DL (70-100); POTASSIUM SERUM 4.3 MEQ/L (3.5-5.1); SODIUM LEVEL 143 MEQ/L (136-145); TOTAL PROTEIN 7.7 GM/DL (6.4-8.2)
[2022-02-16 15:35] LABS: HEMOGLOBIN A1c 4.7 %
[2022-02-16 15:59] LABS: HEPATITIS C VIRUS ABY INDEX > 11.0 INDEX (<0.8)
== END ==
LOC: M PLALAB 11:09
PROVIDERS: ATTEND Physician Assistant
DX: B18.2 Chronic viral hepatitis C (principal)

== ENCOUNTER 2022-07-12 14:00 | Emergency (ER) | payer MEDICAID, OTHER ==
[~2022-07-12] VITALS: Ht 170.2 cm; Wt 82.6 kg
[2022-07-12] MEDS ORDERED: BENZ200C70 (14:09)
[2022-07-12] MEDS ORDERED: AZEL1SPR3 (14:09)
[2022-07-12] MEDS ORDERED: IBUP80TA (14:09)
[2022-07-12] MEDS ORDERED: KETO10TAB PO (18:43)
[2022-07-12 18:50] VITALS: BP 126/73
== END 2022-07-12 18:51 | disposition home or self-care (01) ==
LOC: M ED 14:00
DX: S86.212A Strain of muscle(s) and tendon(s) of anterior muscle group at lower leg level, left leg, initial encounter (principal); F17.200 Nicotine dependence, unspecified, uncomplicated; Z88.5 Allergy status to narcotic agent; Z91.040 Latex allergy status; Z79.899 Other long term (current) drug therapy

== ENCOUNTER → 2023-01-07 | Outpatient (CLI) | payer MEDICAID ==
[~2023-01-07] MED LIST changes: +AZEL1SPR3; +BENZ200C70; +IBUP80TA
== END ==
LOC: M PLAIMG 15:38
PROVIDERS: ATTEND Physician Assistant
DX: M25.511 Pain in right shoulder (principal); M79.641 Pain in right hand; M79.631 Pain in right forearm

== ENCOUNTER → 2023-01-22 | Outpatient (CLI) | payer MEDICAID, OTHER ==
[2023-01-22 11:07] LABS: HEMATOCRIT 41.5 % (36.0-47.0); HEMOGLOBIN 13.1 g/dl (12.0-15.5); MEAN CORPUSCULAR HEMOGLOBIN 24.1 pg (27.0-33.0); MEAN CORPUSCULAR HGB CONC 31.6 g/dl (32.0-36.5); MEAN CORPUSCULAR VOLUME 76.4 fl (80.0-96.0); PLATELET COUNT, AUTOMATED 227 10^3/uL (150-450); RED BLOOD COUNT 5.43 10^6/uL (4.00-5.40); WHITE BLOOD COUNT 7.3 10^3/uL (4.0-10.0)
[2023-01-22 11:39] LABS: ALBUMIN 3.7 G/DL (3.2-5.2); ALKALINE PHOSPHATASE 32 U/L (46-116); ALT/SGPT 30 U/L (7.0-40); AST/SGOT 39 U/L (<34); BILIRUBIN,TOTAL 0.5 MG/DL (0.3-1.2); BLOOD UREA NITROGEN 11 MG/DL (9-23); CALCIUM LEVEL 8.9 MG/DL (8.5-10.1); CARBON DIOXIDE LEVEL 26 MMOL/L (20-31); CHLORIDE LEVEL 107 MMOL/L (98-107); GLOMERULAR FILTRATION RATE > 60.0 (>60); GLUCOSE, FASTING 93 MG/DL (60-100); POTASSIUM SERUM 4.7 MMOL/L (3.5-5.1); SODIUM LEVEL 140 MMOL/L (136-145); TOTAL PROTEIN 6.9 G/DL (5.7-8.2)
[2023-01-22 11:44] LABS: FREE T4 0.88 NG/DL (0.89-1.76); THYROID STIMULATING HORMONE 0.802 uIU/ML (0.55-4.78)
== END ==
LOC: M PLALAB 08:40
PROVIDERS: ATTEND Physician Assistant
DX: M25.561 Pain in right knee (principal); R21 Rash and other nonspecific skin eruption

== ENCOUNTER → 2023-02-19 | Outpatient (CLI) | payer MEDICAID, OTHER | LOC: M PLALAB 09:14 | PROVIDERS: ATTEND Physician Assistant | DX: B18.2 Chronic viral hepatitis C (principal) ==

== ENCOUNTER → 2023-03-01 | Outpatient (CLI) | payer OTHER ==
[2023-03-01 15:33] LABS: GC DNA AMPLIFICATION NEGATIVE (NEGATIVE)
[2023-03-02 22:33] LABS: HEPATITIS B SURFACE ANTIGEN NEGATIVE (NEGATIVE)
[2023-03-02 22:46] LABS: HIV 1&2 SCREEN NEGATIVE (NEGATIVE)
[2023-03-02 22:54] LABS: HEPATITIS B CORE ANTIBODY IGM NEGATIVE (NEGATIVE)
== END ==
LOC: M PLALAB 09:32
PROVIDERS: ATTEND Nurse Practitioner Family
DX: Z11.3 Encounter for screening for infections with a predominantly sexual mode of transmission (principal); Z12.4 Encounter for screening for malignant neoplasm of cervix; Z01.419 Encounter for gynecological examination (general) (routine) without abnormal findings; Z77.9 Other contact with and (suspected) exposures hazardous to health

== ENCOUNTER → 2023-03-19 | Outpatient (CLI) | payer OTHER | LOC: M WHC 10:03 | PROVIDERS: ATTEND Nurse Practitioner Family | DX: N92.1 Excessive and frequent menstruation with irregular cycle (principal) ==

== ENCOUNTER → 2023-07-27 | Outpatient (CLI) | payer OTHER ==
[~2023-07-27] MED LIST changes: -GABA-283; +GABA-284
[2023-07-27 12:09] LABS: CHLAMYDIA DNA AMPLIFICATION NEGATIVE (NEGATIVE); GC DNA AMPLIFICATION NEGATIVE (NEGATIVE)
[2023-07-27 14:01] LABS: HIV 1&2 SCREEN NEGATIVE (NEGATIVE)
[2023-07-27 14:10] LABS: HEPATITIS B CORE ANTIBODY IGM NEGATIVE (NEGATIVE)
[2023-07-27 15:21] LABS: HEPATITIS C VIRUS ABY INDEX > 11.00 INDEX (<0.8)
== END ==
LOC: M PLALAB 08:51
PROVIDERS: ATTEND Nurse Practitioner Family
DX: Z11.3 Encounter for screening for infections with a predominantly sexual mode of transmission (principal)

== ENCOUNTER 2023-08-12 11:08 | Emergency (ER) | payer OTHER ==
[~2023-08-12] VITALS: Ht 170.2 cm; Wt 95.7 kg
[2023-08-12 11:10] VITALS: BP 129/75; TEMP 98.1; O2SAT 98
[2023-08-12] MEDS ORDERED: NIRM1TAB6 PO (11:27)
[2023-08-12] MEDS ORDERED: IPRATROPIUM 0.5MG/ALBUTEROL 2.5MG INH SOL UD 3ML (DUONEB) NEB ONE (12:50)
[2023-08-12] MEDS ORDERED: ONDANSETRON 4MG ORAL DISINTEGRATING TAB PO ONE (12:50)
[2023-08-12] MEDS ORDERED: IBUPROFEN 600MG TAB PO ONE (12:50)
[2023-08-12] MEDS ORDERED: ONDA4TAB6 PO (13:43)
== END 2023-08-12 14:00 | disposition home or self-care (01) ==
LOC: M ED 11:08
DX: U07.1 COVID-19 (principal); J45.909 Unspecified asthma, uncomplicated; K21.9 Gastro-esophageal reflux disease without esophagitis; Z86.19 Personal history of other infectious and parasitic diseases; F20.9 Schizophrenia, unspecified; F31.9 Bipolar disorder, unspecified; F41.9 Anxiety disorder, unspecified; F32.A Depression, unspecified; F17.290 Nicotine dependence, other tobacco product, uncomplicated

== ENCOUNTER 2023-10-27 09:02 | Day surgery (SDC) | payer OTHER ==
[~2023-10-27] VITALS: Ht 167.6 cm; Wt 99.2 kg
[~2023-10-27 09:02] MED LIST changes: +ABIL1INJ2 IM; +ALBU8.5H INH; +FAMO20TA5 PO; +L-NO1TBD6 PO; +MONT10TA97 PO; +NIRM1TAB6 PO; +ONDA4TAB6 PO; +SOFO1TAB PO; +SPIR50TA4 PO
[2023-10-27] MEDS ORDERED: LIDOCAINE 2% 100MG/5ML SDV (FOR ANES.) As Ordered ONE (10:23)
[2023-10-27] MEDS ORDERED: fentaNYL 100 MCG/2 ML INJECTION As Ordered ONE (10:23)
[2023-10-27] MEDS ORDERED: propofoL 200 MG/20 ML VIAL As Ordered ONE (10:23)
[2023-10-27] MEDS ORDERED: MIDAZOLAM INJ 2MG/2ML VIAL As Ordered ONE (10:24)
[2023-10-27 10:26] LABS: HEMATOCRIT 39.4 % (36.0-47.0); HEMOGLOBIN 13.2 g/dl (12.0-15.5); MEAN CORPUSCULAR HEMOGLOBIN 24.4 pg (27.0-33.0); MEAN CORPUSCULAR HGB CONC 33.5 g/dl (32.0-36.5); PLATELET COUNT, AUTOMATED 237 10^3/uL (150-450); WHITE BLOOD COUNT 5.5 10^3/uL (4.0-10.0)
[2023-10-27] MEDS ORDERED: LR 1,000 ML IV SCH (10:35)
[2023-10-27] MEDS: ceFAZolin SOD 2 GM in IV 1 EA IV ONE (11:10)
[2023-10-27] MEDS ORDERED: ONDANSETRON 4MG 2ML VIAL As Ordered ONE (11:14)
[2023-10-27] MEDS: LIDOCAINE 1% MDV 20ML VIAL As Ordered ONE (11:15)
[2023-10-27] MEDS ORDERED: ACETAMINOPHEN 1000MG 100ML IV BAG As Ordered ONE (11:16)
[2023-10-27 11:47] VITALS: BP 121/62; TEMP 97.3; O2SAT 96
== END 2023-10-27 12:32 | disposition home or self-care (01) ==
LOC: M SDC 09:02
PROVIDERS: ATTEND Podiatrist Foot & Ankle Surgery
DX: T84.84XA Pain due to internal orthopedic prosthetic devices, implants and grafts, initial encounter (principal); Y79.2 Prosthetic and other implants, materials and accessory orthopedic devices associated with adverse incidents; L72.0 Epidermal cyst; M77.51 Other enthesopathy of right foot and ankle; F43.10 Post-traumatic stress disorder, unspecified; J30.89 Other allergic rhinitis; Z88.5 Allergy status to narcotic agent; Z91.040 Latex allergy status; Z79.899 Other long term (current) drug therapy; F17.290 Nicotine dependence, other tobacco product, uncomplicated
CPT/HCPCS: 20680; 28104; 28288; 36415; 81025; 85027; 88300; 88305; J0131; J0665; J0690; J1100; J2250; J2405; J3010

== ENCOUNTER → 2023-11-23 | Outpatient (CLI) | payer OTHER | LOC: M PLALAB 08:02 | PROVIDERS: ATTEND Internal Medicine Infectious Disease | DX: B18.2 Chronic viral hepatitis C (principal) ==

== ENCOUNTER → 2023-11-25 | Outpatient (CLI) | payer OTHER ==
[2023-11-25 14:37] LABS: BASO % 0.2 % (0.0-1.0); EOS # 0.9 10^3/uL (0.0-0.5); EOS % 14.3 % (0.0-3.0); HEMATOCRIT 42.5 % (36.0-47.0); LYMPH # 1.5 10^3/uL (1.5-5.0); LYMPH % 24.3 % (24.0-44.0); MEAN CORPUSCULAR HEMOGLOBIN 25.2 pg (27.0-33.0); MEAN CORPUSCULAR HGB CONC 32.9 g/dl (32.0-36.5); MEAN CORPUSCULAR VOLUME 76.4 fl (80.0-96.0); MONO # 0.4 10^3/uL (0.0-0.8); MONO % 6.8 % (2.0-8.0); NEUTROPHILS # 3.2 10^3/uL (1.5-8.5); NEUTROPHILS % 53.6 % (36.0-66.0); PLATELET COUNT, AUTOMATED 214 10^3/uL (150-450); RED BLOOD COUNT 5.56 10^6/uL (4.00-5.40)
[2023-11-25 14:58] LABS: HEMOGLOBIN A1c 4.7 % (4.0-6.0)
[2023-11-25 15:08] LABS: ALBUMIN 3.4 G/DL (3.2-5.2); ALKALINE PHOSPHATASE 38 U/L (46-116); ALT/SGPT 55 U/L (7.0-40); AST/SGOT 17 U/L (<34); BILIRUBIN,TOTAL 0.5 MG/DL (0.3-1.2); BLOOD UREA NITROGEN 10 MG/DL (9-23); CALCIUM LEVEL 8.6 MG/DL (8.5-10.1); CARBON DIOXIDE LEVEL 25 MMOL/L (20-31); CHLORIDE LEVEL 108 MMOL/L (98-107); CHOLESTEROL LEVEL 119 MG/DL (<200); CHOLESTEROL RISK RATIO 3.77 (<5); CREATININE FOR GFR 0.66 MG/DL (0.55-1.30); GLOMERULAR FILTRATION RATE > 60.0 (>60); GLUCOSE, FASTING 72 MG/DL (60-100); HDL CHOLESTEROL 31.5 MG/DL (>40); LDL CHOLESTEROL 69.5 MG/DL (<100); NON-HDL-C 87.5 MG/DL; SODIUM LEVEL 139 MMOL/L (136-145); TOTAL PROTEIN 7.1 G/DL (5.7-8.2); TRIGLYCERIDES LEVEL 90 MG/DL (<150)
[2023-11-25 15:09] LABS: TOTAL 25(OH) VITAMIN D 23.5 NG/ML (20.0-100.0)
== END ==
LOC: M PLALAB 11:21
PROVIDERS: ATTEND Physician Assistant
DX: F33.41 Major depressive disorder, recurrent, in partial remission (principal); J02.9 Acute pharyngitis, unspecified

== ENCOUNTER → 2023-12-13 | Outpatient (REF) | payer OTHER | LOC: M SFHCWAGY 12:40 | PROVIDERS: ATTEND Nurse Practitioner Family | DX: N73.9 Female pelvic inflammatory disease, unspecified (principal) ==

== ENCOUNTER 2023-12-15 03:22 | Emergency (ER) | payer OTHER ==
[~2023-12-15] VITALS: Ht 167.6 cm; Wt 100.9 kg
[2023-12-15 03:22] VITALS: BP 132/63; TEMP 96.8; O2SAT 96
== END 2023-12-15 06:12 | disposition left against medical advice (07) ==
LOC: M ED 03:22
DX: Z53.21 Procedure and treatment not carried out due to patient leaving prior to being seen by health care provider (principal)

== ENCOUNTER → 2024-03-08 | Outpatient (REF) | payer MEDICAID, OTHER ==
[~2024-03-08] MED LIST changes: +DOXY-323 PO; -DOXY-443 PO; +ONDA-282 PO; -ONDA4TAB6 PO
== END ==
LOC: M PLAIMG 14:06
PROVIDERS: ATTEND Internal Medicine
DX: M25.571 Pain in right ankle and joints of right foot (principal)

== ENCOUNTER 2024-06-07 06:48 | Day surgery (SDC) | payer OTHER ==
[~2024-06-07] VITALS: Ht 170.2 cm; Wt 92.7 kg
[2024-06-07] MEDS ORDERED: ceFAZolin SOD 2 GM in IV 1 EA IV ONE (07:00)
[2024-06-07] MEDS: LR 1,000 ML IV SCH (07:41)
[2024-06-07] MEDS ORDERED: LIDOCAINE 1% SDV 30ML VIAL As Ordered ONE (08:20)
[2024-06-07] MEDS ORDERED: ACETAMINOPHEN 1000MG 100ML IV BAG As Ordered ONE (08:25)
[2024-06-07] MEDS ORDERED: dexmedeTOMIDine (4MCG/ML)200MCG/50ML BTL (PRECEDEX) As Ordered ONE (08:25)
[2024-06-07] MEDS ORDERED: propofoL 200 MG/20 ML VIAL As Ordered ONE (08:25)
[2024-06-07] MEDS ORDERED: fentaNYL 100 MCG/2 ML INJECTION As Ordered ONE (08:25)
[2024-06-07] MEDS ORDERED: ONDANSETRON 4MG 2ML VIAL As Ordered ONE (08:25)
[2024-06-07] MEDS ORDERED: KETOROLAC 60MG 2ML VIAL As Ordered ONE (08:25)
[2024-06-07] MEDS ORDERED: LIDOCAINE 2% 100MG/5ML SDV (FOR ANES.) As Ordered ONE (08:25)
[2024-06-07] MEDS ORDERED: MIDAZOLAM INJ 2MG/2ML VIAL As Ordered ONE (08:26)
[2024-06-07 09:39] VITALS: BP 124/58; TEMP 98; O2SAT 100
[2024-06-07] MEDS ORDERED: IBUP-1022 PO (12:57)
== END 2024-06-07 09:57 | disposition home or self-care (01) ==
LOC: M SDC 06:48
PROVIDERS: ATTEND Podiatrist Foot & Ankle Surgery
DX: M20.42 Other hammer toe(s) (acquired), left foot (principal); M79.675 Pain in left toe(s); J45.909 Unspecified asthma, uncomplicated; F20.9 Schizophrenia, unspecified; F31.9 Bipolar disorder, unspecified; F17.210 Nicotine dependence, cigarettes, uncomplicated; Z79.899 Other long term (current) drug therapy; Z88.5 Allergy status to narcotic agent; Z91.040 Latex allergy status; Z86.19 Personal history of other infectious and parasitic diseases
CPT/HCPCS: 28820; 81025; 88300; J0131; J0665; J1100; J1885; J2250; J2405; J3010

== ENCOUNTER → 2024-07-10 | Outpatient (CLI) | payer OTHER ==
[~2024-07-10] MED LIST changes: -DOXY-323 PO; +DOXY-441 PO; +IBUP-1022 PO
[2024-07-10 10:32] LABS: BASO % 0.2 % (0.0-1.0); EOS # 0.1 10^3/uL (0.0-0.5); EOS % 1.2 % (0.0-3.0); HEMATOCRIT 42.3 % (36.0-47.0); HEMOGLOBIN 14.6 g/dl (12.0-15.5); LYMPH # 2.1 10^3/uL (1.5-5.0); LYMPH % 41.9 % (24.0-44.0); MEAN CORPUSCULAR HEMOGLOBIN 27.4 pg (27.0-33.0); MEAN CORPUSCULAR HGB CONC 34.5 g/dl (32.0-36.5); MEAN CORPUSCULAR VOLUME 79.4 fl (80.0-96.0); MONO # 0.6 10^3/uL (0.0-0.8); MONO % 10.9 % (2.0-8.0); NEUTROPHILS # 2.3 10^3/uL (1.5-8.5); NEUTROPHILS % 45.6 % (36.0-66.0); PLATELET COUNT, AUTOMATED 247 10^3/uL (150-450); RED BLOOD COUNT 5.33 10^6/uL (4.00-5.40); WHITE BLOOD COUNT 5.1 10^3/uL (4.0-10.0)
[2024-07-10 10:38] LABS: ALBUMIN 3.8 G/DL (3.2-5.2); ALKALINE PHOSPHATASE 52 U/L (35-104); ALT/SGPT < 9 U/L (7.0-40); AST/SGOT < 8 U/L (<34); BILIRUBIN,TOTAL 0.5 MG/DL (0.3-1.2); BLOOD UREA NITROGEN 8 MG/DL (9-23); CALCIUM LEVEL 9.7 MG/DL (8.5-10.1); CARBON DIOXIDE LEVEL 27 MMOL/L (20-31); CHLORIDE LEVEL 111 MMOL/L (98-107); CREATININE FOR GFR 0.76 MG/DL (0.55-1.30); GLOMERULAR FILTRATION RATE > 60.0 (>60); GLUCOSE, FASTING 89 MG/DL (60-100); POTASSIUM SERUM 4.1 MMOL/L (3.5-5.1); SODIUM LEVEL 141 MMOL/L (136-145); TOTAL PROTEIN 7.7 G/DL (5.7-8.2)
[2024-07-10 11:07] LABS: HIV 1&2 SCREEN NEGATIVE (NEGATIVE)
[2024-07-12 16:46] LABS: QuantiFERON-TB Gold Plus NEGATIVE (NEGATIVE)
[2024-07-13 08:18] LABS: HCV RNA QUANTITATION <15 NOT DETECTED IU/mL (NOT DETECTED); HCV RNA log10 <1.18 NOT DETECTED Log IU/mL (NOT DETECTED)
== END ==
LOC: M LAB 08:39
PROVIDERS: ATTEND Nurse Practitioner Family
DX: L73.2 Hidradenitis suppurativa (principal)

== ENCOUNTER → 2024-10-27 | Outpatient (CLI) | payer MEDICAID, OTHER ==
[2024-10-27 14:06] LABS: HEMATOCRIT 36.6 % (36.0-47.0); HEMOGLOBIN 12.6 g/dl (12.0-15.5); MEAN CORPUSCULAR HEMOGLOBIN 27.3 pg (27.0-33.0); MEAN CORPUSCULAR HGB CONC 34.4 g/dl (32.0-36.5); MEAN CORPUSCULAR VOLUME 79.2 fl (80.0-96.0); PLATELET COUNT, AUTOMATED 208 10^3/uL (150-450); RED BLOOD COUNT 4.62 10^6/uL (4.00-5.40); WHITE BLOOD COUNT 6.9 10^3/uL (4.0-10.0)
[2024-10-27 15:07] LABS: HIV 1&2 SCREEN NEGATIVE (NEGATIVE)
[2024-10-28 11:40] LABS: Trichomonas vaginalis (AMP) NOT DETECTED (NEGATIVE)
[2024-10-28 12:04] LABS: GC DNA AMPLIFICATION NEGATIVE (NEGATIVE)
[2024-10-29 13:32] LABS: HCV RNA QUANTITATION <15 NOT DETECTED IU/mL (NOT DETECTED); HCV RNA log10 <1.18 NOT DETECTED Log IU/mL (NOT DETECTED)
== END ==
LOC: M PLALAB 11:38
PROVIDERS: ATTEND Nurse Practitioner Family
DX: Z34.81 Encounter for supervision of other normal pregnancy, first trimester (principal)

== ENCOUNTER → 2024-11-24 | Outpatient (REF) | payer MEDICAID, OTHER ==
[2024-11-24 14:04] LABS: APPEARANCE, URINE HAZY (CLEAR); BACTERIA, URINE AUTO NEGATIVE (NEGATIVE); BILIRUBIN, URINE AUTO NEGATIVE (NEGATIVE); BLOOD, URINE BLOOD NEGATIVE (NEGATIVE); COLOR, URINE YELLOW (YELLOW); GLUCOSE, URINE (UA) AUTO NEGATIVE (NEGATIVE); KETONE, URINE AUTO NEGATIVE (NEGATIVE); LEUKOCYTE ESTERASE, URINE AUTO NEGATIVE (NEGATIVE); MUCUS, URINE SMALL (NEGATIVE); NITRITE, URINE AUTO NEGATIVE (NEGATIVE); PROTEIN, URINE AUTO NEGATIVE (NEGATIVE); RBC, URINE AUTO 0 /HPF (0-3); SPECIFIC GRAVITY URINE AUTO 1.015 (1.002-1.035); SQUAMOUS EPITHELIAL CELL UR AU 7 /HPF (0-6); UROBILINOGEN, URINE AUTO 0.2 mg/dL (0.0-2.0); WBC, URINE AUTO 2 /HPF (0-3)
== END ==
LOC: M SFHCWAGY 12:51
PROVIDERS: ATTEND Nurse Practitioner Family
DX: R30.0 Dysuria (principal)

== ENCOUNTER → 2024-12-15 | Outpatient (CLI) | payer OTHER | LOC: M WHC 09:49 | PROVIDERS: ATTEND Nurse Practitioner Family | DX: Z34.80 Encounter for supervision of other normal pregnancy, unspecified trimester (principal) ==